=== PATIENT | female | born 1970 | race Hispanic/Latino ===

== ENCOUNTER 2018-02-03 11:45 | Emergency (ER) | payer OTHER ==
[2018-02-03] MEDS ORDERED: HYDROCODONE/APAP 10/325 TAB ONE (14:07)
--- NOTE | 2018-02-03 14:09 | ER ---
Nurse's Notes [facility] Name: Doreen Allison Age: 47 yrs Sex: Female : 1970 Arrival Date: 02/03/2018 Time: 11:48 Bed 26 Private MD: El Keller Diagnosis: Pain in right foot Presentation: 02/03 11:55 Presenting complaint: Patient states: Redness and swelling to pin site on right foot aj that started today. Patient also reports headache and rapid heart rate. Transition of care: patient was not received from another setting of care. Onset of symptoms was February 03, 2018. Care prior to arrival: None. 11:55 Method Of Arrival: Wheelchair aj 11:55 Acuity: LARRY 3 aj 14:42 Initial Sepsis Screen: Does the patient meet any 2 criteria? No. Patient's initial kr2 sepsis screen is negative. Does the patient have a suspected source of infection? No. Patient's initial sepsis screen is negative. Triage Assessment: 11:56 General: Appears in no apparent distress. comfortable, Behavior is calm, cooperative, aj appropriate for age. Pain: Complains of pain in right foot Pain currently is 10 out of 10 on a pain scale. Neuro: Level of Consciousness is awake, alert, obeys commands, Oriented to person, place, time, situation, Appropriate for age. Cardiovascular: Capillary refill Patient's skin is warm and dry. Respiratory: Airway is patent Respiratory effort is even, unlabored, Respiratory pattern is regular, symmetrical. Derm: Skin is intact, is healthy with good turgor, Skin is pink, warm \T\ dry. normal. Derm: Reports increased pain. 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 - Social history:: Smoking status: Patient/guardian denies using tobacco. Screenin:15 Abuse screen: Denies threats or abuse. Denies injuries from another. Nutritional kr2 screening: No deficits noted. Tuberculosis screening: No symptoms or risk factors identified. Fall Risk Gait- Impaired (20 pts.). Assessment: 13:15 General: Appears in no apparent distress. comfortable, well groomed, well developed, kr2 well nourished, Behavior is calm, cooperative. Pain: Complains of pain in right foot Pain currently is 7 out of 10 on a pain scale. Quality of pain is described as aching, Pain began last night Is continuous, Alleviated by nothing. Neuro: Level of Consciousness is awake, alert, obeys commands, Oriented to person, place, time, situation, Appropriate for age Intact. Cardiovascular: Heart tones S1 S2 Capillary refill < 3 seconds in bilateral fingers Patient's skin is warm and dry. Respiratory: Airway is patent Respiratory effort is even, unlabored, Respiratory pattern is regular, symmetrical. GI: Abdomen is flat, non-distended. : No signs and/or symptoms were reported regarding the genitourinary system. EENT: Oral mucosa is moist. Derm: Skin is healthy with good turgor, Skin is pink, warm \T\ dry. Musculoskeletal: Circulation, motion, and sensation intact. Patient has an external fixation device to right lower leg in place since August. She keeps it covered with an kaim wrap. Toes pink, palpable pedal pulses. Vital Signs: 11:56 BP 126 / 98; Pulse 108; Resp 20; Temp 99.6; Pulse Ox 97% on R/A; Weight 74.84 kg; aj Height 5 ft. 1 in. (154.94 cm); Pain 10/10; 14:43 BP 124 / 96; Pulse 100; Resp 15; Pulse Ox 99% on R/A; kr2 11:56 Body Mass Index 31.18 (74.84 kg, 154.94 cm) aj ED Course: 11:48 Patient arrived in ED. mr 11:48 El Keller DO is Private Physician. mr 11:56 Triage completed. aj 11:56 Arm band placed on left wrist. Patient placed in waiting room. aj 13:11 Minnie Gomez, BARBI is Primary Nurse. kr2 13:14 Precious Aguirre FNP-C is PHCP. kb 13:14 Nilesh Hdez MD is Attending Physician. kb 13:15 Patient has correct armband on for positive identification. Call light in reach. kr2 patient requested to stay in wheelchair. Pulse ox on. NIBP on. Door closed. Warm blanket given. 14:43 No provider procedures requiring assistance completed. Patient did not have IV access kr2 during this emergency room visit. Administered Medications: 14:10 Drug: [place] 10 mg-325 mg 1 tabs Route: PO; kr2 14:40 Follow up: Response: No adverse reaction kr2 Outcome: 14:09 Discharge ordered by MD. mckenna 14:43 Discharged to home via wheelchair, with family. kr2 14:43 Condition: good 14:43 Discharge instructions given to patient, Instructed on discharge instructions, follow up and referral plans. Demonstrated understanding of instructions, follow-up care. 14:43 Patient left the ED. kr2 Signatures: Precious Aguirre, BRIM BLOCKER-C BRIM BLOCKER-Pao Cueva RN RN aj Rivera, Maria mr Reaves, Karey, RN RN kr2
--- NOTE | 2018-02-03 14:09 | EDPHYS ---
Physician Documentation [facility] Name: Doreen Allison Age: 47 yrs Sex: Female : 1970 Arrival Date: 02/03/2018 Time: 11:48 Bed 26 Private MD: El Keller ED Physician Nilesh Hdez HPI: 02/03 13:46 This 47 yrs old Female presents to ER via Wheelchair with complaints of Foot kb Pain. 14:01 The patient presents with pain, that is acute, swelling. The complaints affect the kb right rose, anterior aspect of right ankle and dorsum of right foot. Context: The problem was sustained at home, resulted from a chronic condition, the patient is not able to bear weight, uses crutches, Problem is a result from a previous injury: pt has external fixation device in place from surgery done on 09/05/17. Onset: The symptoms/episode began/occurred today. Modifying factors: The symptoms are alleviated by hydrocodone, the symptoms are aggravated by nothing. Associated signs and symptoms: Pertinent positives: swelling, Pertinent negatives calf tenderness, fever, nausea, numbness, rash, tingling, vomiting, weakness. Treatment prior to arrival includes: prescription medications, hydrocodone. Severity of symptoms: At their worst the symptoms were moderate, in the emergency department the symptoms have improved. The patient has not experienced similar symptoms in the past. The patient has not recently seen a physician. Pt states she woke up with pain to RLE at 0130. States she only has a few hydrocodone left from her surgery so she wanted to come in to get some more. States her follow up visit with ortho keeps getting changed due to scheduling conflicts between her , surgeon and herself. States she thought one of the pin sites looked red and swollen this morning as well. Has home health that comes once a week, otherwise she cleans the surgical sites daily. Denies fever. States when she had the pain this morning she felt hot and like her heart was racing, but did not have a fever. States those symptoms went away. Called her ortho's office in [place] today and is awaiting a call back. 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 - Social history:: Smoking status: Patient/guardian denies using tobacco. ROS: 13:38 Constitutional: Negative for fever, chills, and weight loss, ENT: Negative for injury, kb pain, and discharge, Neck: Negative for injury, pain, and swelling, Respiratory: Negative for shortness of breath, cough, wheezing, and pleuritic chest pain, Abdomen/GI: Negative for abdominal pain, nausea, vomiting, diarrhea, and constipation, Back: Negative for injury and pain, : Negative for injury, bleeding, discharge, and swelling, MS/Extremity: Negative for injury and deformity, Neuro: Negative for headache, weakness, numbness, tingling, and seizure. 13:38 Skin: Positive for erythema, swelling, of the right foot. 13:43 MS/extremity: Positive for pain, of the right foot. kb Exam: 13:38 Constitutional: This is a well developed, well nourished patient who is awake, alert, kb and in no acute distress. Head/Face: Normocephalic, atraumatic. Chest/axilla: Normal chest wall appearance and motion. Nontender with no deformity. No lesions are appreciated. Cardiovascular: Regular rate and rhythm with a normal S1 and S2. No gallops, murmurs, or rubs. Normal PMI, no JVD. No pulse deficits. Respiratory: Lungs have equal breath sounds bilaterally, clear to auscultation and percussion. No rales, rhonchi or wheezes noted. No increased work of breathing, no retractions or nasal flaring. Abdomen/GI: Soft, non-tender, with normal bowel sounds. No distension or tympany. No guarding or rebound. No evidence of tenderness throughout. Neuro: Awake and alert, GCS 15, oriented to person, place, time, and situation. Cranial nerves II-XII grossly intact. Motor strength 5/5 in all extremities. Sensory grossly intact. Cerebellar exam normal. Normal gait. 13:38 Musculoskeletal/extremity: external fixation device to right lower extremity. No redness or swelling to pin sites. . Vital Signs: 11:56 BP 126 / 98; Pulse 108; Resp 20; Temp 99.6; Pulse Ox 97% on R/A; Weight 74.84 kg; aj Height 5 ft. 1 in. (154.94 cm); Pain 10/10; 14:43 BP 124 / 96; Pulse 100; Resp 15; Pulse Ox 99% on R/A; kr2 11:56 Body Mass Index 31.18 (74.84 kg, 154.94 cm) aj MDM: 13:14 Patient medically screened. kb 13:44 Data reviewed: vital signs, nurses notes. Data interpreted: Pulse oximetry: on room air kb is 97 %. Interpretation: normal. Counseling: I had a detailed discussion with the patient and/or guardian regarding: the historical points, exam findings, and any diagnostic results supporting the discharge/admit diagnosis, the need for outpatient follow up, a orthopedic surgeon, to return to the emergency department if symptoms worsen or persist or if there are any questions or concerns that arise at home. ED course: After evaluation, pt states the skin that she thought was swollen and red this morning looks normal now. States she hadn't looked at it since this morning. Educated to keep cleaning sites as she has been and get in touch with her orthopedic surgeon for follow up.. 14:08 ED course: Pt refused EKG. States she has a history of anxiety and knows that was what kb caused the symptoms this morning. "I got worked up.". Administered Medications: 14:10 Drug: [place] 10 mg-325 mg 1 tabs Route: PO; kr2 14:40 Follow up: Response: No adverse reaction kr2 Disposition: 02/03/18 14:09 Discharged to Home. Impression: Pain in right foot. - Condition is Stable. - Discharge Instructions: Musculoskeletal Pain. - Medication Reconciliation Form, Thank You Letter, Antibiotic Education, Prescription Opioid Use form. - Follow up: Emergency Department; When: As needed; Reason: Worsening of condition. Follow up: Private Physician; When: 2 - 3 days; Reason: Recheck today's complaints, Continuance of care, Re-evaluation by your physician. Addendum: 02/06/2018 08:47 Co-signature as Attending Physician, Nilesh Hdez MD I agree with the assessment and c hill plan of care. Signatures: Precious Aguirre, RIVAS-C RIVAS-Ckb Ingram, Pao, RN RN aj Lemuel, Nilesh, MD MD herman Patricia, Minnie, RN RN kr2 Corrections: (The following items were deleted from the chart) 02/03 13:44 13:38 Skin: Positive for erythema, swelling, of the right foot, kb kb 14:09 14:08 ED course: Pt refused EKG. . kb kb 14:24 13:34 EKG - Nurse/Tech ordered. kb kr2 14:43 14:09 02/03/2018 14:09 Discharged to Home. Impression: Pain in right foot. Condition is kr2 Stable. Forms are Medication Reconciliation Form, Thank You Letter, Antibiotic Education, Prescription Opioid Use. Follow up: Emergency Department; When: As needed; Reason: Worsening of condition. Follow up: Private Physician; When: 2 - 3 days; Reason: Recheck today's complaints, Continuance of care, Re-evaluation by your physician. kb
== END 2018-02-03 14:43 | disposition home or self-care (01) ==
LOC: ER 11:45
DX: M79.671 Pain in right foot (principal); F43.10 Post-traumatic stress disorder, unspecified; Z90.12 Acquired absence of left breast and nipple
CPT/HCPCS: 99283

== ENCOUNTER 2018-02-16 11:01 | Emergency (ER) | payer OTHER ==
--- OUTSIDE RECORDS SUMMARY | 2018-02-16 11:03 | XMS REPORT ---
:1970 Author Organization e[employer] Care Team Providers Name Role Phone El Keller Provider Role Unavailable Allergies No Known Allergies Problems Problem Type Condition Code Onset Dates Condition Status Problem Benign essential HTN I10 Active Problem Abnormal liver function test R94.5 Active Problem Asthma without status asthmaticus J45.909 Active or acute exacerbation Problem Anemia D64.9 Active Problem Thrombocytopenia D69.6 Active Problem Vitamin D deficiency E55.9 Active Problem Major depressive disorder, single F32.2 Active episode, severe without psychotic features Problem Alcoholic fatty liver K70.0 Active Problem Depression with anxiety F41.8 Active Problem Alcohol use, unspecified with F10.988 Active other alcohol-induced disorder Assessment Thrombocytopenia D69.6 Active Assessment Vitamin D deficiency E55.9 Active Assessment Anemia D64.9 Active Assessment Depression with anxiety F41.8 Active Assessment Closed fracture of right lower S82.91XS Active extremity, sequela Assessment Benign essential HTN I10 Active Assessment Alcoholic fatty liver K70.0 Active Assessment Major depressive disorder, single F32.2 Active episode, severe without psychotic features Medications Medication Code Code Instructions Start End Status Dosage System Date Date Trazodone HCl [facility] 13462350070 50 MG Orally Inactive 1 tablet Once a day at bedtime as needed Ferrous Sulfate [facility] 58101903130 325 (65 Fe) MG Active 1 tablet Orally Once a day Flonase ND 45690353131 50 MCG/ACT Active 1 spray in Nasally Once a each day nostril Vitamin B1 [facility] 04727775437 100 MG Orally March Active 1 tablet Once a day 2017 Protonix [facility] 30019904793 40 Orally Once Active TAKE ONE a day TABLET BY MOUTH DAILY Lisinopril ND 54097017859 10 MG Orally Active 1 tablet Once a day Diltiazem HCl [facility] 75044454626 60 MG Orally Active 1 tablet Two times a day before meals and at bedtime Topiramate ND 33971820843 50 MG Orally Active 1 tablet Twice a day ProAir HFA [facility] 77592176454 108 (90 Base) Active 2 puffs as MCG/ACT needed Inhalation every 6 hrs Advair Diskus [facility] 89625341402 100-50 MCG/DOSE Active 1 puff Inhalation Twice a day Folic Acid [facility] 71662244241 1 MG Orally March Active 1 tablet Once a day 2017 Wellbutrin XL [facility] 03723595803 300 MG Orally Active 1 tablet Once a day in the morning Mirtazapine [facility] 22986966543 15 MG Orally Active 1 tablet Once a day at bedtime Results No Known Results Summary Purpose eClinicalWorks Submission
[2018-02-16] MEDS ORDERED: HYDROCODONE/APAP 7.5/325 MG TAB ONE (11:14)
--- NOTE | 2018-02-16 13:00 | RAD REPORT ---
EXAM DESCRIPTION: RAD - Pelvis - 02/16/2018 12:12 pm CLINICAL HISTORY: Fall, pelvic and hip pain COMPARISON: None. TECHNIQUE: AP imaging of the pelvis was obtained. FINDINGS: No fracture of the bony pelvis identified. SI joint degenerative changes are present, rela tively mild. No fracture or dislocation of either proximal femur. No AVN or focal femoral head abnorm ality. No hip joint effusion or periarticular abnormality. IMPRESSION: No pelvis or proximal femur fracture.
--- NOTE | 2018-02-16 13:02 | RAD REPORT ---
EXAM DESCRIPTION: RAD - Femur Right - 02/16/2018 12:11 pm CLINICAL HISTORY: Fall, leg pain multiple AP and cross-table lateral views of the femur were obtaine d. COMPARISON: None. FINDINGS: No fracture, dislocation or periosteal reaction noted. No AVN or focal femoral head abnorm ality. No joint effusion is identifiable. No acute bone findings seen. No air or foreign body in the soft tissues. Degenerative changes at the hip in the OR minimal. Partially imaged external fixator at the proximal tibia. IMPRESSION: No fracture or acute femur finding.
--- NOTE | 2018-02-16 13:13 | RAD REPORT ---
EXAM DESCRIPTION: RAD - Tib Fib Right - 02/16/2018 12:11 pm CLINICAL HISTORY: Fall, leg pain, prior fracture repair with external fixator COMPARISON: August 2017 FINDINGS: External fixator is in place along the medial aspect of the right tibia. Surgical hardware is in place from prior distal tibia and fibula fracture repair. There is still a lucent fracture fay e obliquely through the distal tibia. A new or acute fracture is not identified. There is no dislocat ion or periosteal reaction noted. IMPRESSION: No new fracture or acute bone finding identifiable. Internal fixation hardware and external fixator are in place with no suspicious finding.
[2018-02-16] MEDS ORDERED: IBUPROFEN 400 MG TAB ONE (13:27)
--- NOTE | 2018-02-16 13:30 | ER ---
Nurse's Notes [facility] Name: Doreen Allison Age: 47 yrs Sex: Female : 1970 Arrival Date: 02/16/2018 Time: 11:03 Bed 20 Private MD: Diagnosis: Pain in right knee Presentation: 02/16 11:05 Presenting complaint: states: RIGHT knee pain that radiates to groin after hb twisting leg while walking with walker. Pt had right ankle sx Aug 2017, external fixation device in place. Transition of care: patient was not received from another setting of care. Onset of symptoms was February 16, 2018. Risk Assessment: Do you want to hurt yourself or someone else? Patient reports no desire to harm self or others. Initial Sepsis Screen: Does the patient meet any 2 criteria? No. Patient's initial sepsis screen is negative. Does the patient have a suspected source of infection? No. Patient's initial sepsis screen is negative. Care prior to arrival: None. 11:05 Method Of Arrival: EMS: [facility] hb 11:05 Acuity: LARRY 3 hb Historical: - Allergies: 11:09 No Known Allergies; hb - Home Meds: 11:09 Remeron 15 mg Oral tab once daily [Active]; Lisinopril Oral [Active]; aspirin 81 mg hb oral TbEC [Active]; - PMHx: 11:09 PTSD; Hypertension; Anxiety; Depression; Anemia; hb - PSHx: 11:09 Ankle - RIGHT; hb - Immunization history:: Adult Immunizations up to date. - Social history:: Smoking status: Patient/guardian denies using tobacco. - Ebola Screening: : No symptoms or risks identified at this time. Screenin:10 Abuse screen: Denies threats or abuse. Denies injuries from another. Nutritional hb screening: No deficits noted. Tuberculosis screening: No symptoms or risk factors identified. Fall Risk Total Garcia Fall Scale indicates Low Risk Score (25-44 pts). Fall prevention measures have been instituted. Side Rails Up X 2 Frequent Obs/Assesments occuring As available Patient and Family Educated on Fall Prevention Program and strategies. Assessment: 11:10 General: Appears in no apparent distress. Behavior is calm, cooperative. Pain: Pain hb currently is 10 out of 10 on a pain scale. Neuro: Level of Consciousness is awake, alert, obeys commands, Oriented to person, place, time, situation. Cardiovascular: Capillary refill < 3 seconds Patient's skin is warm and dry. Respiratory: Airway is patent Trachea midline Respiratory effort is even, unlabored, Respiratory pattern is regular, symmetrical. GI: No signs and/or symptoms were reported involving the gastrointestinal system. : No signs and/or symptoms were reported regarding the genitourinary system. EENT: No signs and/or symptoms were reported regarding the EENT system. Derm: Skin is intact, is healthy with good turgor, Skin is pink, warm \T\ dry. Musculoskeletal: Reports pain in right knee. 12:00 Reassessment: Patient appears in no apparent distress at this time. Patient and/or hb family updated on plan of care and expected duration. Pain level reassessed. Patient is alert, oriented x 3, equal unlabored respirations, skin warm/dry/pink. 13:00 Reassessment: Patient appears in no apparent distress at this time. No changes from previously documented assessment. Patient and/or family updated on plan of care and expected duration. Pain level reassessed. Patient is alert, oriented x 3, equal unlabored respirations, skin warm/dry/pink. 13:58 Reassessment: Patient appears in no apparent distress at this time. Patient and/or hb family updated on plan of care and expected duration. Pain level reassessed. Patient is alert, oriented x 3, equal unlabored respirations, skin warm/dry/pink. Patient states symptoms have improved. 14:00 Reassessment: Discharge ordered, awaiting transportation at this time. hb Vital Signs: 11:04 BP 114 / 54; Pulse 88; Resp 16; Temp 98.5(O); Pulse Ox 99% on R/A; Pain 10/10; hb 12:30 BP 112 / 60; Pulse 68; Resp 15; Pulse Ox 100% ; Pain 8/10; hb 13:00 BP 108 / 68; Pulse 75; Resp 15; Pulse Ox 100% ; Pain 6/10; hb 13:59 BP 110 / 72; Pulse 66; Resp 15; Pulse Ox 100% on R/A; Pain 5/10; hb ED Course: 11:03 Patient arrived in ED. hb 11:03 Nilesh Espana PA is PHCP. cp 11:03 Nehemias Javed MD is Attending Physician. cp 11:08 Triage completed. hb 11:10 Arm band placed on right wrist. hb 11:10 Patient has correct armband on for positive identification. Bed in low position. Call hb light in reach. Side rails up X2. 11:11 Erika Morales, RN is Primary Nurse. hb 12:04 XRAY Pelvis In Process Unspecified. EDMS 12:04 XRAY Femur RIGHT In Process Unspecified. EDMS 12:04 XRAY Tib Fib RIGHT In Process Unspecified. EDMS 12:09 X-ray completed. Portable x-ray completed in exam room. Patient tolerated procedure kp1 well. 13:26 XRAY Knee RIGHT 3 view In Process Unspecified. EDMS 14:11 No provider procedures requiring assistance completed. Patient did not have IV access hb during this emergency room visit. Administered Medications: 11:15 Drug: Hydrocodone-Acetaminophen (7.5 mg-325 mg) 1 tabs Route: PO; hb 12:00 Follow up: Response: No adverse reaction hb 13:20 Drug: Ibuprofen 800 mg Route: PO; hb 14:30 Follow up: Response: No adverse reaction; Pain is decreased hb Outcome: 13:29 Discharge ordered by . cp 14:11 Discharged to home via wheelchair. hb 14:11 Condition: stable 14:11 Discharge instructions given to patient, Instructed on discharge instructions, follow up and referral plans. medication usage, Demonstrated understanding of instructions, follow-up care, medications, Prescriptions given X 1. 14:51 Patient left the ED. hb Signatures: Dispatcher [employer] Nilesh Espana PA PA cp Erika Morales, BARBI RN Elba Brambila kp1 Corrections: (The following items were deleted from the chart) 12:01 11:04 BP 114 / 54; Pulse 88bpm; Resp 16bpm; Pulse Ox 99% RA; Temp 97.8F Oral; Pain hb 10/10; hb
--- NOTE | 2018-02-16 13:30 | EDPHYS ---
Physician Documentation [facility] Name: Doreen Allison Age: 47 yrs Sex: Female : 1970 Arrival Date: 02/16/2018 Time: 11:03 Bed 20 Private MD: ED Physician Nehemias Javed HPI: 02/16 11:10 This 47 yrs old Female presents to ER via EMS with complaints of Knee Pain. cp 11:10 The patient presents with an injury, pain, that is acute. cp 11:10 The complaints affect the right knee. cp 11:10 Context: resulted from twisting of the extremity, the patient can partially bear cp weight, the patient is able to ambulate, with moderate difficulty, must have assistance, Problem is a result from a previous injury: Yes. fracture to lower leg requiring surgery. 11:10 Onset: The symptoms/episode began/occurred this morning. cp Historical: - Allergies: 11:09 No Known Allergies; hb - Home Meds: 11:09 Remeron 15 mg Oral tab once daily [Active]; Lisinopril Oral [Active]; aspirin 81 mg hb oral TbEC [Active]; - PMHx: 11:09 PTSD; Hypertension; Anxiety; Depression; Anemia; hb - PSHx: 11:09 Ankle - RIGHT; hb - Immunization history:: Adult Immunizations up to date. - Social history:: Smoking status: Patient/guardian denies using tobacco. - Ebola Screening: : No symptoms or risks identified at this time. ROS: 11:15 Constitutional: Negative for body aches, chills, fever, poor PO intake. cp 11:15 Eyes: Negative for injury, pain, redness, and discharge. cp 11:15 ENT: Negative for drainage from ear(s), ear pain, sore throat, difficulty swallowing, difficulty handling secretions. 11:15 Cardiovascular: Negative for chest pain, edema, palpitations. 11:15 Respiratory: Negative for cough, shortness of breath, wheezing. 11:15 Abdomen/GI: Negative for abdominal pain, nausea, vomiting, and diarrhea, black/tarry stool, rectal bleeding. 11:15 Back: Negative for pain at rest, pain with movement, radiated pain. 11:15 MS/extremity: Positive for decreased range of motion, deformity, pain, tenderness, of the right leg. 11:15 Skin: Negative for cellulitis, rash. 11:15 All other systems are negative. Exam: 11:22 Constitutional: The patient appears in no acute distress, alert, awake, non-toxic, well cp developed, well nourished, uncomfortable. 11:22 Head/Face: Normocephalic, atraumatic. cp 11:22 Eyes: Periorbital structures: appear normal, Conjunctiva: normal, no exudate, no injection, Lids and lashes: appear normal, bilaterally. 11:22 ENT: External ear(s): are unremarkable, Nose: is normal, Mouth: is normal, Posterior pharynx: is normal, airway is patent. 11:22 Neck: ROM/movement: is normal, is supple, without pain, no range of motions limitations, no nuchal rigidity. 11:22 Chest/axilla: Inspection: normal, Palpation: is normal, no crepitus, no tenderness. 11:22 Cardiovascular: Rate: normal, Rhythm: regular, Edema: is not appreciated. 11:22 Respiratory: the patient does not display signs of respiratory distress, Respirations: normal, no use of accessory muscles, no retractions, no splinting, no tachypnea, labored breathing, is not present, Breath sounds: are clear throughout, no decreased breath sounds, no stridor, no wheezing. 11:22 Abdomen/GI: Inspection: abdomen appears normal, Palpation: abdomen is soft and non-tender, in all quadrants. 11:22 Back: pain, is absent, ROM is painless. Vital Signs: 11:04 BP 114 / 54; Pulse 88; Resp 16; Temp 98.5(O); Pulse Ox 99% on R/A; Pain 10/10; hb 12:30 BP 112 / 60; Pulse 68; Resp 15; Pulse Ox 100% ; Pain 8/10; hb 13:00 BP 108 / 68; Pulse 75; Resp 15; Pulse Ox 100% ; Pain 6/10; hb 13:59 BP 110 / 72; Pulse 66; Resp 15; Pulse Ox 100% on R/A; Pain 5/10; hb MDM: 11:04 Patient medically screened. cp 13:28 Data reviewed: vital signs, nurses notes, radiologic studies, plain films. cp 13:28 Test interpretation: by ED physician or midlevel provider: plain radiologic studies. cp 02/16 11:05 Order name: XRAY Pelvis cp 02/16 11:05 Order name: XRAY Femur RIGHT cp 02/16 11:05 Order name: XRAY Tib Fib RIGHT cp 02/16 12:32 Order name: XRAY Knee RIGHT 3 view cp Administered Medications: 11:15 Drug: Hydrocodone-Acetaminophen (7.5 mg-325 mg) 1 tabs Route: PO; hb 12:00 Follow up: Response: No adverse reaction hb 13:20 Drug: Ibuprofen 800 mg Route: PO; hb 14:30 Follow up: Response: No adverse reaction; Pain is decreased hb Disposition: 19:15 Co-signature as Attending Physician, Nehemias Javed MD I agree with the assessment and kdr plan of care. Disposition: 02/16/18 13:29 Discharged to Home. Impression: Pain in right knee. - Condition is Stable. - Prescriptions for Tylenol- Codeine #3 300-30 mg Oral Tablet - take 2 tablets by ORAL route every 6 hours As needed; 15 tablet. - Medication Reconciliation Form, Thank You Letter, Antibiotic Education, Prescription Opioid Use form. - Follow up: Private Physician; When: 2 - 3 days; Reason: Recheck today's complaints, primary orthopedist. - Problem is new. - Symptoms have improved. Signatures: Dispatcher [employer] EDMS Nehemias Javed MD MD [facility] Nilesh Espana PA PA cp Erika Morales RN RN Corrections: (The following items were deleted from the chart) 14:51 13:29 02/16/2018 13:29 Discharged to Home. Impression: Pain in right knee. Condition is hb Stable. Forms are Medication Reconciliation Form, Thank You Letter, Antibiotic Education, Prescription Opioid Use. Follow up: Private Physician; When: 2 - 3 days; Reason: Recheck today's complaints, primary orthopedist. Problem is new. Symptoms have improved. cp
--- NOTE | 2018-02-16 14:16 | RAD REPORT ---
EXAM DESCRIPTION: RAD - Knee Right 3 View - 02/16/2018 1:26 pm CLINICAL HISTORY: Fall, knee pain, recent fracture repair COMPARISON: None. FINDINGS: No fracture, dislocation or periosteal reaction.No joint effusion seen. No joint space mirna rowing. Slight cortical irregularity is present along the lateral and postero lateral margin of the d istal femur that is believed be part of degenerative change and not fracture. IMPRESSION: No acute fracture is confirmed on this study and no joint effusion is seen. If the patient has continued pain symptoms or exam findings at upper portion to the imaging findings, thin section CT imaging could be performed to evaluate for fracture.
== END 2018-02-16 14:51 | disposition home or self-care (01) ==
LOC: ER 11:01
DX: M25.561 Pain in right knee (principal); I10 Essential (primary) hypertension; F41.8 Other specified anxiety disorders
CPT/HCPCS: 72170; 99284

== ENCOUNTER 2018-06-08 17:08 | Emergency (ER) | payer OTHER ==
--- OUTSIDE RECORDS SUMMARY | 2018-06-08 17:10 | XMS REPORT ---
[...] Status Dosage System Date Date Trazodone HCl [facility] 19835195688 50 MG Orally Inactive 1 tablet Once a day at bedtime as needed Ferrous Sulfate [facility] 69992834732 325 (65 Fe) MG Active 1 tablet Orally Once a day Flonase ND 05895029721 50 MCG/ACT Active 1 spray in Nasally Once a each day nostril Vitamin B1 [facility] 70678839785 100 MG Orally March Active 1 tablet Once a day 2017 Protonix [facility] 50015381525 40 Orally Once Active TAKE ONE a day TABLET BY MOUTH DAILY Lisinopril ND 06145171139 10 MG Orally Active 1 tablet Once a day Diltiazem HCl [facility] 39967726826 60 MG Orally Active 1 tablet Two times a day before meals and at bedtime Topiramate ND 95585586930 50 MG Orally Active 1 tablet Twice a day ProAir HFA [facility] 04041966234 108 (90 Base) Active 2 puffs as MCG/ACT needed Inhalation every 6 hrs Advair Diskus [facility] 68126928417 100-50 MCG/DOSE Active 1 puff Inhalation Twice a day Folic Acid [facility] 39581039808 1 MG Orally March Active 1 tablet Once a day 2017 Wellbutrin XL [facility] 70659311050 300 MG Orally Active 1 tablet Once a day in the morning Mirtazapine [facility] 92267686588 15 MG Orally Active 1 tablet Once a day at bedtime Results No Known Results Summary Purpose eClinicalWorks Submission
--- OUTSIDE RECORDS SUMMARY | 2018-06-08 17:10 | XMS REPORT ---
:1970 Author Organization eClinicalWorks Care Team Providers Name Role Phone [facility] Provider Role Unavailable Allergies No Known Allergies [...] F41.8 Active Problem Alcohol use, unspecified with other F10.988 Active alcohol-induced disorder Medications No Known Medications Results No Known Results Summary Purpose eClinicalWorks Submission
--- NOTE | 2018-06-08 17:47 | RAD REPORT ---
EXAM DESCRIPTION: CT - Head Brain Wo Cont - 06/08/2018 5:38 pm CLINICAL HISTORY: MENTAL STATUS CHANGE Drowsiness COMPARISON: No comparisons TECHNIQUE: All CT scans are performed using dose optimization technique as appropriate and may inclu de automated exposure control or mA/KV adjustment according to patient size. FINDINGS: No intracranial hemorrhage, hydrocephalus or extra-axial fluid collection.No areas of brai n edema or evidence of midline shift. The paranasal sinuses and mastoids are clear. The calvarium is intact. IMPRESSION: No acute intracranial abnormality.
[2018-06-08 18:07] LABS: Absolute Monocytes 0.4 K/uL (0.1-1.3); Basophils % 0.2 % (0-1.3); Eosinophils % 1.6 % (0-4.4); Hematocrit 35.8 % (36.0-45.0); Lymphocytes % 26.8 % (15.3-44.8); MCH 32.9 pg (27.0-35.0); MCV 92.3 fL (80-100); MPV 7.4 fL (7.6-11.3); Monocytes % 4.7 % (3.3-12.3); RBC Red Blood Cell Count 3.88 M/uL (3.86-4.86)
[2018-06-08 18:11] LABS: Protime INR 1.18
[2018-06-08 18:27] LABS: ALT/SGPT 21 U/L (12-78); AST/SGOT 16 U/L (15-37); Albumin 4.6 g/dL (3.4-5.0); Alkaline Phosphatase 126 U/L (45-117); BUN Blood Urea Nitrogen 6 mg/dL (7-18); Bicarbonate 21 mmol/L (21-32); Bilirubin Direct 0.3 mg/dL (0-0.2); Glucose Level 91 mg/dL (74-106); Protein, Total 8.7 g/dL (6.4-8.2); Sodium Level 140 mmol/L (136-145)
[2018-06-08] MEDS ORDERED: POTASSIUM CL SA 10 MEQ TAB PO ONE (19:14)
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
--- NOTE | 2018-06-10 12:16 | EKG ---
Test Date: 2018-06-08 Test Time: 17:14:22 Automotive Glass Specialist: KODY MEASUREMENT RESULTS: Intervals: Rate: 90 OR: 120 QRSD: 100 QT: 392 QTc: 479 [place]: P: -2 OR: 120 QRS: -3 T: 14 INTERPRETIVE STATEMENTS: Normal sinus rhythm Voltage criteria for left ventricular hypertrophy Abnormal ECG Compared to ECG 09/05/2017 16:27:07 Sinus tachycardia no longer present Electronically Signed On 06-10-18 12:08:35 CDT by Abhinav Burris
== END 2018-06-08 20:15 | disposition home or self-care (01) ==
LOC: ER 17:08
DX: F10.129 Alcohol abuse with intoxication, unspecified (principal); I10 Essential (primary) hypertension; F43.10 Post-traumatic stress disorder, unspecified; F32.9 Major depressive disorder, single episode, unspecified; F41.9 Anxiety disorder, unspecified; Z79.82 Long term (current) use of aspirin; Z90.12 Acquired absence of left breast and nipple
CPT/HCPCS: 36415; 70450; 80048; 80076; 80320; 80329; 85025; 85610; 85730; 93005; 99285

== ENCOUNTER 2018-11-06 16:24 | Emergency (ER) | payer OTHER ==
--- OUTSIDE RECORDS SUMMARY | 2018-11-06 16:26 | XMS REPORT ---
:1970 Author Organization [employer] Care Team Providers Name Role Phone [facility] Provider Role Unavailable Allergies No Known Allergies [...]
--- OUTSIDE RECORDS SUMMARY | 2018-11-06 16:26 | XMS REPORT ---
[...] Status Dosage System Date Date Trazodone HCl [facility] 83809573649 50 MG Orally Inactive 1 tablet Once a day at bedtime as needed Ferrous Sulfate [facility] 64376778458 325 (65 Fe) MG Active 1 tablet Orally Once a day Flonase ND 35926972576 50 MCG/ACT Active 1 spray in Nasally Once a each day nostril Vitamin B1 [facility] 29109409666 100 MG Orally March Active 1 tablet Once a day 2017 Protonix [facility] 29851944161 40 Orally Once Active TAKE ONE a day TABLET BY MOUTH DAILY Lisinopril ND 61834312028 10 MG Orally Active 1 tablet Once a day Diltiazem HCl [facility] 18071890498 60 MG Orally Active 1 tablet Two times a day before meals and at bedtime Topiramate ND 18933476515 50 MG Orally Active 1 tablet Twice a day ProAir HFA [facility] 63024805152 108 (90 Base) Active 2 puffs as MCG/ACT needed Inhalation every 6 hrs Advair Diskus [facility] 83396822363 100-50 MCG/DOSE Active 1 puff Inhalation Twice a day Folic Acid [facility] 69488690298 1 MG Orally March Active 1 tablet Once a day 2017 Wellbutrin XL [facility] 25406774915 300 MG Orally Active 1 tablet Once a day in the morning Mirtazapine [facility] 16054489326 15 MG Orally Active 1 tablet Once a day at bedtime Results No Known Results Summary Purpose eClinical[employer] Submission
[2018-11-06 16:58] LABS: Absolute Lymphocytes (CBC) 1.6 K/uL (0.7-4.9); Absolute Monocytes 0.3 K/uL (0.1-1.3); Absolute Neutrophil 2.6 K/uL (1.8-8.0); Basophils % 0.6 % (0-1.3); Hematocrit 37.4 % (36.0-45.0); Lymphocytes % 34.9 % (15.3-44.8); MPV 7.5 fL (7.6-11.3); Monocytes % 6.8 % (3.3-12.3); RBC Red Blood Cell Count 4.02 M/uL (3.86-4.86)
[2018-11-06 17:02] LABS: Protime INR 1.09
--- NOTE | 2018-11-06 17:23 | EKG ---
Test Date: 2018-11-06 Test Time: 16:49:25 School Services Officer: KODY MEASUREMENT RESULTS: Intervals: Rate: 79 TN: 130 QRSD: 104 QT: 406 QTc: 465 [place]: P: 42 TN: 130 QRS: 5 T: 18 INTERPRETIVE STATEMENTS: Normal sinus rhythm Voltage criteria for left ventricular hypertrophy Nonspecific T wave abnormality Prolonged QT Abnormal ECG Compared to ECG 06/08/2018 17:14:22 T-wave abnormality now present Prolonged QT interval now present Electronically Signed On 11-06-18 17:23:24 AUTOMATIC HEMMER by Evan Valdez
[2018-11-06 17:26] LABS: ALT/SGPT 74 U/L (12-78); AST/SGOT 54 U/L (15-37); Albumin 3.7 g/dL (3.4-5.0); Alkaline Phosphatase 133 U/L (45-117); BUN Blood Urea Nitrogen 8 mg/dL (7-18); Bicarbonate 24 mmol/L (21-32); Bilirubin Direct 0.3 mg/dL (0-0.2); Bilirubin Total 0.7 mg/dL (0.2-1.0); Glucose Level 96 mg/dL (74-106); Potassium 3.3 mmol/L (3.5-5.1); Protein, Total 7.4 g/dL (6.4-8.2); Sodium Level 147 mmol/L (136-145)
[2018-11-06] MEDS ORDERED: NA CHLORIDE 0.9% 1,000 ML ONE (18:01)
[2018-11-06 18:13] LABS: Blood Morphology Comment NOT SEEN (NOT SEEN); Platelet Estimate DECR; Urine White Blood Cell Casts OK
[2018-11-06 18:30] LABS: Barbiturates NEGATIVE (NEGATIVE); Benzodiazepines NEGATIVE (NEGATIVE); Cocaine NEGATIVE (NEGATIVE); METHAMPHETAM NEGATIVE (NEGATIVE); Methadone NEGATIVE (NEGATIVE); Opiates NEGATIVE (NEGATIVE); Phencyclidine NEGATIVE (NEGATIVE); THC Cannibis NEGATIVE (NEGATIVE)
--- NOTE | 2018-11-06 18:43 | ER ---
Nurse's Notes [facility] Name: Doreen Allison Age: 48 yrs Sex: Female : 1970 Arrival Date: 11/06/2018 Time: 16:24 Bed 5 Private MD: Diagnosis: Alcohol abuse;Depression Presentation: 11/06 16:25 Presenting complaint: EMS states: called out because pt took a "handful" of topamax iw because "she didn't want to feel anymore" approximately 20 minutes [employer] [employer]. Police stated that the patient had knives to her wrists when they arrived but she was disarmed. Transition of care: patient was not received from another setting of care. Onset of symptoms was November 06, 2018. Risk Assessment: Do you want to hurt yourself or someone else? Patient reports desire/thoughts of hurting themselves or someone else. Provider notified. 16:25 Method Of Arrival: EMS: [facility] iw 16:25 Acuity: LARRY 2 iw 16:30 Initial Sepsis Screen: Does the patient meet any 2 criteria? No. Patient's initial jl7 sepsis screen is negative. Does the patient have a suspected source of infection? No. Patient's initial sepsis screen is negative. Care prior to arrival: None. Triage Assessment: 16:30 General: Appears in no apparent distress. uncomfortable, Behavior is cooperative, jl7 drowsy. Pain: Denies pain. 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 N/A - Pre-menarche jl7 Historical: - Allergies: 16:28 No Known Allergies; iw - Home Meds: 18:59 aspirin 81 mg Oral TbEC [Active]; bupropion HCl 300 mg Oral Tb24 1 tab once daily jl7 [Active]; diltiazem HCl 60 mg Oral tab 1 tab daily [Active]; duloxetine 20 mg Oral cpDR 1 cap daily [Active]; ferrous sulfate 325 mg (65 mg iron) Oral TbEC [Active]; folic acid 1 mg Oral tab 1 tab once daily [Active]; lisinopril 10 mg Oral tab 1 tab once daily [Active]; pantoprazole 40 mg Oral TbEC 1 tab once daily [Active]; Potassium Chloride Oral [Active]; thiamine HCl (vitamin B1) 100 mg Oral tab daily [Active]; topiramate 50 mg Oral tab 1 tab daily [Active]; trazodone 50 mg Oral tab 1 tab daily [Active]; Vitamin D3 Oral [Active]; - PMHx: 16:28 Anemia; Anxiety; Depression; Hypertension; PTSD; iw - Immunization history:: Adult Immunizations unknown. - Ebola Screening: : No symptoms or risks identified at this time. - Social history:: Smoking status: Patient/guardian denies using tobacco, Patient/guardian denies using alcohol, street drugs. Screenin:38 Abuse screen: Denies threats or abuse. Denies injuries from another. Nutritional iw screening: No deficits noted. Tuberculosis screening: No symptoms or risk factors identified. 18:59 Fall Risk IV access (20 points). Total Garcia Fall Scale indicates No Risk (0-24 pts). jl7 Assessment: 16:30 General: Appears in no apparent distress. uncomfortable, Behavior is cooperative, jl7 drowsy. Pain: Denies pain. Neuro: Level of Consciousness is obeys commands, Drowsy. Oriented to person, place, time, situation, Speech is slurred. Cardiovascular: Patient's skin is warm and dry. Respiratory: Airway is patent Respiratory effort is even, unlabored, Respiratory pattern is regular, symmetrical. GI: No signs and/or symptoms were reported involving the gastrointestinal system. : No signs and/or symptoms were reported regarding the genitourinary system. EENT: No signs and/or symptoms were reported regarding the EENT system. Derm: Skin is pink, warm \\T\\ dry. Musculoskeletal: No signs and/or symptoms reported regarding the musculoskeletal system. 16:33 Reassessment: spoke with Leia from poison control [place], recommends tox workup, ASA iw and Tylenol level 4 hour post ingestion, EKG, fluids, recommends 8 hour observation, if symptomatic admit to hospital, if asymptomatic consult psych, monitor for tremors, seizures, hypotension, confusion, give symptomatic and supportive care, pt is candidate for activated charcoal 1gm/kg, 50 gm max. 17:30 Reassessment: Patient appears in no apparent distress at this time. No changes from jl7 previously documented assessment. Patient and/or family updated on plan of care and expected duration. Pain level reassessed. Patient is alert, oriented x 3, equal unlabored respirations, skin warm/dry/pink. 18:30 Reassessment: Patient appears in no apparent distress at this time. Patient and/or jl7 family updated on plan of care and expected duration. Pain level reassessed. Patient is alert, oriented x 3, equal unlabored respirations, skin warm/dry/pink. Pt laying in bed watching TV, denies discomfort at this time. Sitter remains at bedside. 19:53 General: Appears in no apparent distress. Behavior is calm, cooperative, appropriate ea for age. Pain: Denies pain. Neuro: Level of Consciousness is awake, alert, obeys commands, Oriented to person, place, time, situation. Cardiovascular: Patient's skin is warm and dry. Respiratory: Airway is patent Respiratory effort is even, unlabored, Respiratory pattern is regular, symmetrical. GI: No signs and/or symptoms were reported involving the gastrointestinal system. : No signs and/or symptoms were reported regarding the genitourinary system. Derm: Skin is pink, warm \\T\\ dry. Musculoskeletal: Circulation, motion, and sensation intact. 22:00 Reassessment: Patient appears in no apparent distress at this time. No changes from ao previously documented assessment. Patient and/or family updated on plan of care and expected duration. Pain level reassessed. Patient sleeping with no SS of distress. Waiting on transfer. Sitter at bedside. 11/07 00:00 Reassessment: Patient appears in no apparent distress at this time. Patient and/or ao family updated on plan of care and expected duration. Pain level reassessed. Sitter at bedside. 02:19 Reassessment: Patient and/or family updated on plan of care and expected duration. Pain ea level reassessed. Pt complaining of feeling anxious, denies chest pain states, "I just feel very anxious" Patient denies pain at this time. 03:20 Reassessment: Pt has been reassessed by Malorie CABA and after discussion with pt he will be fc discharging her. Dr Baca notified of discharge from ER pending. 03:41 Reassessment: Attempted to call Pt . Edmund [phone]. ea 03:50 Reassessment: called back,reports he will be unable to pick her up until he ea gets off at 5 AM. 04:15 Reassessment: Patient and/or family updated on plan of care and expected duration. Pain ea level reassessed. Patient is alert, oriented x 3, equal unlabored respirations, skin warm/dry/pink. 05:21 Reassessment: Patient and/or family updated on plan of care and expected duration. Pain ea level reassessed. Patient is alert, oriented x 3, equal unlabored respirations, skin warm/dry/pink. Discharge instructions given to patient, verbalized the understanding of instruction Patient denies pain at this time. Patient states symptoms have improved. 05:35 Reassessment: Patient and/or family updated on plan of care and expected duration. Pain ea level reassessed. Personal belongings obtained from security, medications given to pt's . Pt left ambulatory accompanied by , tolerating well. Psych: 11/06 16:30 Subjective: Patient's mood is sad, Delusions are denied, Hallucinations are denied jl7 Having thoughts of suicide. Plan for suicide is Pt took handful of Topamax, states "I wanted to just not feel anymore but I don't want to hurt myself anymore.". Objective: Patient is cooperative, Speech is normal, Affect is appropriate. Interventions: Removed personal items and placed in bag. Patient placed in hospital gown. Searched person for dangerous items. Urine collected and sent for urine drug test. Belonging list filled out. Suicide Risk Assessment: Sad Person Scale: Sex of patient: Female: Score 0 points. Age of patient: Score 0 point if patient falls outside of specified age parameters. Depression: Score 1 point if signs of depression are present. Previous Attempt: Score 0 point if patient has not previously attempted suicide. Substance Abuse: Score 0 point if patient does not abuse alcohol or drugs. Rational Thinking: Score 0 point if patient has rational thinking. Social Support: Score 0 if social support is present/available. Organized Plan: Score 1 point if patient had a plan in place. Relationship: Score 0 point if patient has a spouse or domestic partner. Chronic Sickness: Score 0 point if patient does not have a chronic illness, debilitating, or severe disorder. TOTAL POINTS: If total points are 0-2, proposed clinical action is to send home with follow-up. Safety Checks: Personal items have been removed. Door is open. No visitors are present at this time. Pt denies substance abuse. Vital Signs: 16:29 BP 121 / 74; Pulse 91; Resp 29; Pulse Ox 96% on R/A; Pain 0/10; iw 16:54 BP 113 / 69; Pulse 86; Resp 26; Pulse Ox 96% on R/A; jb1 17:31 BP 113 / 64; Pulse 95; Resp 33; Pulse Ox 96% on R/A; mh5 18:18 BP 115 / 70; Pulse 91; Resp 22; Pulse Ox 97% on R/A; jb1 20:09 BP 124 / 72; Pulse 83; Resp 16; Pulse Ox 98% ; Pain 0/10; ao 22:00 BP 123 / 77; Pulse 92; Resp 16; Pulse Ox 100% ; ao 0212 00:00 BP 136 / 86; Pulse 84; Resp 16; Pulse Ox 98% on R/A; ao 03:28 BP 141 / 82; Pulse 104; Resp 18; Pulse Ox 100% on R/A; ao 04:18 BP 132 / 78; Pulse 93; Resp 16; Temp 97.6(O); Pulse Ox 98% on R/A; ao 05:15 BP 138 / 67; Pulse 90; Resp 18; Pulse Ox 98% on R/A; ea ED Course: 11/06 16:24 Patient arrived in ED. iw 16:25 Nilesh Espana PA is PHCP. cp 16:25 Juan Carlos Davis MD is Attending Physician. cp 16:27 Triage completed. iw 16:28 Arm band placed on right wrist. Patient placed in an exam room, on a stretcher. iw 16:30 Patient has correct armband on for positive identification. Placed in gown. Bed in low jl7 position. Call light in reach. Side rails up X2. Sitter at bedside. 16:30 treatment supervisor on. Pulse ox on. NIBP on. Warm blanket given. jl7 16:39 Rommel Palmer RN is Primary Nurse. jl7 16:48 Initial lab(s) drawn, by ct, sent to lab. Inserted saline lock: 22 gauge in right jb1 antecubital area, using aseptic technique. Blood collected. 16:49 EKG done, by hvac controls technician. jb1 16:50 Safety checks: Items removed: yes. Door open/sign placed on door: yes. Family/friend jb1 present: no. Sitter present: Yes. 17:02 Safety checks: Items removed: yes. Door open/sign placed on door: yes. Family/friend jb1 present: no. Sitter present: Yes. 17:15 Safety checks: Items removed: yes. Door open/sign placed on door: yes. Family/friend jb1 present: no. Sitter present: Yes. 17:30 Safety checks: Items removed: yes. Door open/sign placed on door: yes. Family/friend mh5 present: no. Sitter present: Yes. 17:45 Safety checks: Items removed: yes. Door open/sign placed on door: yes. Family/friend jb1 present: no. Sitter present: Yes. Safety checks: Items removed:. 18:00 Safety checks: Items removed: yes. Door open/sign placed on door: yes. Family/friend jb1 present: no. Sitter present: Yes. 18:34 Safety checks: Items removed: yes. Door open/sign placed on door: yes. Family/friend jb1 present: no. Sitter present: Yes. 18:37 Safety checks: Items removed: yes. Door open/sign placed on door: yes. Family/friend jb1 present: no. Sitter present: Yes. 18:41 Claudia Patino MD is Hospitalizing Provider. 19:00 Safety checks: Items removed: yes. Door open/sign placed on door: yes. Family/friend aa8 present: no. Sitter present: Yes. 19:15 Safety checks: Items removed: yes. Door open/sign placed on door: yes. Family/friend aa8 present: no. Sitter present: Yes. 19:30 Safety checks: Items removed: yes. Door open/sign placed on door: yes. Family/friend aa8 present: no. Sitter present: Yes. 19:45 Safety checks: Items removed: yes. Door open/sign placed on door: yes. Family/friend aa8 present: no. Sitter present: Yes. 20:00 Safety checks: Items removed: yes. Door open/sign placed on door: yes. Family/friend aa8 present: no. Sitter present: Yes. 20:15 Safety checks: Items removed: yes. Door open/sign placed on door: yes. Family/friend ar5 present: no. Sitter present: Yes. 20:30 Safety checks: Items removed: yes. Door open/sign placed on door: yes. Family/friend ar5 present: no. Sitter present: Yes. 20:45 Safety checks: Items removed: yes. Door open/sign placed on door: yes. Family/friend ar5 present: no. Sitter present: Yes. 21:00 Safety checks: Items removed: yes. Door open/sign placed on door: yes. Family/friend ar5 present: no. Sitter present: Yes. 21:15 Safety checks: Items removed: yes. Door open/sign placed on door: yes. Family/friend ar5 present: no. Sitter present: Yes. 21:30 Safety checks: Items removed: yes. Door open/sign placed on door: yes. Family/friend ar5 present: no. Sitter present: Yes. 21:45 Safety checks: Items removed: yes. Door open/sign placed on door: yes. Family/friend ar5 present: no. Sitter present: Yes. 22:00 Safety checks: Items removed: yes. Door open/sign placed on door: yes. Family/friend ar5 present: no. Sitter present: Yes. 22:15 Safety checks: Items removed: yes. Door open/sign placed on door: yes. Family/friend ar5 present: no. Sitter present: Yes. 22:30 Safety checks: Items removed: yes. Door open/sign placed on door: yes. Family/friend ar5 present: no. Sitter present: Yes. 22:45 Safety checks: Items removed: yes. Door open/sign placed on door: yes. Family/friend ar5 present: no. Sitter present: Yes. 23:00 Safety checks: Items removed: yes. Door open/sign placed on door: yes. Family/friend ar5 present: no. Sitter present: Yes. 23:15 Safety checks: Items removed: yes. Door open/sign placed on door: yes. Family/friend ar5 present: no. Sitter present: Yes. 23:30 Safety checks: Items removed: yes. Door open/sign placed on door: yes. Family/friend ar5 present: no. Sitter present: Yes. 23:45 Safety Checks: Personal items have been removed. The door is open or patient has been ea placed in a hallway bed/chair. A family member and/or friend is present and encouraged to stay. Sitter present at this time. 11/07 00:00 Safety Checks: Personal items have been removed. The door is open or patient has been ea placed in a hallway bed/chair. A family member and/or friend is present and encouraged to stay. Sitter present at this time. 00:15 Safety Checks: Personal items have been removed. The door is open or patient has been ea placed in a hallway bed/chair. A family member and/or friend is present and encouraged to stay. Sitter present at this time. 00:30 Safety Checks: Personal items have been removed. The door is open or patient has been ea placed in a hallway bed/chair. A family member and/or friend is present and encouraged to stay. Sitter present at this time. 00:45 Safety Checks: Personal items have been removed. The door is open or patient has been ea placed in a hallway bed/chair. A family member and/or friend is present and encouraged to stay. Sitter present at this time. 01:00 Safety Checks: Personal items have been removed. The door is open or patient has been ea placed in a hallway bed/chair. A family member and/or friend is present and encouraged to stay. Sitter present at this time. 01:15 Safety Checks: Personal items have been removed. The door is open or patient has been ea placed in a hallway bed/chair. A family member and/or friend is present and encouraged to stay. Sitter present at this time. 01:30 Safety Checks: Personal items have been removed. The door is open or patient has been ea placed in a hallway bed/chair. A family member and/or friend is present and encouraged to stay. Sitter present at this time. 01:45 Safety Checks: Personal items have been removed. The door is open or patient has been ea placed in a hallway bed/chair. A family member and/or friend is present and encouraged to stay. Sitter present at this time. 02:00 Safety Checks: Personal items have been removed. The door is open or patient has been ea placed in a hallway bed/chair. A family member and/or friend is present and encouraged to stay. Sitter present at this time. 02:15 Safety Checks: Personal items have been removed. The door is open or patient has been ea placed in a hallway bed/chair. A family member and/or friend is present and encouraged to stay. Sitter present at this time. 02:30 Safety Checks: Personal items have been removed. The door is open or patient has been ea placed in a hallway bed/chair. A family member and/or friend is present and encouraged to stay. Sitter present at this time. 02:45 Safety Checks: Personal items have been removed. The door is open or patient has been ea placed in a hallway bed/chair. A family member and/or friend is present and encouraged to stay. Sitter present at this time. 03:00 Safety Checks: Personal items have been removed. The door is open or patient has been ea placed in a hallway bed/chair. A family member and/or friend is present and encouraged to stay. Sitter present at this time. 03:15 Safety Checks: Personal items have been removed. The door is open or patient has been ea placed in a hallway bed/chair. A family member and/or friend is present and encouraged to stay. Sitter present at this time. 03:30 Safety Checks: Personal items have been removed. The door is open or patient has been ea placed in a hallway bed/chair. A family member and/or friend is present and encouraged to stay. Sitter present at this time. 03:45 Safety Checks: Personal items have been removed. The door is open or patient has been ea placed in a hallway bed/chair. A family member and/or friend is present and encouraged to stay. Sitter present at this time. 04:00 Safety Checks: Personal items have been removed. The door is open or patient has been ea placed in a hallway bed/chair. A family member and/or friend is present and encouraged to stay. Sitter present at this time. 04:15 Safety Checks: Personal items have been removed. The door is open or patient has been ea placed in a hallway bed/chair. A family member and/or friend is present and encouraged to stay. Sitter present at this time. 04:30 Safety Checks: Personal items have been removed. The door is open or patient has been ea placed in a hallway bed/chair. A family member and/or friend is present and encouraged to stay. Sitter present at this time. 04:45 Safety Checks: Personal items have been removed. The door is open or patient has been ea placed in a hallway bed/chair. A family member and/or friend is present and encouraged to stay. Sitter present at this time. 05:00 Safety Checks: Personal items have been removed. The door is open or patient has been ao placed in a hallway bed/chair. A family member and/or friend is present and encouraged to stay. Sitter present at this time. 05:15 Safety Checks: Personal items have been removed. The door is open or patient has been ao placed in a hallway bed/chair. A family member and/or friend is present and encouraged to stay. Sitter present at this time. 05:22 No provider procedures requiring assistance completed. IV discontinued, intact, ea bleeding controlled, No redness/swelling at site. Pressure dressing applied. 05:30 Safety Checks: Personal items have been removed. The door is open or patient has been ao placed in a hallway bed/chair. A family member and/or friend is present and encouraged to stay. Sitter present at this time. Administered Medications: 11/06 17:45 Drug: NS 0.9% 1000 ml Route: IV; Rate: 1 bolus; Site: right antecubital; jl7 18:50 Follow up: IV Status: Completed infusion jl7 18:44 Drug: Banana Bag - (NS 0.9% 1000 ml, foLIC Acid 1 mg, Thiamine 100 mg, Multivitamin 1 jl7 amp) Route: IV; Rate: 200 ml/hr; Site: right antecubital; 11/07 01:50 Follow up: Response: No adverse reaction; IV Status: Completed infusion; IV Intake: ea 1000ml 01:49 Drug: Zofran 4 mg Route: IVP; Site: right antecubital; ea 02:00 Follow up: Response: No adverse reaction; Pain is decreased ea 02:15 Drug: Ativan 0.5 mg Route: IVP; Site: right antecubital; ea 02:30 Follow up: Response: No adverse reaction; Anxiety decreased ea 03:02 Drug: Potassium Effervescent Tablet 50 mEq Route: PO; ea 03:30 Follow up: Response: No adverse reaction ea Intake: 01:50 IV: 1000ml; Total: 1000ml. ea Outcome: 11/06 18:42 Decision to Hospitalize by Provider. cp 11/07 03:07 Discharge ordered by . cp 05:23 Condition: improved ea 05:23 Discharge instructions given to patient, family, Instructed on discharge instructions, follow up and referral plans. Demonstrated understanding of instructions, follow-up care. 05:30 Discharged to home ambulatory, with significant other. ea 05:36 Patient left the ED. ea Signatures: Kian Romero jb1 Ana Laura Pham, RN Candi Webb RN Nilesh Orosco PA PA cp Ortiz, Alex, RN RN Shy Champagne [facility] Rommel Palmer RN RN jl7 Danielle Santos aa8 Maria R Heart RN RN ea Robles, Autumn ne5 Corrections: (The following items were deleted from the chart) 11/06 18:27 18:19 Safety checks: jb1 jb1 11/07 06:56 05:45 Safety Checks: Personal items have been removed. The door is open or patient has ao been placed in a hallway bed/chair. A family member and/or friend is present and encouraged to stay. Sitter present at this time. ao 06:56 06:00 Safety Checks: Personal items have been removed. The door is open or patient has ao been placed in a hallway bed/chair. A family member and/or friend is present and encouraged to stay. Sitter present at this time. ao 06:56 06:45 Safety Checks: Personal items have been removed. The door is open or patient has ao been placed in a hallway bed/chair. A family member and/or friend is present and encouraged to stay. Sitter present at this time. ao :56 06:15 Safety Checks: Personal items have been removed. The door is open or patient has ao been placed in a hallway bed/chair. A family member and/or friend is present and encouraged to stay. Sitter present at this time. ao :56 06:30 Safety Checks: Personal items have been removed. The door is open or patient has ao been placed in a hallway bed/chair. A family member and/or friend is present and encouraged to stay. Sitter present at this time. ao
--- NOTE | 2018-11-06 18:44 | EDPHYS ---
Physician Documentation [facility] Name: Doreen Allison Age: 48 yrs Sex: Female : 1970 Arrival Date: 11/06/2018 Time: 16:24 Bed 5 Private MD: ED Physician Juan Carlos Davis HPI: 11/06 16:40 This 48 yrs old Female presents to ER via EMS with complaints of Suicidal cp Ideation. 16:40 The patient presents to the emergency department with a history of a suicide gesture, cp where the patient took pills/medications, unknown quantity of Topamax medication. Onset: The symptoms/episode began/occurred 40 minute(s) ago. 16:40 Past psychiatric history: Prior diagnosis: depression. cp 16:40 Associated signs and symptoms: Pertinent positives; substance abuse, Pertinent cp negatives: abdominal pain, chest pain, hallucinations, headache, homicidal ideation. RN X RAY: 18:51 LMP N/A - Pre-menarche jl7 Historical: - Allergies: 16:28 No Known Allergies; iw - Home Meds: 18:59 aspirin 81 mg Oral TbEC [Active]; bupropion HCl 300 mg Oral Tb24 1 tab once daily jl7 [Active]; diltiazem HCl 60 mg Oral tab 1 tab daily [Active]; duloxetine 20 mg Oral cpDR 1 cap daily [Active]; ferrous sulfate 325 mg (65 mg iron) Oral TbEC [Active]; folic acid 1 mg Oral tab 1 tab once daily [Active]; lisinopril 10 mg Oral tab 1 tab once daily [Active]; pantoprazole 40 mg Oral TbEC 1 tab once daily [Active]; Potassium Chloride Oral [Active]; thiamine HCl (vitamin B1) 100 mg Oral tab daily [Active]; topiramate 50 mg Oral tab 1 tab daily [Active]; trazodone 50 mg Oral tab 1 tab daily [Active]; Vitamin D3 Oral [Active]; - PMHx: 16:28 Anemia; Anxiety; Depression; Hypertension; PTSD; iw - Immunization history:: Adult Immunizations unknown. - Ebola Screening: : No symptoms or risks identified at this time. - Social history:: Smoking status: Patient/guardian denies using tobacco, Patient/guardian denies using alcohol, street drugs. ROS: 16:45 Constitutional: Negative for body aches, chills, fever, poor PO intake. cp 16:45 Eyes: Negative for injury, pain, redness, and discharge. cp 16:45 Neck: Negative for pain with movement, pain at rest, stiffness. 16:45 Cardiovascular: Negative for chest pain. 16:45 Respiratory: Negative for cough, shortness of breath, wheezing. 16:45 Abdomen/GI: Negative for abdominal pain, vomiting, diarrhea, constipation, black/tarry stool, rectal bleeding. 16:45 Neuro: Negative for altered mental status, headache. 16:45 Psych: Positive for depression, suicide gesture. 16:45 All other systems are negative. Exam: 16:50 Constitutional: The patient appears in no acute distress, alert, awake, cp non-diaphoretic, non-toxic, well developed, well nourished. 16:50 Head/Face: Normocephalic, atraumatic. cp 16:50 Eyes: Periorbital structures: appear normal, Pupils: equal, round, and reactive to light and accomodation, Conjunctiva: normal, no exudate, no injection, Sclera: no appreciated abnormality, Lids and lashes: appear normal, bilaterally. 16:50 ENT: External ear(s): are unremarkable, Ear canal(s): are normal, clear, TM's: bulging, is not appreciated, bilaterally, dullness, bilaterally, erythema, is not appreciated, bilaterally, Nose: is normal, Mouth: Lips: moist, Oral mucosa: moist, Posterior pharynx: is normal, airway is patent, no erythema, no exudate. 16:50 Neck: ROM/movement: is normal, is supple, without pain, no range of motions limitations, no nuchal rigidity. 16:50 Chest/axilla: Inspection: normal, Palpation: is normal, no crepitus, no tenderness. 16:50 Cardiovascular: Rate: normal, Rhythm: regular, Edema: is not appreciated, JVD: is not appreciated. 16:50 Respiratory: the patient does not display signs of respiratory distress, Respirations: normal, no use of accessory muscles, no retractions, no splinting, no tachypnea, labored breathing, is not present, Breath sounds: are clear throughout, no decreased breath sounds, no stridor, no wheezing. 16:50 Abdomen/GI: Inspection: abdomen appears normal, Bowel sounds: active, all quadrants, Palpation: abdomen is soft and non-tender, in all quadrants, rebound tenderness, is not appreciated, voluntary guarding, is not appreciated, involuntary guarding, is not appreciated. 16:50 Skin: cellulitis, is not appreciated, no rash present. 16:50 Neuro: Orientation: to person, place \T\ time. Mentation: able to follow commands, slow to respond, sleepy, Motor: moves all fours, strength is normal, Sensation: no obvious gross deficits. 17:24 ECG was reviewed by the Attending Physician. cp Vital Signs: 16:29 BP 121 / 74; Pulse 91; Resp 29; Pulse Ox 96% on R/A; Pain 0/10; iw 16:54 BP 113 / 69; Pulse 86; Resp 26; Pulse Ox 96% on R/A; jb1 17:31 BP 113 / 64; Pulse 95; Resp 33; Pulse Ox 96% on R/A; mh5 18:18 BP 115 / 70; Pulse 91; Resp 22; Pulse Ox 97% on R/A; jb1 20:09 BP 124 / 72; Pulse 83; Resp 16; Pulse Ox 98% ; Pain 0/10; ao 22:00 BP 123 / 77; Pulse 92; Resp 16; Pulse Ox 100% ; ao 0212 00:00 BP 136 / 86; Pulse 84; Resp 16; Pulse Ox 98% on R/A; ao 03:28 BP 141 / 82; Pulse 104; Resp 18; Pulse Ox 100% on R/A; ao 04:18 BP 132 / 78; Pulse 93; Resp 16; Temp 97.6(O); Pulse Ox 98% on R/A; ao 05:15 BP 138 / 67; Pulse 90; Resp 18; Pulse Ox 98% on R/A; ea MDM: 11/06 16:25 Patient medically screened. cp 17:00 Differential diagnosis: drug withdrawal. acute psychotic break, depression, psychosis cp secondary to non-compliance, attempted suicide, alcohol intoxication. 11/07 03:05 Data reviewed: vital signs, nurses notes, lab test result(s), EKG. cp 03:05 ED course: VSS. Patient denies any current suicidal ideations and reports she has been cp drinking over the weekend and not taking her medications for depression. Will discharge to home for continued monitoring. 11/06 16:38 Order name: Acetaminophen; Complete Time: 17:51 cp 11/06 16:38 Order name: Basic Metabolic Panel; Complete Time: 17:51 11/06 18:37 Interpretation: Normal except: NA 147; K 3.3; CL 114; CRE 0.50; CA 8.2. cp 11/06 16:38 Order name: CBC with Diff; Complete Time: 18:36 11/06 18:36 Interpretation: Normal except: PLT 91; MPV 7.5. 11/06 16:38 Order name: ETOH Level; Complete Time: 17:51 11/06 17:51 Interpretation: Abnormal: ETOH 261. cp 11/06 16:38 Order name: Hepatic Function; Complete Time: 17:51 11/06 17:51 Interpretation: Normal except: AST 54; ALK 133; BILID 0.3; GLOB 3.7; A/G 1.0. 11/06 16:38 Order name: PT-INR; Complete Time: 17:51 11/06 16:38 Order name: Ptt, Activated; Complete Time: 17:51 11/06 16:38 Order name: Salicylate; Complete Time: 17:51 11/06 16:38 Order name: Urine Drug Screen; Complete Time: 18:36 11/06 17:11 Order name: CBC Smear Scan; Complete Time: 18:36 [facility] 11/06 18:10 Order name: Urine Dipstick--Ancillary (enter results); Complete Time: 01:26 11/06 18:10 Order name: Urine --Ancillary (enter results); Complete Time: 01:26 11/06 19:33 Order name: ASA: redraw level at 1999; Complete Time: 01:26 11/06 19:33 Order name: Tylenol Level: redraw level at 1999; Complete Time: 01:26 11/06 16:38 Order name: EKG; Complete Time: 16:41 11/06 19:49 Order name: CONS Pharmacy Consult [facility] 11/06 19:49 Order name: CBC with Automated Diff [facility] 11/06 19:49 Order name: Comprehensive Metabolic Panel [facility] 11/07 01:26 Order name: BMP 11/07 01:26 Order name: ETOH Level 11/07 02:50 Order name: Basic Metabolic Panel; Complete Time: 02:55 EDMS 11/07 02:55 Interpretation: Normal except: K 3.2; CL 114; CRE 0.42. 11/07 03:01 Order name: Alcohol Serum/Plasma; Complete Time: 03:03 EDMS 11/07 03:03 Interpretation: ETOH 30; Reviewed. 11/06 16:38 Order name: EKG - Nurse/Tech; Complete Time: 16:49 cp 11/06 16:38 Order name: IV Saline Lock; Complete Time: 16:49 cp 11/06 16:38 Order name: Labs collected and sent; Complete Time: 16:49 11/06 16:38 Order name: Urine Dipstick-Ancillary (obtain specimen); Complete Time: 18:44 cp EC/11 17:24 Rate is 79 beats/min. Rhythm is regular. LA interval is normal. QRS interval is cp prolonged at 104 msec. QT interval is normal. T waves are Inverted in lead III. Interpreted by me. Reviewed by me. Administered Medications: 17:45 Drug: NS 0.9% 1000 ml Route: IV; Rate: 1 bolus; Site: right antecubital; jl7 18:50 Follow up: IV Status: Completed infusion jl7 18:44 Drug: Banana Bag - (NS 0.9% 1000 ml, foLIC Acid 1 mg, Thiamine 100 mg, Multivitamin 1 jl7 amp) Route: IV; Rate: 200 ml/hr; Site: right antecubital; 11/07 01:50 Follow up: Response: No adverse reaction; IV Status: Completed infusion; IV Intake: ea 1000ml 01:49 Drug: Zofran 4 mg Route: IVP; Site: right antecubital; ea 02:00 Follow up: Response: No adverse reaction; Pain is decreased ea 02:15 Drug: Ativan 0.5 mg Route: IVP; Site: right antecubital; ea 02:30 Follow up: Response: No adverse reaction; Anxiety decreased ea 03:02 Drug: Potassium Effervescent Tablet 50 mEq Route: PO; ea 03:30 Follow up: Response: No adverse reaction ea Disposition: 11/07/18 03:07 Discharged to Home. Impression: Alcohol abuse, Depression. - Condition is Stable. - Medication Reconciliation Form, Thank You Letter, Antibiotic Education, Prescription Opioid Use form. - Follow up: Private Physician; When: 1 - 2 days; Reason: Recheck today's complaints. - Problem is new. - Symptoms have improved. Signatures: Dispatcher [employer] [facility] Linda Phipps RN BARBI kl Candi Paul RN Nilesh Orosco PA PA cp Rommel Palmer RN RN jl7 Maria R Heart RN RN ea Corrections: (The following items were deleted from the chart) 11/06 18:37 17:51 Normal except: NA 147; K 3.3; CL 114; CRE 0.50. cp cp 19:47 18:42 Hospitalization Ordered by Claudia Ptaino MD for Observation. Preliminary diagnosis kl is Alcohol abuse with intoxication; Suicide attempt - overdose with Topamax. Bed requested for Telemetry/MedSurg (observation). Status is Observation. Condition is Stable. Problem is new. Symptoms are unchanged. UTI on Admission? No. cp 11/07 03:05 11/06 19:47 11/06/2018 18:42 Hospitalization Ordered by Claudia Patino MD for cp Observation. Preliminary diagnosis is Alcohol abuse with intoxication; Suicide attempt - overdose with Topamax. Bed requested for [facility] ER HOLD. Status is Observation. Condition is Stable. Problem is new. Symptoms are unchanged. UTI on Admission? No. kl 11/07 05:17 11/06 19:49 CBC with Automated Diff ordered. [facility] 11/07 05:17 11/06 19:49 Comprehensive Metabolic Panel ordered. [facility] 11/07 05:36 03:07 11/07/2018 03:07 Discharged to Home. Impression: Alcohol abuse; Depression. ea Condition is Stable. Forms are Medication Reconciliation Form, Thank You Letter, Antibiotic Education, Prescription Opioid Use. Follow up: Private Physician; When: 1 - 2 days; Reason: Recheck today's complaints. Problem is new. Symptoms have improved. cp
[2018-11-06] MEDS ORDERED: FOLIC ACID 1 MG, MULTIVITAMINS INJ 10 ML, THIAMINE HCL 100 MG in NA CHLORIDE 0.9% 1,000 ML IV ONE (19:00)
[2018-11-06 19:22] LABS: Urine Blood 1+ (NEG); Urine Glucose NEGATIVE (NEG); Urine Protein 2+ (NEG); Urine Specific Gravity 1.015 (1.005-1.030); Urine pH 6.5 (5.0-7.0)
[2018-11-06] MEDS ORDERED: ACETAMINOPHEN 500 MG TAB PO PRN (19:45)
[2018-11-06] MEDS ORDERED: MORPHINE 2 MG/ML SYR IV PRN (19:45)
[2018-11-06] MEDS ORDERED: D5W 1,000 ML IV SCH (20:00)
[2018-11-06] MEDS ORDERED: NA CHLORIDE 0.9% 1,000 ML IV SCH (20:00)
[2018-11-07] MEDS ORDERED: ONDANSETRON 4 MG/2 ML VIAL ONE (01:39)
[2018-11-07] MEDS ORDERED: LORazepam 2 MG/ML VIAL ONE (02:23)
[2018-11-07 02:50] LABS: BUN Blood Urea Nitrogen 7 mg/dL (7-18); Bicarbonate 23 mmol/L (21-32); Glucose Level 99 mg/dL (74-106); Potassium 3.2 mmol/L (3.5-5.1); Sodium Level 145 mmol/L (136-145)
[2018-11-07] MEDS ORDERED: POTASSIUM 25 MEQ EFFERV TAB ONE (03:09)
== END 2018-11-07 05:36 | disposition home or self-care (01) ==
LOC: ER 16:24 → ERHOLD 19:58 → UNDOADMIN 19:58 → ER 11-07 05:36
DX: F32.9 Major depressive disorder, single episode, unspecified (principal); F10.10 Alcohol abuse, uncomplicated; I10 Essential (primary) hypertension; F43.10 Post-traumatic stress disorder, unspecified; Z79.82 Long term (current) use of aspirin
CPT/HCPCS: 36415; 80048; 80076; 80307; 80320; 80329; 81003; 81025; 85025; 85610; 85730; 93005; 96361; 96365; 96366; 96375; 99285; J2405; J3411; J7030

== ENCOUNTER 2019-01-07 00:09 | Emergency (ER) | payer OTHER ==
--- OUTSIDE RECORDS SUMMARY | 2019-01-07 00:11 | XMS REPORT ---
[...] Status Dosage System Date Date Trazodone HCl [facility]NOTE 2] 23727841603 50 MG Orally Inactive 1 tablet Once a day at bedtime as needed Ferrous Sulfate [facility] [place]NOTE 2] 98426769979 325 (65 Fe) MG Active 1 tablet Orally Once a day Flonase ND 52988358372 50 MCG/ACT Active 1 spray in Nasally Once a each day nostril Vitamin B1 [facility] [place]NOTE 2] 57016965641 100 MG Orally March Active 1 tablet Once a day 2017 Protonix [facility] [place]NOTE 2] 09977579248 40 Orally Once Active TAKE ONE a day TABLET BY MOUTH DAILY Lisinopril ND 72490416099 10 MG Orally Active 1 tablet Once a day Diltiazem HCl [facility] [place]NOTE 2] 67740102354 60 MG Orally Active 1 tablet Two times a day before meals and at bedtime Topiramate ND 60091235013 50 MG Orally Active 1 tablet Twice a day ProAir HFA [facility] [place]NOTE 2] 36379864919 108 (90 Base) Active 2 puffs as MCG/ACT needed Inhalation every 6 hrs Advair Diskus [facility] [place]NOTE 2] 99192591137 100-50 MCG/DOSE Active 1 puff Inhalation Twice a day Folic Acid [facility] [place]NOTE 2] 84810681850 1 MG Orally March Active 1 tablet Once a day 2017 Wellbutrin XL [facility] [place]NOTE 2] 18017271680 300 MG Orally Active 1 tablet Once a day in the morning Mirtazapine [facility] [place]NOTE 2] 19860583398 15 MG Orally Active 1 tablet Once a day at bedtime Results No Known Results Summary Purpose eClinicalWorks Submission
--- OUTSIDE RECORDS SUMMARY | 2019-01-07 00:11 | XMS REPORT ---
:1970 Author Organization eClinicalWorks Care Team Providers Name Role Phone Krishna El Provider Role Unavailable Allergies No Known Allergies Problems Problem Type Condition Code Onset Dates Condition Status Problem Benign essential HTN I10 Active Problem Abnormal liver function test R94.5 Active Problem Asthma without status asthmaticus J45.909 Active or acute exacerbation Assessment Benign essential HTN I10 Active Problem Anemia D64.9 Active Problem Thrombocytopenia D69.6 Active Problem Vitamin D deficiency E55.9 Active Problem Major depressive disorder, single F32.2 Active episode, severe without psychotic features Problem Alcoholic fatty liver K70.0 Active Problem Depression with anxiety F41.8 Active Problem Alcohol use, unspecified with other F10.988 Active alcohol-induced disorder Medications Medication Code Code Instructions Start End Status Dosage System Date Date Diltiazem HCl [facility] 73628339951 60 MG Orally Two Active 1 tablet times a day before meals and at bedtime Results No Known Results Summary Purpose eClinicalWorks Submission
--- OUTSIDE RECORDS SUMMARY | 2019-01-07 00:11 | XMS REPORT ---
:1970 Author Organization eClinicalWorks Care Team Providers Name Role Phone Keller [facility] Provider Role Unavailable Allergies No Known [...]
--- OUTSIDE RECORDS SUMMARY | 2019-01-07 00:11 | XMS REPORT ---
:1970 Author Organization eClinicalWorks Care Team Providers Name Role Phone Carrie Kellerh Provider Role Unavailable Allergies, Adverse Reactions, Alerts Substance Reaction Event Type N.K.D.A. Info Not Available Non Drug Allergy Problems Problem Type Condition Code Onset Dates [...] unspecified with other F10.988 Active alcohol-induced disorder Assessment Vitamin D deficiency E55.9 Active Assessment Depression with anxiety F41.8 Active Assessment Thrombocytopenia D69.6 Active Assessment Benign essential HTN I10 Active Assessment Major depressive disorder, single F32.2 Active episode, severe without psychotic features Assessment Alcoholic fatty liver K70.0 Active Assessment Influenza-like symptoms R68.89 Active Assessment Anemia D64.9 Active Medications Medication Code Code Instructions Start End Status Dosage System Date Date Lisinopril [facility] 97274724029 10 MG Orally Active 1 tablet Once a day Flonase [facility] 62469703886 50 MCG/ACT Active 1 spray in Nasally Once a each day nostril Advair Diskus [facility] 85104791543 100-50 MCG/DOSE Active 1 puff Inhalation Twice a day Duloxetine HCl ND 94540384992 30 MG Orally Active 1 capsule Once a day Protonix ND 84842574943 40 Orally Once a Active TAKE ONE day TABLET BY MOUTH DAILY Ferrous ND 29146624826 325 (65 Fe) MG Active 1 tablet Sulfate Orally Once a day ProAir HFA [facility] 50458606605 108 (90 Base) Active 2 puffs as MCG/ACT needed Inhalation every 6 hrs Topiramate [facility] 48476590011 50 MG Orally Active 1 tablet Twice a day Wellbutrin XL NDC 01978450675 300 MG Orally Active 1 tablet Once a day in the morning Tamiflu [facility] 64730263401 75 MG Orally December 20, Active 1 capsule Twice a day 2018 Diltiazem HCl [facility] 87293856999 60 MG Orally Two Active 1 tablet times a day before meals and at bedtime Results Name Result Date Reference Range Unit Abnormality Flag FLU TEST ----A Neg [id number] ----B Neg [id number] Summary Purpose eClinicalWorks Submission
--- OUTSIDE RECORDS SUMMARY | 2019-01-07 00:11 | XMS REPORT ---
:1970 Author Organization eClinicalWorks Care Team Providers Name Role Phone Keller [facility] Provider Role Unavailable Allergies No Known Allergies [...]
--- OUTSIDE RECORDS SUMMARY | 2019-01-07 00:12 | XMS REPORT ---
:1970 Author Organization eClinicalWorks Care Team Providers Name Role Phone Krishna El Provider Role Unavailable Allergies, Adverse Reactions, Alerts Substance Reaction Event Type N.K.D.A. Info Not Available Non Drug Allergy Problems Problem Type Condition Code Onset Dates Condition Status Problem Benign essential HTN I10 Active Problem Abnormal liver function test R94.5 Active Problem Asthma without status asthmaticus J45.909 Active or acute exacerbation Assessment Acute bronchitis, unspecified J20.9 Active organism Problem Anemia D64.9 Active Problem Thrombocytopenia D69.6 Active Problem Vitamin D deficiency E55.9 Active Problem Major depressive disorder, single F32.2 Active episode, severe without psychotic features Problem Alcoholic fatty liver K70.0 Active Problem Depression with anxiety F41.8 Active Problem Alcohol use, unspecified with other F10.988 Active alcohol-induced disorder Medications Medication Code Code Instructions Start End Date Status Dosage System Date Topiramate ND 56608916453 50 MG Orally Active 1 tablet Twice a day Tamiflu ND 23891386514 75 MG Orally November Active 1 capsule Twice a day 2018 ProAir HFA [facility] 41445826966 108 (90 Base) Active 2 puffs as MCG/ACT needed Inhalation every 6 hrs Advair Diskus ND 90309636102 100-50 MCG/DOSE Active 1 puff Inhalation Twice a day Benzonatate ND 05640292792 200 MG Orally December Active 1 capsule Three times a 2018 day Lisinopril ND 64232307889 10 MG Orally Active 1 tablet Once a day Diltiazem HCl ND 13702479467 60 MG Orally Active 1 tablet Two times a day before meals and at bedtime Flonase ND 47347844159 50 MCG/ACT Active 1 spray in Nasally Once a each day nostril Protonix ND 60805670016 40 Orally Once Active TAKE ONE a day TABLET BY MOUTH DAILY Duloxetine HCl ND 36329563917 30 MG Orally Active 1 capsule Once a day Azithromycin ND 02514454240 250 MG Orally December Active 2 tablets Once a day 2018 on the first day, then 1 tablet daily for 4 days Wellbutrin XL [facility] 87779732449 300 MG Orally Active 1 tablet Once a day in the morning Ferrous Sulfate [facility] 85421891676 325 (65 Fe) MG Active 1 tablet Orally Once a day Results No Known Results Summary Purpose eClinicalWorks Submission
--- NOTE | 2019-01-07 01:12 | ER ---
Nurse's Notes [facility] Name: Doreen Allison Age: 48 yrs Sex: Female : 1970 Arrival Date: 01/07/2019 Time: 00:11 Bed 20 Private MD: El Keller Diagnosis: Chest Wall Pain Presentation: 01/07 00:18 Presenting complaint: Patient states: Under my right breast has been hurting since ed1 . And since I am here I have also had vaginal bleeding since . My doctor told me I am pre-menopausal so I don't know why I would be bleeding. Transition of care: patient was not received from another setting of care. Onset of symptoms was January 04, 2019. Risk Assessment: Do you want to hurt yourself or someone else? Patient reports no desire to harm self or others. Initial Sepsis Screen: Does the patient meet any 2 criteria? No. Patient's initial sepsis screen is negative. Does the patient have a suspected source of infection? No. Patient's initial sepsis screen is negative. Care prior to arrival: None. 00:18 Method Of Arrival: Ambulatory ed1 00:18 Acuity: LARRY 3 ed1 Triage Assessment: 00:28 General: Appears in no apparent distress. Behavior is calm, cooperative. Pain: ed1 Complains of pain in under right breast Pain does not radiate. Pain currently is 6 out of 10 on a pain scale. Quality of pain is described as sharp, Pain began gradually, 2-3 days ago. EENT: No signs and/or symptoms were reported regarding the EENT system. Neuro: Level of Consciousness is awake, alert, obeys commands, Oriented to person, place, time, situation. Cardiovascular: Denies chest pain, diaphoresis, fatigue, lightheadedness, nausea, palpitations, shortness of breath, syncope, vomiting, Heart tones S1 S2 present. Respiratory: Reports cough that is a few weeks ago Airway is patent Respiratory effort is even, unlabored, Respiratory pattern is regular, symmetrical, Breath sounds are clear bilaterally. Denies shortness of breath. GI: Abdomen is non-distended, Bowel sounds present X 4 quads. Abd is soft and non tender X 4 quads. Patient currently denies diarrhea, nausea, vomiting. : Reports vaginal bleeding that is bright red, light flow. Derm: Skin is intact, is healthy with good turgor, Skin is dry, Skin is normal, Skin temperature is warm. Musculoskeletal: Circulation, motion, and sensation intact. Range of motion: intact in all extremities. INBOUND CALL CENTER REPRESENTATIVE: 00:28 LMP 01/04/2019 ed1 Historical: - Allergies: 00:28 No Known Allergies; ed1 - Home Meds: 00:28 bupropion HCl 300 mg Oral Tb24 1 tab once daily [Active]; lisinopril 10 mg Oral tab 1 ed1 tab once daily [Active]; diltiazem HCl 60 mg Oral tab 1 tab twice a day [Active]; duloxetine 30 mg oral cpDR 1 cap nightly [Active]; topiramate 50 mg Oral tab 1 tab nightly [Active]; aspirin 81 mg Oral TbEC 1 tab nightly [Active]; fluticasone 50 mcg/actuation nasal spsn 1 spray once daily [Active]; Advair Diskus 100-50 mcg/dose Inhl dsdv 1 puff 2 times per day [Active]; ProAir HFA 90 mcg/actuation inhalation HFAA 1 puff every 4-6 hours [Active]; ferrous sulfate 325 mg (65 mg iron) Oral TbEC daily [Active]; folic acid 1 mg Oral tab 1 tab once daily [Active]; Vitamin D3 5,000 unit oral tab daily [Active]; thiamine HCl (vitamin B1) 250 mg oral tab daily [Active]; Potassium Chloride Oral daily [Active]; meloxicam 7.5 mg oral tab 1 tab once daily [Active]; diclofenac sodium 1 % topical gel 4 times per day [Active]; - PMHx: 00:28 Anemia; Anxiety; Depression; Hypertension; PTSD; Breast Cancer; ed1 - PSHx: 00:28 Mastectomy, Left; ed1 - Immunization history:: Adult Immunizations unknown. - Social history:: Smoking status: unknown. - Ebola Screening: : Patient negative for fever greater than or equal to 101.5 degrees Fahrenheit, and additional compatible Ebola Virus Disease symptoms Patient denies exposure to infectious person Patient denies travel to an Ebola-affected area in the 21 days before illness onset No symptoms or risks identified at this time. Screenin:32 Abuse screen: Denies threats or abuse. Denies injuries from another. Nutritional ed1 screening: No deficits noted. Tuberculosis screening: No symptoms or risk factors identified. Fall Risk None identified. Assessment: 00:32 General: See triage assessment. ed1 01:23 Reassessment: Patient appears in no apparent distress at this time. No changes from ed1 previously documented assessment. Patient and/or family updated on plan of care and expected duration. Pain level reassessed. Patient is alert, oriented x 3, equal unlabored respirations, skin warm/dry/pink. Patient states symptoms have not improved. Vital Signs: 00:28 BP 137 / 69; Pulse 78; Resp 18; Temp 98.5(O); Pulse Ox 98% on R/A; Pain 6/10; ed1 01:23 BP 105 / 91; Pulse 69; Resp 19; Pulse Ox 100% on R/A; Pain 6/10; ed1 ED Course: 00:11 Patient arrived in ED. do 00:11 El Keller DO is Private Physician. do 00:18 Jinny Velez RN is Primary Nurse. ed1 00:20 Triage completed. ed1 00:24 Mello White PA is PHCP. jr8 00:25 Jordi Ferraro MD is Attending Physician. jr8 00:28 Arm band placed on. ed1 00:32 Patient has correct armband on for positive identification. Placed in gown. Bed in low ed1 position. Call light in reach. Pulse ox on. NIBP on. Warm blanket given. Pillow given. 01:08 XRAY Chest Pa And Lat (2 Views) In Process Unspecified. EDMS 01:11 El Keller DO is Referral Physician. jr8 01:23 No provider procedures requiring assistance completed. Patient did not have IV access ed1 during this emergency room visit. Administered Medications: No medications were administered Outcome: 01:11 Discharge ordered by . jr8 01:23 Discharged to home ambulatory. ed1 01:23 Condition: good 01:23 Discharge instructions given to patient, Instructed on discharge instructions, follow up and referral plans. Demonstrated understanding of instructions, follow-up care. 01:24 Patient left the ED. ed1 Signatures: Dispatcher [employer] EDMS Jinny Velez RN RN ed1 Mello White PA PA jr8 Ursula Medina do
--- NOTE | 2019-01-07 01:13 | EDPHYS ---
Physician Documentation [facility] Name: Doreen Allison Age: 48 yrs Sex: Female : 1970 Arrival Date: 01/07/2019 Time: 00:11 Bed 20 Private MD: El Keller ED Physician Jordi Ferraro HPI: 01/07 00:46 This 48 yrs old Female presents to ER via Ambulatory with complaints of jr8 Abdominal Pain. 00:46 The patient presents with abdominal pain "right rib pain". Onset: The symptoms/episode jr8 began/occurred gradually, 3 day(s) ago. The symptoms radiate to right back. Associated signs and symptoms: Pertinent negatives: nausea, vomiting, and diarrhea, anorexia, blood in stools, constipation, fever, hematuria, palpitations, shortness of breath. The symptoms are described as sharp, steady. Modifying factors: the symptoms are aggravated by movement, pressure. Severity of pain: At its worst the pain was a 6 / 10 in the emergency department the pain is a 2 / 10. The patient has experienced a previous episode, years ago patient had similar pain and told it was from her rib. The patient has not recently seen a physician. Patient reports right rib pain, inferior to right breast, with onset . States the pain is becoming more severe. Radiates to upper back. Denies nausea, vomiting, abdominal pain, diarrhea, constipation, anorexia, or fever. . 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 ed1 Historical: - Allergies: 00:28 No Known Allergies; ed1 - Home Meds: 00:28 bupropion HCl 300 mg Oral Tb24 1 tab once daily [Active]; lisinopril 10 mg Oral tab 1 ed1 tab once daily [Active]; diltiazem HCl 60 mg Oral tab 1 tab twice a day [Active]; duloxetine 30 mg oral cpDR 1 cap nightly [Active]; topiramate 50 mg Oral tab 1 tab nightly [Active]; aspirin 81 mg Oral TbEC 1 tab nightly [Active]; fluticasone 50 mcg/actuation nasal spsn 1 spray once daily [Active]; Advair Diskus 100-50 mcg/dose Inhl dsdv 1 puff 2 times per day [Active]; ProAir HFA 90 mcg/actuation inhalation HFAA 1 puff every 4-6 hours [Active]; ferrous sulfate 325 mg (65 mg iron) Oral TbEC daily [Active]; folic acid 1 mg Oral tab 1 tab once daily [Active]; Vitamin D3 5,000 unit oral tab daily [Active]; thiamine HCl (vitamin B1) 250 mg oral tab daily [Active]; Potassium Chloride Oral daily [Active]; meloxicam 7.5 mg oral tab 1 tab once daily [Active]; diclofenac sodium 1 % topical gel 4 times per day [Active]; - PMHx: 00:28 Anemia; Anxiety; Depression; Hypertension; PTSD; Breast Cancer; ed1 - PSHx: 00:28 Mastectomy, Left; ed1 - Immunization history:: Adult Immunizations unknown. - Social history:: Smoking status: unknown. - Ebola Screening: : Patient negative for fever greater than or equal to 101.5 degrees Fahrenheit, and additional compatible Ebola Virus Disease symptoms Patient denies exposure to infectious person Patient denies travel to an Ebola-affected area in the 21 days before illness onset No symptoms or risks identified at this time. ROS: 00:50 Constitutional: Negative for fever, chills, and weight loss, ENT: Negative for injury, jr8 pain, and discharge, Neck: Negative for injury, pain, and swelling, Cardiovascular: Negative for chest pain, palpitations, and edema, Respiratory: Negative for shortness of breath, wheezing, and pleuritic chest pain. Reports dry cough for one month Abdomen/GI: Negative for nausea, vomiting, diarrhea, and constipation. Reports RUQ/rib pain Back: Negative for injury and pain, MS/Extremity: Negative for injury and deformity, Skin: Negative for injury, rash, and discoloration. Exam: 00:52 Constitutional: This is a well developed, well nourished patient who is awake, alert, jr8 and in no acute distress. ENT: Nares patent. No nasal discharge, no septal abnormalities noted. Tympanic membranes are normal and external auditory canals are clear. Oropharynx with no redness, swelling, or masses, exudates, or evidence of obstruction, uvula midline. Mucous membranes moist. Neck: Trachea midline, no thyromegaly or masses palpated, and no cervical lymphadenopathy. Supple, full range of motion without nuchal rigidity, or vertebral point tenderness. No Meningismus. Chest/axilla: Normal chest wall appearance and motion. No lesions are appreciated. 00:52 Cardiovascular: Regular rate and rhythm with a normal S1 and S2. No gallops, murmurs, or rubs. Normal PMI, no JVD. No pulse deficits. Respiratory: Lungs have equal breath sounds bilaterally, clear to auscultation and percussion. No rales, rhonchi or wheezes noted. No increased work of breathing, no retractions or nasal flaring. Abdomen/GI: Soft, non-tender, with normal bowel sounds. No distension or tympany. No guarding or rebound. No evidence of tenderness throughout. Back: No spinal tenderness. No costovertebral tenderness. Full range of motion. Skin: Warm, dry with normal turgor. Normal color with no rashes, no lesions, and no evidence of cellulitis. Neuro: Awake and alert, GCS 15, oriented to person, place, time, and situation. Cranial nerves II-XII grossly intact. Motor strength 5/5 in all extremities. Sensory grossly intact. Cerebellar exam normal. Normal gait. 00:52 Chest/axilla: Palpation: tenderness, that is mild, of the right lateral anterior chest and right breast, that partially reproduces the patient's complaints. Vital Signs: 00:28 BP 137 / 69; Pulse 78; Resp 18; Temp 98.5(O); Pulse Ox 98% on R/A; Pain 6/10; ed1 01:23 BP 105 / 91; Pulse 69; Resp 19; Pulse Ox 100% on R/A; Pain 6/10; ed1 MDM: 00:25 Patient medically screened. jr8 01:10 Data reviewed: vital signs, nurses notes, radiologic studies, plain films. Data jr8 interpreted: Pulse oximetry: on room air is 98 %. Interpretation: normal. Test interpretation: by ED physician or midlevel provider: plain radiologic studies, No acute osseous, cardiac, or pulmonary findings on CXR . Counseling: I had a detailed discussion with the patient and/or guardian regarding: the historical points, exam findings, and any diagnostic results supporting the discharge/admit diagnosis, radiology results, the need for outpatient follow up, a family practitioner, to return to the emergency department if symptoms worsen or persist or if there are any questions or concerns that arise at home. 01/07 00:37 Order name: XRAY Chest Pa And Lat (2 Views) jr8 Administered Medications: No medications were administered Disposition: 01:41 Co-signature as Attending Physician, Jordi Ferraro MD. rn Disposition: 01/07/19 01:11 Discharged to Home. Impression: Chest Wall Pain . - Condition is Stable. - Discharge Instructions: Rib Contusion, Chest Wall Pain. - Work release form, Medication Reconciliation Form, Thank You Letter, Antibiotic Education, Prescription Opioid Use form. - Follow up: El Keller DO; When: 5 - 6 days; Reason: Recheck today's complaints, Continuance of care, Re-evaluation by your physician. - Problem is new. - Symptoms have improved. Signatures: Dispatcher [employer] EDMS Jordi Ferraro MD MD rn Riggs, Erika, RN RN ed1 Mello White PA PA jr8 Corrections: (The following items were deleted from the chart) 01:24 01:11 01/07/2019 01:11 Discharged to Home. Impression: Chest Wall Pain . Condition is ed1 Stable. Forms are Medication Reconciliation Form, Thank You Letter, Antibiotic Education, Prescription Opioid Use. Follow up: El Keller; When: 5 - 6 days; Reason: Recheck today's complaints, Continuance of care, Re-evaluation by your physician. Problem is new. Symptoms have improved. jr8
--- NOTE | 2019-01-07 08:47 | RAD REPORT ---
EXAM DESCRIPTION: RAD - Chest Pa And Lat (2 Views) - 01/07/2019 1:08 am CLINICAL HISTORY: Right-sided chest and breast pain COMPARISON: May 2017 TECHNIQUE: PA and lateral views of the chest were obtained. FINDINGS: The lungs are clear. Interstitial markings are similar to comparison. Heart size is alma l and central vasculature is within normal limits. No pleural effusion or pneumothorax seen. No acu te bony finding noted. No aortic abnormality. IMPRESSION: No acute cardiopulmonary process. No significant change from comparison.
== END 2019-01-07 01:24 | disposition home or self-care (01) ==
LOC: ER 00:09
DX: R07.89 Other chest pain (principal); I10 Essential (primary) hypertension; F43.10 Post-traumatic stress disorder, unspecified; F32.9 Major depressive disorder, single episode, unspecified; F41.9 Anxiety disorder, unspecified; Z79.82 Long term (current) use of aspirin; Z85.3 Personal history of malignant neoplasm of breast; Z90.12 Acquired absence of left breast and nipple
CPT/HCPCS: 71046; 99283

== ENCOUNTER 2020-02-13 21:06 | Emergency (ER) | payer OTHER ==
--- OUTSIDE RECORDS SUMMARY | 2020-02-13 21:08 | XMS REPORT ---
:1970 Author Organization [facility] t Address [address] [place] [address] [address] [place] [address] Care Team Providers Name Role Phone Unavailable Unavailable Unavailable Problems Condition Condition Condition Status Onset Resolution Last Treating Co mments Source Name Details Category Date Date Treatment Clinician Date Benign Benign Problem Active [facility] essential essential Luke s - HTN HTN Memoria l [facility] Abnormal Abnormal Problem Active [facility] liver liver [facility] - function function [facility]ori a test test l [facility] Asthma Asthma Problem Active [facility] without without [facility] - status status Memoria asthmaticu asthmaticu l s or acute s or acute Ou tpati exacerbati exacerbati en t on on Clinics Anemia Anemia Problem Active [facility] Thrombocyt Thrombocyt Problem Active [facility] openia openia [facility] - [facility] l [facility] Vitamin D Vitamin D Problem Active [facility] deficiency deficiency Meeta kes - Memoria l [facility] Major Major Problem Active [facility] depressive depressive Meeta kes - disorder, disorder, Jorge danyel single single l episode, episode, Outpat i severe severe ent without without Clinics psychotic psychotic features features Alcoholic Alcoholic Problem Active [facility] fatty fatty [facility] - liver liver Memoria l [facility] Depression Depression Problem Active [facility] with with [facility] - anxiety anxiety Memoria l [facility] Alcohol Alcohol Problem Active [facility] use, use, [facility]ukes - unspecifie unspecifie Me moria d with d with l other other [facility] alcohol-in alcohol-in en t duced duced Clinics disorder disorder Adult BMI Adult BMI Problem Active [facility] 33.0-33.9 33.0-33.9 Luke s - kg/sq m kg/sq m Memoria l [facility] Alcohol Alcohol Problem Active [facility] abuse abuse [facility] - [facility] Allergies, Adverse Reactions, Alerts This patient has no known allergies or adverse reactions. Medications Ordered Filled Start Stop Current Ordering Indication Dosage Frequency Signature Comments Components Source Medication Medication Date Date Medication? Clinician (SIG) Name Name Diltiazem Diltiazem Yes El [address] [facility] HCl HCl Keller before [facility] - meals and Memoria at bedtime l [facility] ent Clinics Lisinopril Lisinopril Yes El [address] [facility] Keller [facility] - Memoria l [facility] Flonase Flonase Yes El [address] spray [address] [facility] Keller each [facility] - nostril Memoria l [facility]ics Advair Advair Yes El [address] [facility] Diskus Diskus Keller [facility] - Memoria l [facility]ics Duloxetine Duloxetine Yes El [address] HCl HCl Keller [facility] - Memoria l [facility] Protonix Protonix Yes El TAKE ONE C [facility] Keller TABLET BY [facility]ukes - MOUTH Memoria DAILY l [facility] Clinics Ferrous Ferrous Yes El [address] [facility] Sulfate Sulfate [facility] ProAir HFA ProAir HFA Yes El [address] [facility] Keller needed [facility] - Memoria l [facility] Topiramate Topiramate Yes El [address] [facility] Keller [facility] - Memoria l [facility]ics Wellbutrin Wellbutrin Yes El [address] [facility] XL XL Keller in the [facility] - morning [facility]oria l [facility] Procedures This patient has no known procedures. Encounters Start End Encounter Admission Attending Care Care Encounter Source Date/Time Date/Time Type Type Clinicians Facility Department ID 2019-06-19 2019-06-19 Outpatient Naya Hoover [id number] [facility] 10:50:00 10:50:00 [employer] [facility] Medicine Medicine Outpati ent Clinics 2019-04-27 2019-04-27 Outpatient Naya Hoover [id number] [facility] 08:15:00 08:15:00 [employer] [facility] Medicine [facility] 2018-12-27 2018-12-27 Outpatient Naya Hoover [id number] [facility] 14:15:00 14:15:00 [employer] [facility] 2018-12-27 2018-12-27 [facility] [id number] 10:32:00 10:32:00 t [employer] [facility] Medicine Outpati ent Clinics 2018-12-20 2018-12-20 [facility] [id number] 11:15:00 11:15:00 t [employer] [facility] Medicine Outpati ent Clinics 2018-11-09 2018-11-09 [facility] [id number] 11:26:00 11:26:00 t [employer] [facility] Medicine Outpati ent Clinics 2018-05-12 2018-05-12 [facility] [id number] [facility] 09:09:00 09:09:00 t [employer] [facility] Medicine Outpati ent Clinics 2018-02-07 2018-02-07 [facility] [id number] [facility] 09:00:00 09:00:00 t [employer] [facility] Medicine Outpati ent Clinics Results This patient has no known results.
--- OUTSIDE RECORDS SUMMARY | 2020-02-13 21:08 | XMS REPORT ---
:1970 Author Organization [employer] Care Team Providers Name Role Phone Keller El Provider Role Unavailable Allergies No Known Allergies Problems Problem Type Condition Code Onset Dates Condition Statu s Problem Alcoholic fatty liver K70.0 Active Problem Alcohol use, unspecified with other F10.988 Active alcohol-induced disorder Problem Major depressive disorder, single F32.2 Active episode, severe without psychotic features Problem Asthma without status asthmaticus J45.909 Active or acute exacerbation Problem Abnormal liver function test R94.5 Active Problem Adult BMI 33.0-33.9 kg/sq m Z68.33 Active Problem Vitamin D deficiency E55.9 Active Problem Alcohol abuse F10.10 Active Problem Thrombocytopenia D69.6 Active Problem Depression with anxiety F41.8 Acti ve Problem Anemia D64.9 Active Problem Benign essential HTN I10 Active Medications No Known Medications Results No Known Results Summary Purpose [employer] Submission
[2020-02-13 21:33] LABS: Basophils % 0.6 % (0-1.3); Hematocrit 38.4 % (36.0-45.0); Lymphocytes % 38.6 % (15.3-44.8); MPV 7.5 fL (7.6-11.3)
[2020-02-13 21:41] LABS: Protime INR 1.21
[2020-02-13 21:55] LABS: ALT/SGPT 93 U/L (12-78); AST/SGOT 93 U/L (15-37); Albumin 3.7 g/dL (3.4-5.0); Alkaline Phosphatase 155 U/L (45-117); BUN Blood Urea Nitrogen 5 mg/dL (7-18); Bicarbonate 24 mmol/L (21-32); Bilirubin Direct 0.8 mg/dL (0-0.2); Bilirubin Total 1.6 mg/dL (0.2-1.0); Glucose Level 114 mg/dL (74-106); Magnesium 2.2 mg/dL (1.8-2.4); NT PRO-BNP 121 pg/mL (<125); Potassium 3.3 mmol/L (3.5-5.1); Protein, Total 8.4 g/dL (6.4-8.2); Sodium Level 146 mmol/L (136-145); Troponin (Emerg Dept Use Only) < 0.02 ng/mL (0.0-0.045)
[2020-02-13 21:59] LABS: Blood Morphology Comment NOT SEEN (NOT SEEN); Platelet Estimate DECR; Urine White Blood Cell Casts OK
[2020-02-13] MEDS ORDERED: NA CHLORIDE 0.9% 500 ML ONE (22:11)
[2020-02-13] MEDS ORDERED: POTASSIUM CL SA 10 MEQ TAB PO ONE (22:11)
--- NOTE | 2020-02-13 22:29 | RAD REPORT ---
EXAM DESCRIPTION: Jazmyn Single View02/13/2020 10:03 pm CLINICAL HISTORY: Chest pain COMPARISON: 2018 FINDINGS: The lungs appear clear of acute infiltrate. The heart is normal size IMPRESSION: No acute abnormalities displayed
--- NOTE | 2020-02-13 22:39 | EDPHYS ---
Physician Documentation [facility] Name: Doreen Allison Age: 49 yrs Sex: Female : 1970 Arrival Date: 02/13/2020 Time: 21:07 Bed 17 Private MD: ED Physician Luis Fernando Farooq HPI: 02/12 21:50 This 49 yrs old Female presents to ER via Ambulatory with complaints of Chest jr8 Pain, Arm Pain. 21:50 The patient or guardian reports chest pain that is located primarily in the anterior jr8 chest wall, left. Onset: gradually, 2 week(s) ago, and became worse today. The pain radiates to the left arm, left jaw. Associated signs and symptoms: The patient has no apparent associated signs or symptoms. The chest pain is described as dull. Duration: The patient or guardian reports a single episode, that is now resolved. Modifying factors: The symptoms are alleviated by rest, the symptoms are aggravated by emotionally stressful situations. Severity of pain: At its worst the pain was moderate in the emergency department the pain has resolved. It is unknown whether or not the patient has had similar symptoms in the past. The patient has not recently seen a physician. Stated that she has been under a lot of stress lately. Was making her chest pain worse. Feels more relaxed now which has resolved the pain . 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 Flu vaccine status is unknown. - Social history:: Smoking status: unknown Smoking status: unknown. ROS: 21:50 Eyes: Negative for injury, pain, redness, and discharge, ENT: Negative for injury, jr8 pain, and discharge, Neck: Negative for injury, pain, and swelling, Respiratory: Negative for shortness of breath, cough, wheezing, and pleuritic chest pain, Abdomen/GI: Negative for abdominal pain, nausea, vomiting, diarrhea, and constipation, Back: Negative for injury and pain, MS/Extremity: Negative for injury and deformity, Skin: Negative for injury, rash, and discoloration, Neuro: Negative for headache, weakness, numbness, tingling, and seizure. 21:50 Cardiovascular: Positive for chest pain, Negative for edema, orthopnea, palpitations, paroxysmal nocturnal dyspnea. Exam: 21:50 Eyes: Pupils equal round and reactive to light, extra-ocular motions intact. Lids and jr8 lashes normal. Conjunctiva and sclera are non-icteric and not injected. Cornea within normal limits. Periorbital areas with no swelling, redness, or edema. ENT: Nares patent. No nasal discharge, no septal abnormalities noted. Tympanic membranes are normal and external auditory canals are clear. Oropharynx with no redness, swelling, or masses, exudates, or evidence of obstruction, uvula midline. Mucous membranes moist. Neck: Trachea midline, no thyromegaly or masses palpated, and no cervical lymphadenopathy. Supple, full range of motion without nuchal rigidity, or vertebral point tenderness. No Meningismus. Cardiovascular: Regular rate and rhythm with a normal S1 and S2. No gallops, murmurs, or rubs. Normal PMI, no JVD. No pulse deficits. Respiratory: Lungs have equal breath sounds bilaterally, clear to auscultation and percussion. No rales, rhonchi or wheezes noted. No increased work of breathing, no retractions or nasal flaring. Abdomen/GI: Soft, non-tender, with normal bowel sounds. No distension or tympany. No guarding or rebound. No evidence of tenderness throughout. Back: No spinal tenderness. No costovertebral tenderness. Full range of motion. Skin: Warm, dry with normal turgor. Normal color with no rashes, no lesions, and no evidence of cellulitis. MS/ Extremity: Pulses equal, no cyanosis. Neurovascular intact. Full, normal range of motion. Neuro: Awake and alert, GCS 15, oriented to person, place, time, and situation. Cranial nerves II-XII grossly intact. Motor strength 5/5 in all extremities. Sensory grossly intact. Cerebellar exam normal. Normal gait. 21:50 ECG was reviewed by the Attending Physician. Vital Signs: 21:20 BP 156 / 88; Pulse 89; Resp 18; Temp 98.5(TE); Pulse Ox 96% ; mg2 23:49 BP 145 / 78; Pulse 80; Resp 18; Temp 98; Pulse Ox 100% on R/A; mg2 MDM: 21:23 Patient medically screened. jr8 22:37 Data reviewed: vital signs, nurses notes, lab test result(s), EKG, radiologic studies, jr8 plain films. Data interpreted: Pulse oximetry: on room air is 96 %. Interpretation: normal. 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 02/12 21:18 Order name: Basic Metabolic Panel; Complete Time: 22:02 mg2 02/12 21:18 Order name: CBC with Diff mg2 02/12 21:18 Order name: LFT's; Complete Time: 22:02 mg2 02/12 21:18 Order name: Magnesium; Complete Time: 22:02 mg2 02/12 21:18 Order name: NT PRO-BNP; Complete Time: 22:02 mg2 02/12 21:18 Order name: PT-INR; Complete Time: 21:50 mg2 02/12 21:18 Order name: Troponin (emerg Dept Use Only); Complete Time: 22:02 mg2 02/12 21:18 Order name: XRAY Chest (1 view); Complete Time: 22:37 mg2 02/12 21:18 Order name: EKG; Complete Time: 21:19 mg2 02/12 21:21 Order name: Strep; Complete Time: 21:56 mg2 02/12 21:51 Order name: Throat Culture EDNH 02/12 21:59 Order name: CBC Smear Scan; Complete Time: 22:02 EDMS 02/12 21:18 Order name: Cardiac monitoring; Complete Time: 21:33 mg2 02/12 21:18 Order name: EKG - Nurse/Tech; Complete Time: 21:33 mg2 02/12 21:18 Order name: IV Saline Lock; Complete Time: 21:33 mg2 02/12 21:18 Order name: Labs collected and sent; Complete Time: 21:34 mg2 02/12 21:18 Order name: O2 Per Protocol; Complete Time: 21:34 mg2 02/12 21:18 Order name: O2 Sat Monitoring; Complete Time: 21:34 mg2 EC:50 Rate is 105 beats/min. Rhythm is regular, Sinus tachycardia. QRS [place] is Normal. [place] jr8 interval is normal at 118 msec. QRS interval is normal at 96 msec. QT interval is normal. No Q waves. T waves are Inverted in lead V1. No ST changes noted. Clinical impression: NSR w/ Non-specific ST/T Changes and No evidence of ischemia. Interpreted by me. Reviewed by me. Administered Medications: 22:10 Drug: Potassium Chloride 20 mEq Route: PO; mg2 22:10 Drug: NS 0.9% 500 ml Route: IV; Rate: bolus; Site: right antecubital; mg2 Disposition: 02/13 00:03 Co-signature as Attending Physician, Luis Fernando Farooq MD I agree with the assessment and tw4 plan of care. Disposition: 02/13/20 22:38 Discharged to Home. Impression: Chest pain, unspecified. - Condition is Stable. - Discharge Instructions: Nonspecific Chest Pain. - Medication Reconciliation Form, Thank You Letter, Antibiotic Education, Prescription Opioid Use form. - Work release form (02/13/20 23:52). mg2 - Follow up: Abhinav Burris MD; When: 2 - 3 days; Reason: Recheck today's complaints, Continuance of care, Re-evaluation by your physician. - Problem is new. - Symptoms have improved. Signatures: Dispatcher [employer] EDNH Mello White PA PA jr8 Luis Fernando Farooq MD MD tw4 Raffy Perez RN RN mg2 Corrections: (The following items were deleted from the chart) 02/12 23:51 22:38 02/13/2020 22:38 Discharged to Home. Impression: Chest pain, unspecified. mg2 Condition is Stable. Forms are Medication Reconciliation Form, Thank You Letter, Antibiotic Education, Prescription Opioid Use. Follow up: Abhinav Burris; When: 2 - 3 days; Reason: Recheck today's complaints, Continuance of care, Re-evaluation by your physician. Problem is new. Symptoms have improved. jr8
--- NOTE | 2020-02-13 22:39 | ER ---
Nurse's Notes [facility] Name: Doreen Allison Age: 49 yrs Sex: Female : 1970 Arrival Date: 02/13/2020 Time: 21:07 Bed 17 Private MD: Diagnosis: Chest pain, unspecified Presentation: 02/12 21:20 Chief complaint: Patient states: chest pain and left arm pain for a week now but worse mg2 today. im not sure if its anxiety or my mastectomy causing it. Ebola Screen: No symptoms or risks identified at this time. Initial Sepsis Screen: Does the patient meet any 2 criteria? No. Patient's initial sepsis screen is negative. Does the patient have a suspected source of infection? No. Patient's initial sepsis screen is negative. Risk Assessment: Do you want to hurt yourself or someone else? Patient reports no desire to harm self or others. 21:20 Method Of Arrival: Ambulatory mg2 21:20 Acuity: LARRY 3 mg2 21:20 Coronavirus screen: Proceed with normal triage. Patient denies a cough. Patient denies mg2 shortness of breath or difficulty breathing. Patient denies measured and/or subjective temperature greater than 100.4F prior to today's visit. Patient denies travel on a cruise ship or to a country the [facility] currently lists as an affected area. Patient denies contact with known and/or suspected case of COVID-19. Onset of symptoms was January 2020. 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 Flu vaccine status is unknown. - Social history:: Smoking status: unknown Smoking status: unknown. Screenin:59 Abuse screen: Denies threats or abuse. Denies injuries from another. Nutritional mg2 screening: No deficits noted. Tuberculosis screening: No symptoms or risk factors identified. Fall Risk IV access (20 points). Assessment: 21:45 General: Appears in no apparent distress. comfortable, Behavior is calm, cooperative. mg2 Pain: Complains of pain in chest Pain radiates to left arm. 21:45 Pain: Pain began gradually. Neuro: Level of Consciousness is awake, alert, obeys mg2 commands, Oriented to person, place, time, situation. Cardiovascular: Reports chest pain, Capillary refill < 3 seconds Patient's skin is warm and dry. Respiratory: Airway is patent Respiratory effort is even, unlabored, Respiratory pattern is regular, symmetrical. GI: No signs and/or symptoms were reported involving the gastrointestinal system. : No signs and/or symptoms were reported regarding the genitourinary system. EENT: Reports pain in throat. Derm: Skin is intact, is healthy with good turgor, Skin is pink, warm \T\ dry. normal. Musculoskeletal: Circulation, motion, and sensation intact. Capillary refill < 3 seconds. 22:01 Reassessment: critical lab result - platelet of 71 relayed to the provider. mg2 23:49 Reassessment: Patient appears in no apparent distress at this time. Patient states mg2 feeling better. Vital Signs: 21:20 BP 156 / 88; Pulse 89; Resp 18; Temp 98.5(TE); Pulse Ox 96% ; mg2 23:49 BP 145 / 78; Pulse 80; Resp 18; Temp 98; Pulse Ox 100% on R/A; mg2 ED Course: 21:07 Patient arrived in ED. ds1 21:22 Mello White PA is PHCP. jr8 21:22 Luis Fernando Farooq MD is Attending Physician. jr8 21:25 Triage completed. mg2 21:28 Arm band placed on. mg2 21:28 Inserted saline lock: 20 gauge in right antecubital area, using aseptic technique. dh4 21:33 Lilly Phan, BARBI is Primary Nurse. ls4 21:34 XRAY Chest (1 view) Sent. ls4 22:01 Patient has correct armband on for positive identification. Placed in gown. Bed in low mg2 position. Call light in reach. Side rails up X2. court recording monitor on. Pulse ox on. NIBP on. Door closed. Warm blanket given. 22:03 XRAY Chest (1 view) In Process Unspecified. EDMS 22:38 Abhinav Burris MD is Referral Physician. jr8 23:50 No provider procedures requiring assistance completed. IV discontinued, intact, mg2 bleeding controlled, No redness/swelling at site. Pressure dressing applied. Patient maintains SpO2 saturation greater than 95% on room air. Administered Medications: 22:10 Drug: Potassium Chloride 20 mEq Route: PO; mg2 22:10 Drug: NS 0.9% 500 ml Route: IV; Rate: bolus; Site: right antecubital; mg2 Outcome: 22:38 Discharge ordered by MD. abbott 23:50 Discharged to home ambulatory. mg2 23:50 Condition: stable 23:50 Discharge instructions given to patient, Instructed on discharge instructions, follow up and referral plans. Demonstrated understanding of instructions, follow-up care. 23:51 Patient left the ED. mg2 Signatures: Dispatcher [employer] EDPA Renea Tellez ds1 Mello White PA PA jr8 Raffy Perez, RN RN mg2 Lilly Phan RN RN 4 Anup Mcclure 4 Corrections: (The following items were deleted from the chart) 21:28 21:20 Pulse 89bpm; Resp 18bpm; Pulse Ox 96%; Temp 98.5F Temporal; mg2 mg2
[2020-02-14 00:22] VITALS: BP 145/78; TEMP 98; O2SAT 100
--- NOTE | 2020-02-14 06:30 | EKG ---
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
== END 2020-02-13 23:51 | disposition home or self-care (01) ==
LOC: ER 21:06
DX: R07.9 Chest pain, unspecified (principal); I10 Essential (primary) hypertension; Z85.3 Personal history of malignant neoplasm of breast; Z90.12 Acquired absence of left breast and nipple
CPT/HCPCS: 93005; 87070; 85025; 80048; 36415; 83735; 85610; 80076; 87081; 84484; 83880; 71045; 99285; J7040

== ENCOUNTER 2020-10-20 05:14 | Emergency (ER) | payer OTHER ==
--- OUTSIDE RECORDS SUMMARY | 2020-10-20 05:16 | XMS REPORT | Continuity of Care Document ---
:1970 Author Organization [facility] t Address [address] [place] [address] Care Team Providers Name Role Phone Unavailable Unavailable Unavailable Problems This patient has no known problems. Allergies, Adverse Reactions, Alerts This patient has no known allergies or adverse reactions. Medications Ordered Filled Start Stop Current Ordering Indication Dosage Frequency Signature Comments Components Source Medication Medication Date Date Medication? Clinician (SIG) Name Name Disulfiram Disulfiram 2020-0 2020- No El [address] [facility] 9-15 10-15 [facility] Diltiazem Diltiazem Yes El [address] [facility] HCl HCl [facility] before [facility] and [facility] at bed[facility] Lisinopril Lisinopril Yes El [address] [facility] Flonase Flonase Yes El [address] spray [address] [facility] nostril [facility] Advair Advair Yes El [address] [facility] Diskus Diskus [facility] Duloxetine Duloxetine Yes El [address] [facility] HCl HCl [facility] Protonix Protonix Yes El TAKE ONE C [facility] TABLET BY [facility] - MOUTH [facility] DAILY l [facility] Ferrous Ferrous Yes El [address] [facility] Sulfate Sulfate [facility] ProAir HFA ProAir HFA Yes El [address] [facility] Topiramate Topiramate Yes El [address] [facility] Wellbutrin Wellbutrin Yes El [address] [facility] XL XL [facility] in the [facility] Out[facility] Clinics Procedures This patient has no known procedures. Encounters Start End Encounter Admission Attending Care Care Encounter Source Date/Time Date/Time Type Type Clinicians Facility Department ID 2020-08-19 2020-08-19 [id number] 2020-07-29 2020-07-29 [facility] [id number] 2020-06-30 2020-06-30 [facility] [id number] [facility] Clin[facility] 2020-06-17 2020-06-17 [facility] [id number] ent Clin[facility] 2020-06-11 2020-06-11 [facility] [id number] [facility] 09:59:00 09:59:00 t [employer] Medicine Outpati ent Clinics 2020-06-10 2020-06-10 [facility] [id number] [facility] 14:10:00 14:10:00 t [employer] [facility] Medicine Medicine Outpati ent Clinics 2020-05-12 2020-05-12 [facility] [id number] [facility] 13:00:00 13:00:00 t [employer] [facility] Medicine Medicine Outpati ent Clinics 2019-06-19 2019-06-19 [facility] [id number] [facility] 10:50:00 10:50:00 [facility] Medicine Medicine Outpati ent Clinics 2019-04-27 2019-04-27 [facility] [id number] [address] 08:15:00 08:15:[address] [facility] Medicine Outpati ent Clinics 2018-12-27 2018-12-27 [facility] [id number] 14:15:00 14:15:00 [place] [employer] [facility] Medicine Outpati ent Clinics 2018-12-27 2018-12-27 [facility] [id number] [address] 10:32:00 10:32:00 [place] [employer] [facility] Medicine Outpati ent Clinics 2018-12-20 2018-12-20 [facility] [id number] 11:15:00 11:15:00 t [place] [employer] [facility] Medicine Outpati ent Clinics 2018-11-09 2018-11-09 [facility] [id number] 11:26:00 11:26:00 t [employer] [facility] Medicine Outpati ent Clinics 2018-05-12 2018-05-12 [facility] [id number] [address] 09:09:00 09:09:00 t [place] [employer] [facility] Medicine Outpati ent Clinics 2018-02-07 2018-02-07 [facility] [id number] 09:00:00 09:00:00 t [employer] [facility] Medicine Outpati ent Clinics Results This patient has no known results.
[2020-10-20] MEDS ORDERED: IBUPROFEN 200 MG TAB PO ONE (06:12)
[2020-10-20] MEDS ORDERED: IBUPROFEN 400 MG TAB ONE (06:12)
--- NOTE | 2020-10-20 06:34 | EDPHYS ---
Physician Documentation [facility] Name: Doreen Allison Age: 50 yrs Sex: Female : 1970 Arrival Date: 10/20/2020 Time: 05:16 Bed 16 Private MD: Carrie Kellerh ED Physician Jese Zimmerman HPI: 10/20 06:03 This 50 yrs old Female presents to ER via Ambulatory with complaints of Arm mh7 Pain. 06:03 The patient or guardian complains of pain, that is chronic. The complaints affect the mh7 right bicep. Context: The problem was sustained at work, resulted from lifting or pulling, a heavy object. Onset: The symptoms/episode began/occurred 1 month(s) ago. Treatment prior to arrival includes: no previous treatment. Modifying factors: The symptoms are alleviated by heat, remaining still, the symptoms are aggravated by movement, lifting weight. Associated signs and symptoms: Pertinent negatives: decreased range of motion, deformity, erythema, fever, nausea, numbness, swelling, tingling, vomiting, warmth, weakness. Severity of symptoms: At their worst the symptoms were moderate, 7 day(s) ago, in the emergency department the symptoms are unchanged. Patient states that she has taken Ibuprofen 200 mg only a couple times, last time was about 1 week ago. She has not tried taking any other medication.. Historical: - Allergies: 05:46 No Known Allergies; lp1 - Home Meds: 05:46 diltiazem HCl 60 mg Oral tab 1 tab twice a day [Active]; lisinopril 10 mg Oral tab 1 lp1 tab once daily [Active]; - PMHx: 05:46 Anemia; lp1 - PSHx: 05:46 L mastectomy; R leg surgery; lp1 - Immunization history:: Adult Immunizations up to date. - Social history:: Smoking status: Patient denies any tobacco usage or history of. ROS: 06:03 Constitutional: Negative for fever, chills, and weight loss, Eyes: Negative for injury, mh7 pain, redness, and discharge, ENT: Negative for injury, pain, and discharge, Neck: Negative for injury, pain, and swelling, Cardiovascular: Negative for chest pain, palpitations, and edema, Respiratory: Negative for shortness of breath, cough, wheezing, and pleuritic chest pain, Abdomen/GI: Negative for abdominal pain, nausea, vomiting, diarrhea, and constipation, Back: Negative for injury and pain, : Negative for injury, bleeding, discharge, and swelling, Skin: Negative for injury, rash, and discoloration, Neuro: Negative for headache, weakness, numbness, tingling, and seizure, Psych: Negative for depression, anxiety, suicide ideation, homicidal ideation, and hallucinations, Allergy/Immunology: Negative for hives, rash, and allergies, Endocrine: Negative for neck swelling, polydipsia, polyuria, polyphagia, and marked weight changes, Hematologic/Lymphatic: Negative for swollen nodes, abnormal bleeding, and unusual bruising. Exam: 06:03 Constitutional: This is a well developed, well nourished patient who is awake, alert, mh7 and in no acute distress. Head/Face: Normocephalic, atraumatic. Eyes: Pupils equal round and reactive to light, extra-ocular motions intact. Lids and lashes normal. Conjunctiva and sclera are non-icteric and not injected. Cornea within normal limits. Periorbital areas with no swelling, redness, or edema. Neck: Trachea midline, no thyromegaly or masses palpated, and no cervical lymphadenopathy. Supple, full range of motion without nuchal rigidity, or vertebral point tenderness. No Meningismus. Chest/axilla: Normal chest wall appearance and motion. Nontender with no deformity. No lesions are appreciated. Cardiovascular: Regular rate and rhythm with a normal S1 and S2. No gallops, murmurs, or rubs. Normal PMI, no JVD. No pulse deficits. Respiratory: Lungs have equal breath sounds bilaterally, clear to auscultation and percussion. No rales, rhonchi or wheezes noted. No increased work of breathing, no retractions or nasal flaring. Abdomen/GI: Soft, non-tender, with normal bowel sounds. No distension or tympany. No guarding or rebound. No evidence of tenderness throughout. Back: No spinal tenderness. No costovertebral tenderness. Full range of motion. Skin: Warm, dry with normal turgor. Normal color with no rashes, no lesions, and no evidence of cellulitis. 06:03 Neuro: Awake and alert, GCS 15, oriented to person, place, time, and situation. Cranial nerves II-XII grossly intact. Motor strength 5/5 in all extremities. Sensory grossly intact. Cerebellar exam normal. Normal gait. Psych: Awake, alert, with orientation to person, place and time. Behavior, mood, and affect are within normal limits. 06:03 Musculoskeletal/extremity: Extremities: noted in the right bicep: tenderness, ROM: intact in all extremities, Circulation is intact in all extremities. Pulses: are normal with no appreciated deficits, Perfusion: the patient is normally perfused throughout, Perfusion: the extremity is normally perfused throughout, Calf tenderness, is absent, Edema, is not appreciated, Sensation intact. Compartment Syndrome exam of affected extremity: is normal. no numbness, no tingling, no sensation deficit, no palor, no weak pulses, Joints: All joints appear normal with full range of motion. Weight bearing: able to fully bear weight, without difficulty, Tendon exam: specific tendon testing normal through active and passive range of motion Vital Signs: 05:42 BP 142 / 87; Pulse 90; Resp 18; Temp 98.3(O); Pulse Ox 100% on R/A; Weight 81.65 kg lp1 (R); Height 5 ft. 1 in. (154.94 cm); Pain 7/10; 06:02 BP 142 / 70; Pulse 86; Resp 18; Pulse Ox 99% on R/A; Pain 6/10; fu 06:30 BP 144 / 80; Pulse 90; Resp 18; Pulse Ox 100% on R/A; Pain 3/10; fu 05:42 Body Mass Index 34.01 (81.65 kg, 154.94 cm) lp1 MDM: 06:03 Differential diagnosis: tendonitis, Strain, Musculoskeletal pain. Data reviewed: [facility] signs, nurses notes. Data interpreted: Pulse oximetry: on room air is 99 %. Interpretation: normal. Counseling: I had a detailed discussion with the patient and/or guardian regarding: the historical points, exam findings, and any diagnostic results supporting the discharge/admit diagnosis, the presence of at least one elevated blood pressure reading (>120/80) during this emergency department visit, the need for outpatient follow up, to return to the emergency department if symptoms worsen or persist or if there are any questions or concerns that arise at home. 06:32 Response to treatment: the patient's symptoms have markedly improved after treatment. [facility] 06:33 Patient medically screened. [facility] Administered Medications: 06:01 Drug: Ibuprofen 600 mg Route: PO; fu 06:36 Follow up: Response: Pain is decreased fu Disposition: 10/20/20 06:33 Discharged to Home. Impression: Right Arm Pain. - Condition is Stable. - Discharge Instructions: Musculoskeletal Pain. - Prescriptions for Ibuprofen 800 mg Oral Tablet - take 1 tablet by ORAL route every 8 hours As needed take with food; 15 tablet. Robaxin 500 mg Oral Tablet - take 1 tablet by ORAL route every 6 hours As needed; 20 tablet. - Work release form, Medication Reconciliation Form, Thank You Letter, Antibiotic Education, Prescription Opioid Use form. - Follow up: Private Physician; When: 1 - 2 days; Reason: Worsening of condition, Recheck today's complaints, Continuance of care, Re-evaluation by your physician. - Problem is an ongoing problem. - Symptoms have improved. Signatures: Savi Fragoso RN RN lp1 Maria R Heart RN RN ea Umadhay, Felix, RN RN fu Holmes, Maurice, MD MD mh7 Corrections: (The following items were deleted from the chart) 06:44 06:33 10/20/2020 06:33 Discharged to Home. Impression: Right Arm Pain. Condition is ea Stable. Forms are Medication Reconciliation Form, Thank You Letter, Antibiotic Education, Prescription Opioid Use. Follow up: Private Physician; When: 1 - 2 days; Reason: Worsening of condition, Recheck today's complaints, Continuance of care, Re-evaluation by your physician. Problem is an ongoing problem. Symptoms have improved. [facility]
--- NOTE | 2020-10-20 06:34 | ER ---
Nurse's Notes [facility] Name: Doreen Allison Age: 50 yrs Sex: Female : 1970 Arrival Date: 10/20/2020 Time: 05:16 Bed 16 Private MD: El Keller Diagnosis: Right Arm Pain Presentation: 10/20 05:42 Chief complaint: Patient states: Right upper arm pain for the last month, reports lp1 worsening pain for the past week; No relief with compression or Ibuprofen OTC; Denies any high impact injury. Coronavirus screen: Client denies travel out of the [place] in the last 14 days. At this time, the client does not indicate any symptoms associated with coronavirus-19. Ebola Screen: No symptoms or risks identified at this time. Initial Sepsis Screen: Does the patient meet any 2 criteria? No. Patient's initial sepsis screen is negative. Does the patient have a suspected source of infection? No. Patient's initial sepsis screen is negative. Risk Assessment: Do you want to hurt yourself or someone else? Patient reports no desire to harm self or others. Onset of symptoms. 05:42 Method Of Arrival: Ambulatory lp1 05:42 Acuity: LARRY 5 lp1 Historical: - Allergies: 05:46 No Known Allergies; lp1 - Home Meds: 05:46 diltiazem HCl 60 mg Oral tab 1 tab twice a day [Active]; lisinopril 10 mg Oral tab 1 lp1 tab once daily [Active]; - PMHx: 05:46 Anemia; lp1 - PSHx: 05:46 L mastectomy; R leg surgery; lp1 - Immunization history:: Adult Immunizations up to date. - Social history:: Smoking status: Patient denies any tobacco usage or history of. Screenin:49 Abuse screen: Denies threats or abuse. Denies injuries from another. Nutritional lp1 screening: No deficits noted. Tuberculosis screening: No symptoms or risk factors identified. Fall Risk None identified. Assessment: 05:56 General: Appears in no apparent distress. Behavior is calm, cooperative, appropriate ea for age. Pain: Complains of pain in right arm. Neuro: Level of Consciousness is awake, alert, obeys commands, Oriented to person, place, time. Cardiovascular: Patient's skin is warm and dry. Respiratory: Airway is patent Respiratory effort is even, unlabored, Respiratory pattern is regular, symmetrical. Derm: Skin is pink, warm \T\ dry. 06:42 Reassessment: Patient and/or family updated on plan of care and expected duration. Pain ea level reassessed. Patient is alert, oriented x 3, equal unlabored respirations, skin warm/dry/pink. Discharge instruction given to patient verbalized the understanding of instruction. Pt left ED ambulatory tolerating well. Vital Signs: 05:42 BP 142 / 87; Pulse 90; Resp 18; Temp 98.3(O); Pulse Ox 100% on R/A; Weight 81.65 kg lp1 (R); Height 5 ft. 1 in. (154.94 cm); Pain 7/10; 06:02 BP 142 / 70; Pulse 86; Resp 18; Pulse Ox 99% on R/A; Pain 6/10; fu 06:30 BP 144 / 80; Pulse 90; Resp 18; Pulse Ox 100% on R/A; Pain 3/10; fu 05:42 Body Mass Index 34.01 (81.65 kg, 154.94 cm) lp1 ED Course: 05:16 Patient arrived in ED. am2 05:16 El Keller DO is Private Physician. am2 05:37 Jese Zimmerman MD is Attending Physician. [facility] 05:44 Triage completed. lp1 05:44 Arm band placed on. lp1 05:49 Patient has correct armband on for positive identification. lp1 05:54 Pulse ox on. NIBP on. fu 05:55 Maria R Heart RN is Primary Nurse. ea 05:56 No provider procedures requiring assistance completed. Patient did not have IV access ea during this emergency room visit. Administered Medications: 06:01 Drug: Ibuprofen 600 mg Route: PO; fu 06:36 Follow up: Response: Pain is decreased fu Outcome: 06:33 Discharge ordered by . [facility] 06:42 Discharged to home ambulatory. ea 06:42 Condition: stable 06:42 Discharge instructions given to patient, Instructed on discharge instructions, follow up and referral plans. medication usage, Demonstrated understanding of instructions, follow-up care, medications, Prescriptions given X 2. 06:44 Patient left the ED. ea Signatures: Savi Fragoso RN RN 1 Pao Huber am2 Maria R Heart RN RN Sebastian Banda RN RN Jese Art MD MD mh7
[2020-10-20 06:49] VITALS: TEMP 98.3
[2020-10-20 06:51] VITALS: BP 144/80; O2SAT 100
== END 2020-10-20 06:44 | disposition home or self-care (01) ==
LOC: ER 05:14
DX: M79.621 Pain in right upper arm (principal); G89.29 Other chronic pain
CPT/HCPCS: 99283

== ENCOUNTER 2021-03-23 19:23 | Emergency (ER) | payer OTHER ==
--- OUTSIDE RECORDS SUMMARY | 2021-03-23 19:27 | XMS REPORT | Continuity of Care Document ---
:1970 Author Organization [facility] t Address [address] [place] [address] Care Team Providers Name Role Phone Unavailable [...] - 00:00: 00:00 [facility] 00 :00 [facility] Diltiazem Diltiazem Yes El [address] [facility] HCl HCl [facility] before [facility] at bedtime [facility] Lisinopril Lisinopril Yes El [address] [facility] Flonase Flonase Yes El [address] [facility] each [facility] Advair Advair Yes El [address] [facility] Diskus Diskus [facility] Duloxetine Duloxetine Yes El [address] [facility] HCl HCl [facility] Protonix Protonix Yes El TAKE ONE C [facility] TABLET BY [facility] DAILY [facility] Ferrous Ferrous Yes El [address] [facility] Sulfate Sulfate [facility] ProAir HFA ProAir HFA Yes El [address] [facility] Topiramate Topiramate Yes El [address] [facility] Wellbutrin Wellbutrin Yes El [address] [facility] XL XL [facility] in the [facility] Procedures This patient has no known procedures. Encounters Start End Encounter Admission Attending Care Care Encounter Source Date/Time Date/Time Type Type Clinicians Facility Department ID 2021-02-05 2021-02-05 [facility] [id number] [facility] 2021-02-03 2021-02-03 [facility] [id number] [facility] 2021-02-02 2021-02-02 [facility] [id number] [facility] 2021-02-02 2021-02-02 [facility] [id number] [facility] 2021-02-02 2021-02-02 [facility] [id number] [facility] 2020-12-11 2020-12-11 [facility] [id number] [facility] 2020-08-19 2020-08-19 [facility] [id number] [facility] 2020-07-29 2020-07-29 [facility] [id number] [facility] 2020-06-30 2020-06-30 [facility] [id number] [facility] 2020-06-17 2020-06-17 [facility] [id number] [facility]00 [facility] 2020-06-11 2020-06-11 [facility] [id number] [facility] 09:59:00 09:59:00 [place] [employer] [address] [address] [facility] Out[facility] ent Clinics 2020-06-10 2020-06-10 [facility] [id number] 14:10:00 14:10:00 [place] [employer] [place] [place] [address] [facility] Clin[facility] 2020-05-12 2020-05-12 [facility] [id number] 13:00:00 13:00:00 [place] [employer] [place] [employer] [address] [facility] Clin[facility] 2019-06-19 2019-06-19 [facility] [id number] 10:50:00 10:50:00 [place] [employer] - [address] [facility] Out[facility] Clin[facility] 2019-04-27 2019-04-27 [facility] [id number] 08:15:00 08:15:00 [place] [employer] [place] [address] [facility] Out[facility] Clinics 2018-12-27 2018-12-27 [facility] [id number] 14:15:00 14:15:00 [place] [employer] [address] [facility] Out[facility] Clinics 2018-12-27 2018-12-27 [facility] [id number] 10:32:00 10:32:00 [place] [employer] [address] [facility] Out[facility] Clinics 2018-12-20 2018-12-20 [facility] [id number] 11:15:00 11:15:00 [place] [employer] - [address] [facility] Clin[facility] 2018-11-09 2018-11-09 [facility] [id number] 11:26:00 11:26:00 [place] [employer] - [address] [facility] Out[facility] Clinics 2018-05-12 2018-05-12 [facility] [id number] 09:09:00 09:09:00 [facility] 2018-02-07 2018-02-07 Outpatient Naya Persont [id number] [facility] [address] 09:00:00 09:00:00 [employer] [facility] ent Clinics Results This patient has no known results.
--- NOTE | 2021-03-23 20:55 | EDPHYS ---
Physician Documentation [facility] Name: Doreen Allison Age: 50 yrs Sex: Female : 1970 Arrival Date: 03/23/2021 Time: 19:26 Bed 23 Private MD: [facility] ED Physician [place] HPI: 03/23 20:39 This 50 yrs old Female presents to ER via Ambulatory with complaints of Arm pkl Pain, Bump swelling and hurt. 20:39 The patient or guardian complains of contusion. The complaints affect the right arm. pkl Context: resulted from a fall. Onset: The symptoms/episode began/occurred just prior to arrival, 2 hour(s) ago. Historical: - Allergies: 19:59 No Known Allergies; em - PMHx: 19:59 Anemia; Anxiety; breast cancer; Depression; Hypertension; PTSD; em - PSHx: 19:59 L mastectomy; R leg surgery; em - Immunization history:: Adult Immunizations up to date. - Social history:: Smoking status: Patient denies any tobacco usage or history of. ROS: 20:39 Eyes: Negative for injury, pain, redness, and discharge, ENT: Negative for injury, pkl pain, and discharge, Neck: Negative for injury, pain, and swelling, Cardiovascular: Negative for chest pain, palpitations, and edema, Respiratory: Negative for shortness of breath, cough, wheezing, and pleuritic chest pain, Abdomen/GI: Negative for abdominal pain, nausea, vomiting, diarrhea, and constipation, Back: Negative for injury and pain, : Negative for injury, bleeding, discharge, and swelling. 20:39 MS/extremity: Positive for contusion, pain, swelling, of the right arm. 20:39 Skin: Positive for ecchymosis, of the right arm. 20:39 Neuro: Negative for altered mental status, loss of consciousness. Exam: 20:39 Head/Face: Normocephalic, atraumatic. Eyes: Pupils equal round and reactive to light, pkl extra-ocular motions intact. Lids and lashes normal. Conjunctiva and sclera are non-icteric and not injected. Cornea within normal limits. Periorbital areas with no swelling, redness, or edema. ENT: Nares patent. No nasal discharge, no septal abnormalities noted. Tympanic membranes are normal and external auditory canals are clear. Oropharynx with no redness, swelling, or masses, exudates, or evidence of obstruction, uvula midline. Mucous membranes moist. Neck: Trachea midline, no thyromegaly or masses palpated, and no cervical lymphadenopathy. Supple, full range of motion without nuchal rigidity, or vertebral point tenderness. No Meningismus. Chest/axilla: Normal chest wall appearance and motion. Nontender with no deformity. No lesions are appreciated. Cardiovascular: Regular rate and rhythm with a normal S1 and S2. No gallops, murmurs, or rubs. Normal PMI, no JVD. No pulse deficits. Respiratory: Lungs have equal breath sounds bilaterally, clear to auscultation and percussion. No rales, rhonchi or wheezes noted. No increased work of breathing, no retractions or nasal flaring. Abdomen/GI: Soft, non-tender, with normal bowel sounds. No distension or tympany. No guarding or rebound. No evidence of tenderness throughout. Back: No spinal tenderness. No costovertebral tenderness. Full range of motion. Neuro: Awake and alert, GCS 15, oriented to person, place, time, and situation. Cranial nerves II-XII grossly intact. Motor strength 5/5 in all extremities. Sensory grossly intact. Cerebellar exam normal. Normal gait. 20:39 Musculoskeletal/extremity: Extremities: grossly normal except: noted in the right arm: contusion, ecchymosis, pain, swelling. Vital Signs: 19:57 BP 166 / 88; Pulse 81; Resp 18; Temp 98.1; Pulse Ox 99% on R/A; Weight 90.72 kg; Height em 5 ft. 2 in. (157.48 cm); 20:53 BP 173 / 88; Pulse 98; Resp 18; Pulse Ox 100% on R/A; vg1 19:57 Body Mass Index 36.58 (90.72 kg, 157.48 cm) em MDM: 20:31 Patient medically screened. pkl 20:54 Data reviewed: vital signs, nurses notes, radiologic studies, plain films. pkl 03/23 20:02 Order name: Humerus Right XRAY em 03/23 20:53 Order name: Sling; Complete Time: 21:10 pkl Administered Medications: 21:03 Drug: [place] (HYDROcodone-acetaminophen) (7.5 mg-325 mg) 1 tabs Route: PO; 1 21:10 Follow up: Response: Medication administered at discharge. vg1 Disposition: 03/23/21 20:55 Discharged to Home. Impression: Contusion and hematoma right arm. - Condition is Stable. - Prescriptions for Diclofenac Sodium 75 mg Oral Tablet, Delayed Release (E.C.) - take 1 tablet by ORAL route 2 times per day; 20 tablet. - Medication Reconciliation Form, Thank You Letter, Antibiotic Education, Prescription Opioid Use form. - Follow up: Jd Mckoy MD; When: 2 - 3 days; Reason: Re-evaluation by your physician. - Problem is new. - Symptoms are unchanged. Signatures: Dispatcher [employer] [facility] [place] MD MD pkOral Velasquez, RN RN Argelia Chaudhry RN RN 1 Corrections: (The following items were deleted from the chart) 20:50 20:02 Shoulder Right 2 View+RAD.RAD.[email or web address] ordered. [facility] 21:11 20:55 03/23/2021 20:55 Discharged to Home. Impression: Contusion and hematoma right vg1 arm. Condition is Stable. Forms are Medication Reconciliation Form, Thank You Letter, Antibiotic Education, Prescription Opioid Use. Follow up: Jd Mckoy; When: 2 - 3 days; Reason: Re-evaluation by your physician. Problem is new. Symptoms are unchanged. pkl
--- NOTE | 2021-03-23 20:55 | ER ---
Nurse's Notes [facility] Name: Doreen Allison Age: 50 yrs Sex: Female : 1970 Arrival Date: 03/23/2021 Time: 19:26 Bed 23 Private MD: El Keller Diagnosis: Contusion and hematoma right arm Presentation: 03/23 19:57 Chief complaint: Patient states: fell and hit RIGHT upper arm, reports bump started em getting bigger on right upper arm about 1 hour ago. Coronavirus screen: Client denies travel out of the [place] in the last 14 days. Ebola Screen: Patient negative for fever greater than or equal to 101.5 degrees Fahrenheit, and additional compatible Ebola Virus Disease symptoms Patient denies exposure to infectious person. Patient denies travel to an Ebola-affected area in the 21 days before illness onset. No symptoms or risks identified at this time. Initial Sepsis Screen: Does the patient meet any 2 criteria? No. Patient's initial sepsis screen is negative. Does the patient have a suspected source of infection? No. Patient's initial sepsis screen is negative. Risk Assessment: Do you want to hurt yourself or someone else? Patient reports no desire to harm self or others. Onset of symptoms was March 23, 2021. 19:57 Method Of Arrival: Ambulatory em 19:57 Acuity: LARRY 4 em Historical: - Allergies: 19:59 No Known Allergies; em - PMHx: 19:59 Anemia; Anxiety; breast cancer; Depression; Hypertension; PTSD; em - PSHx: 19:59 L mastectomy; R leg surgery; em - Immunization history:: Adult Immunizations up to date. - Social history:: Smoking status: Patient denies any tobacco usage or history of. Screenin:54 Abuse screen: Denies threats or abuse. Nutritional screening: No deficits noted. vg1 Tuberculosis screening: No symptoms or risk factors identified. Fall Risk Fall in past 12 months (25 points). No secondary diagnosis (0 pts). No IV (0 pts). Ambulatory Aid- None/Bed Rest/Nurse Assist (0 pts). Gait- Normal/Bed Rest/Wheelchair (0 pts) Mental Status- Oriented to own ability (0 pts). Total Garcia Fall Scale indicates No Risk (0-24 pts). Assessment: 20:51 General: Appears in no apparent distress. comfortable, Behavior is calm, cooperative. vg1 Pain: Complains of pain in right bicep Pain currently is 10 out of 10 on a pain scale. Pain began 1 hour ago. Neuro: Level of Consciousness is awake, alert, obeys commands, Oriented to person, place, time, situation. Cardiovascular: Patient's skin is warm and dry. Respiratory: Airway is patent Respiratory effort is even, unlabored. GI: No signs and/or symptoms were reported involving the gastrointestinal system. : No signs and/or symptoms were reported regarding the genitourinary system. EENT: No signs and/or symptoms were reported regarding the EENT system. Derm: Bruising that is dark purple, on right bicep. Musculoskeletal: Circulation, motion, and sensation intact. Swelling present in right bicep. 20:53 Reassessment: Received VO from Dr River to administer [place] 7.5 mg/325 mg PO x1. vg1 Vital Signs: 19:57 BP 166 / 88; Pulse 81; Resp 18; Temp 98.1; Pulse Ox 99% on R/A; Weight 90.72 kg; Height em 5 ft. 2 in. (157.48 cm); 20:53 BP 173 / 88; Pulse 98; Resp 18; Pulse Ox 100% on R/A; vg1 19:57 Body Mass Index 36.58 (90.72 kg, 157.48 cm) em ED Course: 19:26 Patient arrived in ED. es 19:26 El Keller DO is Private Physician. es 19:58 Triage completed. em 19:59 Arm band placed on. em 20:31 Brain River MD is Attending Physician. pkl 20:38 Argelia Benitez, RN is Primary Nurse. vg1 20:50 Humerus Right XRAY In Process Unspecified. EDMS 20:54 Jd Mckoy MD is Referral Physician. pkl 20:54 Patient has correct armband on for positive identification. Bed in low position. Call vg1 light in reach. Side rails up X 1. 21:10 No provider procedures requiring assistance completed. Patient did not have IV access vg1 during this emergency room visit. Administered Medications: 21:03 Drug: [place] (HYDROcodone-acetaminophen) (7.5 mg-325 mg) 1 tabs Route: PO; vg1 21:10 Follow up: Response: Medication administered at discharge. vg1 Outcome: 20:55 Discharge ordered by . sanjana 21:10 Discharged to home ambulatory. vg1 21:10 Condition: stable 21:10 Discharge instructions given to patient, Instructed on discharge instructions, follow up and referral plans. medication usage, Demonstrated understanding of instructions, follow-up care, medications, Prescriptions given X 1. 21:11 Patient left the ED. vg1 Signatures: Dispatcher [employer] Brain Cruz MD MD pkl Salyer, Edna es Munoz, Edgar, RN RN Argelia Chaudhry RN RN vg1
--- NOTE | 2021-03-23 21:18 | RAD REPORT ---
EXAM DESCRIPTION: RAD - Humerus Right - 03/23/2021 8:50 pm CLINICAL HISTORY: PAIN COMPARISON: No comparisons FINDINGS: No fracture is identified. There is no dislocation or periosteal reaction noted. No air or foreign body in the soft tissues. IMPRESSION: Negative right humerus examination.
[2021-03-23] MEDS ORDERED: HYDROCODONE/APAP 7.5/325 MG TAB ONE (21:22)
[2021-03-23 21:55] VITALS: TEMP 98.1
[2021-03-23 21:56] VITALS: BP 173/88; O2SAT 100
== END 2021-03-23 21:11 | disposition home or self-care (01) ==
LOC: ER 19:23
DX: S40.021A Contusion of right upper arm, initial encounter (principal); W19.XXXA Unspecified fall, initial encounter; I10 Essential (primary) hypertension
CPT/HCPCS: 99283

== ENCOUNTER 2021-07-06 00:03 | Emergency (ER) | payer OTHER ==
--- NOTE | 2021-07-06 01:04 | ER ---
Nurse's Notes [facility] Name: Doreen Allison Age: 51 yrs Sex: Female : 1970 Arrival Date: 07/06/2021 Time: 00:05 Bed 28 Private MD: Diagnosis: Adjustment disorder with depressed mood;Adjustment disorder with mixed anxiety and depressed mood;Suicidal ideations-resolved Presentation: 07/06 00:25 Chief complaint: Patient states: was brought up here for SI by Anam GHOSH, reports em feeling sad and lonely but then started laughing and watching TV then started feeling better, denies having SI/HI auditory of visual hallucinations. Coronavirus screen: Vaccine status: Patient reports receiving the 2nd dose of the covid vaccine. Ebola Screen: Patient negative for fever greater than or equal to 101.5 degrees Fahrenheit, and additional compatible Ebola Virus Disease symptoms Patient denies exposure to infectious person. Patient denies travel to an Ebola-affected area in the 21 days before illness onset. No symptoms or risks identified at this time. Initial Sepsis Screen: Does the patient meet any 2 criteria? No. Patient's initial sepsis screen is negative. Does the patient have a suspected source of infection? No. Patient's initial sepsis screen is negative. Risk Assessment: Do you want to hurt yourself or someone else? Patient reports no desire to harm self or others. Onset of symptoms was July 06, 2021. 00:25 Method Of Arrival: Ambulatory em 00:25 Acuity: LARRY 2 em 01:45 Note Per MD Hdez pt ok to be discharged. pt given discharge papers. educated on kc4 coping mechanisms when dealing with hard times. given resources of crisis outreaches. pt denies any SI/HI and has called to come get her. pt ambulatory and is waiting for husbands arrival in waiting room. 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 - Social history:: Smoking status: Patient denies any tobacco usage or history of. Screenin:31 Abuse screen: Denies threats or abuse. Nutritional screening: No deficits noted. On no kc4 prescribed diet Difficulty chewing/swallowing? No. Tuberculosis screening: No symptoms or risk factors identified. Never had TB. Possible symptoms: None Risk factors: None. Fall Risk None identified. No fall in past 12 months (0 pts). No secondary diagnosis (0 pts). No IV (0 pts). Ambulatory Aid- None/Bed Rest/Nurse Assist (0 pts). Gait- Normal/Bed Rest/Wheelchair (0 pts) Mental Status- Oriented to own ability (0 pts). Total Garcia Fall Scale indicates No Risk (0-24 pts). Assessment: 01:29 General: Appears in no apparent distress. comfortable, Behavior is calm, cooperative, kc4 appropriate for age, Denies fever, feeling ill, fatigue, chills. Pain: Denies pain. Neuro: No deficits noted. Cardiovascular: No deficits noted. Respiratory: No deficits noted. GI: No deficits noted. : No deficits noted. EENT: No deficits noted. Derm: No deficits noted. Musculoskeletal: No deficits noted. Psych: 01:42 [place] Suicide Severity Screening: In the past month, have you wished you were kc4 or wished you could go to sleep and not wake up? Patient responds "No." "In the past month, have you actually had any thoughts of killing yourself?" Patient responds "no." "In your lifetime, have you ever done anything, started to do anything, or prepared to do anything to end your life?" Patient responds "no." pt states " I had a moment of weakness, have a lot going on with me being sick and my . was scared. called crisis. no I do not want to hurt my self. I had a moment of weakness and didn't know what to do.". Subjective: Patient's mood is sad, Delusions are denied, Hallucinations are denied Having thoughts of. Objective: Patient is cooperative, Speech is normal, Affect is appropriate. Interventions: pt being discharged, per MD Hdez. Safety Checks: Personal items have not been removed. Door is open. Pt denies substance abuse. Commitment: Patient will be a voluntary commitment. Vital Signs: 00:25 BP 156 / 93; Pulse 108; Resp 18; Temp 98.0; Pulse Ox 100% on R/A; Weight 81.65 kg; em Height 5 ft. 1 in. (154.94 cm); Pain 0/10; 01:31 BP 148 / 82; Pulse 90; Resp 18; Temp 98.8(O); Pulse Ox 100% on R/A; Pain 0/10; kc4 00:25 Body Mass Index 34.01 (81.65 kg, 154.94 cm) em [place] Coma Score: 01:31 Eye Response: spontaneous(4). Verbal Response: oriented(5). Motor Response: obeys kc4 commands(6). Total: 15. ED Course: 00:05 Patient arrived in ED. 00:29 Triage completed. em 00:29 Arm band placed on. em 00:43 Nilesh Hdez MD is Attending Physician. [facility] 01:02 Antoine Lopez MD is Referral Physician. [facility] 01:29 Bambi Ernst is Primary Nurse. kc4 01:31 Safety Checks: The door is open or patient has been placed in a hallway bed/chair. kc4 Items have not been removed from patient due to or because: at , assessed pt and will be discharging pt. 01:31 Patient has correct armband on for positive identification. Placed in gown. Bed in low kc4 position. Call light in reach. Side rails up X 1. 01:31 No provider procedures requiring assistance completed. Patient did not have IV access kc4 during this emergency room visit. Administered Medications: No medications were administered Outcome: 01:03 Discharge ordered by MD. [facility] 01:31 Discharged to home ambulatory. kc4 01:31 Condition: stable 01:31 Discharge instructions given to patient, Instructed on discharge instructions, follow up and referral plans. Demonstrated understanding of instructions, follow-up care. 01:48 Patient left the ED. kc4 Signatures: Nilesh Hdez MD MD cha Munoz, Edgar, RN RN Radha Vee Bambi Ernst kc4 Corrections: (The following items were deleted from the chart) 00:31 00:29 PSHx: radical mastectomy; em em
--- NOTE | 2021-07-06 01:04 | EDPHYS ---
Physician Documentation [facility] Name: Doreen Allison Age: 51 yrs Sex: Female : 1970 Arrival Date: 07/06/2021 Time: 00:05 Bed 28 Private MD: ED Physician Nilesh Hdez HPI: 07/06 00:56 This 51 yrs old Female presents to ER via Ambulatory with complaints of Psych herman Problem. 00:56 The patient presents to the emergency department with anxiety. Onset: The herman symptoms/episode began/occurred 2 day(s) ago. Past psychiatric history: Prior diagnosis: depression. Associated signs and symptoms: The patient has no apparent associated signs or symptoms. Severity of symptoms: At their worst the symptoms were mild in the emergency department the symptoms have resolved and did so just prior to arrival, have improved. The patient has experienced similar episodes in the past, several times. 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 - Social history:: Smoking status: Patient denies any tobacco usage or history of. ROS: 00:57 Constitutional: Negative for fever, chills, and weight loss, Eyes: Negative for injury, herman pain, redness, and discharge, ENT: Negative for injury, pain, and discharge, Neck: Negative for injury, pain, and swelling, Cardiovascular: Negative for chest pain, palpitations, and edema, Respiratory: Negative for shortness of breath, cough, wheezing, and pleuritic chest pain, Abdomen/GI: Negative for abdominal pain, nausea, vomiting, diarrhea, and constipation, Back: Negative for injury and pain, : Negative for injury, bleeding, discharge, and swelling, MS/Extremity: Negative for injury and deformity, Skin: Negative for injury, rash, and discoloration, Neuro: Negative for headache, weakness, numbness, tingling, and seizure, Allergy/Immunology: Negative for hives, rash, and allergies, Endocrine: Negative for neck swelling, polydipsia, polyuria, polyphagia, and marked weight changes, Hematologic/Lymphatic: Negative for swollen nodes, abnormal bleeding, and unusual bruising. 00:57 Psych: Positive for depression. Exam: 00:57 Constitutional: This is a well developed, well nourished patient who is awake, alert, herman and in no acute distress. Head/Face: Normocephalic, atraumatic. Eyes: Pupils equal round and reactive to light, extra-ocular motions intact. Lids and lashes normal. Conjunctiva and sclera are non-icteric and not injected. Cornea within normal limits. Periorbital areas with no swelling, redness, or edema. ENT: Nares patent. No nasal discharge, no septal abnormalities noted. Tympanic membranes are normal and external auditory canals are clear. Oropharynx with no redness, swelling, or masses, exudates, or evidence of obstruction, uvula midline. Mucous membranes moist. Neck: Trachea midline, no thyromegaly or masses palpated, and no cervical lymphadenopathy. Supple, full range of motion without nuchal rigidity, or vertebral point tenderness. No Meningismus. Chest/axilla: Normal chest wall appearance and motion. Nontender with no deformity. No lesions are appreciated. Cardiovascular: Regular rate and rhythm with a normal S1 and S2. No gallops, murmurs, or rubs. Normal PMI, no JVD. No pulse deficits. Respiratory: Lungs have equal breath sounds bilaterally, clear to auscultation and percussion. No rales, rhonchi or wheezes noted. No increased work of breathing, no retractions or nasal flaring. Abdomen/GI: Soft, non-tender, with normal bowel sounds. No distension or tympany. No guarding or rebound. No evidence of tenderness throughout. Back: No spinal tenderness. No costovertebral tenderness. Full range of motion. Skin: Warm, dry with normal turgor. Normal color with no rashes, no lesions, and no evidence of cellulitis. MS/ Extremity: Pulses equal, no cyanosis. Neurovascular intact. Full, normal range of motion. Neuro: Awake and alert, GCS 15, oriented to person, place, time, and situation. Cranial nerves II-XII grossly intact. Motor strength 5/5 in all extremities. Sensory grossly intact. Cerebellar exam normal. Normal gait. Psych: Awake, alert, with orientation to person, place and time. Behavior, mood, and affect are within normal limits. Vital Signs: 00:25 BP 156 / 93; Pulse 108; Resp 18; Temp 98.0; Pulse Ox 100% on R/A; Weight 81.65 kg; em Height 5 ft. 1 in. (154.94 cm); Pain 0/10; 01:31 BP 148 / 82; Pulse 90; Resp 18; Temp 98.8(O); Pulse Ox 100% on R/A; Pain 0/10; kc4 00:25 Body Mass Index 34.01 (81.65 kg, 154.94 cm) em [place] Coma Score: 01:31 Eye Response: spontaneous(4). Verbal Response: oriented(5). Motor Response: obeys kc4 commands(6). Total: 15. MDM: 00:43 Patient medically screened. herman 01:01 Differential diagnosis: acute psychotic break, depression, psychosis secondary to herman non-compliance. Data reviewed: vital signs, nurses notes. Data interpreted: methods examiner: not applicable for this patient encounter. rate is 108 beats/min, rhythm is regular, Pulse oximetry: on room air is 100 %. Counseling: I had a detailed discussion with the patient and/or guardian regarding: the historical points, exam findings, and any diagnostic results supporting the discharge/admit diagnosis, the need for outpatient follow up, for definitive care, a family practitioner, a psychiatrist. Administered Medications: No medications were administered Disposition Summary: 07/06/21 01:03 Discharge Ordered Location: Home herman Problem: new herman Symptoms: have improved herman Condition: Stable herman Diagnosis - Adjustment disorder with depressed mood herman - Adjustment disorder with mixed anxiety and depressed mood herman - Suicidal ideations - resolved herman Followup: herman - With: Private Physician - When: 2 - 3 days - Reason: Recheck today's complaints, Continuance of care, Re-evaluation by your physician Followup: herman - With: Antoine Lopez MD - When: 2 - 3 days - Reason: Recheck today's complaints, Re-evaluation by your physician Discharge Instructions: - Discharge Summary Sheet herman - Adjustment Disorder, Adult herman - Suicidal Feelings: How to Help Yourself herman - Helping Someone Who is Suicidal herman Forms: - Medication Reconciliation Form herman - Thank You Letter herman - Antibiotic Education herman - Prescription Opioid Use herman Signatures: Nilesh Hdez MD MD cha Munoz, Edgar RN RN em Corrections: (The following items were deleted from the chart) 00:31 00:29 PSHx: radical mastectomy; em em
[2021-07-06 02:03] VITALS: BP 156/93; TEMP 98; O2SAT 100
== END 2021-07-06 01:48 | disposition home or self-care (01) ==
LOC: ER 00:03
DX: F43.23 Adjustment disorder with mixed anxiety and depressed mood (principal); I10 Essential (primary) hypertension; Z90.12 Acquired absence of left breast and nipple
CPT/HCPCS: 99284

== ENCOUNTER 2022-01-16 13:29 | Emergency (ER) | payer OTHER ==
--- OUTSIDE RECORDS SUMMARY | 2022-01-16 13:31 | XMS REPORT | Continuity of Care Document ---
:1970 Author Organization [facility] t Address [address] [place] [address] Care Team Providers Name Role Phone Cheryle Keller Attending Clinician Unavailable Problems This patient has no known [...] - 00:00: 00:00 [facility] 00 [facility] Diltiazem Diltiazem Yes El [address] [facility] HCl HCl [facility] before [facility] Lisinopril Lisinopril Yes El [address] [facility] Flonase Flonase Yes El [address] spray [address] [facility] each [facility] Advair Advair Yes El [address] [facility] Diskus Diskus [facility] Duloxetine Duloxetine Yes El [address] [facility] HCl HCl [facility] Protonix Protonix Yes El TAKE ONE C [facility] TABLET BY [facility] DA[facility] Ferrous Ferrous Yes El [address] [facility] Sulfate Sulfate [facility] ProAir HFA ProAir HFA Yes El [address] [facility] Topiramate Topiramate Yes El [address] [facility] Wellbutrin Wellbutrin Yes El [address] [facility] XL XL [facility] in the [facility] Procedures This patient has no known procedures. Encounters Start End Encounter Admission Attending Care Care Encounter Source Date/Time Date/Time Type Type Clinicians Facility Department ID 2022-01-15 [facility] [place] [address] [facility] 2021-10-21 [facility] 12[facility] [place] [address] [facility] 2021-10-21 [facility] 12[facility] [place] [address] [facility] 2021-10-21 [facility] 12[facility]:23 [place] [address] [facility] 2021-10-21 [facility] 11[facility]:58 El [address] [facility] 2021-10-21 [facility] 11[facility]:50 [place] [address] [facility] 2021-10-12 2021-10-[address] [facility] [id number] 2021-07-20 2021-07-[address] [facility] [id number] [facility] 2021-07-14 2021-07-14 Outpatient [facility] [id number] [facility] 2021-07-10 2021-07-[address] [facility] [id number] 2021-07-02 2021-07-02 Outpatient [facility] [id number] [facility] 2021-07-01 2021-07-01 Outpatient [facility] [id number] [facility] 2021-05-12 2021-05-12 Outpatient [facility] [id number] [facility] 2021-05-08 2021-05-08 Outpatient [facility] [id number] [facility] 2021-05-07 2021-05-07 Outpatient [facility] [id number] [facility] 2021-05-06 2021-05-06 Outpatient [facility] [id number] [facility] 2021-05-06 2021-05-06 Outpatient [facility] [id number] [facility] 2021-05-05 2021-05-05 Outpatient [facility] [id number] [facility] 2021-05-04 2021-05-04 Outpatient [facility] [id number] [facility] 2021-02-05 2021-02-05 Outpatient [facility] [id number] [facility] 2021-02-03 2021-02-03 Outpatient [facility] [id number] [facility] 2021-02-02 2021-02-02 Outpatient [facility] [id number] [facility] 2021-02-02 2021-02-02 Outpatient [facility] [id number] [facility] 2021-02-02 2021-02-02 Outpatient [facility] [id number] [facility] 2020-12-11 2020-12-11 Outpatient [facility] [id number] [facility] 2020-08-19 2020-08-19 Outpatient [facility] [id number] [facility] 2020-07-29 2020-07-29 Outpatient [facility] [id number] [facility] 2020-06-30 2020-06-30 Outpatient [facility] [id number] [facility] 2020-06-17 2020-06-17 Outpatient [facility] [id number] [facility] 2020-06-11 2020-06-11 [facility] [id number] [facility] 09:59:00 09:59:00 t zhouwu s - Drive [facility] Out[facility] ent Clinics 2020-06-10 2020-06-10 [facility] [id number] [facility] 14:10:00 14:10:00 t zhouwu s - Drive [facility] Out[facility] Clinics 2020-05-12 2020-05-12 [facility] [id number] [facility] 13:00:00 13:00:00 t Foley [employer] s - [facility] 2019-06-19 2019-06-19 [facility] [id number] [address] 10:50:00 10:50:00 t Foley [employer]oley [employer] s - Drive [facility] l Medicine Outpati [facility] Clinics 2019-04-27 2019-04-27 [facility] [id number] [address] 08:15:00 08:15:00 t Foley Foley [employer] s - Drive [facility] Medicine Outpati ent Clinics 2018-12-27 2018-12-27 [facility] [id number] [facility] 14:15:00 14:15:00 t Foley [employer] s - Drive [facility] Medicine Outpati ent Clinics 2018-12-27 2018-12-27 [facility] [id number] 10:32:00 10:32:00 t Foley [employer] s - Drive [facility] Medicine Outpati ent Clinics 2018-12-20 2018-12-20 [facility] [id number] [facility] 11:15:00 11:15:00 t Foley [employer] s - Drive [facility] Medicine Outpati ent Clinics 2018-11-09 2018-11-09 [facility] [id number] [address] 11:26:00 11:26:00 t Foley [employer] s - Drive [facility] Medicine Outpati ent Clinics 2018-05-12 2018-05-12 [facility] [id number] [address] 09:09:00 09:09:00 t Foley [employer] s - Drive [facility] Medicine Outpati ent Clinics 2018-02-07 2018-02-07 [facility] [id number] 09:00:00 09:00:00 t Foley [employer] s - Drive [facility] Medicine Outpati ent Clinics Results This patient has no known results.
--- NOTE | 2022-01-16 15:02 | RAD REPORT ---
EXAM DESCRIPTION: RAD - Foot Right 3 View - 01/16/2022 2:48 pm CLINICAL HISTORY: PAIN COMPARISON: No comparisons FINDINGS: Significant soft tissue swelling is seen with hardware in place about the right ankle. Lar ge plantar calcaneal spur. No acute fracture evident.
--- NOTE | 2022-01-16 15:29 | ER ---
Nurse's Notes [facility] Name: Doreen Allison Age: 51 yrs Sex: Female : 1970 Arrival Date: 01/16/2022 Time: 13:30 Bed DIS1 Private MD: Diagnosis: Foot Contusion Presentation: 01/16 14:00 Chief complaint: Patient states: Hit Right foot getting into vehicle yesterday and hit vg1 Right foot again on a step; states Right foot pain that is throbbing. Has a hx of surgery to right foot x 3. Coronavirus screen: Vaccine status: Patient reports receiving the 2nd dose of the covid vaccine. Client denies travel out of the [place] in the last 14 days. Ebola Screen: Patient denies exposure to infectious person. Patient denies travel to an Ebola-affected area in the 21 days before illness onset. 14:00 Method Of Arrival: Ambulatory vg1 14:00 Initial Sepsis Screen: Does the patient meet any 2 criteria? No. Patient's initial vg1 sepsis screen is negative. Does the patient have a suspected source of infection? No. Patient's initial sepsis screen is negative. Risk Assessment: Do you want to hurt yourself or someone else? Patient reports no desire to harm self or others. Onset of symptoms was January 15, 2022. 14:00 Acuity: LARRY 4 vg1 Triage Assessment: 14:03 General: Appears uncomfortable, Behavior is cooperative. Pain: Complains of pain in vg1 right foot. Historical: - Allergies: 14:03 No Known Allergies; vg1 - Home Meds: 14:03 diltiazem HCl 60 mg Oral tab 1 tab twice a day [Active]; vg1 14:03 Aspirin Oral [Active]; vg1 - PMHx: 14:03 Anemia; Anxiety; breast cancer; Depression; Hypertension; PTSD; vg1 - Immunization history:: Client reports receiving the 2nd dose of the Covid vaccine. - Social history:: Smoking status: Patient denies any tobacco usage or history of. Screenin:47 Abuse screen: Denies threats or abuse. Denies injuries from another. Nutritional ss screening: No deficits noted. Tuberculosis screening: Never had TB. Fall Risk None identified. Assessment: 15:35 Reassessment: PT ambulated well with cane. General: Appears in no apparent distress. ss comfortable. Pain: Complains of pain in right foot Pain currently is 5 out of 10 on a pain scale. Neuro: Level of Consciousness is awake, alert, obeys commands. Cardiovascular: Capillary refill < 3 seconds is brisk in bilateral fingers. Respiratory: Airway is patent Respiratory effort is even, unlabored, Respiratory pattern is regular, symmetrical. GI: No signs and/or symptoms were reported involving the gastrointestinal system. EENT: Nares are clear. Derm: Skin is intact, Skin is pink, warm \T\ dry. normal. Musculoskeletal: Swelling present in right foot. Vital Signs: 14:00 BP 137 / 69; Pulse 102; Resp 16; Temp 97.9; Pulse Ox 100% ; Weight 81.65 kg; Height 5 vg1 ft. 1 in. (154.94 cm); Pain 5/10; 14:00 Body Mass Index 34.01 (81.65 kg, 154.94 cm) vg1 ED Course: 13:30 Patient arrived in ED. rg4 14:03 Triage completed. vg1 14:03 Arm band placed on. vg1 14:08 Anuj lFores PA is PHCP. [facility] 14:08 Juan Carlos Davis MD is Attending Physician. [facility] 14:50 Foot Right 3 View XRAY In Process Unspecified. EDMS 15:46 Crystal Cleveland, BARBI is Primary Nurse. ss 15:46 No provider procedures requiring assistance completed. Patient did not have IV access ss during this emergency room visit. Ortho shoe applied to right foot. 15:47 Patient has correct armband on for positive identification. ss Administered Medications: No medications were administered Outcome: 15:28 Discharge ordered by . [facility] 15:46 Discharged to home ambulatory. ss 15:46 Condition: good 15:46 Discharge instructions given to patient, family, Instructed on discharge instructions, follow up and referral plans. Demonstrated understanding of instructions, follow-up care. 15:50 Patient left the ED. ss Signatures: Dispatcher [employer] EDMS Anuj Flores PA PA jmm Smirch, Shelby, RN RN ss Alejandra Benitez rg4 Argelia Benitez RN RN vg1 Corrections: (The following items were deleted from the chart) 14:03 14:00 Chief complaint: Patient states: Hit Right foot getting into vehicle yesterday vg1 and hit Right foot again on a step; states Right foot pain that is throbbing. Has a hx of surgery to right foot 2017 vg1
--- NOTE | 2022-01-16 15:29 | EDPHYS ---
Physician Documentation [facility] Name: Doreen Allison Age: 51 yrs Sex: Female : 1970 Arrival Date: 01/16/2022 Time: 13:30 Bed DIS1 Private MD: ED Physician Juan Carlos Davis HPI: 01/16 14:06 This 51 yrs old Female presents to ER via Ambulatory with complaints of Foot jmm Pain. 14:06 The patient presents with an injury, pain. Onset: The symptoms/episode began/occurred jmm acutely, 1 day(s) ago. Modifying factors: The symptoms are alleviated by nothing. the symptoms are aggravated by nothing. Associated signs and symptoms: Pertinent positives: swelling. This is a 51 year old female with a history of anemia, depression, htn, previous left ankle surgery that presents to the ED with complaints of right foot pain, bruising after a fall which occurred yesterday. . Historical: - Allergies: 14:03 No Known Allergies; vg1 - Home Meds: 14:03 diltiazem HCl 60 mg Oral tab 1 tab twice a day [Active]; vg1 14:03 Aspirin Oral [Active]; vg1 - PMHx: 14:03 Anemia; Anxiety; breast cancer; Depression; Hypertension; PTSD; vg1 - Immunization history:: Client reports receiving the 2nd dose of the Covid vaccine. - Social history:: Smoking status: Patient denies any tobacco usage or history of. ROS: 14:06 Constitutional: Negative for fever, chills, and weight loss, Cardiovascular: Negative jmm for chest pain, palpitations, and edema, Respiratory: Negative for shortness of breath, cough, wheezing, and pleuritic chest pain. 14:06 MS/extremity: Positive for injury or acute deformity, pain. 14:06 All other systems are negative. Exam: 14:06 Constitutional: This is a well developed, well nourished patient who is awake, alert, jmm and in no acute distress. Head/Face: atraumatic. Eyes: EOMI, no conjunctival erythema appreciated ENT: Moist Mucus Membranes Neck: Trachea midline, Supple Chest/axilla: Normal chest wall appearance and motion. Cardiovascular: Regular rate and rhythm. No edema appreciated Respiratory: Normal respirations, no respiratory distress appreciated Abdomen/GI: Non distended, soft Back: Normal ROM 14:06 Musculoskeletal/extremity: 14:06 Skin: ecchymosis noted to the left great toe. Vital Signs: 14:00 BP 137 / 69; Pulse 102; Resp 16; Temp 97.9; Pulse Ox 100% ; Weight 81.65 kg; Height 5 vg1 ft. 1 in. (154.94 cm); Pain 5/10; 14:00 Body Mass Index 34.01 (81.65 kg, 154.94 cm) vg1 MDM: 14:06 Data reviewed: vital signs, nurses notes. [facility] 15:27 Patient medically screened. [facility] 15:27 Counseling: I had a detailed discussion with the patient and/or guardian regarding: the [facility] historical points, exam findings, and any diagnostic results supporting the discharge/admit diagnosis, radiology results, the need for outpatient follow up, to return to the emergency department if symptoms worsen or persist or if there are any questions or concerns that arise at home. ED course: Xray negative. Foot is NVI. Compartments are soft. Will follow up with ortho and otherwise given strict return precautions. Patient understood and agrees with the plan of care. . 01/16 14:05 Order name: Foot Right 3 View XRAY; Complete Time: 15:25 vg1 01/16 15:25 Order name: Ortho shoe; Complete Time: 15:46 [facility] Administered Medications: No medications were administered Disposition Summary: 01/16/22 15:28 Discharge Ordered Location: Home [facility] Condition: Stable [facility] Diagnosis - Foot Contusion [facility] Followup: [facility] - With: Private Physician - When: 2 - 3 days - Reason: Recheck today's complaints, Continuance of care, Re-evaluation by your physician Discharge Instructions: - Discharge Summary Sheet [facility] - Foot Contusion [facility] Forms: - Medication Reconciliation Form [facility] - Thank You Letter [facility] - Antibiotic Education [facility] - Prescription Opioid Use [facility] - Work release form eb Signatures: Dispatcher [employer] EDAnuj Mujica PA PA jmm Garcia, Victoria, RN RN vg1 Corrections: (The following items were deleted from the chart) 14:39 14:06 This is a 51 year old female with a history of anemia, depression, htn, previous [facility] left ankle surgery that presents to the ED with complaints of left foot pain, bruising after a fall which occurred yesterday. . jmm
[2022-01-16 16:02] VITALS: BP 137/69; TEMP 97.9; O2SAT 100
== END 2022-01-16 15:50 | disposition home or self-care (01) ==
LOC: ER 13:29
DX: S90.31XA Contusion of right foot, initial encounter (principal); W19.XXXA Unspecified fall, initial encounter; I10 Essential (primary) hypertension; F32.A Depression, unspecified; Z85.3 Personal history of malignant neoplasm of breast; Z79.82 Long term (current) use of aspirin
CPT/HCPCS: 99283

== ENCOUNTER 2022-06-16 06:25 | Day surgery (SDC) | payer OTHER ==
[2022-06-16] MEDS ORDERED: Ringers Lactate 1,000 ML IV ONE (06:53)
[2022-06-16] MEDS ORDERED: propofoL 200 MG/20 ML VIAL IV ONE ×2 (08:04→08:17)
[2022-06-16] MEDS ORDERED: LIDOCAINE 1% MPF 5 ML VIAL ONE (08:04)
[2022-06-16] MEDS ORDERED: MIDAZOLAM HCL 2 MG/2 ML INJ ONE (08:17)
--- NOTE | 2022-06-16 08:37 | ENDO RPT ---
[address], [address] EGD PROCEDURE REPORT EXAM DATE: 06/16/2022 PATIENT NAME: Doreen Allison MR#: [id number] BIRTHDATE: 1970 ATTENDING: Trevor Iglesias Dr STATUS: outpatient WICK TENDER: Shantelle Morales RN and Sherri Lennon INDICATIONS: The patient is a 52 yr old Female here for an EGD due to heartburn, dysphagia, and screening for esophageal varices in cirrhosis patient PROCEDURE PERFORMED: EGD with biopsy MEDICATIONS: Per Anesthesia. TOPICAL ANESTHETIC: none CONSENT: The patient understands the risks and benefits of the procedure and understands that these risks include, but are not limited to: sedation, allergic reaction, infection, perforation and/or bleeding. Alternative means of evaluation and treatment include, among others: physical exam, x-rays, and/or surgical intervention. The patient elects to proceed with this endoscopic procedure. DESCRIPTION OF PROCEDURE: During intra-op preparation period all mechanical medical equipment was checked for proper function. Hand hygiene and appropriate measures for infection prevention was taken. Procedure, possible complications, and alternatives including but not limited to the possibility of bleeding, perforation, tear, infection, sepsis, need for surgery, need for blood transfusion, and anesthesia related complications were explained to the patient. After the risks, benefits and alternatives of the procedure were thoroughly explained, Informed consent was verified, confirmed and timeout was successfully executed by the treatment team. The patient was placed in the left lateral position. The patient was anesthetized with topical anesthesia. Through the anesthetized oropharyngeal area, the scope was passed without any difficulty. The EG-[id number] ([id number]) endoscope was introduced through the mouth and advanced to the third portion of the duodenum. Retroflexion was not performed. The gastroscope was then slowly withdrawn and removed. 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 Gastropathy was found in the body of the stomach. Mild Atrophic gastritis was found in the antrum. With jumbo forceps, a biopsy was obtained and sent to pathology. Bright red blood in the oropharynx - unable to identify source but likely from mouth. ADVERSE EVENTS: There were no complications. IMPRESSIONS: 1. 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 Gastropathy in the body of the stomach 3. Mild atrophic gastritis in the antrum 4. Bright red blood in the oropharynx - unable to identify source but likely from mouth; therefore no esophageal dilatation attempted RECOMMENDATIONS: 1. await biopsy results 2. acid suppression therapy 3. Coreg start (to replace Diltiazem) 4. ENT consult to identify source of oropharyneal bleeding REPEAT EXAM: Return in 1 month(s) for EGD. Trevor Iglesias Dr eSigned: Trevor Iglesias Dr 06/16/2022 8:36 AM cc: El [facility] CPT CODES: ICD9 CODES: PATIENT NAME: Doreen Allison MR#: [id number]
[2022-06-16 08:58] VITALS: BP 137/67; TEMP 98; O2SAT 99
[2022-06-16 09:07] LABS: Absolute Lymphocytes (CBC) 0.2 K/uL (0.7-4.9); Hematocrit 23.1 % (36.0-45.0); Lymphocytes % 19.8 % (15.3-44.8); MCV 93.8 fL (80-100); MPV 7.1 fL (7.6-11.3); RBC Red Blood Cell Count 2.46 M/uL (3.86-4.86)
[2022-06-16 09:26] LABS: Protime INR 1.74
[2022-06-16 09:39] LABS: Potassium 3.1 mmol/L (3.5-5.1)
[2022-06-16 12:32] LABS: Anisocytosis 1+; Blood Morphology Comment NOTED (NOT SEEN); Platelet Estimate DECR; Rouleau SLIGHT; White Blood Cell Scan OK (OK)
== END 2022-06-16 09:39 | disposition home or self-care (01) ==
LOC: OR 06:25
PROVIDERS: ATTEND Internal Medicine Gastroenterology
PROC: 0DB68ZX Excision of Stomach, Via Natural or Artificial Opening Endoscopic, Diagnostic (ICD-10-PCS; principal; 2022-06-16 07:30)
DX: K29.50 Unspecified chronic gastritis without bleeding (principal); I85.00 Esophageal varices without bleeding; R12 Heartburn; F41.9 Anxiety disorder, unspecified; J45.909 Unspecified asthma, uncomplicated; I10 Essential (primary) hypertension; F32.A Depression, unspecified; K31.9 Disease of stomach and duodenum, unspecified
CPT/HCPCS: 36415; 80048; 85025; 85610; 85730; 88305; 88312; J2001; J2250; J2704; J7120

== ENCOUNTER 2022-08-30 21:00 | Emergency (ER) | payer OTHER ==
--- OUTSIDE RECORDS SUMMARY | 2022-08-30 21:05 | XMS REPORT | Continuity of Care Document ---
:1970 Author Organization [facility] t Address [address] [place] [address] Care Team Providers Name Role Phone El Keller Attending Clinician Unavailable Payers Payer Name Policy Type Policy Number Effective Date Expiration Date S ource FOR C1 [id number] [facility] FOR C1 [id number] [facility] FOR C1 [id number] [facility] FOR [id number] [facility] FOR C1 [id number] [facility] Problems Condition Condition Condition Status Onset Resolution Last Treating Co mments Source Name Details Category Date Date Treatment Clinician Date Abnormal Abnormal Problem Commo n liver liver Spirit function function - [facility] Disorders Elevated Problem Comm on of bilirubin Spirit bilirubin - [facility] excretion [facility] Pancytopen Other Problem Commo n ia pancytopen Spirit ia - [facility] 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 loss Medical (chronic) Center Malignant Malignant Problem Com mon neoplasm neoplasm Spirit of of - [facility] lower-oute lower-oute St r quadrant r quadrant Meeta kes of female of left Medica l breast female Center breast [id number] Asthma Problem Common without Spirit status - CHI asthmaticu [facility] acute [facility] on Center Liver Abnormal Problem Common function liver Spirit tests function - [facility] abnormal test [facility] Essential Benign Problem Common hypertensi essential Spi rit on HTN - [facility] Alcohol Alcohol Problem Common use, use, Spirit unspecifie unspecifie - [facility]I d with d with [facility] other [facility] alcohol-in 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 Mixed Depression Problem Commo n anxiety with Spirit and anxiety - [facility]I depressive [facility] Thrombocyt Thrombocyt Problem C ommon openia openia [facility] [id number] Leukopenia Problem Com mon , Spirit unspecifie - [facility] d type [facility] Severe Major Problem Common major depressive Spirit depression disorder, - C [place] , single single St episode, episode, kes without severe Medical psychotic without Center features psychotic features [id number] History of Problem Co mmon left Spirit mastectomy [facility] Alcoholic Alcoholic Problem Com mon fatty fatty Spirit liver liver [facility] Anemia Anemia Problem Common [facility] [id number] Vitamin D Problem Comm on deficiency [facility] [id number] Alcohol Problem Common abuse [facility] [id number] Adult BMI Problem Com mon 33.0-33.9 Spirit kg/sq m [facility] Allergies, Adverse Reactions, Alerts This patient has no known allergies or adverse reactions. Social History Social Habit Start Date Stop Date Quantity Comments Source History of Tobacco Use Co mmon [facility] Sex Assigned At Com mon [facility] Smoking Status Start Date Stop Date Source Never Smoker [facility] Medications Ordered Filled Start Stop Current Ordering Indication Dosage Frequency Signature Comments Components Source Medication Medication Date Date Medication? Clinician (SIG) Name Name Lexapro 10 Lexapro 10 2021-09 No 1{table QD Lexapro 10 MG MG 0-12 t} MG 00:00: 00 Lexapro 10 Lexapro 10 2021-09 No 1{table QD Lexapro 10 MG MG 0-12 t} MG 00:00: 00 Vitamin D3 Vitamin D3 2021- No 1{capsu Vitamin D3 15591 UNIT [id number] UNIT 6-15 09-13 le} [id number] UNIT 00:00: 00:00 00 :00 Vitamin D3 Vitamin D3 2021- No 1{capsu Vitamin D3 17130 UNIT 37384 UNIT 03-10 le} [id number] UNIT 00:00: 00:00 00 :00 Vitamin D3 Vitamin D3 2021-0 2022- No 1{capsu Vitamin D3 48392 UNIT 12799 UNIT 03-10 le} [id number] UNIT 00:00: 00:00 00 :00 Vitamin D3 Vitamin D3 2021-0 2022- No 1{capsu Vitamin D3 40897 UNIT 09577 UNIT 03-10 le} [id number] UNIT 00:00: 00:00 00 :00 Vitamin D3 Vitamin D3 2021-0 2022- No 1{capsu Vitamin D3 16844 UNIT 06379 UNIT 03-10 le} [id number] UNIT 00:00: 00:00 00 :00 Vitamin D3 Vitamin D3 2021-0 2022- No 1{capsu Vitamin D3 27262 UNIT 25901 UNIT 03-10 le} 25194 UNIT 00:00: 00:00 00 :00 ProAir HFA ProAir HFA No 2{puffs ProAir HFA 108 (90 108 (90 8-10 _as_nee 108 (90 Base) Base) 00:00: ded} Base) MCG/ACT MCG/ACT 00 MCG/ACT ProAir HFA ProAir HFA No 2{puffs ProAir HFA 108 (90 108 (90 8-10 _as_nee 108 (90 Base) Base) 00:00: ded} Base) MCG/ACT MCG/ACT 00 MCG/ACT ProAir HFA ProAir HFA No 2{puffs ProAir HFA 108 (90 108 (90 8-10 _as_nee 108 (90 Base) Base) 00:00: ded} Base) MCG/ACT MCG/ACT 00 MCG/ACT ProAir HFA ProAir HFA No 2{puffs ProAir HFA 108 (90 108 (90 8-10 _as_nee 108 (90 Base) Base) 00:00: ded} Base) MCG/ACT MCG/ACT 00 MCG/ACT ProAir HFA ProAir HFA No 2{puffs ProAir HFA 108 (90 108 (90 8-10 _as_nee 108 (90 Base) Base) 00:00: ded} Base) MCG/ACT MCG/ACT 00 MCG/ACT ProAir HFA ProAir HFA No 2{puffs ProAir HFA 108 (90 108 (90 8-10 _as_nee 108 (90 Base) Base) 00:00: ded} Base) MCG/ACT MCG/ACT 00 MCG/ACT ProAir HFA ProAir HFA No 2{puffs ProAir HFA 108 (90 108 (90 8-10 _as_nee 108 (90 Base) Base) 00:00: ded} Base) MCG/ACT MCG/ACT 00 MCG/ACT ProAir HFA ProAir HFA No 2{puffs ProAir HFA 108 (90 108 (90 8-10 _as_nee 108 (90 Base) Base) 00:00: ded} Base) MCG/ACT MCG/ACT 00 MCG/ACT ProAir HFA ProAir HFA No 2{puffs ProAir HFA 108 (90 108 (90 8-10 _as_nee 108 (90 Base) Base) 00:00: ded} Base) MCG/ACT MCG/ACT 00 MCG/ACT ProAir HFA ProAir HFA No 2{puffs ProAir HFA 108 (90 108 (90 8-10 _as_nee 108 (90 Base) Base) 00:00: ded} Base) MCG/ACT MCG/ACT 00 MCG/ACT ProAir HFA ProAir HFA No 2{puffs ProAir HFA 108 (90 108 (90 8-10 _as_nee 108 (90 Base) Base) 00:00: ded} Base) MCG/ACT MCG/ACT 00 MCG/ACT ProAir HFA ProAir HFA No 2{puffs ProAir HFA 108 (90 108 (90 8-10 _as_nee 108 (90 Base) Base) 00:00: ded} Base) MCG/ACT MCG/ACT 00 MCG/ACT ProAir HFA ProAir HFA No 2{puffs ProAir HFA 108 (90 108 (90 8-10 _as_nee 108 (90 Base) Base) 00:00: ded} Base) MCG/ACT MCG/ACT 00 MCG/ACT ProAir HFA ProAir HFA No 2{puffs ProAir HFA 108 (90 108 (90 8-10 _as_nee 108 (90 Base) Base) 00:00: ded} Base) MCG/ACT MCG/ACT 00 MCG/ACT ProAir HFA ProAir HFA No 2{puffs ProAir HFA 108 (90 108 (90 8-10 _as_nee 108 (90 Base) Base) 00:00: ded} Base) MCG/ACT MCG/ACT 00 MCG/ACT ProAir HFA ProAir HFA No 2{puffs ProAir HFA 108 (90 108 (90 8-10 _as_nee 108 (90 Base) Base) 00:00: ded} Base) MCG/ACT MCG/ACT 00 MCG/ACT ProAir HFA ProAir HFA No 2{puffs ProAir HFA 108 (90 108 (90 8-10 _as_nee 108 (90 Base) Base) 00:00: ded} Base) MCG/ACT MCG/ACT 00 MCG/ACT ProAir HFA ProAir HFA No 2{puffs ProAir HFA 108 (90 108 (90 8-10 _as_nee 108 (90 Base) Base) 00:00: ded} Base) MCG/ACT MCG/ACT 00 MCG/ACT ProAir HFA ProAir HFA No 2{puffs ProAir HFA 108 (90 108 (90 8-10 _as_nee 108 (90 Base) Base) 00:00: ded} Base) MCG/ACT MCG/ACT 00 MCG/ACT Disulfiram Disulfiram 0 2020- No El 1 tablet Common 9-15 10-15 [facility] Spirit 00:00: 00:00 - [facility] 00 :00 [facility] No Chainsalog Kenalog 2018-0 No 40mg Common (Triamcinol (Triamcinol 4-03 S pirit one) one) 00:00: - CHI 00 [facility] Kenalog Kenalog 2018-0 No 40mg Common (Triamcinol (Triamcinol 4-03 S pirit one) one) 00:00: - CHI 00 [facility] Kenalog Kenalog 0 No 40mg Common (Triamcinol (Triamcinol 4-03 S pirit one) one) 00:00: - CHI 00 [facility] Kenalog Kenalog 2019-0 No 40mg Common (Triamcinol (Triamcinol 4-03 S pirit one) one) 00:00: - CHI 00 [facility] Kenalog Kenalog 2019-0 No 40mg Common (Triamcinol (Triamcinol 4-03 S pirit one) one) 00:00: - CHI 00 [facility] Kenalog Kenalog 2019-0 No 40mg Common (Triamcinol (Triamcinol 4-03 S pirit one) one) 00:00: - CHI 00 [facility] Kenalog Kenalog 2019-0 No 40mg Common (Triamcinol (Triamcinol 4-03 S pirit one) one) 00:00: - CHI 00 [facility] Kenalog Kenalog 2019-0 No 40mg Common (Triamcinol (Triamcinol 4-03 S pirit one) one) 00:00: - CHI 00 [facility] Kenalog Kenalog 2019-0 No 40mg Common (Triamcinol (Triamcinol 4-03 S pirit one) one) 00:00: - CHI 00 [facility] Kenalog Kenalog 2019-0 No 40mg Common (Triamcinol (Triamcinol 4-03 S pirit one) one) 00:00: - CHI 00 [facility] Kenalog Kenalog 2019-0 No 40mg Common (Triamcinol (Triamcinol 4-03 S pirit one) one) 00:00: - CHI 00 [facility] Kenalog Kenalog 2019-0 No 40mg Common (Triamcinol (Triamcinol 4-03 S pirit one) one) 00:00: - CHI 00 [facility] Kenalog Kenalog 2019-0 No 40mg Common (Triamcinol (Triamcinol 4-03 S pirit one) one) 00:00: - CHI 00 [facility] Kenalog Kenalog 2019-0 No 40mg Common (Triamcinol (Triamcinol 4-03 S pirit one) one) 00:00: - CHI 00 [facility] Kenalog Kenalog 2019-0 No 40mg Common (Triamcinol (Triamcinol 4-03 S pirit one) one) 00:00: - CHI 00 [facility] Kenalog Kenalog No 40mg Common (Triamcinol (Triamcinol 4-03 S pirit one) one) 00:00: - CHI 00 [facility] Diltiazem Diltiazem Yes El 1 tablet Common HCl HCl Keller before Spirit meals and - CHI at bedtime [facility] Lisinopril Lisinopril Yes El 1 tablet Common Keller [facility] Flonase Flonase Yes El 1 spray in C ommon Keller each [facility] nostril [facility] Advair Advair Yes El 1 puff Common Diskus Diskus Keller [facility] Duloxetine Duloxetine Yes El 1 capsule Common HCl HCl Keller [facility] Protonix Protonix Yes El TAKE ONE C ommon Keller TABLET BY [facility] MOUTH - [facility] DAILY [facility] Ferrous Ferrous Yes El 1 tablet Com mon Sulfate Sulfate Keller [facility] ProAir HFA ProAir HFA Yes El 2 puffs as Common Keller needed [facility] Topiramate Topiramate Yes El 1 tablet Common Keller [facility] Wellbutrin Wellbutrin Yes El 1 tablet Common XL XL Keller in the [facility] morning [facility] DULoxetine DULoxetine No 1{capsu QD DULoxetine HCl 30 MG HCl 30 MG le} HCl 30 MG Ferrous Ferrous No 1{table QD Ferrous Sulfate 325 Sulfate 325 t} Sulfate (65 Fe) MG (65 Fe) MG 325 (65 Fe) MG ProAir HFA ProAir HFA No 2{puffs QID ProAir HFA 108 (90 108 (90 _as_nee 108 (90 Base) Base) ded} Base) MCG/ACT MCG/ACT MCG/ACT Lisinopril Lisinopril No 1{table QD Lisinopril 10 MG 10 MG t} 10 MG dilTIAZem dilTIAZem No 1{table BID dilTIAZem HCl 60 MG HCl 60 MG t_befor HCl 60 MG e_meals _and_at _bedtim e} Protonix 40 Protonix 40 No QD Protonix 40 Flonase 50 Flonase 50 No 1{spray QD Flonase 50 MCG/ACT MCG/ACT _in_eac MCG/ACT h_nostr il} Wellbutrin Wellbutrin No 1{table QD Wellbutrin XL 300 MG XL 300 MG t_in_th XL 300 MG e_morni ng} Topiramate Topiramate No 1{table BID Topiramate 50 MG 50 MG t} 50 MG Advair Advair No 1{puff} BID Advair Diskus Diskus Diskus 100-50 100-50 100-50 MCG/DOSE MCG/DOSE MCG/DOSE DULoxetine DULoxetine No 1{capsu QD DULoxetine HCl 30 MG HCl 30 MG le} HCl 30 MG Ferrous Ferrous No 1{table QD Ferrous Sulfate 325 Sulfate 325 t} Sulfate (65 Fe) MG (65 Fe) MG 325 (65 Fe) MG ProAir HFA ProAir HFA No 2{puffs QID ProAir HFA 108 (90 108 (90 _as_nee 108 (90 Base) Base) ded} Base) MCG/ACT MCG/ACT MCG/ACT Lisinopril Lisinopril No 1{table QD Lisinopril 10 MG 10 MG t} 10 MG dilTIAZem dilTIAZem No 1{table BID dilTIAZem HCl 60 MG HCl 60 MG t_befor HCl 60 MG e_meals _and_at _bedtim e} Protonix 40 Protonix 40 No QD Protonix 40 Flonase 50 Flonase 50 No 1{spray QD Flonase 50 MCG/ACT MCG/ACT _in_eac MCG/ACT h_nostr il} Wellbutrin Wellbutrin No 1{table QD Wellbutrin XL 300 MG XL 300 MG t_in_th XL 300 MG e_morni ng} Topiramate Topiramate No 1{table BID Topiramate 50 MG 50 MG t} 50 MG Advair Advair No 1{puff} BID Advair Diskus Diskus Diskus 100-50 100-50 100-50 MCG/DOSE MCG/DOSE MCG/DOSE DULoxetine DULoxetine No 1{capsu QD DULoxetine HCl 30 MG HCl 30 MG le} HCl 30 MG Ferrous Ferrous No 1{table QD Ferrous Sulfate 325 Sulfate 325 t} Sulfate (65 Fe) MG (65 Fe) MG 325 (65 Fe) MG ProAir HFA ProAir HFA No 2{puffs QID ProAir HFA 108 (90 108 (90 _as_nee 108 (90 Base) Base) ded} Base) MCG/ACT MCG/ACT MCG/ACT Lisinopril Lisinopril No 1{table QD Lisinopril 10 MG 10 MG t} 10 MG dilTIAZem dilTIAZem No 1{table BID dilTIAZem HCl 60 MG HCl 60 MG t_befor HCl 60 MG e_meals _and_at _bedtim e} Protonix 40 Protonix 40 No QD Protonix 40 Flonase 50 Flonase 50 No 1{spray QD Flonase 50 MCG/ACT MCG/ACT _in_eac MCG/ACT h_nostr il} Wellbutrin Wellbutrin No 1{table QD Wellbutrin XL 300 MG XL 300 MG t_in_th XL 300 MG e_morni ng} Topiramate Topiramate No 1{table BID Topiramate 50 MG 50 MG t} 50 MG Advair Advair No 1{puff} BID Advair Diskus Diskus Diskus 100-50 100-50 100-50 MCG/DOSE MCG/DOSE MCG/DOSE DULoxetine DULoxetine No 1{capsu QD DULoxetine HCl 30 MG HCl 30 MG le} HCl 30 MG Ferrous Ferrous No 1{table QD Ferrous Sulfate 325 Sulfate 325 t} Sulfate (65 Fe) MG (65 Fe) MG 325 (65 Fe) MG ProAir HFA ProAir HFA No 2{puffs QID ProAir HFA 108 (90 108 (90 _as_nee 108 (90 Base) Base) ded} Base) MCG/ACT MCG/ACT MCG/ACT Lisinopril Lisinopril No 1{table QD Lisinopril 10 MG 10 MG t} 10 MG dilTIAZem dilTIAZem No 1{table BID dilTIAZem HCl 60 MG HCl 60 MG t_befor HCl 60 MG e_meals _and_at _bedtim e} Protonix 40 Protonix 40 No QD Protonix 40 Flonase 50 Flonase 50 No 1{spray QD Flonase 50 MCG/ACT MCG/ACT _in_eac MCG/ACT h_nostr il} Wellbutrin Wellbutrin No 1{table QD Wellbutrin XL 300 MG XL 300 MG t_in_th XL 300 MG e_morni ng} Topiramate Topiramate No 1{table BID Topiramate 50 MG 50 MG t} 50 MG Advair Advair No 1{puff} BID Advair Diskus Diskus Diskus 100-50 100-50 100-50 MCG/DOSE MCG/DOSE MCG/DOSE DULoxetine DULoxetine No 1{capsu QD DULoxetine HCl 30 MG HCl 30 MG le} HCl 30 MG Ferrous Ferrous No 1{table QD Ferrous Sulfate 325 Sulfate 325 t} Sulfate (65 Fe) MG (65 Fe) MG 325 (65 Fe) MG ProAir HFA ProAir HFA No 2{puffs QID ProAir HFA 108 (90 108 (90 _as_nee 108 (90 Base) Base) ded} Base) MCG/ACT MCG/ACT MCG/ACT Lisinopril Lisinopril No 1{table QD Lisinopril 10 MG 10 MG t} 10 MG dilTIAZem dilTIAZem No 1{table BID dilTIAZem HCl 60 MG HCl 60 MG t_befor HCl 60 MG e_meals _and_at _bedtim e} Protonix 40 Protonix 40 No QD Protonix 40 Flonase 50 Flonase 50 No 1{spray QD Flonase 50 MCG/ACT MCG/ACT _in_eac MCG/ACT h_nostr il} Wellbutrin Wellbutrin No 1{table QD Wellbutrin XL 300 MG XL 300 MG t_in_th XL 300 MG e_morni ng} Topiramate Topiramate No 1{table BID Topiramate 50 MG 50 MG t} 50 MG Advair Advair No 1{puff} BID Advair Diskus Diskus Diskus 100-50 100-50 100-50 MCG/DOSE MCG/DOSE MCG/DOSE Topiramate Topiramate No 1{table BID Topiramate 50 MG 50 MG t} 50 MG Lisinopril Lisinopril No 1{table QD Lisinopril 10 MG 10 MG t} 10 MG Ferrous Ferrous No 1{table QD Ferrous Sulfate 325 Sulfate 325 t} Sulfate (65 Fe) MG (65 Fe) MG 325 (65 Fe) MG Protonix 40 Protonix 40 No QD Protonix 40 DULoxetine DULoxetine No 1{capsu QD DULoxetine HCl 30 MG HCl 30 MG le} HCl 30 MG ProAir HFA ProAir HFA No 2{puffs QID ProAir HFA 108 (90 108 (90 _as_nee 108 (90 Base) Base) ded} Base) MCG/ACT MCG/ACT MCG/ACT dilTIAZem dilTIAZem No 1{table BID dilTIAZem HCl 60 MG HCl 60 MG t_befor HCl 60 MG e_meals _and_at _bedtim e} Wellbutrin Wellbutrin No 1{table QD Wellbutrin XL 300 MG XL 300 MG t_in_th XL 300 MG e_morni ng} Advair Advair No 1{puff} BID Advair Diskus Diskus Diskus 100-50 100-50 100-50 MCG/DOSE MCG/DOSE MCG/DOSE Flonase 50 Flonase 50 No 1{spray QD Flonase 50 MCG/ACT MCG/ACT _in_eac MCG/ACT h_nostr il} Lisinopril Lisinopril No 1{table QD Lisinopril 10 MG 10 MG t} 10 MG Topiramate Topiramate No 1{table BID Topiramate 50 MG 50 MG t} 50 MG Advair Advair No 1{puff} BID Advair Diskus Diskus Diskus 100-50 100-50 100-50 MCG/DOSE MCG/DOSE MCG/DOSE Protonix 40 Protonix 40 No QD Protonix 40 ProAir HFA ProAir HFA No 2{puffs QID ProAir HFA 108 (90 108 (90 _as_nee 108 (90 Base) Base) ded} Base) MCG/ACT MCG/ACT MCG/ACT DULoxetine DULoxetine No 1{capsu QD DULoxetine HCl 30 MG HCl 30 MG le} HCl 30 MG Wellbutrin Wellbutrin No 1{table QD Wellbutrin XL 300 MG XL 300 MG t_in_th XL 300 MG e_morni ng} dilTIAZem dilTIAZem No 1{table BID dilTIAZem HCl 60 MG HCl 60 MG t_befor HCl 60 MG e_meals _and_at _bedtim e} Ferrous Ferrous No 1{table QD Ferrous Sulfate 325 Sulfate 325 t} Sulfate (65 Fe) MG (65 Fe) MG 325 (65 Fe) MG Flonase 50 Flonase 50 No 1{spray QD Flonase 50 MCG/ACT MCG/ACT _in_eac MCG/ACT h_nostr il} Lisinopril Lisinopril No 1{table QD Lisinopril 10 MG 10 MG t} 10 MG Topiramate Topiramate No 1{table BID Topiramate 50 MG 50 MG t} 50 MG Advair Advair No 1{puff} BID Advair Diskus Diskus Diskus 100-50 100-50 100-50 MCG/DOSE MCG/DOSE MCG/DOSE Protonix 40 Protonix 40 No QD Protonix 40 ProAir HFA ProAir HFA No 2{puffs QID ProAir HFA 108 (90 108 (90 _as_nee 108 (90 Base) Base) ded} Base) MCG/ACT MCG/ACT MCG/ACT DULoxetine DULoxetine No 1{capsu QD DULoxetine HCl 30 MG HCl 30 MG le} HCl 30 MG Wellbutrin Wellbutrin No 1{table QD Wellbutrin XL 300 MG XL 300 MG t_in_th XL 300 MG e_morni ng} dilTIAZem dilTIAZem No 1{table BID dilTIAZem HCl 60 MG HCl 60 MG t_befor HCl 60 MG e_meals _and_at _bedtim e} Ferrous Ferrous No 1{table QD Ferrous Sulfate 325 Sulfate 325 t} Sulfate (65 Fe) MG (65 Fe) MG 325 (65 Fe) MG Flonase 50 Flonase 50 No 1{spray QD Flonase 50 MCG/ACT MCG/ACT _in_eac MCG/ACT h_nostr il} Flonase 50 Flonase 50 No 1{spray QD Flonase 50 MCG/ACT MCG/ACT _in_eac MCG/ACT h_nostr il} Lisinopril Lisinopril No 1{table QD Lisinopril 10 MG 10 MG t} 10 MG dilTIAZem dilTIAZem No 1{table BID dilTIAZem HCl 60 MG HCl 60 MG t_befor HCl 60 MG e_meals _and_at _bedtim e} Wellbutrin Wellbutrin No 1{table QD Wellbutrin XL 300 MG XL 300 MG t_in_th XL 300 MG e_morni ng} Topiramate Topiramate No 1{table BID Topiramate 50 MG 50 MG t} 50 MG Protonix 40 Protonix 40 No QD Protonix 40 ProAir HFA ProAir HFA No 2{puffs QID ProAir HFA 108 (90 108 (90 _as_nee 108 (90 Base) Base) ded} Base) MCG/ACT MCG/ACT MCG/ACT DULoxetine DULoxetine No 1{capsu QD DULoxetine HCl 30 MG HCl 30 MG le} HCl 30 MG Ferrous Ferrous No 1{table QD Ferrous Sulfate 325 Sulfate 325 t} Sulfate (65 Fe) MG (65 Fe) MG 325 (65 Fe) MG Advair Advair No 1{puff} BID Advair Diskus Diskus Diskus 100-50 100-50 100-50 MCG/DOSE MCG/DOSE MCG/DOSE Flonase 50 Flonase 50 No 1{spray QD Flonase 50 MCG/ACT MCG/ACT _in_eac MCG/ACT h_nostr il} Lisinopril Lisinopril No 1{table QD Lisinopril 10 MG 10 MG t} 10 MG dilTIAZem dilTIAZem No 1{table BID dilTIAZem HCl 60 MG HCl 60 MG t_befor HCl 60 MG e_meals _and_at _bedtim e} Wellbutrin Wellbutrin No 1{table QD Wellbutrin XL 300 MG XL 300 MG t_in_th XL 300 MG e_morni ng} Topiramate Topiramate No 1{table BID Topiramate 50 MG 50 MG t} 50 MG Protonix 40 Protonix 40 No QD Protonix 40 ProAir HFA ProAir HFA No 2{puffs QID ProAir HFA 108 (90 108 (90 _as_nee 108 (90 Base) Base) ded} Base) MCG/ACT MCG/ACT MCG/ACT DULoxetine DULoxetine No 1{capsu QD DULoxetine HCl 30 MG HCl 30 MG le} HCl 30 MG Ferrous Ferrous No 1{table QD Ferrous Sulfate 325 Sulfate 325 t} Sulfate (65 Fe) MG (65 Fe) MG 325 (65 Fe) MG Advair Advair No 1{puff} BID Advair Diskus Diskus Diskus 100-50 100-50 100-50 MCG/DOSE MCG/DOSE MCG/DOSE Flonase 50 Flonase 50 No 1{spray QD Flonase 50 MCG/ACT MCG/ACT _in_eac MCG/ACT h_nostr il} Lisinopril Lisinopril No 1{table QD Lisinopril 10 MG 10 MG t} 10 MG dilTIAZem dilTIAZem No 1{table BID dilTIAZem HCl 60 MG HCl 60 MG t_befor HCl 60 MG e_meals _and_at _bedtim e} Wellbutrin Wellbutrin No 1{table QD Wellbutrin XL 300 MG XL 300 MG t_in_th XL 300 MG e_morni ng} Topiramate Topiramate No 1{table BID Topiramate 50 MG 50 MG t} 50 MG Protonix 40 Protonix 40 No QD Protonix 40 ProAir HFA ProAir HFA No 2{puffs QID ProAir HFA 108 (90 108 (90 _as_nee 108 (90 Base) Base) ded} Base) MCG/ACT MCG/ACT MCG/ACT DULoxetine DULoxetine No 1{capsu QD DULoxetine HCl 30 MG HCl 30 MG le} HCl 30 MG Ferrous Ferrous No 1{table QD Ferrous Sulfate 325 Sulfate 325 t} Sulfate (65 Fe) MG (65 Fe) MG 325 (65 Fe) MG Advair Advair No 1{puff} BID Advair Diskus Diskus Diskus 100-50 100-50 100-50 MCG/DOSE MCG/DOSE MCG/DOSE Flonase 50 Flonase 50 No 1{spray QD Flonase 50 MCG/ACT MCG/ACT _in_eac MCG/ACT h_nostr il} Lisinopril Lisinopril No 1{table QD Lisinopril 10 MG 10 MG t} 10 MG dilTIAZem dilTIAZem No 1{table BID dilTIAZem HCl 60 MG HCl 60 MG t_befor HCl 60 MG e_meals _and_at _bedtim e} Wellbutrin Wellbutrin No 1{table QD Wellbutrin XL 300 MG XL 300 MG t_in_th XL 300 MG e_morni ng} Topiramate Topiramate No 1{table BID Topiramate 50 MG 50 MG t} 50 MG Protonix 40 Protonix 40 No QD Protonix 40 ProAir HFA ProAir HFA No 2{puffs QID ProAir HFA 108 (90 108 (90 _as_nee 108 (90 Base) Base) ded} Base) MCG/ACT MCG/ACT MCG/ACT DULoxetine DULoxetine No 1{capsu QD DULoxetine HCl 30 MG HCl 30 MG le} HCl 30 MG Ferrous Ferrous No 1{table QD Ferrous Sulfate 325 Sulfate 325 t} Sulfate (65 Fe) MG (65 Fe) MG 325 (65 Fe) MG Advair Advair No 1{puff} BID Advair Diskus Diskus Diskus 100-50 100-50 100-50 MCG/DOSE MCG/DOSE MCG/DOSE Flonase 50 Flonase 50 No 1{spray QD Flonase 50 MCG/ACT MCG/ACT _in_eac MCG/ACT h_nostr il} Lisinopril Lisinopril No 1{table QD Lisinopril 10 MG 10 MG t} 10 MG dilTIAZem dilTIAZem No 1{table BID dilTIAZem HCl 60 MG HCl 60 MG t_befor HCl 60 MG e_meals _and_at _bedtim e} Wellbutrin Wellbutrin No 1{table QD Wellbutrin XL 300 MG XL 300 MG t_in_th XL 300 MG e_morni ng} Topiramate Topiramate No 1{table BID Topiramate 50 MG 50 MG t} 50 MG Protonix 40 Protonix 40 No QD Protonix 40 ProAir HFA ProAir HFA No 2{puffs QID ProAir HFA 108 (90 108 (90 _as_nee 108 (90 Base) Base) ded} Base) MCG/ACT MCG/ACT MCG/ACT DULoxetine DULoxetine No 1{capsu QD DULoxetine HCl 30 MG HCl 30 MG le} HCl 30 MG Ferrous Ferrous No 1{table QD Ferrous Sulfate 325 Sulfate 325 t} Sulfate (65 Fe) MG (65 Fe) MG 325 (65 Fe) MG Advair Advair No 1{puff} BID Advair Diskus Diskus Diskus 100-50 100-50 100-50 MCG/DOSE MCG/DOSE MCG/DOSE Flonase 50 Flonase 50 No 1{spray QD Flonase 50 MCG/ACT MCG/ACT _in_eac MCG/ACT h_nostr il} Lisinopril Lisinopril No 1{table QD Lisinopril 10 MG 10 MG t} 10 MG dilTIAZem dilTIAZem No 1{table BID dilTIAZem HCl 60 MG HCl 60 MG t_befor HCl 60 MG e_meals _and_at _bedtim e} Wellbutrin Wellbutrin No 1{table QD Wellbutrin XL 300 MG XL 300 MG t_in_th XL 300 MG e_morni ng} Topiramate Topiramate No 1{table BID Topiramate 50 MG 50 MG t} 50 MG Protonix 40 Protonix 40 No QD Protonix 40 ProAir HFA ProAir HFA No 2{puffs QID ProAir HFA 108 (90 108 (90 _as_nee 108 (90 Base) Base) ded} Base) MCG/ACT MCG/ACT MCG/ACT DULoxetine DULoxetine No 1{capsu QD DULoxetine HCl 30 MG HCl 30 MG le} HCl 30 MG Ferrous Ferrous No 1{table QD Ferrous Sulfate 325 Sulfate 325 t} Sulfate (65 Fe) MG (65 Fe) MG 325 (65 Fe) MG Advair Advair No 1{puff} BID Advair Diskus Diskus Diskus 100-50 100-50 100-50 MCG/DOSE MCG/DOSE MCG/DOSE Protonix 40 Protonix 40 No QD Protonix 40 ProAir HFA ProAir HFA No 2{puffs QID ProAir HFA 108 (90 108 (90 _as_nee 108 (90 Base) Base) ded} Base) MCG/ACT MCG/ACT MCG/ACT DULoxetine DULoxetine No 1{capsu QD DULoxetine HCl 30 MG HCl 30 MG le} HCl 30 MG Lisinopril Lisinopril No 1{table QD Lisinopril 10 MG 10 MG t} 10 MG Topiramate Topiramate No 1{table BID Topiramate 50 MG 50 MG t} 50 MG Ferrous Ferrous No 1{table QD Ferrous Sulfate 325 Sulfate 325 t} Sulfate (65 Fe) MG (65 Fe) MG 325 (65 Fe) MG dilTIAZem dilTIAZem No 1{table BID dilTIAZem HCl 60 MG HCl 60 MG t_befor HCl 60 MG e_meals _and_at _bedtim e} Flonase 50 Flonase 50 No 1{spray QD Flonase 50 MCG/ACT MCG/ACT _in_eac MCG/ACT h_nostr il} Advair Advair No 1{puff} BID Advair Diskus Diskus Diskus 100-50 100-50 100-50 MCG/DOSE MCG/DOSE MCG/DOSE Vitamin D3 Vitamin D3 No 1{capsu Vitamin D3 22907 UNIT [id number] UNIT le} 10869 UNIT Wellbutrin Wellbutrin No 1{table QD Wellbutrin XL 300 MG XL 300 MG t_in_th XL 300 MG e_morni ng} Protonix 40 Protonix 40 No QD Protonix 40 ProAir HFA ProAir HFA No 2{puffs QID ProAir HFA 108 (90 108 (90 _as_nee 108 (90 Base) Base) ded} Base) MCG/ACT MCG/ACT MCG/ACT DULoxetine DULoxetine No 1{capsu QD DULoxetine HCl 30 MG HCl 30 MG le} HCl 30 MG Lisinopril Lisinopril No 1{table QD Lisinopril 10 MG 10 MG t} 10 MG Topiramate Topiramate No 1{table BID Topiramate 50 MG 50 MG t} 50 MG Ferrous Ferrous No 1{table QD Ferrous Sulfate 325 Sulfate 325 t} Sulfate (65 Fe) MG (65 Fe) MG 325 (65 Fe) MG dilTIAZem dilTIAZem No 1{table BID dilTIAZem HCl 60 MG HCl 60 MG t_befor HCl 60 MG e_meals _and_at _bedtim e} Flonase 50 Flonase 50 No 1{spray QD Flonase 50 MCG/ACT MCG/ACT _in_eac MCG/ACT h_nostr il} Advair Advair No 1{puff} BID Advair Diskus Diskus Diskus 100-50 100-50 100-50 MCG/DOSE MCG/DOSE MCG/DOSE Vitamin D3 Vitamin D3 No 1{capsu Vitamin D3 94747 UNIT 85530 UNIT le} 63751 UNIT Wellbutrin Wellbutrin No 1{table QD Wellbutrin XL 300 MG XL 300 MG t_in_th XL 300 MG e_morni ng} Protonix 40 Protonix 40 No QD Protonix 40 ProAir HFA ProAir HFA No 2{puffs QID ProAir HFA 108 (90 108 (90 _as_nee 108 (90 Base) Base) ded} Base) MCG/ACT MCG/ACT MCG/ACT DULoxetine DULoxetine No 1{capsu QD DULoxetine HCl 30 MG HCl 30 MG le} HCl 30 MG Lisinopril Lisinopril No 1{table QD Lisinopril 10 MG 10 MG t} 10 MG Topiramate Topiramate No 1{table BID Topiramate 50 MG 50 MG t} 50 MG Ferrous Ferrous No 1{table QD Ferrous Sulfate 325 Sulfate 325 t} Sulfate (65 Fe) MG (65 Fe) MG 325 (65 Fe) MG dilTIAZem dilTIAZem No 1{table BID dilTIAZem HCl 60 MG HCl 60 MG t_befor HCl 60 MG e_meals _and_at _bedtim e} Flonase 50 Flonase 50 No 1{spray QD Flonase 50 MCG/ACT MCG/ACT _in_eac MCG/ACT h_nostr il} Advair Advair No 1{puff} BID Advair Diskus Diskus Diskus 100-50 100-50 100-50 MCG/DOSE MCG/DOSE MCG/DOSE Vitamin D3 Vitamin D3 No 1{capsu Vitamin D3 21858 UNIT 15172 UNIT le} 90712 UNIT Wellbutrin Wellbutrin No 1{table QD Wellbutrin XL 300 MG XL 300 MG t_in_th XL 300 MG e_morni ng} Protonix 40 Protonix 40 No QD Protonix 40 ProAir HFA ProAir HFA No 2{puffs QID ProAir HFA 108 (90 108 (90 _as_nee 108 (90 Base) Base) ded} Base) MCG/ACT MCG/ACT MCG/ACT DULoxetine DULoxetine No 1{capsu QD DULoxetine HCl 30 MG HCl 30 MG le} HCl 30 MG Lisinopril Lisinopril No 1{table QD Lisinopril 10 MG 10 MG t} 10 MG Topiramate Topiramate No 1{table BID Topiramate 50 MG 50 MG t} 50 MG Ferrous Ferrous No 1{table QD Ferrous Sulfate 325 Sulfate 325 t} Sulfate (65 Fe) MG (65 Fe) MG 325 (65 Fe) MG dilTIAZem dilTIAZem No 1{table BID dilTIAZem HCl 60 MG HCl 60 MG t_befor HCl 60 MG e_meals _and_at _bedtim e} Flonase 50 Flonase 50 No 1{spray QD Flonase 50 MCG/ACT MCG/ACT _in_eac MCG/ACT h_nostr il} Advair Advair No 1{puff} BID Advair Diskus Diskus Diskus 100-50 100-50 100-50 MCG/DOSE MCG/DOSE MCG/DOSE Vitamin D3 Vitamin D3 No 1{capsu Vitamin D3 21525 UNIT 76863 UNIT le} 33341 UNIT Wellbutrin Wellbutrin No 1{table QD Wellbutrin XL 300 MG XL 300 MG t_in_th XL 300 MG e_morni ng} Protonix 40 Protonix 40 No QD Protonix 40 ProAir HFA ProAir HFA No 2{puffs QID ProAir HFA 108 (90 108 (90 _as_nee 108 (90 Base) Base) ded} Base) MCG/ACT MCG/ACT MCG/ACT DULoxetine DULoxetine No 1{capsu QD DULoxetine HCl 30 MG HCl 30 MG le} HCl 30 MG Lisinopril Lisinopril No 1{table QD Lisinopril 10 MG 10 MG t} 10 MG Topiramate Topiramate No 1{table BID Topiramate 50 MG 50 MG t} 50 MG Ferrous Ferrous No 1{table QD Ferrous Sulfate 325 Sulfate 325 t} Sulfate (65 Fe) MG (65 Fe) MG 325 (65 Fe) MG dilTIAZem dilTIAZem No 1{table BID dilTIAZem HCl 60 MG HCl 60 MG t_befor HCl 60 MG e_meals _and_at _bedtim e} Flonase 50 Flonase 50 No 1{spray QD Flonase 50 MCG/ACT MCG/ACT _in_eac MCG/ACT h_nostr il} Advair Advair No 1{puff} BID Advair Diskus Diskus Diskus 100-50 100-50 100-50 MCG/DOSE MCG/DOSE MCG/DOSE Vitamin D3 Vitamin D3 No 1{capsu Vitamin D3 73282 UNIT 75673 UNIT le} 43118 UNIT Wellbutrin Wellbutrin No 1{table QD Wellbutrin XL 300 MG XL 300 MG t_in_th XL 300 MG e_morni ng} dilTIAZem dilTIAZem No 1{table BID dilTIAZem HCl 60 MG HCl 60 MG t_befor HCl 60 MG e_meals _and_at _bedtim e} Lisinopril Lisinopril No 1{table QD Lisinopril 10 MG 10 MG t} 10 MG ProAir HFA ProAir HFA No 2{puffs QID ProAir HFA 108 (90 108 (90 _as_nee 108 (90 Base) Base) ded} Base) MCG/ACT MCG/ACT MCG/ACT Flonase 50 Flonase 50 No 1{spray QD Flonase 50 MCG/ACT MCG/ACT _in_eac MCG/ACT h_nostr il} Vitamin D3 Vitamin D3 No 1{capsu Vitamin D3 41597 UNIT 65634 UNIT le} 45198 UNIT dilTIAZem dilTIAZem No 1{table BID dilTIAZem HCl 60 MG HCl 60 MG t_befor HCl 60 MG e_meals _and_at _bedtim e} Lisinopril Lisinopril No 1{table QD Lisinopril 10 MG 10 MG t} 10 MG ProAir HFA ProAir HFA No 2{puffs QID ProAir HFA 108 (90 108 (90 _as_nee 108 (90 Base) Base) ded} Base) MCG/ACT MCG/ACT MCG/ACT Flonase 50 Flonase 50 No 1{spray QD Flonase 50 MCG/ACT MCG/ACT _in_eac MCG/ACT h_nostr il} Vitamin D3 Vitamin D3 No 1{capsu Vitamin D3 65595 UNIT 11858 UNIT le} 13456 UNIT Escitalopra Escitalopra No Escitalopr m Oxalate m Oxalate am Oxalate 10 MG 10 MG 10 MG Lisinopril Lisinopril No Lisinopril 10 MG 10 MG 10 MG Vitamin D3 Vitamin D3 No 1{capsu Vitamin D3 68477 UNIT 04429 UNIT le} 54492 UNIT dilTIAZem dilTIAZem No 1{table BID dilTIAZem HCl 60 MG HCl 60 MG t_befor HCl 60 MG e_meals _and_at _bedtim e} Flonase 50 Flonase 50 No 1{spray QD Flonase 50 MCG/ACT MCG/ACT _in_eac MCG/ACT h_nostr il} ProAir HFA ProAir HFA No 2{puffs QID ProAir HFA 108 (90 108 (90 _as_nee 108 (90 Base) Base) ded} Base) MCG/ACT MCG/ACT MCG/ACT Immunizations Ordered Immunization Filled Immunization Date Status Commen ts Source Name Name Roque Nevarez 2018-12-27 Completed [facility]one[facility] 14:23:00 - [facility] Roque Nevarez 2018-12-27 Completed [facility] (Triamcinolone) (Triamcinolone) 14:23:00 - [facility] Roque Nevarez 2018-12-27 Completed [facility] (Triamcinolone) (Triamcinolone) 14:23:00 - [facility] 2018-12-27 Com[facility] (Triam[facility]one[facility] (Triamcinolone) 14:23:00 [facility] 2018-12-27 Com[facility] (Triamcinolone) (Triamcinolone) 14:23:00 [facility] Vital Signs Vital Name Observation Time Observation Value Comments Source height 2022-07-07 14:40:00 61.5 [in_i[facility]-07 14:40:00 175.2 [lb_av] [facility] temperature 2022-07-07 14:40:00 97.8 [degF] [facility] bmi 2022-07-07 14:40:00 32.56 kg/m2 [facility] oximetry 2022-07-07 14:40:00 99 % [facility] respiratory rate 2022-07-07 14:40:00 18 /min [facility] blood pressure 2022-07-07 14:40:00 142 mm[Hg] [facility] - systolic [facility] blood pressure 2022-07-07 14:40:00 74 mm[Hg] [facility] - diastolic [facility] height 2022-05-25 11:00:00 61.5 [in_i] [facility] weight 2022-05-25 11:00:00 167 [facility] 2022-05-25 11:00:00 97.9 [degF] [facility] bmi 2022-05-25 11:00:00 31.04 kg/m2 [facility] height 2022-03-10 08:00:00 61.5 [in_i] [facility] weight 2022-03-10 08:00:00 180 [lb_av] [facility] temperature 2022-03-10 08:00:00 97.9 [degF[facility] 2022-03-10 08:00:00 33.46 kg/m2 [facility] blood pressure 2022-03-10 08:00:00 130 mm[Hg] [facility] - systolic [facility] blood pressure 2022-03-10 08:00:00 73 mm[Hg] [facility] - diastolic [facility] height 2021-07-01 08:00:00 61.5 [in_i] Common [facility] weight 2021-07-01 08:00:00 169 [lb_av] Common [facility] temperature 2021-07-01 08:00:00 97.5 [degF] [facility] bmi 2021-07-01 08:00:00 31.41 kg/m2 Common [facility] blood pressure 2021-07-01 08:00:00 121 mm[Hg] [facility] - systolic [facility] blood pressure 2021-07-01 08:00:00 70 mm[Hg] [facility] - diastolic [facility] Procedures This patient has no known procedures. Encounters Start End Encounter Admission Attending Care Care Encounter Source Date/Time Date/Time Type Type Clinicians Facility Department ID 2022-08-30 Outpatient [facility], STLMLC STLC [id number] Common 08:48:00 [facility] 2022-08-17 Outpatient [facility], STLMLC STLMLC [id number] Common 16:40:00 [facility] 2022-07-13 Outpatient [facility], STLMLC STLMLC [id number] Common 16:32:00 [facility] 2022-06-08 Outpatient [facility], STLMLC STLMLC [id number] Common 08:22:00 [facility] 2022-04-14 Outpatient [facility], STLMLC STLMLC [id number] Common 15:40:00 [facility] 2022-01-15 Outpatient [facility], STLMLC STLMLC [id number] Common 11:23:01 [facility] 2021-10-21 Outpatient Keller, STLMLC STLMLC [id number] Common 12:41:49 El [address] [facility] 2021-10-21 Outpatient Keller, STLMLC STLMLC [id number] Common 12:41:24 [place] [address] [facility] 2021-10-21 Outpatient [facility], STLMLC STLMLC [id number] Common 12:02:23 El [address] [facility] 2021-10-21 Outpatient [facility], STLMLC STLMLC [id number] Common 11:45:58 [place] [address] [facility] 2021-10-21 Outpatient [facility], STLMLC STLMLC [id number] Common 11:37:50 [place] [address] [facility] 2022-08-26 2022-08-26 (TEL) STLMLC STLMLC [id number] Co mmon 00:00:00 00:00:00 [facility] 2022-07-09 2022-07-09 (TEL) STLMLC STLMLC [id number] Co mmon 00:00:00 00:00:00 [facility] 2022-07-07 2022-07-07 (WELLNESS) STLMLC STLMLC [id number] Common 00:00:00 00:00:00 [facility] 2022-07-05 2022-07-05 (TEL) STLMLC STLMLC [id number] Co mmon 00:00:00 00:00:00 [facility] 2022-06-08 2022-06-08 (TEL) STLMLC STLMLC [id number] Co mmon 00:00:00 00:00:00 [facility] 2022-06-07 2022-06-07 (TEL) STLMLC STLMLC [id number] Co mmon 00:00:00 00:00:00 [facility] 2022-05-25 2022-05-25 OFFICE STLMLC STLMLC [id number] Co mmon 00:00:00 00:00:00 VISIT EST Spir it PT LEVEL 3 - [facility] 2022-05-24 2022-05-24 (TEL) STLMLC STLMLC [id number] Co mmon 00:00:00 00:00:00 [facility] 2022-04-28 2022-04-28 (TEL) STLMLC STLMLC [id number] Co mmon 00:00:00 00:00:00 [facility] 2022-04-28 2022-04-28 (TEL) STLMLC STLMLC [id number] Co mmon 00:00:00 00:00:00 [facility] 2022-04-14 2022-04-14 (TEL) STLMLC STLMLC [id number] Co mmon 00:00:00 00:00:00 [facility] 2022-04-08 2022-04-08 (TEL) STLMLC STLMLC [id number] Co mmon 00:00:00 00:00:00 [facility] 2022-04-05 2022-04-05 (TEL) STLMLC STLMLC [id number] Co mmon 00:00:00 00:00:00 [facility] 2022-03-10 2022-03-10 OFFICE STLMLC STLMLC [id number] Co mmon 00:00:00 00:00:00 [facility]IT [facility] ESTAB PT - [facility] LEVEL 4 [facility] 2022-02-26 2022-02-26 (TEL) STLMLC STLMLC [id number] Co mmon 00:00:00 00:00:00 [facility] 2022-02-16 2022-02-16 (TEL) STLMLC STLMLC [id number] Co mmon 00:00:00 00:00:00 [facility] 2021-10-12 2021-10-12 (TEL) STLMLC STLMLC [id number] Co mmon 00:00:00 00:00:00 [facility] 2021-07-20 2021-07-20 (TEL) STLMLC STLMLC [id number] Co mmon 00:00:00 00:00:00 [facility] 2021-07-14 2021-07-14 (TEL) STLMLC STLMLC [id number] Co mmon 00:00:00 00:00:00 [facility] 2021-07-10 2021-07-10 (TEL) STLMLC STLMLC [id number] Co mmon 00:00:00 00:00:00 [facility] 2021-07-02 2021-07-02 (TEL) STLMLC STLMLC [id number] Co mmon 00:00:00 00:00:00 [facility] 2021-07-01 2021-07-01 OFFICE STLMLC STLMLC [id number] Co mmon 00:00:00 00:00:00 VISIT [facility] 4 [facility] 2021-05-12 2021-05-12 Outpatient STLMLC STLMLC [id number] Common 00:00:00 00:00:00 [facility] 2021-05-08 2021-05-08 Outpatient STLMLC STLMLC [id number] Common 00:00:00 00:00:00 [facility] 2021-05-07 2021-05-07 Outpatient STLMLC STLMLC [id number] Common 00:00:00 00:00:00 [facility] 2021-05-06 2021-05-06 Outpatient STLMLC STLMLC [id number] Common 00:00:00 00:00:00 [facility] 2021-05-06 2021-05-06 Outpatient STLMLC STLMLC [id number] Common 00:00:00 00:00:00 [facility] 2021-05-05 2021-05-05 Outpatient STLMLC STLMLC [id number] Common 00:00:00 00:00:00 [facility] 2021-05-04 2021-05-04 Outpatient STLMLC STLMLC [id number] Common 00:00:00 00:00:00 [facility] 2021-02-05 2021-02-05 Outpatient STLMLC STLMLC [id number] Common 00:00:00 00:00:00 [facility] 2021-02-03 2021-02-03 Outpatient STLMLC STLMLC [id number] Common 00:00:00 00:00:00 [facility] 2021-02-02 2021-02-02 Outpatient STLMLC STLMLC [id number] Common 00:00:00 00:00:00 [facility] 2021-02-02 2021-02-02 Outpatient STLMLC STLMLC [id number] Common 00:00:00 00:00:00 [facility] 2021-02-02 2021-02-02 Outpatient STLMLC STLMLC [id number] Common 00:00:00 00:00:00 [facility] 2020-12-11 2020-12-11 Outpatient STLMLC STLMLC [id number] Common 00:00:00 00:00:00 [facility] 2020-08-19 2020-08-19 Outpatient STLMLC STLMLC [id number] Common 00:00:00 00:00:00 [facility] 2020-07-29 2020-07-29 Outpatient STLMLC STLMLC [id number] Common 00:00:00 00:00:00 [facility] 2020-06-30 2020-06-30 Outpatient STLMLC STLMLC [id number] Common 00:00:00 00:00:00 [facility] 2020-06-17 2020-06-17 Outpatient STLMLC STLMLC [id number] Common 00:00:00 00:00:00 [facility] 2020-06-11 2020-06-11 [id number] Common 09:59:00 09:59:00 t [facility] 2020-06-10 2020-06-10 [facility] [id number] Common 14:10:00 14:10:[place] [address] [facility] 2020-05-12 2020-05-12 [facility] [id number] Common 13:00:00 13:00:00 [place] [address] [facility] 2019-06-19 2019-06-19 [facility] [id number] Common 10:50:00 10:50:00 [place] [address] [facility] 2019-04-27 2019-04-27 [facility] [id number] Common 08:15:00 08:15:00 [place] [address] [facility] 2018-12-27 2018-12-27 [facility] [id number] Common 14:15:00 14:15:[place] [address] [facility] 2018-12-27 2018-12-27 [facility] [id number] Common 10:32:00 10:32:[place] [address] [facility] 2018-12-20 2018-12-20 [facility] [id number] Common 11:15:00 11:15:00 [place] [address] [facility] 2018-11-09 2018-11-09 [facility] [id number] Common 11:26:00 11:26:[place] [address] [facility] 2018-05-12 2018-05-12 [facility] [id number] Common 09:09:00 09:09:00 [place] [address] [facility] 2018-02-07 2018-02-07 [facility] [id number] Common 09:00:00 09:00:00 [place] [address] [facility] Results Test Description Test Time Test Comments Results Result Comments Source STREP A RAPID 2022-05-25 00:00:00 Test Item Value Reference Range Interpretation Comme nts Result (test code = 60991-2) NEGATIVE POC, COVID 19 Antigen + Flu by [email or web address], COVID 19 Antigen + Flu by Snehal
[2022-08-31 00:07] LABS: Hematocrit 27.9 % (36.0-45.0); MCV 107.2 fL (80-100)
[2022-08-31 00:08] LABS: Absolute Lymphocytes (CBC) 0.8 K/uL (0.7-4.9); Lymphocytes % 30.3 % (15.3-44.8); MPV 6.3 fL (7.6-11.3); Protime INR 1.61
[2022-08-31 00:34] LABS: Albumin 3.3 g/dL (3.4-5.0); Bilirubin Direct 2.4 mg/dL (0-0.2); Magnesium 1.8 mg/dL (1.8-2.4); Potassium 3.3 mmol/L (3.5-5.1); Protein, Total 7.6 g/dL (6.4-8.2); Troponin High Sensitivity 15.9 pg/mL (<58.9)
[2022-08-31 01:04] LABS: Blood Morphology Comment NOTED (NOT SEEN); Macrocytosis SLIGHT
[2022-08-31 01:05] LABS: Platelet Estimate DECR
[2022-08-31 01:21] LABS: Urine Blood 1+ (Negative); Urine Glucose Negative (Negative); Urine Protein Negative (Negative); Urine Specific Gravity 1.025 (1.005-1.030); Urine pH 5.5 (5.0-7.0)
[2022-08-31 01:30] LABS: Urine Specific Gravity/Preg 1.025 (1.005-1.030)
[2022-08-31 01:33] LABS: Urine Granular Casts 0-5 /LPF (None Seen); Urine Mucus Slight /HPF (None Seen); Urine RBC <5 /HPF (None Seen)
[2022-08-31 01:39] LABS: Barbiturates NEGATIVE (NEGATIVE); Benzodiazepines NEGATIVE (NEGATIVE); Cocaine NEGATIVE (NEGATIVE); METHAMPHETAM NEGATIVE (NEGATIVE); Methadone NEGATIVE (NEGATIVE); Opiates NEGATIVE (NEGATIVE); Phencyclidine NEGATIVE (NEGATIVE); THC Cannibis NEGATIVE (NEGATIVE)
[2022-08-31] MEDS ORDERED: NA CHLORIDE 0.9% 50 ML IV ONE (02:32)
[2022-08-31] MEDS ORDERED: CEFTRIAXONE 1000 MG/VIAL ONE (02:32)
[2022-08-31] MEDS ORDERED: POTASSIUM 25 MEQ EFFERV TAB ONE (03:14)
--- NOTE | 2022-08-31 03:53 | EDPHYS ---
Physician Documentation [facility] Name: Doreen Allison Age: 52 yrs Sex: Female : 1970 Arrival Date: 08/30/2022 Time: 21:05 Bed 6 Private MD: ED Physician Fidel Ziegler HPI: 08/30 22:20 This 52 yrs old Female presents to ER via EMS with complaints of Altered cp Mental Status, C/O HEARING VOICES, Anxiety, Depression. 22:20 The patient presents with hearing voices. cp 22:20 Onset: The symptoms/episode began/occurred today. Possible causes: unknown. Associated cp signs and symptoms: Pertinent negatives: abdominal pain, chest pain, combativeness, headache, weakness. Current symptoms: In the emergency department the patient's symptoms are unchanged from the initial presentation, despite EMS interventions. 22:20 Patient's baseline: Neuro: alert and fully oriented, Motor: no deficits, Ambulation: cp walks without assistance, Speech: normal. Historical: - PMHx: 21:50 Anemia; breast cancer; Depression; Hypertension; Anxiety; PTSD; kd3 - PSHx: 21:50 radical mastectomy, Left; right foot; kd3 - Immunization history:: Adult Immunizations up to date. - Social history:: Smoking status: Patient denies any tobacco usage or history of. ROS: 22:25 Constitutional: Negative for body aches, chills, fever, poor PO intake. cp 22:25 Eyes: Negative for injury, pain, redness, and discharge. cp 22:25 ENT: Negative for drainage from ear(s), ear pain, sore throat, difficulty swallowing, difficulty handling secretions. 22:25 Cardiovascular: Negative for chest pain, edema, palpitations. 22:25 Respiratory: Negative for cough, shortness of breath, wheezing. 22:25 Abdomen/GI: Negative for abdominal pain, nausea, vomiting, and diarrhea. 22:25 Neuro: Negative for altered mental status, dizziness, headache, weakness. 22:25 All other systems are negative. Exam: 22:30 Constitutional: The patient appears in no acute distress, alert, awake, cp non-diaphoretic, non-toxic, well developed, well nourished. 22:30 Head/Face: Normocephalic, atraumatic. cp 22:30 Eyes: Periorbital structures: appear normal, Pupils: equal, round, and reactive to light and accomodation, Extraocular movements: intact throughout, Conjunctiva: normal, no exudate, no injection, Sclera: no appreciated abnormality, Lids and lashes: appear normal, bilaterally. 22:30 ENT: External ear(s): are unremarkable, Ear canal(s): are normal, clear, TM's: dullness, bilaterally, Nose: is normal, Mouth: Lips: moist, Oral mucosa: pink and intact, moist, Posterior pharynx: Airway: no evidence of obstruction, patent. 22:30 Chest/axilla: Inspection: normal. 22:30 Cardiovascular: Rate: normal, Rhythm: regular, Edema: is not appreciated, JVD: is not appreciated. 22:30 Respiratory: the patient does not display signs of respiratory distress, Respirations: normal, no use of accessory muscles, no retractions, labored breathing, is not present, Breath sounds: are clear throughout, no decreased breath sounds, no stridor, no wheezing. 22:30 Abdomen/GI: Inspection: distension, that is mild, Bowel sounds: active, all quadrants, Palpation: abdomen is soft and non-tender, in all quadrants. 22:30 Back: pain, is absent, ROM is normal. 22:30 Neuro: Orientation: to person, place \T\ time. Mentation: able to follow commands, Cerebellar function: Romberg testing is negative, Motor: moves all fours, strength is normal, Gait: is steady. 23:59 ECG was reviewed by the Attending Physician. cp Vital Signs: 21:49 BP 147 / 72; Pulse 97; Resp 19; Temp 97.6(O); Pulse Ox 98% on R/A; Weight 81.65 kg; kd3 12/06 00:02 BP 118 / 67; Pulse 89; Resp 22 S; Pulse Ox 95% on R/A; as6 01:28 BP 115 / 68; Pulse 87; Resp 17 S; Pulse Ox 97% on R/A; as6 02:41 BP 100 / 50; Pulse 89; Resp 19 S; Pulse Ox 96% on R/A; as6 MDM: 12 21:53 Patient medically screened. cp 23:00 Differential Diagnosis: electrolyte abnormality, alcohol intoxication, intracranial cp bleed, overdose, seizure, sepsis, volume depletion, hepatic encephalopathy, acute liver failure. 08/31 03:52 Data reviewed: vital signs, nurses notes, lab test result(s), EKG, radiologic studies, cp CT scan, plain films. 03:52 Test interpretation: by ED physician or midlevel provider: ECG, plain radiologic cp studies. Counseling: I had a detailed discussion with the patient and/or guardian regarding: the historical points, exam findings, and any diagnostic results supporting the discharge/admit diagnosis, lab results, radiology results, to return to the emergency department if symptoms worsen or persist or if there are any questions or concerns that arise at home. Response to treatment: the patient's symptoms have mildly improved after treatment, and as a result, I will discharge patient. 08/30 22:19 Order name: Basic Metabolic Panel; Complete Time: 00:46 cp 08/31 00:46 Interpretation: Normal except: K 3.3; CL 110; GLUC 120; BUN 4; CRE 0.44; CA 7.9. cp 08/30 22:19 Order name: CBC with Diff; Complete Time: 01:21 cp 08/31 00:48 Interpretation: Normal except: WBC 2.50; RBC 2.60; HGB 10.3; HCT 27.9; MCV 107.2; MCH cp 39.7; MCHC 37.1; PLT 33; RDW 19.8; MPV 6.3; NEUT A 1.5. 08/30 22:19 Order name: LFT's; Complete Time: 00:46 cp 08/31 00:47 Interpretation: Normal except: AST 40; ALK 130; BILIT 5.0; BILID 2.4; ALB 3.3; GLOB cp 4.3; A/G 0.8. 08/30 22:19 Order name: Magnesium; Complete Time: 00:46 cp 08/30 22:19 Order name: NT PRO-BNP; Complete Time: 00:46 cp 08/30 22:19 Order name: PT-INR; Complete Time: 00:46 cp 08/30 22:19 Order name: Troponin HS; Complete Time: 00:46 cp 08/30 22:19 Order name: ETOH Level; Complete Time: 01:21 cp 08/31 01:21 Interpretation: Abnormal: ETOH 346. cp 08/30 22:19 Order name: UDS; Complete Time: 01:41 cp 08/30 22:19 Order name: AMMONIA; Complete Time: 00:46 cp / 00:47 Interpretation: Abnormal: OKSANA 66. cp 08/30 22:19 Order name: Lactate w/ 2H reflex if indic.; Complete Time: 00:46 cp / 22:19 Order name: Urine Microscopic Only; Complete Time: 01:41 cp 12/ 01:41 Interpretation: Normal except: HYAL 5-10. cp 08/31 01:05 Order name: Manual Differential; Complete Time: 01:21 EDMS 12 01:21 Interpretation: Normal except: BANDS [F] 2. cp 08/30 22:19 Order name: XRAY Chest (1 view) cp 08/30 22:19 Order name: EKG; Complete Time: 22:19 cp 08/30 22:19 Order name: Cardiac monitoring; Complete Time: 00:03 cp 08/30 22:19 Order name: EKG - Nurse/Tech; Complete Time: 00:03 cp 08/30 22:19 Order name: IV Saline Lock; Complete Time: 23:50 cp 08/30 22:19 Order name: Labs collected and sent; Complete Time: 23:50 cp 08/30 22:19 Order name: O2 Per Protocol; Complete Time: 00:03 cp 08/31 01:21 Order name: Urine Dipstick-Ancillary; Complete Time: 01:22 EDMS 08/31 01:22 Interpretation: Normal except: UKET Trace; UBLD 1+; UNIT Positive. cp / 01:21 Order name: Urine --Ancillary (enter results); Complete Time: 01:41 mw2 08/31 01:42 Order name: Procalcitonin; Complete Time: 03:08 cp / 01:45 Order name: CT Head Brain wo Cont cp 08/30 22:19 Order name: O2 Sat Monitoring; Complete Time: 00:03 cp 08/30 22:19 Order name: Urine Dipstick-Ancillary (obtain specimen); Complete Time: 01:21 cp 08/30 22:19 Order name: Urine Test (obtain specimen); Complete Time: 01:21 cp EC/05 23:59 Rate is 88 beats/min. Rhythm is regular. AR interval is normal. QRS interval is normal. cp QT interval is prolonged at 410 msec. T waves are Inverted in leads aVR, V2. Interpreted by me. Reviewed by me. Administered Medications: 08/31 02:37 Drug: Rocephin (cefTRIAXone) 1 grams Route: IV; Rate: calculated rate; Site: right as6 forearm; 04:26 Follow up: Response: No adverse reaction; IV Status: Completed infusion; IV Intake: [id number] 03:15 Drug: Potassium Effervescent Tablet 25 mEq Route: PO; as6 04:26 Follow up: Response: No adverse reaction as6 Disposition: 07:02 Co-signature as Attending Physician, Fidel Ziegler MD I agree with the assessment and rt plan of care. Disposition Summary: 08/31/22 03:53 Discharge Ordered Location: Home cp Problem: new cp Symptoms: have improved cp Condition: Stable cp Diagnosis - Alcohol abuse with intoxication cp Followup: cp - With: Trevor Iglesias MD - When: 1 - 2 days - Reason: Recheck today's complaints Discharge Instructions: - Discharge Summary Sheet cp - Alcohol Intoxication cp - Alcohol Abuse and Nutrition cp - Alcohol Abuse and Dependence Information, Adult cp Forms: - Medication Reconciliation Form cp - Thank You Letter cp - Antibiotic Education cp - Prescription Opioid Use cp Signatures: Dispatcher [employer] EDMS Nilesh Espana PA PA cp Joaquim Topete RN RN as6 Faiza Lee RN RN kd3 Fidel Ziegler MD MD rt Corrections: (The following items were deleted from the chart) 01:06 00:15 CBC Smear Scan ordered. EDMS EDMS 02:21 01:45 Chest Abdomen Pelvis W Con+CT.RAD.BRZ ordered. EDMS EDMS 02:21 02:11 Head Brain Wo Cont+CT.RAD.BRZ ordered. EDMS EDMS
--- NOTE | 2022-08-31 03:53 | ER ---
Nurse's Notes [facility] Name: Doreen Allison Age: 52 yrs Sex: Female : 1970 Arrival Date: 08/30/2022 Time: 21:05 Bed 6 Private MD: Diagnosis: Alcohol abuse with intoxication Presentation: 08/30 21:49 Chief complaint: EMS states: Pt complains of depression. she has a history of kd3 depression and anxiety and ETOH abuse. Coronavirus screen: Vaccine status: Patient reports receiving the 2nd dose of the covid vaccine. Ebola Screen: No symptoms or risks identified at this time. Initial Sepsis Screen: Does the patient meet any 2 criteria? No. Patient's initial sepsis screen is negative. Does the patient have a suspected source of infection? No. Patient's initial sepsis screen is negative. Risk Assessment: Do you want to hurt yourself or someone else? Patient reports no desire to harm self or others. Onset of symptoms was August 30, 2022. 21:49 Method Of Arrival: EMS: [facility] kd3 21:49 Acuity: LARRY 4 kd3 21:52 Chief complaint: Chief complaint: Patient states: "If you don't give me a bed to sleep kd3 in right now then just call me an UBER and get me home." when asked why she called the ambulance pt stated " I don't know. just let me go home if you aren't giving me a room.". This RN explained to the patient that she was being triaged and that there were no available rooms in the back. Triage Assessment: 21:50 General: Appears in no apparent distress. Behavior is uncooperative. Pain: Denies pain. kd3 Neuro: Level of Consciousness is awake, alert, obeys commands, Oriented to person, place, time, situation. Cardiovascular: Patient's skin is warm and dry. Respiratory: Airway is patent Trachea midline Respiratory effort is even, unlabored, Respiratory pattern is regular, symmetrical. Historical: - PMHx: 21:50 Anemia; breast cancer; Depression; Hypertension; Anxiety; PTSD; kd3 - PSHx: 21:50 radical mastectomy, Left; right foot; kd3 - Immunization history:: Adult Immunizations up to date. - Social history:: Smoking status: Patient denies any tobacco usage or history of. Screenin:52 Abuse screen: Denies threats or abuse. Denies injuries from another. Nutritional kd3 screening: No deficits noted. Tuberculosis screening: No symptoms or risk factors identified. Fall Risk None identified. Assessment: 08/31 00:01 General: Appears in no apparent distress. unkempt, Behavior is cooperative, drowsy. as6 Pain: Denies pain. Neuro: Level of Consciousness is awake, alert, obeys commands, Oriented to person, place, time, situation. Cardiovascular: Capillary refill < 3 seconds Patient's skin is warm and dry. Respiratory: Respiratory effort is even, unlabored. 02:41 Reassessment: Patient appears in no apparent distress at this time. as6 Vital Signs: 08/30 21:49 BP 147 / 72; Pulse 97; Resp 19; Temp 97.6(O); Pulse Ox 98% on R/A; Weight 81.65 kg; kd3 08/31 00:02 BP 118 / 67; Pulse 89; Resp 22 S; Pulse Ox 95% on R/A; as6 01:28 BP 115 / 68; Pulse 87; Resp 17 S; Pulse Ox 97% on R/A; as6 02:41 BP 100 / 50; Pulse 89; Resp 19 S; Pulse Ox 96% on R/A; as6 ED Course: 12 21:05 Patient arrived in ED. jj6 21:50 Triage completed. kd3 21:50 Arm band placed on right wrist. kd3 21:53 Nilesh Espana PA is PHCP. cp 21:53 Fidel Ziegler MD is Attending Physician. cp 23:14 Joaquim Topete, BARBI is Primary Nurse. as6 23:31 XRAY Chest (1 view) In Process Unspecified. EDMS 23:43 Inserted saline lock: 20 gauge in right forearm, using aseptic technique. Blood as6 collected. 23:50 Lactate w/ 2H reflex if indic. Sent. as6 23:50 AMMONIA Sent. as6 23:50 ETOH Level Sent. as6 23:51 Basic Metabolic Panel Sent. as6 23:51 CBC with Diff Sent. as6 23:51 LFT's Sent. as6 23:51 Magnesium Sent. as6 23:51 NT PRO-BNP Sent. as6 23:51 PT-INR Sent. as6 23:51 Troponin HS Sent. as6 08/31 00:02 Placed in gown. Bed in low position. Call light in reach. Side rails up X2. as6 02:21 CT Head Brain wo Cont In Process Unspecified. EDMS 03:50 Trevor Iglesias MD is Referral Physician. cp 04:26 No provider procedures requiring assistance completed. IV discontinued, intact, as6 bleeding controlled, No redness/swelling at site. Pressure dressing applied. Administered Medications: 02:37 Drug: Rocephin (cefTRIAXone) 1 grams Route: IV; Rate: calculated rate; Site: right as6 forearm; 04:26 Follow up: Response: No adverse reaction; IV Status: Completed infusion; IV Intake: 13zwld2 03:15 Drug: Potassium Effervescent Tablet 25 mEq Route: PO; as6 04:26 Follow up: Response: No adverse reaction as6 Medication: 04:26 VIS not applicable for this client. as6 Intake: 04:26 IV: 50ml; Total: 50ml. as6 Outcome: 03:53 Discharge ordered by MD. cp 04:26 Discharged to home with family. as6 04:26 Condition: stable 04:26 Discharge instructions given to patient, Instructed on discharge instructions, follow up and referral plans. Demonstrated understanding of instructions, follow-up care. 04:27 Patient left the ED. as6 Signatures: Dispatcher [employer] EDIL Nilesh Espana PA PA cp Jeffries, Jennifer jj6 Joaquim Topete RN RN as6 Faiza Lee RN RN kd3 Corrections: (The following items were deleted from the chart) 08/30 21:53 21:52 General: kd3 kd3 21:56 21:52 Chief complaint: kd3 kd3
[2022-08-31 07:36] VITALS: TEMP 97.6
[2022-08-31 07:53] VITALS: BP 100/50; O2SAT 96
--- NOTE | 2022-08-31 08:35 | EKG ---
Test Date: 2022-08-30 Test Time: 23:54:30 Manager Finance: MEASUREMENT RESULTS: Intervals: Rate: 86 GA: 144 QRSD: 108 QT: 420 QTc: 502 [place]: P: 11 GA: 144 QRS: 56 T: 58 INTERPRETIVE STATEMENTS: Normal sinus rhythm Voltage criteria for left ventricular hypertrophy Prolonged QT Abnormal ECG Compared to ECG 02/13/2020 21:16:03 Prolonged QT interval now present Sinus tachycardia no longer present Electronically Signed On 08-31-22 08:34:26 GRAPE CUTTER by Abhinav Burris
--- NOTE | 2022-08-31 16:49 | RAD REPORT ---
EXAM DESCRIPTION: Head Brain Wo Cont 08/31/2022 3:16 AM ART SUPERVISOR CLINICAL HISTORY: 52 years, Female, altered mental status COMPARISON: 06/08/2018. FINDINGS: Multiple transaxial tomograms of the brain were obtained from the base of the skull to the vertex without contrast. 2-D multiplanar reformats and the coronal and sagittal plane were performed and reviewed. This exam was performed according to our departmental dose-optimization protocol, which includes auto mated exposure control, adjustment of the mA and/or kV according to patient size and/or use of iterat geri reconstruction technique. Brain parenchyma as well as the baker and white matter differentiation demonstrate to be unremarkable. There is no midline shift and/or mass effect. There is no evidence for acute hemorrhage. No focal ar eas of hypodensities. Lateral ventricles and cisterns displace normal appearance. No intra or ext ra axial fluid collections were seen. The calvarium is intact with no evidence for fracture. The visu alized portions of the paranasal sinuses and orbits demonstrate to be clear. IMPRESSION: No acute intracranial hemorrhage identified. Unremarkable CT scan of the head without contrast. Electronically signed by: Kian Mckay MD 08/31/2022 3:17 AM ART SUPERVISOR Due to temporary technical issues with the PACS/Fluency reporting system, reports are being signed by the in house radiologists without review as a courtesy to insure prompt reporting. The interpreting radiologist is fully responsible for the content of the report.
--- NOTE | 2022-08-31 16:51 | RAD REPORT ---
EXAM DESCRIPTION: Chest Single View CLINICAL HISTORY: 52 years Female AMS TECHNIQUE: One view of the chest. COMPARISON: No prior exams provided for comparison. FINDINGS: The lungs are clear without focal consolidation, effusion, or pneumothorax. Mildly enlarge d cardiac mediastinal silhouette without congestive failure. Surgical clips in the left axilla. No ac jesus manuel osseous abnormalities. IMPRESSION: No acute cardiopulmonary abnormalities. Mild enlargement of the cardiomediastinal silhou ette. Electronically signed by: Opal Hobbs MD 08/31/2022 12:07 AM CLEAT FEEDER Due to temporary technical issues with the PACS/Fluency reporting system, reports are being signed by the in house radiologists without review as a courtesy to insure prompt reporting. The interpreting radiologist is fully responsible for the content of the report.
== END 2022-08-31 04:27 | disposition home or self-care (01) ==
LOC: ER 21:00
DX: F10.129 Alcohol abuse with intoxication, unspecified (principal); I10 Essential (primary) hypertension
CPT/HCPCS: 93005; 85025; 80048; 36415 ×2; 80320; 82140; 83735; 81025; 85610; 80076; 83605; 84484; 84145; 83880; 80307; 70450; 71045; Q9967; 81003; 81015; 96365; 96366; 99284

== ENCOUNTER 2023-07-17 08:47 | Emergency (ER) | payer OTHER ==
--- OUTSIDE RECORDS SUMMARY | 2023-07-17 08:52 | XMS REPORT | Continuity of Care Document ---
:1970 Author Organization [facility] t Address [address] [facility] [address] [place] [address] Care Team Providers Name Role Phone El Keller Attending Clinician Unavailable Payers Payer Name Policy Type Policy Number Effective Date Expiration Date S ource FOR C1 [id number] [facility] FOR C1 [id number] [facility] FOR C1 [id number] [facility] FOR C1 [id number] [facility] FOR C1 [id number] [facility] Problems Condition Condition Condition Status Onset Resolution Last Treating Co mments Source Name Details Category Date Date Treatment Clinician Date Abnormal Abnormal Problem Commo n liver liver Spirit function function - [facility] Disorders Elevated Problem Comm on of bilirubin Spirit bilirubin - [facility]I excretion [facility] Pancytopen Pancytopen Problem C ommon ia ia Spirit - 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 Essential Benign Problem Common hypertensi essential Spi rit on HTN - [facility] Alcohol Alcohol Problem Common use, use, Spirit unspecifie unspecifie - CHI d with d with St other 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 Severe Major Problem Common major depressive Spirit depression disorder, - C [place] , single single St episode, episode, kes without severe Medical psychotic without Center features psychotic features [id number] History of Problem Co mmon left Spirit mastectomy [facility] Alcoholic Alcoholic Problem Com mon fatty fatty Spirit liver liver [facility] Anemia Anemia Problem Common [facility] [id number] Vitamin D Problem Comm on deficiency [facility] [id number] Alcohol Problem Common abuse [facility] [id number] Adult BMI Problem Com mon 33.0-33.9 Spirit kg/sq m [facility] Allergies, Adverse Reactions, Alerts This patient has no known allergies or adverse reactions. Social History Social Habit Start Date Stop Date Quantity Comments Source History of Tobacco Use Co mmon [facility] Sex Assigned At Com mon [facility] Smoking Status Start Date Stop Date Source Never Smoker [facility] Medications Ordered Filled Start Stop Current [...] Vitamin D3 2021- No 1{capsu Vitamin D3 64437 UNIT 14299 UNIT 6-15 -13 le} 85453 UNIT 00:00: 00:00 00 :00 Vitamin D3 Vitamin D3 2021- No 1{capsu Vitamin D3 24935 UNIT 55938 UNIT 03-10 le} 80808 UNIT 00:00: 00:00 00 :00 Vitamin D3 Vitamin D3 2021-0 2022- No 1{capsu Vitamin D3 25213 UNIT 15192 UNIT 03-10 le} 58591 UNIT 00:00: 00:00 00 :00 Vitamin D3 Vitamin D3 2021-0 2022- No 1{capsu Vitamin D3 22389 UNIT 22350 UNIT 03-10 le} 58947 UNIT 00:00: 00:00 00 :00 Vitamin D3 Vitamin D3 2021-0 2022- No 1{capsu Vitamin D3 27792 UNIT 55907 UNIT 03-10 le} 34203 UNIT 00:00: 00:00 00 :00 Vitamin D3 Vitamin D3 2021-0 2022- No 1{capsu Vitamin D3 48576 UNIT 01624 UNIT 03-10 le} 56090 UNIT 00:00: 00:00 00 :00 ProAir HFA [...] MCG/ACT 00 MCG/ACT ProAir HFA ProAir HFA 2021-0 No 2{puffs ProAir HFA 108 (90 108 [...] Spirit 00:00: 00:00 - CHI 00 :00 [facility] Kenalog Kenalog 2018-0 No 40mg Common (Triamcinol (Triamcinol 4-03 S pirit one) one) 00:00: - CHI 00 [facility] Kenalog Kenalog 2018-0 No 40mg Common (Triamcinol (Triamcinol 4-03 S pirit one) one) 00:00: - CHI 00 [facility] Kenalog Kenalog 0 No 40mg Common (Triamcinol (Triamcinol 4-03 S pirit one) one) 00:00: - CHI 00 [facility] Kenalog Kenalog 2019-0 No 40mg Common (Triamcinol (Triamcinol 4-03 S pirit one) one) 00:00: - CHI 00 [facility] Kenalog Kenalog 2019-0 No 40mg Common (Triamcinol (Triamcinol 4-03 S pirit one) one) 00:00: - CHI 00 [facility] Kenalog Kenalog 2019-0 No 40mg Common (Triamcinol (Triamcinol 4-03 S pirit one) one) 00:00: - CHI 00 [facility] Kenalog Kenalog 2019-0 No 40mg Common (Triamcinol (Triamcinol 4-03 S pirit one) one) 00:00: - CHI 00 [facility] Kenalog Kenalog 2019-0 No 40mg Common (Triamcinol (Triamcinol 4-03 S pirit one) one) 00:00: - CHI 00 [facility] Kenalog Kenalog 2019-0 No 40mg Common (Triamcinol (Triamcinol 4-03 S pirit one) one) 00:00: - CHI 00 [facility] Kenalog Kenalog 2019-0 No 40mg Common (Triamcinol (Triamcinol 4-03 S pirit one) one) 00:00: - CHI 00 [facility] Kenalog Kenalog 2019-0 No 40mg Common (Triamcinol (Triamcinol 4-03 S pirit one) one) 00:00: - CHI 00 [facility] Kenalog Kenalog 2019-0 No 40mg Common (Triamcinol (Triamcinol 4-03 S pirit one) one) 00:00: - CHI 00 [facility] Kenalog Kenalog 2019-0 No 40mg Common (Triamcinol (Triamcinol 4-03 S pirit one) one) 00:00: - CHI 00 [facility] Kenalog Kenalog 2019-0 No 40mg Common (Triamcinol (Triamcinol 4-03 S pirit one) one) 00:00: - CHI 00 [facility] Kenalog Kenalog 2019-0 No 40mg Common (Triamcinol (Triamcinol 4-03 S pirit one) one) 00:00: - CHI 00 [facility] Roque Kencorey 2019-0 No 40mg Common (Triamcinol (Triamcinol 4-03 S pirit one) one) 00:00: - CHI 00 [facility] Roque Kencorey 2019-0 No 40mg Common (Triamcinol (Triamcinol 4-03 S pirit one) one) 00:00: - CHI 00 [facility] Roque Kencorey 2019-0 No 40mg Common (Triamcinol (Triamcinol 4-03 S pirit one) one) 00:00: - CHI 00 [facility] Roque Kencorey 2019-0 No 40mg Common (Triamcinol (Triamcinol 4-03 S pirit one) one) 00:00: - CHI 00 [facility] Roque Kencorey 2019-0 No 40mg Common (Triamcinol (Triamcinol 4-03 S pirit one) one) 00:00: - CHI 00 [facility] Roque Kencorey 2019-0 No 40mg Common (Triamcinol (Triamcinol 4-03 S pirit one) one) 00:00: - CHI 00 [facility] Roque Kencorey 2019-0 No 40mg Common (Triamcinol (Triamcinol 4-03 S pirit one) one) 00:00: - CHI 00 [facility] Diltiazem Diltiazem Yes El 1 tablet Common HCl HCl Keller before Spirit meals and - CHI at bedtime [facility] Lisinopril Lisinopril Yes El 1 tablet Common Keller [facility] Flonase Flonase Yes El 1 spray in C ommon Keller each Spirit nostril - [facility] Advair Advair Yes El 1 puff Common Diskus Diskus Keller [facility] Duloxetine Duloxetine Yes El 1 capsule Common HCl HCl Keller [facility] Protonix Protonix Yes El TAKE ONE C ommon Keller TABLET BY Spirit MOUTH - CHI DAILY [facility] Ferrous Ferrous Yes El 1 tablet Com mon Sulfate Sulfate Keller [facility] ProAir HFA ProAir HFA Yes El 2 puffs as Common Keller needed [facility] Topiramate Topiramate Yes El 1 tablet Common Keller [facility] Wellbutrin Wellbutrin Yes El 1 tablet Common XL XL Keller in the [facility] DULoxetine DULoxetine No 1{capsu QD DULoxetine [...] D3 Vitamin D3 No 1{capsu Vitamin D3 67989 UNIT 08961 UNIT le} 46270 UNIT Wellbutrin Wellbutrin No 1{table QD Wellbutrin [...] D3 Vitamin D3 No 1{capsu Vitamin D3 92843 UNIT 72901 UNIT le} 17297 UNIT Wellbutrin Wellbutrin No 1{table QD Wellbutrin [...] D3 Vitamin D3 No 1{capsu Vitamin D3 53342 UNIT 65380 UNIT le} 87011 UNIT Wellbutrin Wellbutrin No 1{table QD Wellbutrin [...] D3 Vitamin D3 No 1{capsu Vitamin D3 86045 UNIT 98426 UNIT le} 00614 UNIT Wellbutrin Wellbutrin No 1{table QD Wellbutrin [...] D3 Vitamin D3 No 1{capsu Vitamin D3 54925 UNIT 59011 UNIT le} 45339 UNIT Wellbutrin Wellbutrin No 1{table QD Wellbutrin [...] D3 Vitamin D3 No 1{capsu Vitamin D3 85614 UNIT 25104 UNIT le} 99879 UNIT dilTIAZem dilTIAZem No 1{table BID dilTIAZem [...] D3 Vitamin D3 No 1{capsu Vitamin D3 51627 UNIT 95989 UNIT le} 26625 UNIT Escitalopra Escitalopra No Escitalopr m Oxalate m Oxalate am Oxalate 10 MG 10 MG 10 MG Lisinopril Lisinopril No Lisinopril 10 MG 10 MG 10 MG Vitamin D3 Vitamin D3 No 1{capsu Vitamin D3 13499 UNIT 79784 UNIT le} 89050 UNIT dilTIAZem dilTIAZem No 1{table BID dilTIAZem HCl 60 MG HCl 60 MG t_befor HCl 60 MG e_meals _and_at _bedtim e} Flonase 50 Flonase 50 No 1{spray QD Flonase 50 MCG/ACT MCG/ACT _in_eac MCG/ACT h_nostr il} ProAir HFA ProAir HFA No 2{puffs QID ProAir HFA 108 (90 108 (90 _as_nee 108 (90 Base) Base) ded} Base) MCG/ACT MCG/ACT MCG/ACT Carvedilol Carvedilol No 1{table BID Carvedilol 12.5 MG 12.5 MG t_with_ 12.5 MG food} Flonase 50 Flonase 50 No 1{spray QD Flonase 50 MCG/ACT MCG/ACT _in_eac MCG/ACT h_nostr il} Vitamin D3 Vitamin D3 No 1{capsu Vitamin D3 84247 UNIT 14870 UNIT le} 80120 UNIT Lexapro 10 Lexapro 10 No 1{table QD Lexapro 10 MG MG t} MG Lisinopril Lisinopril No Lisinopril 10 MG 10 MG 10 MG Lisinopril Lisinopril No 1{table QD Lisinopril 10 MG 10 MG t} 10 MG Escitalopra Escitalopra No Escitalopr m Oxalate m Oxalate am Oxalate 10 MG 10 MG 10 MG ProAir HFA ProAir HFA No 2{puffs QID ProAir HFA 108 (90 108 (90 _as_nee 108 (90 Base) Base) ded} Base) MCG/ACT MCG/ACT MCG/ACT Carvedilol Carvedilol No 1{table BID Carvedilol 12.5 MG 12.5 MG t_with_ 12.5 MG food} Flonase 50 Flonase 50 No 1{spray QD Flonase 50 MCG/ACT MCG/ACT _in_eac MCG/ACT h_nostr il} Vitamin D3 Vitamin D3 No 1{capsu Vitamin D3 57320 UNIT 08548 UNIT le} 28227 UNIT Lexapro 10 Lexapro 10 No 1{table QD Lexapro 10 MG MG t} MG Lisinopril Lisinopril No Lisinopril 10 MG 10 MG 10 MG Lisinopril Lisinopril No 1{table QD Lisinopril 10 MG 10 MG t} 10 MG Escitalopra Escitalopra No Escitalopr m Oxalate m Oxalate am Oxalate 10 MG 10 MG 10 MG ProAir HFA ProAir HFA No 2{puffs QID ProAir HFA 108 (90 108 (90 _as_nee 108 (90 Base) Base) ded} Base) MCG/ACT MCG/ACT MCG/ACT Carvedilol Carvedilol No 1{table BID Carvedilol 12.5 MG 12.5 MG t_with_ 12.5 MG food} Flonase 50 Flonase 50 No 1{spray QD Flonase 50 MCG/ACT MCG/ACT _in_eac MCG/ACT h_nostr il} Vitamin D3 Vitamin D3 No 1{capsu Vitamin D3 17508 UNIT 24830 UNIT le} 02938 UNIT Lexapro 10 Lexapro 10 No 1{table QD Lexapro 10 MG MG t} MG Lisinopril Lisinopril No Lisinopril 10 MG 10 MG 10 MG Lisinopril Lisinopril No 1{table QD Lisinopril 10 MG 10 MG t} 10 MG Escitalopra Escitalopra No Escitalopr m Oxalate m Oxalate am Oxalate 10 MG 10 MG 10 MG ProAir HFA ProAir HFA No 2{puffs QID ProAir HFA 108 (90 108 (90 _as_nee 108 (90 Base) Base) ded} Base) MCG/ACT MCG/ACT MCG/ACT Vitamin D3 Vitamin D3 No 1{capsu Vitamin D3 00179 UNIT 43122 UNIT le} 33256 UNIT Lexapro 10 Lexapro 10 No 1{table QD Lexapro 10 MG MG t} MG Carvedilol Carvedilol No 1{table BID Carvedilol 12.5 MG 12.5 MG t_with_ 12.5 MG food} Lisinopril Lisinopril No 1{table QD Lisinopril 10 MG 10 MG t} 10 MG One A Day One A Day No One A Day Women 50 Women 50 Women 50 Plus Plus Plus Potassium Potassium No 1{table QD Potassium 99 MG 99 MG t} 99 MG Vitamin D3 Vitamin D3 No 1{capsu Vitamin D3 71829 UNIT 74673 UNIT le} 54307 UNIT Lexapro 10 Lexapro 10 No 1{table QD Lexapro 10 MG MG t} MG Carvedilol Carvedilol No 1{table BID Carvedilol 12.5 MG 12.5 MG t_with_ 12.5 MG food} Lisinopril Lisinopril No 1{table QD Lisinopril 10 MG 10 MG t} 10 MG One A Day One A Day No One A Day Women 50 Women 50 Women 50 Plus Plus Plus Potassium Potassium No 1{table QD Potassium 99 MG 99 MG t} 99 MG Vitamin D3 Vitamin D3 No 1{capsu Vitamin D3 27627 UNIT 15093 UNIT le} 12172 UNIT Lexapro 10 Lexapro 10 No 1{table QD Lexapro 10 MG MG t} MG Carvedilol Carvedilol No 1{table BID Carvedilol 12.5 MG 12.5 MG t_with_ 12.5 MG food} Lisinopril Lisinopril No 1{table QD Lisinopril 10 MG 10 MG t} 10 MG One A Day One A Day No One A Day Women 50 Women 50 Women 50 Plus Plus Plus Potassium Potassium No 1{table QD Potassium 99 MG 99 MG t} 99 MG Vital Signs Vital Name Observation Time Observation Value Comments Source height 2022-11-10 15:20:00 61.5 [in_i] [facility] weight 2022-11-10 15:20:00 170 [lb_av] [facility] bmi 2022-11-10 15:20:00 31.6 kg/m2 [facility] height 2022-09-01 13:50:00 61.5 [in_i] [facility] S pirit [facility] weight 2022-09-01 13:50:00 170.1 [lb_av] [facility] temperature 2022-09-01 13:50:00 97.4 [degF] [facility] bmi 2022-09-01 13:50:00 31.62 kg/m2 [facility] oximetry 2022-09-01 13:50:00 97 % Common S pirit - [facility] respiratory rate 2022-09-01 13:50:00 17 /min Comm on [facility] blood pressure 2022-09-01 13:50:00 137 mm[Hg] Common [facility] - systolic [facility] blood pressure 2022-09-01 13:50:00 71 mm[Hg] Common Spirit - diastolic [facility] height 2022-07-07 14:40:00 61.5 [in_i] Common S pirit [facility] weight 2022-07-07 14:40:00 175.2 [lb_av] Common [facility] temperature 2022-07-07 14:40:00 97.8 [degF] Common [facility] bmi 2022-07-07 14:40:00 32.56 kg/m2 [facility] oximetry 2022-07-07 14:40:00 99 % [facility] respiratory rate 2022-07-07 14:40:00 18 /min Comm on [facility] blood pressure 2022-07-07 14:40:00 142 mm[Hg] Common [facility] - systolic [facility] blood pressure 2022-07-07 14:40:00 74 mm[Hg] Common [facility] - diastolic [facility] height 2022-05-25 11:00:00 61.5 [in_i] Common S [facility] weight 2022-05-25 11:00:00 167 [lb_av] Common S pirit [facility] temperature 2022-05-25 11:00:00 97.9 [degF] [facility] bmi 2022-05-25 11:00:00 31.04 kg/m2 [facility] height 2022-03-10 08:00:00 61.5 [in_i] Common [facility] weight 2022-03-10 08:00:00 180 [lb_av] Common S pirit [facility] temperature 2022-03-10 08:00:00 97.9 [degF] Common S pirit - [facility] bmi 2022-03-10 08:00:00 33.46 kg/m2 Common S pirit - [facility] blood pressure 2022-03-10 08:00:00 130 mm[Hg] Common Spirit - systolic [facility] blood pressure 2022-03-10 08:00:00 73 mm[Hg] Common Spirit - diastolic [facility] height 2021-07-01 08:00:00 61.5 [in_i] Common [facility] weight 2021-07-01 08:00:00 169 [lb_av] Common S [facility] temperature 2021-07-01 08:00:00 97.5 [degF] [facility] bmi 2021-07-01 08:00:00 31.41 kg/m2 Common S pirit - [facility] blood pressure 2021-07-01 08:00:00 121 mm[Hg] Common Spirit - systolic [facility] blood pressure 2021-07-01 08:00:00 70 mm[Hg] Common [facility] - diastolic [facility] Procedures This patient has no known procedures. Encounters Start End Encounter Admission Attending Care Care Encounter Source Date/Time Date/Time Type Type Clinicians Facility Department ID 2023-06-14 [facility] [id number] [place] 10:04:[place] [address] [facility] 2023-05-31 Outpatient Keller, STLMLC STLC [id number] Common 09:43:00 El [address] [facility] 2022-10-04 Outpatient Keller, STLMLC STLMLC [id number] Common 09:53:00 El [address] [facility] 2022-08-30 Outpatient Keller, STLMLC STLC [id number] Common 08:48:00 El [address] [facility] 2022-08-17 Outpatient Keller, STLMLC STLC [id number] Common 16:40:00 El [address] [facility] 2022-07-13 Outpatient Keller, STLMLC STLMLC [id number] Common 16:32:00 El [facility] 2022-06-08 Outpatient Keller, STLMLC STLMLC [id number] Common 08:22:00 El [facility] 2022-04-14 Outpatient Keller, STLMLC STLMLC [id number] Common 15:40:00 El [facility] 2022-01-15 Outpatient Keller, STLMLC STLMLC [id number] Common 11:23:01 El [facility] 2021-10-21 Outpatient Keller, STLMLC STLMLC [id number] Common 12:41:49 El [facility] 2021-10-21 Outpatient Keller, STLMLC STLMLC [id number] Common 12:41:24 El [address] [facility] 2021-10-21 Outpatient Keller, STLMLC STLMLC [id number] Common 12:02:23 El [address] [facility] 2021-10-21 Outpatient Keller, STLMLC STLMLC [id number] Common 11:45:58 El [address] [facility] 2021-10-21 Outpatient Keller, STLMLC STLMLC [id number] Common 11:37:50 El [address] [facility] 2022-11-10 2022-11-10 OFFICE STLMLC STLMLC [id number] Co mmon 00:00:00 00:00:[address] [facility] LEVEL 3 [facility] 2022-11-09 2022-11-09 (TEL) STLMLC STLMLC [id number] Co mmon 00:00:00 00:00:00 [facility] 2022-11-05 2022-11-05 (TEL) STLMLC STLMLC [id number] Co mmon 00:00:00 00:00:00 [facility] 2022-10-20 2022-10-20 (TEL) STLMLC STLMLC [id number] Co mmon 00:00:00 00:00:00 [facility] 2022-09-29 2022-09-29 (TEL) STLMLC STLMLC [id number] Co mmon 00:00:00 00:00:00 [facility] 2022-09-01 2022-09-01 OFFICE STLMLC STLMLC [id number] Co mmon 00:00:00 00:00:00 VISIT Spirit ESTAB PT - [facility] LEVEL 4 [facility] 2022-08-26 2022-08-26 (TEL) STLMLC STLMLC [id number] Co mmon 00:00:00 00:00:00 [facility] 2022-07-09 2022-07-09 (TEL) STLMLC STLMLC [id number] Co mmon 00:00:00 00:00:00 [facility] 2022-07-07 2022-07-07 (WELLNESS) STLMLC STLMLC [id number] Common 00:00:00 00:00:00 Wellness Spiri t Visit [facility] 2022-07-05 2022-07-05 (TEL) STLMLC STLMLC [id number] Co mmon 00:00:00 00:00:00 [facility] 2022-06-08 2022-06-08 (TEL) STLMLC STLMLC [id number] Co mmon 00:00:00 00:00:00 [facility] 2022-06-07 2022-06-07 (TEL) STLMLC STLMLC [id number] Co mmon 00:00:00 00:00:00 [facility] 2022-05-25 2022-05-25 OFFICE STLMLC STLMLC [id number] Co mmon 00:00:00 00:00:00 VISIT EST Spir it PT LEVEL 3 [facility] 2022-05-24 2022-05-24 (TEL) STLMLC STLMLC [id number] Co mmon 00:00:00 00:00:00 [facility] 2022-04-28 2022-04-28 (TEL) STLMLC STLMLC [id number] Co mmon 00:00:00 00:00:00 [facility] 2022-04-28 2022-04-28 (TEL) STLMLC STLMLC [id number] Co mmon 00:00:00 00:00:00 [facility] 2022-04-14 2022-04-14 (TEL) STLMLC STLMLC [id number] Co mmon 00:00:00 00:00:00 [facility] 2022-04-08 2022-04-08 (TEL) STLMLC STLMLC [id number] Co mmon 00:00:00 00:00:00 [facility] 2022-04-05 2022-04-05 (TEL) STLMLC STLMLC [id number] Co mmon 00:00:00 00:00:00 [facility] 2022-03-10 2022-03-10 OFFICE STLMLC STLMLC [id number] Co mmon 00:00:00 00:00:00 VISIT [facility] 4 [facility] 2022-02-26 2022-02-26 (TEL) STLMLC STLMLC [id number] Co mmon 00:00:00 00:00:00 [facility] 2022-02-16 2022-02-16 (TEL) STLMLC STLMLC [id number] Co mmon 00:00:00 00:00:00 [facility] 2021-10-12 2021-10-12 (TEL) STLMLC STLMLC [id number] Co mmon 00:00:00 00:00:00 [facility] 2021-07-20 2021-07-20 (TEL) STLMLC STLMLC [id number] Co mmon 00:00:00 00:00:00 [facility] 2021-07-14 2021-07-14 (TEL) STLMLC STLMLC [id number] Co mmon 00:00:00 00:00:00 [facility] 2021-07-10 2021-07-10 (TEL) STLMLC STLMLC [id number] Co mmon 00:00:00 00:00:00 [facility] 2021-07-02 2021-07-02 (TEL) STLMLC STLMLC [id number] Co mmon 00:00:00 00:00:00 [facility] 2021-07-01 2021-07-01 OFFICE STLMLC STLMLC [id number] Co mmon 00:00:00 00:00:00 VISIT [facility] 4 [facility] 2021-05-12 2021-05-12 Outpatient STLMLC STLMLC [id number] Common 00:00:00 00:00:00 [facility] 2021-05-08 2021-05-08 Outpatient STLMLC STLMLC [id number] Common 00:00:00 00:00:00 [facility] 2021-05-07 2021-05-07 Outpatient STLMLC STLMLC [id number] Common 00:00:00 00:00:00 [facility] 2021-05-06 2021-05-06 Outpatient STLMLC STLMLC [id number] Common 00:00:00 00:00:00 [facility] 2021-05-06 2021-05-06 Outpatient STLMLC STLMLC [id number] Common 00:00:00 00:00:00 [facility] 2021-05-05 2021-05-05 Outpatient STLMLC STLMLC [id number] Common 00:00:00 00:00:00 [facility] 2021-05-04 2021-05-04 Outpatient STLMLC STLMLC [id number] Common 00:00:00 00:00:00 [facility] 2021-02-05 2021-02-05 Outpatient STLMLC STLMLC [id number] Common 00:00:00 00:00:00 [facility] 2021-02-03 2021-02-03 Outpatient STLMLC STLMLC [id number] Common 00:00:00 00:00:00 [facility] 2021-02-02 2021-02-02 Outpatient STLMLC STLMLC [id number] Common 00:00:00 00:00:00 [facility] 2021-02-02 2021-02-02 Outpatient STLMLC STLMLC [id number] Common 00:00:00 00:00:00 [facility] 2021-02-02 2021-02-02 Outpatient STLMLC STLMLC [id number] Common 00:00:00 00:00:00 [facility] 2020-12-11 2020-12-11 Outpatient STLMLC STLMLC [id number] Common 00:00:00 00:00:00 [facility] 2020-08-19 2020-08-19 Outpatient STLMLC STLMLC [id number] Common 00:00:00 00:00:00 [facility] 2020-07-29 2020-07-29 Outpatient STLMLC STLMLC [id number] Common 00:00:00 00:00:00 [facility] 2020-06-30 2020-06-30 Outpatient STLMLC STLMLC [id number] Common 00:00:00 00:00:00 [facility] 2020-06-17 2020-06-17 Outpatient STLMLC STLMLC [id number] Common 00:00:00 00:00:00 [facility] 2020-06-11 2020-06-11 [id number] Common 09:59:00 09:59:[address] [facility] 2020-06-10 2020-06-10 [facility] [id number] Common 14:10:00 14:10:[address] Spir it [address] [facility] 2020-05-12 2020-05-12 [facility] [id number] Common 13:00:00 13:00:[address] Spir it [address] [facility] 2019-06-19 2019-06-19 [facility] [id number] Common 10:50:00 10:50:[address] Spir [address] [facility] 2019-04-27 2019-04-27 [facility] [id number] Common 08:15:00 08:15:[address] Spir it [address] [facility] 2018-12-27 2018-12-27 [facility] [id number] Common 14:15:00 14:15:[address] Spir [address] [facility] 2018-12-27 2018-12-27 [facility] [id number] Common 10:32:00 10:32:[address] Spir [address] [facility] 2018-12-20 2018-12-20 [facility] [id number] Common 11:15:00 11:15:[address] Spir it [address] [facility] 2018-11-09 2018-11-09 [facility] [id number] Common 11:26:00 11:26:[address] Spir it Drive [facility] 2018-05-12 2018-05-12 [id number] Common 09:09:00 09:09:[address] [facility] 2018-02-07 2018-02-07 [id number] Common 09:00:00 09:00:[address] [facility] Results Test Description Test Time Test Comments Results Result Comments Source STREP A RAPID 2022-05-25 00:00:00 Test Item Value Reference Range Interpretation Comme nts Result (test code = 02782-8) NEGATIVE POC, COVID 19 Antigen + Flu by SofiaPOC, COVID 19 Antigen + Flu by Snehal
[2023-07-17 09:22] LABS: Absolute Lymphocytes (CBC) 0.8 K/uL (0.7-4.9); Hematocrit 32.3 % (36.0-45.0); Lymphocytes % 31.8 % (15.3-44.8); MCV 100.4 fL (80-100); MPV 6.6 fL (7.6-11.3); Platelets 31 thou/uL (152-406); RBC Red Blood Cell Count 3.22 M/uL (3.86-4.86)
[2023-07-17] MEDS ORDERED: MORPHINE 2 MG/ML SYR ONE (09:37)
[2023-07-17 10:03] LABS: Albumin 3.2 g/dL (3.4-5.0); Bilirubin Total 3.8 mg/dL (0.2-1.0); Ferritin 44.6 ng/mL (8-388); Potassium 3.5 mEq/L (3.5-5.1); Protein, Total 7.5 g/dL (6.4-8.2)
[2023-07-17 10:05] LABS: Blood Morphology Comment NOT SEEN (NOT SEEN); Platelet Estimate DECR; White Blood Cell Scan OK (OK)
--- NOTE | 2023-07-17 10:42 | RAD REPORT ---
EXAM DESCRIPTION: CT - Head Brain Wo Cont - 07/17/2023 10:35 am CLINICAL HISTORY: Headache;Dizziness COMPARISON: Head angio dated 07/17/2023; Head Brain Wo Cont dated 08/31/2022 TECHNIQUE: All CT scans are performed using dose optimization technique as appropriate and may inclu de automated exposure control or mA/KV adjustment according to patient size. FINDINGS: No intracranial hemorrhage, hydrocephalus or extra-axial fluid collection.No areas of brai n edema or evidence of midline shift. The paranasal sinuses and mastoids are clear. The calvarium is intact. IMPRESSION: No acute intracranial abnormality.
--- NOTE | 2023-07-17 10:52 | RAD REPORT ---
EXAM DESCRIPTION: CT - Neck Angio - 07/17/2023 10:41 am CLINICAL HISTORY: neck pain, dizziness COMPARISON: No comparisons TECHNIQUE: CT angiography of the neck vessels was performed with maximum intensity reformatted image s. CAROTID STENOSIS REFERENCE USING NASCET CRITERIA: Mild - <50% stenosis. Moderate - 50-69% stenosis. Severe - 70-94% stenosis. Near occlusion - 95-99% stenosis. Occluded - 100% stenosis. All CT scans are performed using dose optimization technique as appropriate and may include automated exposure control or mA/KV adjustment according to patient size. FINDINGS: A left aortic arch is identified with normal three vessel configuration of the great vesse ls. The left proximal common carotid artery is not well assessed. Though there appears to be a severe marissa nosis, this could be artifactual. No significant stenosis is identified involving the cervical segments of both internal carotid arteri es. Mixed plaque present at both bifurcations. Normal flow is seen within both vertebral arteries. Heterogeneous thyroid. No discrete mass. IMPRESSION: 1. Artifact obscures the proximal left common carotid artery at its origin. A clinically significant stenosis cannot be excluded on the basis of this exam. MRA with contrast may be able to better evaluate. 2. No hemodynamically significant stenosis otherwise identified. Mixed plaque at the carotid bulbs.
--- NOTE | 2023-07-17 10:55 | RAD REPORT ---
EXAM DESCRIPTION: CT - Head angio - 07/17/2023 10:41 am CLINICAL HISTORY: QUINTANILLA, dizzy COMPARISON: Head Brain Wo Cont dated 08/31/2022; Head Brain Wo Cont dated 06/08/2018 TECHNIQUE: CT angiography of the head was performed with maximum intensity reformatted images. 3D maximum intensity pixel (MIP) reconstructions were created All CT scans are performed using dose optimization technique as appropriate and may include automated exposure control or mA/KV adjustment according to patient size. FINDINGS: Anterior circulation: No aneurysm or large vessel occlusion. No hemodynamically significant stenosis. No arteriovenous malf ormation identified. Cavernous carotid plaque. Posterior circulation: No aneurysm or large vessel occlusion. No hemodynamically significant stenosis. No arteriovenous malf ormation identified. 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 IMPRESSION: No significant flow abnormality is detected.
--- NOTE | 2023-07-17 12:10 | RAD REPORT ---
EXAM DESCRIPTION: US - CP - 07/17/2023 11:48 am CLINICAL HISTORY: dizzy COMPARISON: Neck Angio dated 07/17/2023; Head Brain Wo Cont dated 07/17/2023 TECHNIQUE: Real-time sonographic evaluation of both carotid systems was performed. Doppler interroga tion was performed with waveform tracing bilaterally. FINDINGS: Normal high resistance waveforms are noted in both external carotid arteries. Tardus parvu s waveform in the left proximal ICA. There is some slightly diminished peak systolic velocities ruba red with the right as well. Bilateral mixed hard and soft plaque at the carotid bifurcations. Peak systolic and end diastolic davina ocity values and the ICA/CCA ratios are in the non-hemodynamically significant range. Antegrade flow seen in both vertebral arteries. IMPRESSION: Tardus parvus waveform in the left proximal common carotid artery concerning for a high- grade stenosis at the origin of the left common carotid artery. Could consider MRA with contrast to c onfirm. The right carotid system is widely patent. Both vertebral arteries are widely patent.
--- NOTE | 2023-07-17 12:31 | EDPHYS ---
Physician Documentation [facility] Name: Doreen Allison Age: 53 yrs Sex: Female : 1970 Arrival Date: 07/17/2023 Time: 08:47 Bed 7 Private MD: ED Physician Jordi Ferraro HPI: 07/17 09:10 This 53 yrs old Female presents to ER via EMS with complaints of Dizziness, rn Headache. 09:11 The patient complains of pain to the top of head and forehead. The patient describes rn the headache as aching. Onset: The symptoms/episode began/occurred 2 week(s) ago. Severity of symptoms: At its worst the pain was moderate, "similar to past headaches", in the emergency department the pain is unchanged. The symptoms are alleviated by nothing. the symptoms are aggravated by nothing. The patient has experienced similar episodes in the past. The patient has been recently seen by a physician:. Patient reports has been having headaches almost daily for at least 2 weeks or more. Has been seeing Dr. Keller. 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 Reports headache with intermittent dizziness for at least 2 weeks. No head injury. No focal neurological complaint otherwise. No chest pain or shortness of breath. 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 - Family history:: not pertinent. - Hospitalizations: : No recent hospitalization is reported. ROS: 09:11 Constitutional: Negative for fever, chills, and weight loss, Eyes: Negative for injury, rn pain, redness, and discharge, Neck: Negative for injury, pain, and swelling, Cardiovascular: Negative for chest pain, palpitations, and edema, Respiratory: Negative for shortness of breath, cough, wheezing, and pleuritic chest pain, Abdomen/GI: Negative for abdominal pain, nausea, vomiting, diarrhea, and constipation, MS/Extremity: Negative for injury and deformity, Skin: Negative for injury, rash, and discoloration, Neuro: Positive for headache Exam: 09:11 Constitutional: This is a well developed, well nourished patient who is awake, alert, rn and in no acute distress. Head/Face: Normocephalic, atraumatic. Neck: Trachea midline, no masses palpated, and no cervical lymphadenopathy. Supple, full range of motion without nuchal rigidity, or vertebral point tenderness. No Meningismus. Cardiovascular: Regular rate and rhythm. No pulse deficits. Respiratory: No increased work of breathing, no retractions or nasal flaring. Abdomen/GI: Soft, non-tender MS/ Extremity: Pulses equal, no cyanosis. Neurovascular intact. Full, normal range of motion. Equal circumference. Neuro: Awake and alert, GCS 15, oriented to person, place, time, and situation. Cranial nerves II-XII grossly intact. Motor strength 5/5 in all extremities. Sensory grossly intact. Cerebellar exam normal. Vital Signs: 08:56 BP 137 / 96; Pulse 89; Resp 16; Temp 97.9; Pulse Ox 98% on R/A; Weight 74.84 kg; Height iw 5 ft. 1 in. ; Pain 8/10; 10:11 BP 126 / 68; Pulse 77; Resp 18; Pulse Ox 92% on R/A; ld1 10:14 BP 126 / 68; Pulse 82; Resp 16; Pulse Ox 95% on R/A; iw 10:49 Pulse 83; Resp 16; Pulse Ox 97% on R/A; ld1 12:09 BP 122 / 66; Pulse 72; Resp 18; Pulse Ox 94% on R/A; iw 08:56 Body Mass Index 31.18 (74.84 kg, 154.94 cm) iw 08:56 Pain Scale: Adult iw [place] Coma Score: 12:28 Eye Response: spontaneous(4). Motor Response: obeys commands(6). Verbal Response: rn oriented(5). Total: 15. MDM: 08:48 Patient medically screened. rn 12:28 Differential diagnosis: hypertensive headache, intracerebral hemorrhage, migraine, rn neoplasm, subarachnoid bleed, tension headache, vasomotor headache. Data reviewed: vital signs, nurses notes, lab test result(s), EKG, radiologic studies, CT scan, ultrasound, and as a result, I will admit patient. Consideration of Admission/Observation Patient was admitted/placed on observation. Escalation of care including admission/observation considered. Discussion of test interpretation with radiology: I had a discussion with radiology regarding a test interpretation. Discussed CT and ultrasound findings with Dr. Leslie, radiology, shows probable high-grade stenosis left common carotid.. Care significantly affected by the following chronic conditions: Hypertension, Liver Disease. Counseling: I had a detailed discussion with the patient and/or guardian regarding the historical points, exam findings, and any diagnostic results supporting the discharge/admit diagnosis, lab results, radiology results, the need to transfer to another facility, for higher level of care, [facility] does not immediately have the required specialist. Response to treatment: the patient's symptoms have mildly improved after treatment, and as a result, I will admit patient. ED course: Patient with high-grade stenosis left common carotid artery, with 2 weeks of dizzy spells. Will attempt transfer to [facility] for vascular consultation and further evaluation.. 07/17 08:50 Order name: CBC with Diff; Complete Time: 10:10 07/17 08:50 Order name: CMP; Complete Time: 10:10 07/17 08:50 Order name: ETOH Level; Complete Time: 10:10 rn 07/17 08:50 Order name: B12; Complete Time: 10:10 rn 07/17 08:50 Order name: Ferritin; Complete Time: 10:10 rn 07/17 08:50 Order name: TRANSFERRIN SAT/IRON BINDING; Complete Time: 10:10 rn 07/17 10:05 Order name: CBC Smear Scan; Complete Time: 10:10 EDMS 07/17 08:50 Order name: CT Head Brain wo Cont; Complete Time: 10:58 rn 07/17 08:50 Order name: Neck Angio CT; Complete Time: 10:58 rn 07/17 08:50 Order name: Head Angio CT; Complete Time: 10:58 rn 07/17 10:59 Order name: Carotid Artery Bilateral US; Complete Time: 12:21 rn 07/17 08:50 Order name: IV Start; Complete Time: 09:15 rn Administered Medications: 09:28 Drug: morphine IVP or IV 2 mg IVP once over 4 mins Route: IVP; Infused Over: 4 mins; iw Site: right antecubital; 14:49 Follow up: Response: No adverse reaction; Pain is decreased iw 14:04 Drug: Aspirin PO 325 mg PO once Route: PO; iw 14:49 Follow up: Response: No adverse reaction iw Disposition Summary: 07/17/23 12:30 Transfer Ordered Notes: Transfer Location: [facility] rn Reason: Higher level of care rn Condition: Stable rn Problem: new rn Symptoms: have improved rn Accepting Physician: Dr. Daly(07/17/23 14:49) iw Diagnosis - Left common carotid stenosis rn - Dizziness and giddiness rn Forms: - Medication Reconciliation Form rn - SBAR form rn Signatures: Dispatcher [employer] Candi Guerrero RN RN iw Jordi Ferraro MD MD furniture salesperson: (The following items were deleted from the chart) 13:08 12:30 Dr. marrero rn 14:49 13:08 Dr. Daly rn iw
--- NOTE | 2023-07-17 12:31 | ER ---
Nurse's Notes [facility] Name: Doreen Allison Age: 53 yrs Sex: Female : 1970 Arrival Date: 07/17/2023 Time: 08:47 Bed 7 Private MD: Diagnosis: Left common carotid stenosis;Dizziness and giddiness Presentation: 07/17 08:54 Chief complaint: EMS states: headache, dizziness X 2 weeks, feels like her levels are iw off, getting worked up for cirrhosis by her PCP, former alcoholic, hx of breast cancer 2005. Coronavirus screen: At this time, the client does not indicate any symptoms associated with coronavirus-19. Ebola Screen: Patient negative for fever greater than or equal to 101.5 degrees Fahrenheit, and additional compatible Ebola Virus Disease symptoms Patient denies exposure to infectious person. Patient denies travel to an Ebola-affected area in the 21 days before illness onset. No symptoms or risks identified at this time. Initial Sepsis Screen: Does the patient meet any 2 criteria? No. Patient's initial sepsis screen is negative. Does the patient have a suspected source of infection? No. Patient's initial sepsis screen is negative. Risk Assessment: Do you want to hurt yourself or someone else? Patient reports no desire to harm self or others. Onset of symptoms was July 03, 2023. 08:54 Method Of Arrival: EMS: [facility] iw 08:54 Acuity: LARRY 3 iw Triage Assessment: 11:00 Headache History: The patient has had previous headaches. General: Appears in no iw apparent distress. Behavior is calm, cooperative. Pain: Complains of pain in forehead and top of head Pain currently is 8 out of 10 on a pain scale. Pain began 2 weeks Is Also complains of. 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 - Family history:: not pertinent. - Hospitalizations: : No recent hospitalization is reported. Screenin:19 [facility] ED Fall Risk Assessment (Adult) Score/Fall Risk Level 0 - 2 = Low Risk. Abuse iw screen: Denies threats or abuse. Denies injuries from another. Nutritional screening: No deficits noted. Tuberculosis screening: No symptoms or risk factors identified. Assessment: 10:13 Reassessment: Patient appears in no apparent distress at this time. iw 11:10 Reassessment: Patient appears in no apparent distress at this time. Patient and/or iw family updated on plan of care and expected duration. Pain level reassessed. Patient is alert, oriented x 3, equal unlabored respirations, skin warm/dry/pink. pt ambulated to bathroom with steady gait. 12:09 Reassessment: pt sleeping , awakens easily to verbal stimuli. iw 12:53 Reassessment: Patient appears in no apparent distress at this time. Patient and/or iw family updated on plan of care and expected duration. Pain level reassessed. Patient is alert, oriented x 3, equal unlabored respirations, skin warm/dry/pink. Pain: Complains of pain in forehead and top of head. Neuro: Level of Consciousness is awake, alert, obeys commands, Oriented to person, place, time, situation. Vital Signs: 08:56 BP 137 / 96; Pulse 89; Resp 16; Temp 97.9; Pulse Ox 98% on R/A; Weight 74.84 kg; Height iw 5 ft. 1 in. ; Pain 8/10; 10:11 BP 126 / 68; Pulse 77; Resp 18; Pulse Ox 92% on R/A; ld1 10:14 BP 126 / 68; Pulse 82; Resp 16; Pulse Ox 95% on R/A; iw 10:49 Pulse 83; Resp 16; Pulse Ox 97% on R/A; ld1 12:09 BP 122 / 66; Pulse 72; Resp 18; Pulse Ox 94% on R/A; iw 08:56 Body Mass Index 31.18 (74.84 kg, 154.94 cm) iw 08:56 Pain Scale: Adult iw [place] Coma Score: 12:28 Eye Response: spontaneous(4). Motor Response: obeys commands(6). Verbal Response: rn oriented(5). Total: 15. ED Course: 08:48 Patient arrived in ED. rn 08:48 Jordi Ferraro MD is Attending Physician. rn 08:56 Triage completed. iw 08:56 Candi Paul RN is Primary Nurse. iw 09:14 Inserted saline lock: 22 gauge in right antecubital area, using aseptic technique. sm8 Blood collected. 09:14 No BP/IV in L arm. sleeve placed c name and arm identifier. sm8 10:37 CT Head Brain wo Cont In Process Unspecified. EDMS 10:[address] In Process Unspecified. EDMS 10:[address] In Process Unspecified. EDMS 11:00 Arm band placed on. iw 11:27 Provided Education on: . iw 11:49 Carotid Artery Bilateral US In Process Unspecified. EDMS 14:47 No provider procedures requiring assistance completed. Patient transferred, IV remains iw in place. Administered Medications: 09:28 Drug: morphine IVP or IV 2 mg IVP once over 4 mins Route: IVP; Infused Over: 4 mins; iw Site: right antecubital; 14:49 Follow up: Response: No adverse reaction; Pain is decreased iw 14:04 Drug: Aspirin PO 325 mg PO once Route: PO; iw 14:49 Follow up: Response: No adverse reaction iw Medication: 09:19 VIS not applicable for this client. iw Outcome: 12:30 ER care complete, transfer ordered by . rn 14:47 Transferred by ground [facility]. Transfer form completed. X-rays sent w/ patient. iw 14:47 Condition: good 14:47 Discharge instructions given to patient, family, 14:49 Patient left the ED. iw Signatures: Dispatcher [employer] EDMS Candi Paul, BARBI RN iw Jordi Ferraro MD MD rn Sims, Lauren, RN RN [email or web address] Courtney Ramsay [id number]
[2023-07-17] MEDS ORDERED: ASPIRIN EC 325 MG TABLET PO ONE (14:16)
== END 2023-07-17 14:49 | disposition short-term general hospital (02) ==
LOC: ER 08:47
DX: I65.22 Occlusion and stenosis of left carotid artery (principal); R42 Dizziness and giddiness; I10 Essential (primary) hypertension; Z90.12 Acquired absence of left breast and nipple; Z85.3 Personal history of malignant neoplasm of breast
CPT/HCPCS: 85025; 36415; 82728; 82607; 83540; 80053; 84466; 70450; 70496; 70498; 93880; 96374; 99285; 82077; Q9967; J2270

== ENCOUNTER 2023-08-01 09:10 | Emergency (ER) | payer OTHER ==
--- OUTSIDE RECORDS SUMMARY | 2023-08-01 09:17 | XMS REPORT | Continuity of Care Document ---
:1970 Author Organization [facility] t Address [address] [place] [address] [place] [id number] Care Team Providers Name Role Phone El Keller Primary Care Physician El Keller Attending Clinician Unavailable SERGIO DELCID Attending Clinician Unavailable Javier Daly MD Attending Clinician [phone] Irwin Lipscomb MD Attending Clinician [phone] Sergio Delcid MD Attending Clinician ISAMAR CARRILLO Attending Clinician Unavailable JAVIER DALY Attending Clinician Unavailable IRWIN LIPSCOMB Admitting Clinician Unavailable Payers Payer Name Policy Type Policy Number Effective Date Expiration Date S kiki [id number] 2022 00:00:00 FOR C1 [id number] [facility] FOR C1 [id number] [facility] FOR C1 [id number] [facility] FOR C1 [id number] [facility] FOR C1 [id number] [facility] Problems Condition Condition Condition Status Onset Resolution Last Treating Co mments Source Name Details Category Date Date Treatment Clinician Date Carotid Carotid Disease Active 2022-[address] stenosis stenosis [facility]23 [facility] 00 [place] Dizziness Dizziness Disease Active 2022-[address] 0-22 [facility] 00 Center Abnormal Abnormal Problem Commo n liver liver Spirit function function - [facility] Disorders Elevated Problem Comm on of bilirubin Spirit bilirubin - [facility] excretion [facility] Pancytopen Pancytopen Problem C ommon ia ia Spirit [facility] 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 Sp sharath blood loss anemia - [facility] secondary St to blood [facility] loss Medical (chronic) Center Malignant Malignant Problem Com mon neoplasm neoplasm Spirit of of - [facility] lower-oute lower-oute St r quadrant r quadrant Meeta kes of female of left Medica l breast female Center breast [id number] Asthma Problem Common without Spirit status - [facility] asthmaticu St s or acute [facility] exacerbati Medica l on Center Liver Abnormal Problem Common function liver Spirit tests function - [facility] abnormal test [facility] Essential Benign Problem Common hypertensi essential Spi rit on HTN - [facility] Alcohol Alcohol Problem Common use, use, Spirit unspecifie unspecifie - CHI d with d with [facility] alcohol-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 Thrombocyt Thrombocyt Problem C pastora openia openia [facility] [id number] Leukopenia Problem Com mon , Spirit unspecifie - CHI d type [facility] Severe Major Problem Common major depressive [facility] depression disorder, - C [place] , single single St episode, episode, [facility] without severe Medical psychotic without Center features psychotic features [id number] History of Problem Co mmon left Spirit mastectomy [facility] Alcoholic Alcoholic Problem Com mon fatty fatty Spirit liver liver - [facility] Anemia Anemia Problem Common Spirit [facility] [id number] Vitamin D Problem Comm on deficiency [facility] [id number] Alcohol Problem Common abuse [facility] [id number] Adult BMI Problem Com mon 33.0-33.9 Spirit kg/sq m [facility] Allergies, Adverse Reactions, Alerts Allergy Allergy Status Severity Reaction(s) Onset Inactive Treating Comm ents Source Name Type Date Date Clinician NO KNOWN Allergy Active [facility] Family History Family Member Diagnosis Comments Start Date Stop Date Source Natural mother Hypertension [facility] Natural mother Glaucoma [facility] Social History Social Habit Start Date Stop Date Quantity Comments Source History of [facility] - Tobacco Use [facility] Exposure to 2023-07-07 2023-07-17 Not sure [facility] SARS-CoV-2 00:00:00 16:07:00 Medical Center (event) Alcohol intake 2023-07-17 2023-07-17 Current drinker [facility] t [facility] 00:00:00 00:00:00 of alcohol [facility] Center (finding) Sex Ass[birth year] At [birth year] [facility] 00:00:00 00:00:00 Medical Center Smoking Status Start Date Stop Date Source Never Smoker [facility] Medications Ordered Filled Start Stop Current Ordering Indication Dosage Frequency Signature Comments Components Source Medication Medication Date Date Medication? Clinician (SIG) Name Name cyanocobala 2022-09 Yes 500ug QD Take [address] min, 0-24 tablet [facility] vitamin 10:10: (500 mcg Medica l B-12, 500 51 total) by Cente r MCG tablet mouth daily. cholecalcif 2022-09 Yes [id number] Q7D Take [address] dimas, 0-24 tablet [facility] vitamin D3, 10:10: (50,000 Med ical 1,250 mcg 51 Units Center (50,000 total) by unit) Tab mouth once a week. carvediloL 2022-09 Yes 12.5mg Take [address] (COREG) 0-24 tablet [facility] 12.5 MG 10:10: (12.5 mg Medica l tablet 51 total) by Center mouth 2 (two) times daily with breakfast and dinner. escitalopra 2022-09 Yes 10mg QD Take [address] m oxalate 0-24 tablet (10 Luke s (LEXAPRO) 10:10: mg total) Med ical 10 MG 51 by mouth Center tablet daily. lisinopriL 2022-09 Yes 10mg QD Take 1 CHI S t (PRINIVIL,Z 0-24 tablet (10 Meeta kes ESTRIL) 10 10:10: mg total) Me dical MG tablet 51 by mouth Center daily. meclizine 2022-09 No 12.5mg Take [address] (ANTIVERT) 0-24 10-29 tablet [facility] 12.5 mg 00:00: 23:59 (12.5 mg Medic al tablet 00 :00 total) by Center mouth 3 (three) times daily as needed for Dizziness for up to 5 days. Lexapro 10 Lexapro 10 2021-09 No 1{table QD Lexapro 10 MG MG 0-12 t} MG 00:00: 00 Lexapro 10 Lexapro 10 2021-09 No 1{table QD Lexapro 10 MG MG 0-12 t} MG 00:00: 00 Vitamin D3 Vitamin D3 2021-0 202- No 1{capsu Vitamin D3 56522 UNIT 24424 UNIT 03-10 le} 59267 UNIT 00:00: 00:00 00 :00 Vitamin D3 Vitamin D3 2021-0 202- No 1{capsu Vitamin D3 15652 UNIT 45121 UNIT 03-10 le} 17801 UNIT 00:00: 00:00 00 :00 Vitamin D3 Vitamin D3 2021-0 2022- No 1{capsu Vitamin D3 05502 UNIT 07802 UNIT 03-10 le} 31514 UNIT 00:00: 00:00 00 :00 Vitamin D3 Vitamin D3 2021-0 2022- No 1{capsu Vitamin D3 28621 UNIT 43714 UNIT 03-10 le} 58905 UNIT 00:00: 00:00 00 :00 Vitamin D3 Vitamin D3 2021-0 2022- No 1{capsu Vitamin D3 65801 UNIT 77704 UNIT 03-10 le} 47949 UNIT 00:00: 00:00 00 :00 Vitamin D3 Vitamin D3 2021-0 2022- No 1{capsu Vitamin D3 84979 UNIT 14038 UNIT 03-10 le} 92428 UNIT 00:00: 00:00 00 :00 ProAir HFA [...] 0 2020- No El 1 tablet Common -15 10-15 [facility] 00:00: 00:00 - [facility] 00 :00 [facility] 2018-0 No 40mg Common (Triamcinol (Triamcinol 4-03 S pirit one) one) 00:00: - [facility] 00 [facility] 2018-0 No 40mg Common (Triamcinol (Triamcinol 4-03 S pirit one) one) 00:00: - [facility] 00 [facility] 2018-0 No 40mg Common (Triamcinol (Triamcinol 4-03 S pirit one) one) 00:00: - [facility]I 00 [facility] 2019-0 No 40mg Common (Triamcinol (Triamcinol 4-03 S pirit one) one) 00:00: - [facility]I 00 [facility] 2019-0 No 40mg Common (Triamcinol (Triamcinol 4-03 S pirit one) one) 00:00: - [facility]I 00 [facility] 2019-0 No 40mg Common (Triamcinol (Triamcinol 4-03 S pirit one) one) 00:00: - CHI 00 [facility] Kenalog 2019-0 No 40mg Common (Triamcinol (Triamcinol 4-03 S pirit one) one) 00:00: - CHI 00 [facility] Kenalog 2019-0 No 40mg Common (Triamcinol (Triamcinol 4-03 S pirit one) one) 00:00: - CHI 00 [facility] Kenalog 2019-0 No 40mg Common (Triamcinol (Triamcinol 4-03 S pirit one) one) 00:00: - CHI 00 [facility] Kenalog 2019-0 No 40mg Common (Triamcinol (Triamcinol 4-03 S pirit one) one) 00:00: - CHI 00 [facility] Kenalog Kenalog 2019-0 No 40mg Common (Triamcinol (Triamcinol 4-03 S pirit one) one) 00:00: - CHI 00 [facility] Kenalog Kenalog 2019-0 No 40mg Common (Triamcinol (Triamcinol 4-03 S pirit one) one) 00:00: - CHI 00 [facility] Kenalog Kenalog 2019-0 No 40mg Common (Triamcinol (Triamcinol 4-03 S pirit one) one) 00:00: - CHI 00 [facility] Kenalog Kenalog 2019-0 No 40mg Common (Triamcinol (Triamcinol 4-03 S pirit one) one) 00:00: - CHI 00 [facility] Kenalog Kenalog 2019-0 No 40mg Common (Triamcinol (Triamcinol 4-03 S pirit one) one) 00:00: - CHI 00 [facility] Kenalog Kenalog 2019-0 No 40mg Common (Triamcinol (Triamcinol 4-03 S pirit one) one) 00:00: - CHI 00 [facility] Kenalog Kenalog 2019-0 No 40mg Common (Triamcinol (Triamcinol 4-03 S pirit one) one) 00:00: - CHI 00 [facility] Kenalog Kenalog 2019-0 No 40mg Common (Triamcinol (Triamcinol 4-03 S pirit one) one) 00:00: - CHI 00 [facility] Kenalog Kenalog 2019-0 No 40mg Common (Triamcinol (Triamcinol 4-03 S pirit one) one) 00:00: - CHI 00 [facility] Kenalog Kenalog 2019-0 No 40mg Common (Triamcinol (Triamcinol 4-03 S pirit one) one) 00:00: - CHI 00 [facility] Kenalog Kenalog 2019-0 No 40mg Common (Triamcinol (Triamcinol 4-03 S pirit one) one) 00:00: - CHI 00 [facility] Kenalog Kenalog 2019-0 No 40mg Common (Triamcinol (Triamcinol 4-03 S pirit one) one) 00:00: - CHI 00 [facility] Roque Nevarez No 40mg Common (Triamcinol (Triamcinol 4-03 S pirit one) one) 00:00: - [facility] Roque Nevarez No 40mg Common (Triamcinol (Triamcinol 4-03 S pirit one) one) 00:00: - CHI 00 [facility] Roque Nevarez No 40mg Common (Triamcinol (Triamcinol 4-03 S pirit one) one) 00:00: - [facility] Roque Nevarez No 40mg Common (Triamcinol (Triamcinol 4-03 S pirit one) one) 00:00: - CHI 00 [facility] Diltiazem Diltiazem Yes El 1 tablet Common HCl HCl Keller before Spirit meals and - CHI at bedtime [facility] Lisinopril Lisinopril Yes El 1 tablet Common Keller [facility] Flonase Flonase Yes El 1 spray in C ommon Keller each [facility] nostril [facility] Advair Advair Yes El 1 puff Common Diskus Diskus Keller [facility] Duloxetine Duloxetine Yes El 1 capsule Common HCl HCl Keller [facility] Protonix Protonix Yes El TAKE ONE C ommon Keller TABLET BY [facility] MOUTH - [facility] DAILY [facility] Ferrous Ferrous Yes El 1 tablet Com mon Sulfate Sulfate Keller [facility] ProAir HFA ProAir HFA Yes El 2 puffs as Common Keller needed [facility] Topiramate Topiramate Yes El 1 tablet Common Keller [facility] Wellbutrin Wellbutrin Yes El 1 tablet Common XL XL Keller in the [facility] morning [facility] DULoxetine DULoxetine No 1{capsu QD DULoxetine [...] D3 Vitamin D3 No 1{capsu Vitamin D3 42653 UNIT 32981 UNIT le} 12779 UNIT Wellbutrin Wellbutrin No 1{table QD Wellbutrin [...] D3 Vitamin D3 No 1{capsu Vitamin D3 18488 UNIT 75926 UNIT le} 42443 UNIT Wellbutrin Wellbutrin No 1{table QD Wellbutrin [...] D3 Vitamin D3 No 1{capsu Vitamin D3 47206 UNIT 58949 UNIT le} 56174 UNIT Wellbutrin Wellbutrin No 1{table QD Wellbutrin [...] D3 Vitamin D3 No 1{capsu Vitamin D3 28558 UNIT 87707 UNIT le} 19488 UNIT Wellbutrin Wellbutrin No 1{table QD Wellbutrin [...] D3 Vitamin D3 No 1{capsu Vitamin D3 80149 UNIT 70264 UNIT le} 24626 UNIT Wellbutrin Wellbutrin No 1{table QD Wellbutrin [...] D3 Vitamin D3 No 1{capsu Vitamin D3 23838 UNIT 15896 UNIT le} 09050 UNIT dilTIAZem dilTIAZem No 1{table BID dilTIAZem [...] D3 Vitamin D3 No 1{capsu Vitamin D3 60617 UNIT 00476 UNIT le} 70592 UNIT Escitalopra Escitalopra No Escitalopr m Oxalate m Oxalate am Oxalate 10 MG 10 MG 10 MG Lisinopril Lisinopril No Lisinopril 10 MG 10 MG 10 MG Vitamin D3 Vitamin D3 No 1{capsu Vitamin D3 90130 UNIT 42195 UNIT le} 11916 UNIT dilTIAZem dilTIAZem No 1{table BID dilTIAZem [...] D3 Vitamin D3 No 1{capsu Vitamin D3 54495 UNIT 68362 UNIT le} 13374 UNIT Lexapro 10 Lexapro 10 No 1{table [...] D3 Vitamin D3 No 1{capsu Vitamin D3 10931 UNIT 14035 UNIT le} 03531 UNIT Lexapro 10 Lexapro 10 No 1{table [...] D3 Vitamin D3 No 1{capsu Vitamin D3 26270 UNIT 24821 UNIT le} 37249 UNIT Lexapro 10 Lexapro 10 No 1{table [...] D3 Vitamin D3 No 1{capsu Vitamin D3 33258 UNIT 74438 UNIT le} 22661 UNIT Lexapro 10 Lexapro 10 No 1{table [...] D3 Vitamin D3 No 1{capsu Vitamin D3 54038 UNIT 12519 UNIT le} 65812 UNIT Lexapro 10 Lexapro 10 No 1{table [...] D3 Vitamin D3 No 1{capsu Vitamin D3 96316 UNIT 19425 UNIT le} 83973 UNIT Lexapro 10 Lexapro 10 No 1{table [...] D3 Vitamin D3 No 1{capsu Vitamin D3 55918 UNIT 76597 UNIT le} 66813 UNIT Lexapro 10 Lexapro 10 No 1{table [...] D3 Vitamin D3 No 1{capsu Vitamin D3 72326 UNIT 73971 UNIT le} 38345 UNIT Lexapro 10 Lexapro 10 No 1{table [...] D3 Vitamin D3 No 1{capsu Vitamin D3 30603 UNIT 36999 UNIT le} 32129 UNIT Lexapro 10 Lexapro 10 No 1{table [...] D3 Vitamin D3 No 1{capsu Vitamin D3 95257 UNIT 65074 UNIT le} 52425 UNIT Lexapro 10 Lexapro 10 No 1{table [...] Observation Time Observation Value Comments Source height 2022-11-30 14:40:00 61.5 [in_i] [facility] weight 2022-11-30 14:40:00 171.1 [lb_av] [facility] temperature 2022-11-30 14:40:00 96.9 [degF] [facility] bmi 2022-11-30 14:40:00 31.8 kg/m2 [facility] oximetry 2022-11-30 14:40:00 98 % [facility] respiratory rate 2022-11-30 14:40:00 18 /min Comm on [facility] blood pressure 2022-11-30 14:40:00 129 mm[Hg] Common [facility] - systolic [facility] blood pressure 2022-11-30 14:40:00 62 mm[Hg] [facility] [place] [place] - diastolic [facility] height 2022-11-10 15:20:00 61.5 [in_i] [facility] weight 2022-11-10 15:20:00 170 [lb_av] [facility] bmi 2022-11-10 15:20:00 31.6 kg/m2 Common S pirit [facility] height 2022-09-01 13:50:00 61.5 [in_i] Common S pirit [facility] weight 2022-09-01 13:50:00 170.1 [lb_av] Common [facility] temperature 2022-09-01 13:50:00 97.4 [degF] Common S pirit [facility] bmi 2022-09-01 13:50:00 31.62 kg/m2 Common S [facility] oximetry 2022-09-01 13:50:00 97 % Common S [facility] respiratory rate 2022-09-01 13:50:00 17 /min Comm on [facility] blood pressure 2022-09-01 13:50:00 137 mm[Hg] [facility] - systolic [facility] blood pressure 2022-09-01 13:50:00 71 mm[Hg] [facility] - diastolic [facility] height 2022-09-01 13:50:00 61.5 [in_i] Common S [facility] weight 2022-09-01 13:50:00 170.1 [lb_av] Common [facility] temperature 2022-09-01 13:50:00 97.4 [degF] Common S pirit [facility] bmi 2022-09-01 13:50:00 31.62 kg/m2 Common S pirit [facility] oximetry 2022-09-01 13:50:00 97 % Common S [facility] respiratory rate 2022-09-01 13:50:00 17 /min Comm on [facility] blood pressure 2022-09-01 13:50:00 137 mm[Hg] [facility] - systolic [facility] blood pressure 2022-09-01 13:50:00 71 mm[Hg] [facility] - diastolic [facility] height 2022-07-07 14:40:00 61.5 [in_i] [facility]-07 14:40:00 175.2 [lb_av] [facility] temperature 2022-07-07 14:40:00 97.8 [degF] Common [facility] bmi 2022-07-07 14:40:00 32.56 kg/m2 [facility] oximetry 2022-07-07 14:40:00 99 % [facility] respiratory rate 2022-07-07 14:40:00 18 /min Comm on [facility] blood pressure 2022-07-07 14:40:00 142 mm[Hg] Common [facility] - systolic [facility] blood pressure 2022-07-07 14:40:00 74 mm[Hg] Common [facility] - diastolic [facility] height 2022-05-25 11:00:00 61.5 [in_i] Common [facility] weight 2022-05-25 11:00:00 167 [lb_av] [facility] temperature 2022-05-25 11:00:00 97.9 [degF] [facility] bmi 2022-05-25 11:00:00 31.04 kg/m2 [facility] height 2022-03-10 08:00:00 61.5 [in_i] Common [facility] weight 2022-03-10 08:00:00 180 [lb_av] Common [facility] temperature 2022-03-10 08:00:00 97.9 [degF] [facility] bmi 2022-03-10 08:00:00 33.46 kg/m2 [facility] blood pressure 2022-03-10 08:00:00 130 mm[Hg] [facility] - systolic [facility] blood pressure 2022-03-10 08:00:00 73 mm[Hg] [facility] - diastolic [facility] height 2021-07-01 08:00:00 61.5 [in_i] [facility] weight 2021-07-01 08:00:00 169 [lb_av] [facility] temperature 2021-07-01 08:00:00 97.5 [degF] [facility] bmi 2021-07-01 08:00:00 31.41 kg/m2 [facility] blood pressure 2021-07-01 08:00:00 121 mm[Hg] [facility] [place] [place] - systolic [facility] blood pressure 2021-07-01 08:00:00 70 mm[Hg] [facility] [place] [place] - diastolic [facility] Systolic blood 2023-07-19 08:29:00 177 mm[Hg] [facility] Diastolic blood 2023-07-19 08:29:00 77 mm[Hg] [facility] Heart rate 2023-07-19 08:29:00 78 /min [facility] Body temperature 2023-07-19 08:29:00 36.17 Silvia [facility] Respiratory rate 2023-07-19 08:29:00 18 /min [facility] Oxygen saturation in 2023-07-19 08:29:00 98 /min [facility] Arterial blood by Medical Ce nter Pulse oximetry Body height 2023-07-17 16:26:00 154.9 cm [facility] Body weight 2023-07-17 16:26:00 75.705 kg [facility] BMI 2023-07-17 16:26:00 31.54 kg/m2 [facility] Procedures Procedure Date / Time Performed Performing Clinician Steh sawyer PROTHROMBIN TIME/INR 2023-07-19 04:30:00 Benny Irwin [facility] PHOSPHORUS 2023-07-19 04:30:[address] [facility] MAGNESIUM 2023-07-19 04:30:[address] [facility] COMPREHENSIVE METABOLIC 2023-07-19 04:30:00 [facility], [facility] W/[facility]T COUNT & AUTO 2023-07-19 04:30:00 Benny, [facility] S t [facility] DIFFERENTIAL [facility] CBC W/PLT COUNT & AUTO 2023-07-19 04:30:00 Benny, [facility] S t [facility] (CELLAVISION MANUAL DIFF) 2023-07-19 04:30:00 Benny, [facility] PROTHROMBIN TIME/INR 2023-07-18 04:28:00 Benny, [facility] PHOSPHORUS 2023-07-18 04:28:00 Benny, [facility] MAGNESIUM 2023-07-18 04:28:00 Benny, [facility] COMPREHENSIVE METABOLIC 2023-07-18 04:28:00 Benny, [facility] CBC W/PLT COUNT & AUTO 2023-07-18 04:28:00 Benny, [facility] S t [facility] CBC W/PLT COUNT & AUTO 2023-07-18 04:28:00 Benny, [facility] S [facility] (CELLAVISION MANUAL DIFF) 2023-07-18 04:28:00 [facility], [facility] CTA BRAIN 2023-07-18 01:06:08 [facility]ID 2023-07-18 01:05:27 Isamar Carrillo [facility] ECG 12-LEAD 2023-07-17 17:02:48 Benny, [facility] ECG 12-LEAD 2023-07-17 17:02:48 Unknown, Hl7 [facility] PROTHROMBIN TIME/INR 2023-07-17 16:56:00 Benny, [facility] PHOSPHORUS 2023-07-17 16:56:00 Benny, [facility] MAGNESIUM 2023-07-17 16:56:[address] [facility] COMPREHENSIVE METABOLIC 2023-07-17 16:56:[address] [facility] PANEL [facility] CBC W/PLT COUNT & AUTO 2023-07-17 16:56:00 Irwin Lipscomb [facility] DIFFERENTIAL [facility] CBC W/PLT COUNT & AUTO 2023-07-17 16:56:00 Irwin Lipscomb [facility] S t L[facility] DIFFERENTIAL [facility] (CELLAVISION MANUAL DIFF) 2023-07-17 16:56:00 Irwin Lipscomb [facility] SARS-COV2/INFLUENZA/RSV 2023-07-17 16:51:00 Benny [facility] RT-PCR [facility] Plan of Care Planned Activity Planned Date Details Comments Source Future Scheduled 2023-05-27 Influenza Vaccine (#1) [facility] 00:00:00 [code = Influenza Vaccine [facility] (#1)] Future Scheduled 2022-09-[address] [facility] Test 00:00:00 (12+) [code = DEPRESSION [facility] SCREENING (12+)] Future Scheduled 2021 SHINGLES VACCINES ([address] [facility] Test 00:00:00 2) [code = SHINGLES [facility] VACCINES (1 of 2)] Future Scheduled 2016 Lipid panel (procedure) [facility] Test 00:00:00 [code = 82897428] Medical Ce nter Future Scheduled 1992 Screening for malignant [facility] Test 00:00:00 neoplasm of cervix Medical C enter (procedure) [code = 594738095] Future Scheduled 1990 DTAP/TDAP/TD VACCINES ([address] [facility] Test 00:00:00 - Tdap) [code = Medical Cent er DTAP/TDAP/TD VACCINES (1 - Tdap)] Future Scheduled 1989 HEPATITIS C SCREENING [facility] 00:00:00 [code = HEPATITIS C Medical Center SCREENING] Future Scheduled 1986 Human immunodeficiency [facility] 00:00:00 virus screening Medical Cent er (procedure) [code = 128138098] Future Scheduled [address] [facility] Test 00:00:00 Counseling and Screening [facility] Center (12+) [code = Tobacco Cessation Counseling and Screening (12+)] Future Scheduled 1971 COVID-19 VACCINE (#1) [facility] 00:00:00 [code = COVID-19 VACCINE Med ica Center (#1)] Future Scheduled 1971 Screening for malignant [facility] Test 00:00:00 neoplasm of breast Medical C enter (procedure) [code = 154014335] Future Scheduled 1971 CT Colonography (combo) [facility] Test 00:00:00 [code = CT Colonography [facility] Center (combo)] Future Scheduled 1971 Screening for malignant [facility] Test 00:00:00 neoplasm of colon Medical Ce nter (procedure) [code = 175177424] Future Scheduled 1971 Screening for malignant [facility] Test 00:00:00 neoplasm of colon Medical Ce nter (procedure) [code = 539513089] Future Scheduled 1971 Screening for malignant [facility] Test 00:00:00 neoplasm of colon Medical Ce nter (procedure) [code = 843904604] Future Scheduled 1971 Screening for malignant [facility] Test 00:00:00 neoplasm of colon Medical Ce nter (procedure) [code = 124194096] Future Scheduled 1971 Sigmoidoscopy [code = [facility] Test 00:00:00 Sigmoidoscopy] Medical Cente r Encounters Start End Encounter Admission Attending Care Care Encounter Source Date/Time Date/Time Type Type Clinicians Facility Department ID 2023-07-28 Outpatient [facility] [id number] Common 11:17:00 El [address] [facility] 2023-06-14 Outpatient Keller, [facility] [id number] Common 10:04:00 El [address] [facility] 2023-05-31 Outpatient [facility], [facility] [id number] Common 09:43:00 El [address] [facility] 2022-10-04 Outpatient Keller, STLMLC STL[facility] [id number] Common 09:53:00 El [address] [facility] [facility] 2022-08-30 Outpatient Keller, STLMLC STLMLC [id number] Common 08:48:00 [facility] 2022-08-17 Outpatient Keller, STLMLC STLMLC [id number] Common 16:40:00 [facility] 2022-07-13 Outpatient Keller, STLMLC STLMLC [id number] Common 16:32:00 El [address] [facility] 2022-06-08 Outpatient Keller, STLMLC STLMLC [id number] Common 08:22:00 [facility] 2022-04-14 Outpatient Keller, STLMLC STLMLC [id number] Common 15:40:00 [facility] 2022-01-15 Outpatient Keller, STLMLC STLMLC [id number] Common 11:23:01 [facility] 2021-10-21 Outpatient Keller, STLMLC STLMLC [id number] Common 12:41:49 El [address] [facility] 2021-10-21 Outpatient Keller, STLMLC STLMLC [id number] Common 12:41:24 El [address] [facility] 2021-10-21 Outpatient Keller, STLMLC STLMLC [id number] Common 12:02:23 El [address] [facility] 2021-10-21 Outpatient Keller, STLMLC STLMLC [id number] Common 11:45:58 El [address] [facility] 2021-10-21 Outpatient Kelelr, STLMLC STLMLC [id number] Common 11:37:50 El [address] [facility] 2023-07-17 2023-07-19 Outpatient ER ALEX, [facility] Vascular [id number] [facility] 15:50:00 10:10:00 SERGIO Veronica 2023-07-17 2023-07-19 [facility] Javier Daly [facility] [id number] [facility] 15:50:00 10:10:00 [facility] 2023-07-17 2023-07-17 Outpatient LUMA CARRILLO, SLEH SLE [id number] [facility] 21:49:40 21:49:40 [facility] 2023-07-17 2023-07-17 Outpatient LUMA CARRILLO, SLEH SLEH [id number] [facility] 21:49:33 21:49:33 [facility] 2023-07-17 2023-07-17 Orders [facility] [id number] 00:00:00 00:00:00 [facility] 2023-07-17 2023-07-17 Travel [facility] [id number] [facility] 00:[facility] 00:00:00 [facility] 2022-12-08 2022-12-08 (TEL) STLMLC STLMLC [id number] Co mmon 00:00:00 00:00:00 [facility] 2022-11-30 2022-11-30 OFFICE STLMLC STLMLC [id number] Co mmon 00:00:00 00:00:00 VISIT Spirit ESTAB PT - [facility] LEVEL 4 [facility] 2022-11-29 2022-11-29 (TEL) STLMLC STLMLC [id number] Co mmon 00:00:00 00:00:00 [facility] 2022-11-10 2022-11-10 OFFICE STLMLC STLMLC [id number] Co mmon 00:00:00 00:00:00 VISIT Spirit ESTAB PT - [facility] LEVEL 3 [facility] 2022-11-09 2022-11-09 (TEL) STLMLC STLMLC [id number] Co mmon 00:00:00 00:00:00 [facility] 2022-11-05 2022-11-05 (TEL) STLMLC STLMLC [id number] Co mmon 00:00:00 00:00:00 [facility] 2022-10-20 2022-10-20 (TEL) STLMLC STLMLC [id number] Co mmon 00:00:00 00:00:00 [facility] 2022-09-29 2022-09-29 (TEL) STLMLC STLMLC [id number] Co mmon 00:00:00 00:00:00 [facility] 2022-09-01 2022-09-01 OFFICE STLMLC STLMLC [id number] Co mmon 00:00:00 00:00:00 VISIT Spirit ESTAB PT - [facility] LEVEL 4 [facility] 2022-08-26 2022-08-26 (TEL) STLMLC STLMLC [id number] Co mmon 00:00:00 00:00:00 [facility] 2022-07-09 2022-07-09 (TEL) STLMLC STLMLC [id number] Co mmon 00:00:00 00:00:00 [facility] 2022-07-07 2022-07-07 (WELLNESS) STLMLC STLMLC [id number] Common 00:00:00 00:00:00 Wellness Spiri t Visit [facility] 2022-07-05 2022-07-05 (TEL) STLMLC STLMLC [id number] Co mmon 00:00:00 00:00:00 [facility] 2022-06-08 2022-06-08 (TEL) STLMLC STLMLC [id number] Co mmon 00:00:00 00:00:00 [facility] 2022-06-07 2022-06-07 (TEL) STLMLC STLMLC [id number] Co mmon 00:00:00 00:00:00 [facility] 2022-05-25 2022-05-25 OFFICE STLMLC STLMLC [id number] Co mmon 00:00:00 00:00:00 VISIT EST Spir it PT LEVEL 3 [facility] 2022-05-24 2022-05-24 (TEL) STLMLC STLMLC [id number] Co mmon 00:00:00 00:00:00 [facility] 2022-04-28 2022-04-28 (TEL) STLMLC STLMLC [id number] Co mmon 00:00:00 00:00:00 [facility] 2022-04-28 2022-04-28 (TEL) STLMLC STLMLC [id number] Co mmon 00:00:00 00:00:00 [facility] 2022-04-14 2022-04-14 (TEL) STLMLC STLMLC [id number] Co mmon 00:00:00 00:00:00 [facility] 2022-04-08 2022-04-08 (TEL) STLMLC STLMLC [id number] Co mmon 00:00:00 00:00:00 [facility] 2022-04-05 2022-04-05 (TEL) STLMLC STLMLC [id number] Co mmon 00:00:00 00:00:00 [facility] 2022-03-10 2022-03-10 OFFICE STLMLC STLMLC [id number] Co mmon 00:00:00 00:00:00 VISIT [facility] 4 [facility] 2022-02-26 2022-02-26 (TEL) STLMLC STLMLC [id number] Co mmon 00:00:00 00:00:00 [facility] 2022-02-16 2022-02-16 (TEL) STLMLC STLMLC [id number] Co mmon 00:00:00 00:00:00 [facility] 2021-10-12 2021-10-12 (TEL) STLMLC STLMLC [id number] Co mmon 00:00:00 00:00:00 [facility] 2021-07-20 2021-07-20 (TEL) STLMLC STLMLC [id number] Co mmon 00:00:00 00:00:00 [facility] 2021-07-14 2021-07-14 (TEL) STLMLC STLMLC [id number] Co mmon 00:00:00 00:00:00 [facility] 2021-07-10 2021-07-10 (TEL) STLMLC STLMLC [id number] Co mmon 00:00:00 00:00:00 [facility] 2021-07-02 2021-07-02 (TEL) STLMLC STLMLC [id number] Co mmon 00:00:00 00:00:00 [facility] 2021-07-01 2021-07-01 OFFICE STLMLC STLMLC [id number] Co mmon 00:00:00 00:00:00 VISIT [facility] 4 [facility] 2021-05-12 2021-05-12 Outpatient STLMLC STLMLC [id number] Common 00:00:00 00:00:00 [facility] 2021-05-08 2021-05-08 Outpatient STLMLC STLMLC [id number] Common 00:00:00 00:00:00 [facility] 2021-05-07 2021-05-07 Outpatient STLMLC STLMLC [id number] Common 00:00:00 00:00:00 [facility] 2021-05-06 2021-05-06 Outpatient STLMLC STLMLC [id number] Common 00:00:00 00:00:00 [facility] 2021-05-06 2021-05-06 Outpatient STLMLC STLMLC [id number] Common 00:00:00 00:00:00 [facility] 2021-05-05 2021-05-05 Outpatient STLMLC STLMLC [id number] Common 00:00:00 00:00:00 [facility] 2021-05-04 2021-05-04 Outpatient STLMLC STLMLC [id number] Common 00:00:00 00:00:00 [facility] 2021-02-05 2021-02-05 Outpatient STLMLC STLMLC [id number] Common 00:00:00 00:00:00 [facility] 2021-02-03 2021-02-03 Outpatient STLMLC STLMLC [id number] Common 00:00:00 00:00:00 [facility] 2021-02-02 2021-02-02 Outpatient STLMLC STLMLC [id number] Common 00:00:00 00:00:00 [facility] 2021-02-02 2021-02-02 Outpatient STLMLC STLMLC [id number] Common 00:00:00 00:00:00 [facility] 2021-02-02 2021-02-02 Outpatient STLMLC STLMLC [id number] Common 00:00:00 00:00:00 [facility] 2020-12-11 2020-12-11 Outpatient STLMLC STLMLC [id number] Common 00:00:00 00:00:00 [facility] 2020-08-19 2020-08-19 Outpatient STLMLC STLMLC [id number] Common 00:00:00 00:00:00 [facility] 2020-07-29 2020-07-29 Outpatient STLMLC STLMLC [id number] Common 00:00:00 00:00:00 [facility] 2020-06-30 2020-06-30 Outpatient STLMLC STLMLC [id number] Common 00:00:00 00:00:00 [facility] 2020-06-17 2020-06-17 Outpatient STLMLC STLMLC [id number] Common 00:00:00 00:00:00 [facility] 2020-06-11 2020-06-11 [facility] [id number] Common 09:59:00 09:59:[address] [facility] 2020-06-10 2020-06-10 [facility] [id number] Common 14:10:00 14:10:[address] [facility] 2020-05-12 2020-05-12 [facility] [id number] Common 13:00:00 13:00:[address] [facility] 2019-06-19 2019-06-19 [facility] [id number] Common 10:50:00 10:50:[address] [facility] 2019-04-27 2019-04-27 [facility] [id number] Common 08:15:00 08:15:[address] [facility] 2018-12-27 2018-12-27 [facility] [id number] Common 14:15:00 14:15:[address] [facility] 2018-12-27 2018-12-27 [facility] [id number] Common 10:32:00 10:32:[address] [facility] 2018-12-20 2018-12-20 [facility] [id number] Common 11:15:00 11:15:[address] [facility] 2018-11-09 2018-11-09 [facility] [id number] Common 11:26:00 11:26:[address] [facility] 2018-05-12 2018-05-12 [facility] [id number] Common 09:09:00 09:09:[address] [facility] 2018-02-07 2018-02-07 [facility] [id number] Common 09:00:00 09:00:[address] [facility] Results Test Description Test Time Test Comments Results Result Comments Source COMPREHENSIVE METABOLIC PANEL 2023-07-19 06:12:55 Test Item Value Reference Range Interpretation Comme nts TOTAL PROTEIN (BEAKER) 6.1 gm/dL 6.0-8.3 (test code = 770) ALBUMIN (BEAKER) (test 2.9 g/dL 3.5-5.0 L code = 1145) ALKALINE PHOSPHATASE 83 U/L 40-150 (BEAKER) (test code = 346) BILIRUBIN TOTAL (BEAKER) 5.3 mg/dL 0.2-1.2 H (test code = 377) SODIUM (BEAKER) (test 137 meq/L 136-145 code = 381) POTASSIUM (BEAKER) (test 3.6 meq/L 3.5-5.1 code = 379) CHLORIDE (BEAKER) (test 105 meq/L 98-107 code = 382) CO2 (BEAKER) (test code 24 meq/L 22-29 = 355) BLOOD UREA NITROGEN 7 mg/dL 7-21 (BEAKER) (test code = 354) CREATININE (BEAKER) 0.54 mg/dL 0.57-1.25 L (test code = 358) GLUCOSE RANDOM (BEAKER) 92 mg/dL 70-105 (test code = 652) CALCIUM (BEAKER) (test 8.1 mg/dL 8.4-10.2 L code = 697) AST (SGOT) (BEAKER) 31 U/L 5-34 (test code = 353) ALT (SGPT) (BEAKER) 16 U/L 6-55 (test code = 347) EGFR (BEAKER) (test code 111 mL/min/1.73 Interpretation of eGFR values = 1092) sq m Stage Descripti on Result G1 Normal or high >=90 G2 Mildly decreased 60-89 G3a Mildly to moderately 45-5 9 G3b Moderately to severely 30- 44 G4 Severly decreased 15-29 G5 Kidney failure <15Repo rted eGFR is based on the CK D-EPI 2020 equation that d oes not use a race coefficien tEstimated GFR is not as accurate as Creatinine Clearance in pr edicting glomerular filt ration rate. Estimated GFR i s not applicable for dialysis cynthia biggs Store Sales Consultant ID - emOperator ID - emSpecimen moderately icteric(CELLAVISION MANUAL DIFF)2023-07-19 05:56:15 Test Item Value Reference Range Interpretation Comments NEUTROPHILS - REL 78 % (CELLAVISION)(BEAKER) (test code = 2816) LYMPHOCYTES - REL 8 % (CELLAVISION)(BEAKER) (test code = 2817) MONOCYTES - REL 6 % (CELLAVISION)(BEAKER) (test code = 2818) EOSINOPHILS - REL 2 % (CELLAVISION)(BEAKER) (test code = 2819) BASOPHILS - REL 1 % (CELLAVISION)(BEAKER) (test code = 2820) MYELOCYTES - REL 1 % 0-0 H (CELLAVISION)(BEAKER) (test code = 2822) BANDS - REL (CELLAVISION)(BEAKER) 4 % 0-10 (test code = 2826) NEUTROPHILS - ABS 0.86 K/ul 1.56-6.13 L (CELLAVISION)(BEAKER) (test code = 2830) LYMPHOCYTES - ABS 0.09 K/ul 1.18-3.74 L (CELLAVISION)(BEAKER) (test code = 2831) MONOCYTES - ABS 0.07 K/uL 0.24-0.36 L (CELLAVISION)(BEAKER) (test code = 2832) EOSINOPHILS - ABS 0.02 K/uL 0.04-0.36 L (CELLAVISION)(BEAKER) (test code = 2834) BASOPHILS - ABS 0.01 K/uL 0.01-0.08 (CELLAVISION)(BEAKER) (test code = 2835) MYELOCYTES-ABS 0.01 K/uL 0.00-0.00 H (CELLAVISION)(BEAKER) (test code = 2837) BANDS - ABS (CELLAVISION)(BEAKER) 0.04 K/uL 0.00-0.80 (test code = 2840) TOTAL COUNTED (BEAKER) (test code 100 = 1351) MANUAL NRBC PER 100 CELLS (BEAKER) 1 /100 WBC 0-0 H (test code = 1353) RBC MORPHOLOGY (BEAKER) (test code Normal = 762) PLT MORPHOLOGY (BEAKER) (test code Normal = 486) SMUDGE CELLS (BEAKER) (test code = Present 1371) ARTIFACT (CELLAVISION)(BEAKER) Present (test code = 3432) PLATELET CONCENTRATION Decreased (CELLAVISION)(BEAKER) (test code = 3438) Store Sales Consultant ID - [id number] ID - Lencho comments: Slide comments:CBC W/PLT COUNT & AUTO [id number] 05:56:14 Test Item Value Reference Range Interpretation Comments WHITE BLOOD CELL COUNT 1.1 K/ L 3.5-10.5 L (BEAKER) (test code = 775) RED BLOOD CELL COUNT 2.78 M/ L 3.93-5.22 L (BEAKER) (test code = 761) HEMOGLOBIN (BEAKER) 9.6 GM/DL 11.2-15.7 L (test code = 410) HEMATOCRIT (BEAKER) 28.6 % 34.1-44.9 L (test code = 411) MEAN CORPUSCULAR 103 fL 79-95 H VOLUME (BEAKER) (test code = 753) MEAN CORPUSCULAR 34.5 pg 25.6-32.2 H HEMOGLOBIN (BEAKER) (test code = 751) MEAN CORPUSCULAR 33.6 GM/DL 32.2-35.5 HEMOGLOBIN CONC (BEAKER) (test code = 752) RED CELL DISTRIBUTION 14.7 % 11.7-14.4 H WIDTH (BEAKER) (test code = 412) PLATELET COUNT 19 K/CU MM 150-450 L Discordant re sult (BEAKER) (test code = compar ed to previous 756) result. Clinica l correlation req uired MEAN PLATELET VOLUME 10.4 fL 9.4-12.3 (BEAKER) (test code = 754) NUCLEATED RED BLOOD 0 /100 WBC 0-0 CELLS (BEAKER) (test code = 413) [id number] 05:47:44 Test Item Value Reference Range Interpretation Comments PHOSPHORUS (BEAKER) (test code = 2.4 mg/dL 2.3-4.7 604) Store Sales Consultant ID - [id number] 05:47:43 Test Item Value Reference Range Interpretation Comments MAGNESIUM (BEAKER) (test code = 1.4 mg/dL 1.6-2.6 L 627) Store Sales Consultant ID - emPROTHROMBIN [id number] 05:17:08 Test Item Value Reference Range Interpretation Comments PROTIME (BEAKER) (test code = 20.3 seconds 11.9-14.2 H 759) INR (BEAKER) (test code = 370) 1.77 <=5.90 RECOMMENDED COUMADIN/WARFARIN INR THERAPY RANGESSTANDARD DOSE: 2.0 - 3.0 Includes: PROPHYLAXIS for venous thrombosis, systemic embolization; TREATMENT for venous thrombosis and/or pulmonary embolus.HIGH RISK: Target INR is 2.5-3.5 for patients with mechanical heart valves.(CELLAVISION MANUAL DIFF)2023-07-18 05:45:14 Test Item Value Reference Range Interpretation Comments NEUTROPHILS - REL 63 % (CELLAVISION)(BEAKER) (test code = 2816) LYMPHOCYTES - REL 27 % (CELLAVISION)(BEAKER) (test code = 2817) MONOCYTES - REL 4 % (CELLAVISION)(BEAKER) (test code = 2818) EOSINOPHILS - REL 2 % (CELLAVISION)(BEAKER) (test code = 2819) METAMYELOCYTES - REL 1 % 0-0 H (CELLAVISION)(BEAKER) (test code = 2821) PROMYELOCYTES - REL 1 % 0-0 H (CELLAVSION)(BEAKER) (test code = 2825) BANDS - REL (CELLAVISION)(BEAKER) 1 % 0-10 (test code = 2826) ATYPICAL LYMPHOCYTES - REL 1 % 0-0 H (CELLAVISION)(BEAKER) (test code = 2829) NEUTROPHILS - ABS 0.50 K/ul 1.56-6.13 L (CELLAVISION)(BEAKER) (test code = 2830) LYMPHOCYTES - ABS 0.22 K/ul 1.18-3.74 L (CELLAVISION)(BEAKER) (test code = 2831) MONOCYTES - ABS 0.03 K/uL 0.24-0.36 L (CELLAVISION)(BEAKER) (test code = 2832) EOSINOPHILS - ABS 0.02 K/uL 0.04-0.36 L (CELLAVISION)(BEAKER) (test code = 2834) METAMYELOCYTES - ABS 0.01 K/uL 0.00-0.00 H (CELLAVISION)(BEAKER) (test code = 2836) PROMYELOCYTES - ABS 0.01 K/uL 0.00-0.00 H (CELLAVISION)(BEAKER) (test code = 2838) BANDS - ABS (CELLAVISION)(BEAKER) 0.01 K/uL 0.00-0.80 (test code = 2840) ATYPICAL LYMPHOCYTES - ABS 0.01 K/uL 0.00-0.00 H (CELLAVISION)(BEAKER) (test code = 7828) TOTAL COUNTED (BEAKER) (test code 100 = 1351) MANUAL NRBC PER 100 CELLS (BEAKER) 3 /100 WBC 0-0 H (test code = 1353) RBC MORPHOLOGY (BEAKER) (test code Normal = 762) PLT MORPHOLOGY (BEAKER) (test code Normal = 486) SMUDGE CELLS (BEAKER) (test code = Present 1371) ARTIFACT (CELLAVISION)(BEAKER) Present (test code = 3432) PLATELET CONCENTRATION Decreased (CELLAVISION)(BEAKER) (test code = 3438) Store Sales Consultant ID - [id number] ID - Lencho comments: Slide comments:CBC W/PLT COUNT & AUTO [id number] 05:45:13 Test Item Value Reference Range Interpretation Comments WHITE BLOOD CELL COUNT 0.8 K/ L 3.5-10.5 LL (BEAKER) (test code = 775) RED BLOOD CELL COUNT 2.66 M/ L 3.93-5.22 L (BEAKER) (test code = 761) HEMOGLOBIN (BEAKER) 9.0 GM/DL 11.2-15.7 L (test code = 410) HEMATOCRIT (BEAKER) 28.0 % 34.1-44.9 L (test code = 411) MEAN CORPUSCULAR 105 fL 79-95 H Discordant results VOLUME (BEAKER) (test compar ed to previous, code = 753) clinical correl ation required. MEAN CORPUSCULAR 33.8 pg 25.6-32.2 H HEMOGLOBIN (BEAKER) (test code = 751) MEAN CORPUSCULAR 32.1 GM/DL 32.2-35.5 L HEMOGLOBIN CONC (BEAKER) (test code = 752) RED CELL DISTRIBUTION 15.1 % 11.7-14.4 H WIDTH (BEAKER) (test code = 412) PLATELET COUNT 12 K/CU MM 150-450 L (BEAKER) (test code = 756) MEAN PLATELET VOLUME 10.6 fL 9.4-12.3 (BEAKER) (test code = 754) NUCLEATED RED BLOOD 0 /100 WBC 0-0 CELLS (BEAKER) (test code = 413) [id number] 05:43:04 Test Item Value Reference Range Interpretation Comments MAGNESIUM (BEAKER) (test code = 1.6 mg/dL 1.6-2.6 627) Store Sales Consultant ID - [id number] 05:43:04 Test Item Value Reference Range Interpretation Comments PHOSPHORUS (BEAKER) (test code = 2.7 mg/dL 2.3-4.7 604) Store Sales Consultant ID - ADMINCOMPREHENSIVE METABOLIC [id number] 05:43:04 Test Item Value Reference Range Interpretation Comments TOTAL PROTEIN 6.5 gm/dL 6.0-8.3 (BEAKER) (test code = 770) ALBUMIN (BEAKER) 3.1 g/dL 3.5-5.0 L (test code = 1145) ALKALINE 96 U/L 40-150 PHOSPHATASE (BEAKER) (test code = 346) BILIRUBIN TOTAL 4.2 mg/dL 0.2-1.2 H (BEAKER) (test code = 377) SODIUM (BEAKER) 140 meq/L 136-145 (test code = 381) POTASSIUM (BEAKER) 3.6 meq/L 3.5-5.1 (test code = 379) CHLORIDE (BEAKER) 106 meq/L 98-107 (test code = 382) CO2 (BEAKER) (test 23 meq/L 22-29 code = 355) BLOOD UREA 6 mg/dL 7-21 L NITROGEN (BEAKER) (test code = 354) CREATININE 0.52 mg/dL 0.57-1.25 L (BEAKER) (test code = 358) GLUCOSE RANDOM 89 mg/dL 70-105 (BEAKER) (test code = 652) CALCIUM (BEAKER) 8.2 mg/dL 8.4-10.2 L (test code = 697) AST (SGOT) 32 U/L 5-34 (BEAKER) (test code = 353) ALT (SGPT) 19 U/L 6-55 (BEAKER) (test code = 347) EGFR (BEAKER) 112 Interpretatio n of eGFR (test code = 1092) mL/min/1.[address] age Description sq m Result G1 Luz l or high >=90 G2 Mildly decreased 60-89 G3a Mildl y to moderately 45-5 9 G3b Moderately to s everely 30-44 G4 Severl y decreased 15-29 G5 Kidney failure <15Reported eGF R is based on the CKD-EPI 2020 equation that d oes not use a race coefficientEsti mated GFR is not as accur ate as Creatinine Jane serge in predicting glom erular filtration rate . Estimated GFR is not appl icable for dialysis patien ts Store Sales Consultant ID - ADMINSpecimen moderately ictericPROTHROMBIN [id number] 05:32:55 Test Item Value Reference Range Interpretation Comments PROTIME (KHADAR) (test code = 19.9 seconds 11.9-14.2 H 759) INR (KHADAR) (test code = 370) 1.72 <=5.90 RECOMMENDED COUMADIN/WARFARIN INR THERAPY RANGESSTANDARD DOSE: 2.0 - 3.0 Includes: PROPHYLAXIS for venous thrombosis, systemic embolization; TREATMENT for venous thrombosis and/or pulmonary embolus.HIGH RISK: Target INR is 2.5-3.5 for patients with mechanical heart valves.CTA [id number] 03:58:53 [facility] : 1970 Sex: FCTA BRAIN, CTA CAROTIDBRAIN CT WITHOUT CONTRASTINDICATION: Carotid artery stenosisCOMPARISON: NoneTECHNIQUE:Rapid acquisition spiral images were obtained between the aortic archand the cranial vertex during intravenous contrast infusion toreconstruct axial images and angiographic 3D maximum intensityprojections (MIP). 3-D volumetric reformatted images were created at [employer] workstation. Precontrast images of the brain were alsoobtained. Stenosis evaluation reported in compliance with NASCET criteria.DOSE REDUCTION: Dose modulation, iterative reconstruction, and/orweight-based adjustment of the mA/kV was utilized to reduce theradiation dose to as low as reasonably achievable.FINDINGS:CT BRAIN:Cerebral parenchyma: Unremarkable.Midline structures: Normally positioned.Cerebellum and brainstem: Normal.Ventricles: Normal volume.Extra- axial spaces: Unremarkable.Calvarium and skull base: Intact.Paranasal sinuses and mastoid air cells: Visible chambers are clear.Orbital contents: Included portions unremarkable.CTA BRAIN:Internal carotid arteries: Petrous, cavernous and supraclinoid portionspatent. There is moderate atherosclerotic stenosis of the left carotidterminus.Middle cerebral arteries: Patent to distal branches. There isatherosclerotic irregularity of the bilateral M1 portions.Anterior cerebral arteries: Patent. Intact A-comm.Basilar system: Patent vertebrobasilar system.Posterior cerebral arteries:Patent beyond the quadrigeminal segments.Venous opacification: Major dural sinuses unremarkable for bolus timing.Additional findings: None.CTA NECK:Common carotid arteries: Greater than 90% stenosis of the origin of theleft common carotid artery. Bifurcations: No flow-limiting stenosis. Cervical internal carotid arteries: No flow limiting stenosis.Vertebral arteries: Codominant. No origin stenosis.Arch anatomy: Conventional.Nonvascular findings:Osseous structures: No acute osseous abnormality. Intact calvarium andskull base.Cervical soft tissues: No adenopathy. Patent aerodigestive tract.Lung apices: No apical consolidation or pneumothorax.IMPRESSION:No acute intracranial abnormality.Note intracranial large vessel occlusion.Severe atherosclerotic stenosis with greater than 90% luminal volumeloss of the origin of the left common carotid artery.Moderate atherosclerotic stenosis of the left carotid terminus andscattered atherosclerotic irregularity of the bilateral M1 portions ofthe MCAs.Electr onically Signed By: Alex Rob07/18/2023 04:01 CDTWorkstation Name: [id number] CTA [id number] 03:58:53 [facility] : 1970 Sex: FCTA BRAIN, CTA CAROTIDBRAIN CT WITHOUT CONTRASTINDICATION: Carotid artery stenosisCOMPARISON: NoneTECHNIQUE:Rapid acquisition spiral images were obtained between the aortic archand the cranial vertex during intravenous contrast infusion toreconstruct axial images and angiographic 3D maximum intensityprojections (MIP). 3-D volumetric reformatted images were created at [employer] workstation. Precontrast images of the brain were alsoobtained. Stenosis evaluation reported in compliance with NASCET criteria.DOSE REDUCTION: Dose modulation, iterative reconstruction, and/orweight-based adjustment of the mA/kV was utilized to reduce theradiation dose to as low as reasonably achievable.FINDINGS:CT BRAIN:Cerebral parenchyma: Unremarkable.Midline structures: Normally positioned.Cerebellum and brainstem: Normal.Ventricles: Normal volume.Extra- axial spaces: Unremarkable.Calvarium and skull base: Intact.Paranasal sinuses and mastoid air cells: Visible chambers are clear.Orbital contents: Included portions unremarkable.CTA BRAIN:Internal carotid arteries: Petrous, cavernous and supraclinoid portionspatent. There is moderate atherosclerotic stenosis of the left carotidterminus.Middle cerebral arteries: Patent to distal branches. There isatherosclerotic irregularity of the bilateral M1 portions.Anterior cerebral arteries: Patent. Intact A-comm.Basilar system: Patent vertebrobasilar system.Posterior cerebral arteries:Patent beyond the quadrigeminal segments.Venous opacification: Major dural sinuses unremarkable for bolus timing.Additional findings: None.CTA NECK:Common carotid arteries: Greater than 90% stenosis of the origin of theleft common carotid artery. Bifurcations: No flow-limiting stenosis. Cervical internal carotid arteries: No flow limiting stenosis.Vertebral arteries: Codominant. No origin stenosis.Arch anatomy: Conventional.Nonvascular findings:Osseous structures: No acute osseous abnormality. Intact calvarium andskull base.Cervical soft tissues: No adenopathy. Patent aerodigestive tract.Lung apices: No apical consolidation or pneumothorax.IMPRESSION:No acute intracranial abnormality.Note intracranial large vessel occlusion.Severe atherosclerotic stenosis with greater than 90% luminal volumeloss of the origin of the left common carotid artery.Moderate atherosclerotic stenosis of the left carotid terminus andscattered atherosclerotic irregularity of the bilateral M1 portions ofthe MCAs.Electr onically Signed By: Alex Rob07/18/2023 04:01 CDTWorkstation Name: [id number] SARS-CoV2/Influenza/RSV [id number] 18:08:34 Test Item Value Reference Interpretation Comments Range SARS-COV2/RT-PCR Negative Negative The SARS-Co V-2 (test code = target nucleic 46269-2) acids are not detected in thi s specimen. Negat geri results do not preclude SARS-C oV-2 infection and should not be u sed as the sole bas is for patient management decisions. Nega tive results must be combined with clinical observations, patient history , and epidemiolog ical information. A false negative result may occu r if a specimen is improperly collected, transported or handled. This S ARS CoV-2 test is a rapid, real-maribeth e RT-PCR test intended for e qualitative detection of nucleic acid fr om SARS-CoV-2 in a nasopharyngeal swab specimen collec shanda from individual s suspected of COVID-19 by the ir healthcare provider. Influenza A RT-PCR Negative Negative The Flu A target (test code = [place] [address]-8) not detected in this specimen. Influenza B RT-PCR Negative Negative The Flu B target (test code = [place] 71714-8) not detected in this specimen. RSV by RT-PCR (test Negative Negative The RSV target code = 52684-2) nucleic acid s are not detected in this specimen. JUAN CARLOS (test code = The presence of JUAN CARLOS) SARS-CoV-2/FLU/RSV viral nucleic acids cannot rule out co-infections or disease caused by other viral or bacterial pathogens. As with any molecular test, mutations within the target regions of the Xpert Xpress SARS-CoV-2/Flu/RSV test could affect primer and/or probe binding resulting in failure to detect the presence of virus or the virus being detected less predictably. False negative results may occur if the virus is present at levels below the analytical limit of detection in this specimen. This Xpert Xpress SARS-CoV-2/Flu/RSV test is a rapid, real-time RT-PCR test intended for the qualitative detection of nucleic acid from Xpert Xpress SARS-CoV-2/Flu/RSV in a nasopharyngeal swab specimen collected from individuals suspected of Xpert Xpress SARS-CoV-2/Flu/RSV by their healthcare provider. Results from [facility] Xpert Xpress SARS-CoV-2/Flu/RSV test should be correlated with the clinical history, epidemiological data, and other data available to the clinician evaluating the patient. Viral nucleic acid may persist in vivo, independent of virus viability. Detection of analyte target(s) does not imply that the corresponding virus(es) are infectious or are the causative agents for clinical symptoms. This test has not been Food and Drug Administration (FDA) cleared or approved and has been authorized by FDA under an Emergency Use Authorization (EUA). This EUA will be effective until the declaration that circumstances exist justifying the authorization of the emergency use of in vitro diagnostic tests for detection and/or diagnosis of COVID-19 is terminated under Section 564(b)(2) of the Act or the EUA is revoked under Section 564(g) of the Act. Fact Sheet for Healthcare Providers:https://w [employer]/Docu ments/Xpert%20Xpres s%20SARS%20CoV-2/Fa ct%20Sheets/302-390 2%98YCTR-LZY-0%20HE ALTHCARE%20PROVIDER S%20FACT%20SHEET.pd f Fact Sheet for Healthcare Patients:https://[employer]/Docum ents/Xpert%20Xpress %20SARS%20Cov-2/Fac t%20Sheets/302-3801 %08ZOKW-KNO-3%20PAT IENT%20FACT%20SHEET .pdf Lab Interpretation Normal (test code = 56243-7) [facility]RSV [id number] 18:08:34 Test Item Value Reference Range Interpretation Comments SARS-COV2/RT-PCR Negative Negative The SARS-Co V-2 target (test code = nucleic acids a re not 0873881) detected in thi s specimen. Negat geri results do not preclude SARS-CoV-2 infe ction and should not be u sed as the sole basis for patient management deci sions. Negative result s must be combined with c linical observations, p atient history, and epidemiological information. A false negative result may occur if a specimen i s improperly radha ected, transported or handled. This SARS CoV-2 test is a rapid, real-maribeth e RT-PCR test intended f or the qualitative det ection of nucleic acid fr om SARS-CoV-2 in a nasopharyngeal swab specimen collec shanda from individuals taylor pected of COVID-19 by the [facility] ide. INFLUENZA A RT-PCR Negative Negative The Flu A target nucleic (test code = acids are not d etected in 19101030) this specimen. INFLUENZA B RT-PCR Negative Negative The Flu B target nucleic (test code = acids are not d etected in 19101031) this specimen. RSV RT-PCR (test Negative Negative The RSV tar get nucleic code = 0238820) acids are no t detected in this specimen. The presence of SARS-CoV-2/FLU/RSV viral nucleic acids cannot rule out co- infections or disease caused by other viral or bacterial pathogens. As with any molecular test, mutations within the target regions of the Xpert Xpress SARS-CoV-2/Flu/RSV test could affect primer and/or probe binding resulting in failure to detect the presence of virus or the virus being detected less predictably. False negative results may occur if the virus is present at levels below the analytical limit of detection in thisspecimen.This Xpert Xpress SARS-CoV-2/Flu/RSV test is a rapid, real-time RT-PCR test intended for the qualitative detection of nucleic acid from Xpert Xpress SARS-CoV-2/Flu/RSV in a nasopharyngeal swabspecimen collected from individuals suspected of Xpert Xpress SARS-CoV-2/Flu/RSV by their healthcareprovider. Results from [facility] Xpert Xpress SARS-CoV-2/Flu/RSV test should be correlated with the clinical history, epidemiological data, and other data available to the clinician evaluating the patient. Viral nucleic acid may persist in vivo, independent of virus viability. Detection of analyte target(s)does not imply that the corresponding virus(es) are infectious or are the causative agents for clinical symptoms.This test has not been Food and Drug Administration (FDA) cleared or approved and has been authorized by FDA under an Emergency Use Authorization (EUA). This EUA will be effective until thedeclaration that circumstances exist justifying the authorization of the emergency use of in vitro diagnostic tests for detection and/or diagnosis of COVID-19 is terminated under Section 564(b)(2) of the Act or the EUA is revoked under Section 564(g) of the Act.Fact Sheet for Healthcare Providers:https ://www.[employer].Audience/Documents/Xpert%20Xpress%20SARS%20CoV-2/Fact%20Sheets/302-390 2%22YVMA-YAO-8%20HEALTHCARE%20PROVIDERS%20FACT%20SHEET.pdfFact Sheet for Healthcare Patients:https://www.[employer]/Docum ents/Xpert%20Xpress%20SARS%20Cov-2/Fact%20Sheets/302-3801%87ONNQ-PWE-3%20PATIENT %20FACT%20SHEET.pdf(CELLAVISION MANUAL DIFF)2023-07-17 17:39:54 Test Item Value Reference Range Interpretation Comments NEUTROPHILS - REL 60 % (CELLAVISION)(BEAKER) (test code = 2816) LYMPHOCYTES - REL 35 % (CELLAVISION)(BEAKER) (test code = 2817) MONOCYTES - REL 3 % (CELLAVISION)(BEAKER) (test code = 2818) EOSINOPHILS - REL 2 % (CELLAVISION)(BEAKER) (test code = 2819) NEUTROPHILS - ABS 0.96 K/ul 1.56-6.13 L (CELLAVISION)(BEAKER) (test code = 2830) LYMPHOCYTES - ABS 0.56 K/ul 1.18-3.74 L (CELLAVISION)(BEAKER) (test code = 2831) MONOCYTES - ABS 0.05 K/uL 0.24-0.36 L (CELLAVISION)(BEAKER) (test code = 2832) EOSINOPHILS - ABS 0.03 K/uL 0.04-0.36 L (CELLAVISION)(BEAKER) (test code = 2834) TOTAL COUNTED (BEAKER) (test code = 100 1351) WBC MORPHOLOGY (BEAKER) (test code Normal = 487) GIANT PLATELETS (BEAKER) (test code Present = 313) ANISOCYTOSIS (BEAKER) (test code = 1+ few 961) ARTIFACT (CELLAVISION)(BEAKER) Present (test code = 3432) PLATELET CONCENTRATION Decreased (CELLAVISION)(BEAKER) (test code = 3438) Store Sales Consultant ID - [id number] ID - JILLUser comments: Slide comments:CBC W/PLT COUNT & AUTO [id number] 17:39:16 Test Item Value Reference Range Interpretation Comments WHITE BLOOD CELL COUNT (BEAKER) 1.6 K/ L 3.5-10.5 L (test code = 775) RED BLOOD CELL COUNT (BEAKER) 3.00 M/ L 3.93-5.22 L (test code = 761) HEMOGLOBIN (BEAKER) (test code = 9.7 GM/DL 11.2-15.7 L 410) HEMATOCRIT (BEAKER) (test code = 30.3 % 34.1-44.9 L 411) MEAN CORPUSCULAR VOLUME (BEAKER) 101 fL 79-95 H (test code = 753) MEAN CORPUSCULAR HEMOGLOBIN 32.3 pg 25.6-32.2 H (BEAKER) (test code = 751) MEAN CORPUSCULAR HEMOGLOBIN CONC 32.0 GM/DL 32.2-35.5 L (BEAKER) (test code = 752) RED CELL DISTRIBUTION WIDTH 15.8 % 11.7-14.4 H (BEAKER) (test code = 412) PLATELET COUNT (BEAKER) (test code 19 K/CU MM 150-450 L = 756) MEAN PLATELET VOLUME (BEAKER) 8.9 fL 9.4-12.3 L (test code = 754) NUCLEATED RED BLOOD CELLS (BEAKER) 0 /100 WBC 0-0 (test code = 413) COMPREHENSIVE METABOLIC [id number] 17:21:44 Test Item Value Reference Range Interpretation Comments TOTAL PROTEIN 7.2 gm/dL 6.0-8.3 (BEAKER) (test code = 770) ALBUMIN (BEAKER) 3.5 g/dL 3.5-5.0 (test code = 1145) ALKALINE 139 U/L 40-150 PHOSPHATASE (BEAKER) (test code = 346) BILIRUBIN TOTAL 3.7 mg/dL 0.2-1.2 H (BEAKER) (test code = 377) SODIUM (BEAKER) 143 meq/L 136-145 (test code = 381) POTASSIUM (BEAKER) 3.8 meq/L 3.5-5.1 (test code = 379) CHLORIDE (BEAKER) 109 meq/L 98-107 H (test code = 382) CO2 (BEAKER) (test 27 meq/L 22-29 code = 355) BLOOD UREA 5 mg/dL 7-21 L NITROGEN (BEAKER) (test code = 354) CREATININE 0.56 mg/dL 0.57-1.25 L (BEAKER) (test code = 358) GLUCOSE RANDOM 94 mg/dL 70-105 (BEAKER) (test code = 652) CALCIUM (BEAKER) 8.7 mg/dL 8.4-10.2 (test code = 697) AST (SGOT) 43 U/L 5-34 H (BEAKER) (test code = 353) ALT (SGPT) 22 U/L 6-55 (BEAKER) (test code = 347) EGFR (BEAKER) 110 Interpretatio n of eGFR (test code = 1092) mL/min/1.[address] age Description sq m Result G1 Luz l or high >=90 G2 Mildly decreased 60-89 G3a Mildl y to moderately 45-5 9 G3b Moderately to s everely 30-44 G4 Severl y decreased 15-29 G5 Kidney failure <15Reported eGF R is based on the CKD-EPI 2020 equation that d oes not use a race coefficientEsti mated GFR is not as accur ate as Creatinine Jane serge in predicting glom erular filtration rate . Estimated GFR is not appl icable for dialysis patien ts Store Sales Consultant ID - MARCOSpecimen slightly [id number] 17:21:43 Test Item Value Reference Range Interpretation Comments PHOSPHORUS (BEAKER) (test code = 2.9 mg/dL 2.3-4.7 604) Store Sales Consultant ID - [id number] 17:21:43 Test Item Value Reference Range Interpretation Comments MAGNESIUM (BEAKER) (test code = 1.7 mg/dL 1.6-2.6 627) Store Sales Consultant ID - MARCOPROTHROMBIN [id number] 17:19:16 Test Item Value Reference Range Interpretation Comments PROTIME (BEAKER) (test code = 18.8 seconds 11.9-14.2 H 759) INR (BEAKER) (test code = 370) 1.60 <=5.90 RECOMMENDED COUMADIN/WARFARIN INR THERAPY RANGESSTANDARD DOSE: 2.0 - 3.0 Includes: PROPHYLAXIS for venous thrombosis, systemic embolization; TREATMENT for venous thrombosis and/or pulmonary embolus.HIGH RISK: Target INR is 2.5-3.5 for patients with mechanical heart valves.[id number] 00:00:00 Test Item Value Reference Range Interpretation Comments FERRITIN (test code = 133 NG/ML See_Comment [Auto mated message] 11064-9) The system [employer] generated this result transmitted ref erence range: 13-200 N G/ML. The reference r hazel was not used to int erpret this result as normal/abnormal . VITAMIN D, 25 [id number] 00:00:00 Test Item Value Reference Range Interpretation Comments VITAMIN D, 25 OH (test code = 28 NG/ML SEE BELOW NG/ML L 1988-) PATHOLOGIST SMEAR [id number] 00:00:00 Test Item Value Reference Range Interpretation Comments BASOPHILS (test code 0.4 % = 20514-3) DIAGNOSIS: (test (NOTE) code = 30705-2) COMMENTS (test code (NOTE) = 56816-7) EOSINOPHILS (test 0.8 % code = 42772-9) HEMATOCRIT (test 31.9 % See_Comment L [Automated message] code = 81888-9) The system [facility] generated this result transmit shanda reference range : 34.0-45.0 %. Th e reference range was not used to interpret this result as normal/abnormal . HEMOGLOBIN (test 10.7 G/DL See_Comment L [Automated message] code = 718-7) The system [facility] generated this result transmit shanda reference range : 11.5-15.5 G/DL. The reference range was not used to interpret this result as normal/abnormal . LYMPHOCYTES (test 19.8 % code = 21528-7) MCH (test code = 33.0 PG See_Comment [Automated message] 20983-8) The system [employer] generated this result transmit shanda reference range : 25.0-33.0 PG. T he reference range was not used to interpret this result as normal/abnormal . MCHC (test code = 33.5 G/DL See_Comment [Automate d message] 88094-9) The system [employer] generated this result transmit shanda reference range : 31.0-36.0 G/DL. The reference range was not used to interpret this result as normal/abnormal . MCV (test code = 98.5 fL See_Comment [Automated message] 00401-4) The system [employer] generated this result transmit shanda reference range : 80.0-99.0 fL. T he reference range was not used to interpret this result as normal/abnormal . MONOCYTES (test code 6.0 % = 55641-0) NEUTROPHILS (test 72.2 % code = 51048-7) NUCLEATED RBCS (test 0.0 /100 WBC'S See_Comment [Aut omated message] code = 17545-5) The system [employer] generated this result transmit shanda reference range : 0.0 /100 WBC'S. The reference range was not used to interpret this result as normal/abnormal . PATHOLOGIST: (test (NOTE) code = 37510-5) PLATELET COUNT (test 26 K/UL See_Comment L [Autom ated message] code = 00470-4) The system [employer] generated this result transmit shanda reference range : 130-400 K/UL. T he reference range was not used to interpret this result as normal/abnormal . RBC (test code = 3.24 M/UL See_Comment L [Automated message] 03844-5) The system [employer] generated this result transmit shanda reference range : 3.80-5.40 M/UL. The reference range was not used to interpret this result as normal/abnormal . RDW (test code = 14.5 % See_Comment [Automated message] 54227-0) The system [employer] generated this result transmit shanda reference range : 11.5-15.0 %. Th e reference range was not used to interpret this result as normal/abnormal . WBC (test code = 2.5 K/UL See_Comment L [Automated message] 50206-2) The system [employer] generated this result transmit shanda reference range : 3.5-11.0 K/UL. The reference range was not used to interpret this result as normal/abnormal . COMPREHENSIVE METABOLIC [id number] 00:00:00 Test Item Value Reference Range Interpretation Comments ALBUMIN (test code = 4.4 G/DL See_Comment [Autom ated message] 1751-7) The system [employer] generated this result transmit shanda reference range : 3.5-5.2 G/DL. T he reference range was not used to interpret this result as normal/abnormal . ALKALINE PHOSPHATASE 140 U/L See_Comment H [Autom ated message] (test code = 6768-6) The sys tem which generated this result transmit shanda reference range : 40-132 U/L. The reference range was not used to interpret this result as normal/abnormal . BILIRUBIN, TOTAL 6.4 MG/DL See_Comment H [Automated message] (test code = 1974-2) The [facility] tem which generated this result transmit shanda reference range : <=1.2 MG/DL. Th e reference range was not used to interpret this result as normal/abnormal . BUN (test code = 5 MG/DL See_Comment L [Automated message] 3094-0) The system [facility] generated this result transmit shanda reference range : 6-20 MG/DL. The reference range was not used to interpret this result as normal/abnormal . CALCIUM (test code = 8.9 MG/DL See_Comment [Autom ated message] 43440-7) The system [facility] generated this result transmit shanda reference range : 8.5-10.5 MG/DL. The reference range was not used to interpret this result as normal/abnormal . CALC A/G RATIO (test 1.3 RATIO See_Comment [Autom ated message] code = 1759-0) The system [facility] generated this result transmit shanda reference range : 1.0-2.6 RATIO. The reference range was not used to interpret this result as normal/abnormal . CALC BUN/CREAT (test 11 RATIO See_Comment [Autom ated message] code = 0777-3) The system [facility] generated this result transmit shanda reference range : 6-28 RATIO. The reference range was not used to interpret this result as normal/abnormal . CALC GLOBULIN (test 3.3 G/DL See_Comment [Automa shanda message] code = 63867-2) The system [facility] generated this result transmit shanda reference range : 1.9-3.7 G/DL. T he reference range was not used to interpret this result as normal/abnormal . CARBON DIOXIDE (test 23 MEQ/L See_Comment [Autom ated message] code = 1963-8) The system [facility] generated this result transmit shanda reference range : 19-31 MEQ/L. Th e reference range was not used to interpret this result as normal/abnormal . CHLORIDE (test code 100 MEQ/L See_Comment [Automa shanda message] = 7-0) The system [facility] generated this result transmit shanda reference range : 95-107 MEQ/L. T he reference range was not used to interpret this result as normal/abnormal . CREATININE (test 0.46 MG/DL See_Comment L [Automated message] code = 2160-0) The system [employer] generated this result transmit shanda reference range : 0.60-1.30 MG/DL . The reference range was not used to interpret this result as normal/abnormal . eGFR (2020 CKD-EPI) 115 See_Comment [Automa shanda message] (test code = ML/MIN/1.73 The system [employer] 53977-8) generated this result transmit shanda reference range : >60 ML/MIN/1.73. Th e reference range was not used to interpret this result as normal/abnormal . GLUCOSE (test code = 101 MG/DL See_Comment H [Autom ated message] 1558-6) The system [employer] generated this result transmit shanda reference range : 70-99 MG/DL. Th e reference range was not used to interpret this result as normal/abnormal . POTASSIUM (test code 2.8 MEQ/L See_Comment L [Autom ated message] = 2823-3) The system [employer] generated this result transmit shanda reference range : 3.5-5.4 MEQ/L. The reference range was not used to interpret this result as normal/abnormal . PROTEIN, TOTAL (test 7.7 G/DL See_Comment [Autom ated message] code = 2885-2) The system [employer] generated this result transmit shanda reference range : 6.1-8.3 G/DL. T he reference range was not used to interpret this result as normal/abnormal . AST (test code = 60 U/L See_Comment H [Automated message] 1920-8) The system [employer] generated this result transmit shanda reference range : 9-40 U/L. The reference range was not used to interpret this result as normal/abnormal . ALT (test code = 28 U/L See_Comment [Automated message] 1742-6) The system [employer] generated this result transmit shanda reference range : 5-40 U/L. The reference range was not used to interpret this result as normal/abnormal . SODIUM (test code = 138 MEQ/L See_Comment [Automa shanda message] 2951-2) The system [employer] generated this result transmit shanda reference range : 133-146 MEQ/L. The reference range was not used to interpret this result as normal/abnormal . STREP A [id number] 00:00:00 Test Item Value Reference Range Interpretation Comments Result (test code = 68475-4) NEGATIVE POC, COVID 19 Antigen + Flu by SofiaPOC, COVID 19 Antigen + Flu by Snehal
[2023-08-01 09:40] LABS: Absolute Lymphocytes (CBC) 0.7 K/uL (0.7-4.9); Hematocrit 28.2 % (36.0-45.0); Lymphocytes % 34.1 % (15.3-44.8); MCV 98.9 fL (80-100); Platelets 23 thou/uL (152-406); RBC Red Blood Cell Count 2.86 M/uL (3.86-4.86)
[2023-08-01 10:03] LABS: Albumin 3.3 g/dL (3.4-5.0); Bilirubin Direct 2.6 mg/dL (0-0.2); Bilirubin Indirect, Calculated 1.7 mg/dL (0.2-0.8); Bilirubin Total 4.3 mg/dL (0.2-1.0); Protein, Total 7.8 g/dL (6.4-8.2)
[2023-08-01 10:23] LABS: Blood Morphology Comment NOT SEEN (NOT SEEN); Platelet Estimate DECR; White Blood Cell Scan OK (OK)
--- NOTE | 2023-08-01 10:46 | RAD REPORT ---
EXAM DESCRIPTION: RAD - Chest Single View - 08/01/2023 10:37 am CLINICAL HISTORY: CHEST PAIN Chest pain. COMPARISON: Chest Single View dated 08/30/2022; Chest Single View dated 02/13/2020; Chest Pa And Lat ( 2 Views) dated 01/07/2019; Chest Single View dated 05/29/2017 FINDINGS: Portable technique limits examination quality. The lungs are grossly clear. The heart is normal in size. No displaced fractures.Left axillary dissec tion clips. IMPRESSION: No acute intrathoracic process suspected.
--- NOTE | 2023-08-01 10:53 | ER ---
Nurse's Notes [facility] Name: Doreen Allison Age: 53 yrs Sex: Female : 1970 Arrival Date: 08/01/2023 Time: 09:10 Bed 13 Private MD: Diagnosis: Chest pain, unspecified Presentation: 08/01 09:08 Chief complaint: EMS states: Chest pain, shortness of breath on/off since Tuesday. No nj1 symptoms upon ED arrival. 09:08 Coronavirus screen: Vaccine status: Patient reports receiving the 2nd dose of the covid nj1 vaccine. Ebola Screen: Patient denies travel to an Ebola-affected area in the 21 days before illness onset. Initial Sepsis Screen: Does the patient meet any 2 criteria? No. Patient's initial sepsis screen is negative. Does the patient have a suspected source of infection? No. Patient's initial sepsis screen is negative. Risk Assessment: Do you want to hurt yourself or someone else? Patient reports no desire to harm self or others. Onset of symptoms was July 29, 2023. 09:08 Method Of Arrival: EMS: [facility] 09:08 Acuity: LARRY 3 [facility] 09:08 Care prior to arrival: IV initiated. 20 GA, in the right wrist. [facility] POISER BALANCE: 09:40 LMP N/A - Post-menopause, Not nj Historical: - Allergies: 09:08 No Known Allergies; nj1 - PMHx: 09:08 Anemia; Anxiety; breast cancer; depressive disorder; Hypertensive disorder; PTSD; nj - PSHx: 09:08 Left Mastectomy; right foot; nj1 - Immunization history:: Client reports receiving the 2nd dose of the Covid vaccine. - Social history:: Smoking status: Patient denies any tobacco usage or history of. - Family history:: not pertinent. - Hospitalizations: : No recent hospitalization is reported. Screenin:40 [facility] ED Fall Risk Assessment (Adult) Score/Fall Risk Level 0 - 2 = Low Risk [facility] Oriented to surroundings, Maintained a safe environment, Hourly rounding (assess needs \\T\\ fall precautionary measures) done. Abuse screen: Denies threats or abuse. Denies injuries from another. Nutritional screening: No deficits noted. Tuberculosis screening: No symptoms or risk factors identified. Assessment: 09:10 General: Appears in no apparent distress. comfortable, Behavior is calm, cooperative, nj1 appropriate for age. 09:10 Pain: Denies pain. Neuro: Level of Consciousness is awake, alert, obeys commands, nj1 Oriented to person, place, time, situation. Cardiovascular: Patient's skin is warm and dry. Cardiovascular: Denies chest pain, shortness of breath. Respiratory: Airway is patent Respiratory effort is even, unlabored. 10:15 Reassessment: Patient appears in no apparent distress at this time. No changes from nj1 previously documented assessment. Patient and/or family updated on plan of care and expected duration. Pain level reassessed. Patient is alert, oriented x 3, equal unlabored respirations, skin warm/dry/pink. 11:08 Reassessment: Patient appears in no apparent distress at this time. Patient is alert, nj1 oriented x 3, equal unlabored respirations, skin warm/dry/pink. Pt has taken monitoring off, does not wish to stay for vital signs re-assessment. States "i feel good". Discharge paperwork explained and handed to patient. Patient denies pain at this time. Vital Signs: 09:08 BP 138 / 69; Pulse 90; Resp 20; Temp 97.9(O); Pulse Ox 96% on R/A; Weight 74.84 kg; nj1 Height 5 ft. 1 in. ; Pain 0/10; 10:15 BP 139 / 80; Pulse 91; Resp 16; Pulse Ox 99% on R/A; Pain 0/10; nj1 09:08 Body Mass Index 31.18 (74.84 kg, 154.94 cm) nj1 09:08 Pain Scale: Adult nj1 10:15 Pain Scale: Adult mn1 ED Course: 09:10 Arm band placed on left wrist. nj1 09:15 Patient arrived in ED. rn 09:16 Jordi Ferraro MD is Attending Physician. rn 09:28 EKG done, by ED staff, reviewed by Jordi Ferraro MD. em1 09:30 Changed dressing on right wrist Flushed right saline lock with 5 ml normal saline. nj1 09:35 Luz Nelson, BARBI is Primary Nurse. nj1 09:37 Triage completed. nj1 09:40 Patient has correct armband on for positive identification. Bed in low position. Call [facility] light in reach. Side rails up X 1. Provided Education on: call light, fall precautions. 10:39 XRAY Chest (1 view) In Process Unspecified. EDMS 11:00 No provider procedures requiring assistance completed. IV discontinued, intact, nj1 bleeding controlled. Administered Medications: No medications were administered Medication: 11:09 VIS not applicable for this client. nj1 Outcome: 10:52 Discharge ordered by . rn 11:08 Discharged to home ambulatory, with family, nj1 11:08 Condition: stable 11:08 Discharge instructions given to patient, Instructed on discharge instructions, follow up and referral plans. Demonstrated understanding of instructions, follow-up care, 11:10 Patient left the ED. nj1 Signatures: Dispatcher [employer] EDMS Jordi Ferraro MD MD rn Martinez, Eric Luz Tinajero RN RN nj1 Corrections: (The following items were deleted from the chart) 11:09 11:08 Reassessment: Patient appears in no apparent distress at this time. Patient is nj1 alert, oriented x 3, equal unlabored respirations, skin warm/dry/pink. Patient denies pain at this time. nj1
--- NOTE | 2023-08-01 10:53 | EDPHYS ---
Physician Documentation [facility] Name: Doreen Allison Age: 53 yrs Sex: Female : 1970 Arrival Date: 08/01/2023 Time: 09:10 Bed 13 Private MD: ED Physician Jordi Ferraro HPI: 08/01 09:30 This 53 yrs old Female presents to ER via Unassigned with complaints of chest rn pain. 09:30 The patient or guardian reports chest pain that is located primarily in the anterior rn chest wall, left. 09:30 Onset: 3 day(s) ago. The pain does not radiate. Associated signs and symptoms: rn Pertinent positives: None. Pertinent negatives: abdominal pain, cough, diaphoresis, palpitations, shortness of breath, syncope, vomiting. The chest pain is described as sharp. Duration: The patient or guardian reports multiple episodes, that are intermittent. Modifying factors: The symptoms are alleviated by nothing. the symptoms are aggravated by nothing. Severity of pain: At its worst the pain was mild in the emergency department the pain has improved. The patient has not experienced similar symptoms in the past. The patient has been recently seen at the [facility] Emergency [facility]. Patient reports a few days of intermittent chest pain, sharp, left anterior chest, associated with short episodes of rapid breathing. Feels like it might be panic attacks. Has had these before. No history of cardiac problems. Does have cirrhosis. Reports pain last for few seconds and improves if she goes outside and walks around. Not worse with exertion.. 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 - Social history:: Smoking status: Patient denies any tobacco usage or history of. - Family history:: not pertinent. - Hospitalizations: : No recent hospitalization is reported. ROS: 09:30 Constitutional: Negative for fever, chills, and weight loss, Eyes: Negative for injury, rn pain, redness, and discharge, Cardiovascular: Positive for chest pain Respiratory: Negative for shortness of breath, cough, wheezing, and pleuritic chest pain, Abdomen/GI: Negative for abdominal pain, nausea, vomiting, diarrhea, and constipation, MS/Extremity: Negative for injury and deformity, Skin: Negative for injury, rash, and discoloration, Neuro: Negative for headache, weakness, numbness, tingling, and seizure, Exam: 09:30 Constitutional: This is a well developed, well nourished patient who is awake, alert, rn and in no acute distress. Head/Face: Normocephalic, atraumatic. Cardiovascular: Regular rate and rhythm. No pulse deficits. Respiratory: No increased work of breathing, no retractions or nasal flaring. Abdomen/GI: Soft, nontender MS/ Extremity: Pulses equal, no cyanosis. Neurovascular intact. Full, normal range of motion. Equal circumference. 1+ edema bilaterally. Neuro: Awake and alert, GCS 15 09:37 ECG was reviewed by the Attending Physician. rn Vital Signs: 09:08 BP 138 / 69; Pulse 90; Resp 20; Temp 97.9(O); Pulse Ox 96% on R/A; Weight 74.84 kg; nj1 Height 5 ft. 1 in. ; Pain 0/10; 10:15 BP 139 / 80; Pulse 91; Resp 16; Pulse Ox 99% on R/A; Pain 0/10; nj1 09:08 Body Mass Index 31.18 (74.84 kg, 154.94 cm) nj1 09:08 Pain Scale: Adult nj1 10:15 Pain Scale: Adult nj1 MDM: 09:16 Patient medically screened. rn 10:51 Differential diagnosis: acute myocardial infarction, acute pericarditis, anxiety, rn coronary artery disease chest wall pain, costochondritis, esophagitis, gastritis, gastroesophageal reflux disease (GERD), pleurisy, pneumonia, pneumothorax. HEART Score: History: Slightly Suspicious (0), ECG: Normal (0), Age: > 45 and < 65 years (1), Risk Factors: No Risk Factors Known (0), Troponin: < or = 1 x Normal Limit (0), Total Score = 1. Data reviewed: vital signs, nurses notes, lab test result(s), EKG, radiologic studies, plain films, and as a result, I will discharge patient. Counseling: I had a detailed discussion with the patient and/or guardian regarding the historical points, exam findings, and any diagnostic results supporting the discharge/admit diagnosis, lab results, radiology results, the need for outpatient follow up, to return to the emergency department if symptoms worsen or persist or if there are any questions or concerns that arise at home. Response to treatment: the patient's symptoms have resolved after treatment, the patient's condition has returned to base line, the patient is now symptom free, and as a result, I will discharge patient. Special discussion: Based on the patient's history, exam, and Dx evaluation, there is no indication for emergent intervention or inpatient Tx. It is understood by the patient/guardian that if the Sx's persist or worsen they need to return immediately for re-evaluation. I discussed with the patient/guardian in detail that at this point there is no indication for admission to the hospital. It is understood, however, that if the symptoms persist or worsen the patient needs to return immediately for re-evaluation. ED course: Chest pain has resolved since arrival here. Patient feels like it is anxiety. Work-up here is negative without ischemia and negative troponin. Patient is requesting to go home, needs to go home immediately and does not want to be admitted to the hospital. I have personally reviewed all of the results, including but not limited to blood tests and imaging deemed necessary to safely discharge this patient at this time. All results given to and printed out for patient. I personally went over all the results with the patient and answered all questions. Patient will follow-up with PCP and or specialist as discussed. Return precautions given and understood.. 08/01 09:16 Order name: Basic Metabolic Panel; Complete Time: 10:25 rn 08/01 09:16 Order name: CBC with Diff; Complete Time: : rn 08/01 09:16 Order name: LFT's; Complete Time: 10: rn 08/01 09:16 Order name: NT PRO-BNP; Complete Time: 10: rn 08/01 09:16 Order name: Troponin HS; Complete Time: : rn 08/01 09:47 Order name: CBC Smear Scan; Complete Time: 10:25 EDMS 08/01 09:16 Order name: XRAY Chest (1 view); Complete Time: 10:51 rn 08/01 09:16 Order name: EKG; Complete Time: 09: rn 08/01 09:16 Order name: Cardiac monitoring; Complete Time: rn 08/01 09:17 Order name: EKG - Nurse/Tech; Complete Time: rn 08/01 09:17 Order name: IV Saline Lock; Complete Time: rn 08/01 09:17 Order name: Labs collected and sent; Complete Time: rn 08/01 09:17 Order name: O2 Per Protocol; Complete Time: rn 08/01 09:17 Order name: O2 Sat Monitoring; Complete Time: rn EC:37 Rate is 90 beats/min. Rhythm is regular. QRS [place] is Normal. DE interval is normal. QRS rn interval is normal. QT interval is normal. No Q waves. T waves are Normal. No ST changes noted. Clinical impression: NSR w/ Non-specific ST/T Changes. Interpreted by me. Reviewed by me. Administered Medications: No medications were administered Disposition Summary: 08/01/23 10:52 Discharge Ordered Notes: Location: Home rn Problem: new rn Symptoms: have improved rn Condition: Stable rn Diagnosis - Chest pain, unspecified rn Followup: rn - With: Private Physician - When: As needed - Reason: Recheck today's complaints, Re-evaluation by your physician Discharge Instructions: - Discharge Summary Sheet rn - Nonspecific Chest Pain, Adult rn Forms: - Medication Reconciliation Form rn - Thank You Letter rn - Antibiotic consumer insights intern - Prescription Opioid Use rn - Patient Portal Instructions rn - Leadership Thank You Letter rn Signatures: Dispatcher [employer] Jordi Holden MD MD rn Jaco, Norma, RN RN nj1
[2023-08-01 11:19] VITALS: BP 139/80; O2SAT 99
--- NOTE | 2023-08-06 14:33 | EKG ---
Test Date: 2023-08-01 Test Time: 10:24:30 Taxation Accountant: VLADIMIR MEASUREMENT RESULTS: Intervals: Rate: 90 HI: 172 QRSD: 120 QT: 400 QTc: 489 [place]: P: 62 HI: 172 QRS: 24 T: 49 INTERPRETIVE STATEMENTS: Normal sinus rhythm Left ventricular hypertrophy with QRS widening Nonspecific T wave abnormality Abnormal ECG Compared to ECG 08/30/2022 23:54:30 T-wave abnormality now present Prolonged QT interval no longer present Electronically Signed On 08-06-23 14:17:59 PAINTING SUPERVISOR by Naeem Sharma
== END 2023-08-01 11:10 | disposition home or self-care (01) ==
LOC: ER 09:10
DX: R07.89 Other chest pain (principal); I10 Essential (primary) hypertension; F41.9 Anxiety disorder, unspecified; Z85.3 Personal history of malignant neoplasm of breast; Z90.12 Acquired absence of left breast and nipple
CPT/HCPCS: 36415; 71045; 80048; 80076; 83880; 84484; 85025; 93005; 99283

== ENCOUNTER 2023-08-15 09:08 | Emergency (ER) | payer OTHER ==
--- OUTSIDE RECORDS SUMMARY | 2023-08-15 09:15 | XMS REPORT | Continuity of Care Document ---
:1970 Author Organization [facility] t Address [address] [place] [address] [place] [id number] Care Team Providers Name Role Phone El Keller Primary Care Physician El Keller Attending Clinician Unavailable Addy ARGUELLO, Mu Machado Attending Clinician [phone] Irwin Lipscomb MD Attending Clinician [phone] Sergio Delcid MD Attending Clinician SERGIO DELCID Attending Clinician Unavailable IVETH CARRILLO Attending Clinician Unavailable IRWIN LIPSCOMB Admitting Clinician Unavailable Payers Payer Name Policy Type Policy Number Effective Date Expiration Date S ource FOR C1 [id number] [facility] FOR C1 [id number] [facility] - [facility] FOR C1 [id number] [facility] LIFE [facility] FOR C1 [id number] [facility] FOR C1 [id number] [facility] Problems Condition Condition Condition Status Onset Resolution Last Treating Co mments Source Name Details Category Date Date Treatment Clinician Date Carotid Carotid Disease Active 2022-[address] stenosis stenosis [facility] Center Dizziness Dizziness Disease Active 2022-[address] [facility] Center Abnormal Abnormal Problem Commo n liver liver Spirit function function - [facility] Disorders Elevated Problem Comm on of bilirubin Spirit bilirubin - [facility] excretion 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 Severe Major Problem Common major depressive Spirit depression disorder, - C [place] , single single St episode, episode, [facility] without severe Medical psychotic without Center features psychotic features [id number] History of Problem Co mmon left Spirit mastectomy [facility] Alcoholic Alcoholic Problem Com mon fatty fatty Spirit liver liver - [facility] Anemia Anemia Problem Common Spirit [facility] [id number] Vitamin D Problem Comm on deficiency Spirit [facility] [id number] Alcohol Problem Common abuse [facility] [id number] Adult BMI Problem Com mon 33.0-33.9 Spirit kg/sq m [facility] Allergies, Adverse Reactions, Alerts Allergy Allergy Status Severity Reaction(s) Onset Inactive Treating Comm ents Source Name Type Date Date Clinician NO KNOWN Allergy Active [facility] Family History Family Member Diagnosis Comments Start Date Stop Date Source Natural mother Glaucoma [facility] Natural mother Hypert[facility] Social History Social Habit Start Date Stop Date Quantity Comments Source History of Tobacco [facility] - Use [facility] Sexual orientation [facility] Exposure to 2023-07-07 2023-07-17 Not sure [facility] SARS-CoV-2 (event) 00:00:00 16:07:00 [facility] Alcohol intake 2023-07-17 2023-07-17 [facility]:00 of alcohol [facility] Center (finding) [facility] [birth year] [facility] Smoking Status Start Date Stop Date Source Never Smoker [facility] Medications Ordered Filled Start Stop Current Ordering Indication Dosage Frequency Signature Comments Components Source Medication Medication Date Date Medication? Clinician (SIG) Name Name escitalopra 2022-09 Yes 10mg QD Take [address] m oxalate 0-24 tablet (10 Luke s (LEXAPRO) 10:10: mg total) Med ical 10 MG 51 by mouth Center tablet daily. lisinopriL 2022-09 Yes 10mg QD Take 1 [facility]I S t (PRINIVIL,Z 0-24 tablet (10 Meeta kes ESTRIL) 10 10:10: mg total) Me dical MG tablet 51 by mouth Center daily. cyanocobala 2022-09 Yes 500ug QD Take [address] min, 0-24 tablet [facility] vitamin 10:10: (500 mcg Medica l B-12, 500 51 total) by Cente r MCG tablet mouth daily. cholecalcif 2022-09 Yes [id number] Q7D Take [address] dimas, 0-24 tablet [facility] vitamin D3, 10:10: (50,000 Med ical 1,250 mcg 51 Units Center (50,000 total) by unit) Tab mouth once a week. carvediloL 2022-09 Yes 12.5mg Take [address] (COREG) 0-24 tablet [facility] 12.5 MG 10:10: (12.5 mg Medica l tablet 51 total) by Center mouth 2 (two) times daily with breakfast and dinner. cyanocobala 2022-09 Yes 500ug QD Take [address] min, 0-24 tablet [facility] vitamin 10:10: (500 mcg Medica l B-12, 500 51 total) by Cente r MCG tablet mouth daily. cholecalcif 2022-09 Yes [id number] Q7D Take [address] dimas, [...] tablet 51 by mouth Center daily. meclizine 2022-09- No 12.5mg Take [address] (ANTIVERT) 0-24 10-29 tablet [facility] 12.5 mg 00:00: 23:59 (12.5 mg Medic al tablet 00 :00 total) by Center mouth 3 (three) times daily as needed for Dizziness for up to 5 days. meclizine 2022-09 No 12.5mg Take 1 CHI [...] Vitamin D3 2021- No 1{capsu Vitamin D3 20760 UNIT 30523 UNIT 6-15 09-13 le} 33510 UNIT 00:00: 00:00 00 :00 Vitamin D3 Vitamin D3 2021-0 2022- No 1{capsu Vitamin D3 90330 UNIT 29927 UNIT 03-10 le} 55331 UNIT 00:00: 00:00 00 :00 Vitamin D3 Vitamin D3 2021-0 2022- No 1{capsu Vitamin D3 72008 UNIT 36053 UNIT 03-10 le} 66079 UNIT 00:00: 00:00 00 :00 Vitamin D3 Vitamin D3 202-0 2022- No 1{capsu Vitamin D3 99301 UNIT 94714 UNIT 03-10 le} 50676 UNIT 00:00: 00:00 00 :00 Vitamin D3 Vitamin D3 2021-0 2022- No 1{capsu Vitamin D3 99507 UNIT 56584 UNIT 03-10 le} 30309 UNIT 00:00: 00:00 00 :00 Vitamin D3 Vitamin D3 202-0 2022- No 1{capsu Vitamin D3 62601 UNIT 13593 UNIT 03-10 le} 43563 UNIT 00:00: 00:00 00 :00 ProAir HFA [...] 00:00: 00:00 - CHI 00 :00 [facility] Kenalog Kenalog 2018-0 No 40mg Common (Triamcinol (Triamcinol 4-03 S pirit one) one) 00:00: - [facility] 00 [facility] Kenalog Kenalog 0 No 40mg Common (Triamcinol (Triamcinol 4-03 S pirit one) one) 00:00: - [facility] 00 [facility] Kenalog Kenalog 2019-0 No 40mg Common (Triamcinol (Triamcinol 4-03 S pirit one) one) 00:00: - [facility] 00 [facility] Kenalog Kenalog 2019-0 No 40mg Common (Triamcinol (Triamcinol 4-03 S pirit one) one) 00:00: - [facility] 00 [facility] Kenalog Kenalog 2019-0 No 40mg Common (Triamcinol (Triamcinol 4-03 S pirit one) one) 00:00: - [facility] 00 [facility] Kenalog Kenalog 2019-0 No 40mg Common (Triamcinol (Triamcinol 4-03 S pirit one) one) 00:00: - [facility] 00 [facility] Kenalog Kenalog 2019-0 No 40mg Common (Triamcinol (Triamcinol 4-03 S pirit one) one) 00:00: - [facility] 00 [facility] Kenalog Kenalog 2019-0 No 40mg Common (Triamcinol (Triamcinol 4-03 S pirit one) one) 00:00: - [facility] 00 [facility] Kenalog Kenalog 2019-0 No 40mg Common (Triamcinol (Triamcinol 4-03 S pirit one) one) 00:00: - [facility] 00 [facility] Kenalog Kenalog 2019-0 No 40mg Common (Triamcinol (Triamcinol 4-03 S pirit one) one) 00:00: - [facility] 00 [facility] Kenalog Kenalog 2019-0 No 40mg Common (Triamcinol (Triamcinol 4-03 S pirit one) one) 00:00: - [facility] 00 [facility] Kenalog Kenalog 2019-0 No 40mg Common (Triamcinol (Triamcinol 4-03 S pirit one) one) 00:00: - [facility] 00 [facility] Kenalog Kenalog 2019-0 No 40mg Common (Triamcinol (Triamcinol 4-03 S pirit one) one) 00:00: - [facility] Kenalog Kenalog 2019-0 No 40mg Common (Triamcinol (Triamcinol 4-03 S pirit one) one) 00:00: - [facility] 00 [facility] Kenalog Kenalog 2019-0 No 40mg Common (Triamcinol (Triamcinol 4-03 S pirit one) one) 00:00: - [facility] Kenalog Kenalog 2019-0 No 40mg Common (Triamcinol (Triamcinol 4-03 S pirit one) one) 00:00: - [facility] 00 [facility] Kenalog Kenalog 2019-0 No 40mg Common (Triamcinol (Triamcinol 4-03 S pirit one) one) 00:00: - [facility] Kenalog Kenalog 2019-0 No 40mg Common (Triamcinol (Triamcinol 4-03 S pirit one) one) 00:00: - [facility] Kenalog Kenalog 2019-0 No 40mg Common (Triamcinol (Triamcinol 4-03 S pirit one) one) 00:00: - [facility] Kenalog Kenalog 2019-0 No 40mg Common (Triamcinol (Triamcinol 4-03 S pirit one) one) 00:00: - [facility] Kenalog Kenalog 2019-0 No 40mg Common (Triamcinol (Triamcinol 4-03 S pirit one) one) 00:00: - [facility] Kenalog Kenalog 2019-0 No 40mg Common (Triamcinol (Triamcinol 4-03 S pirit one) one) 00:00: - [facility] Kenalog Kenalog 2019-0 No 40mg Common (Triamcinol (Triamcinol 4-03 S pirit one) one) 00:00: - [facility] 00 [facility] Kenalog Kenalog 2019-0 No 40mg Common (Triamcinol (Triamcinol 4-03 S pirit one) one) 00:00: - [facility] Kenalog Kenalog 2019-0 No 40mg Common (Triamcinol (Triamcinol 4-03 S pirit one) one) 00:00: - [facility] Kenalog Kenalog 2019-0 No 40mg Common (Triamcinol (Triamcinol 4-03 S pirit one) one) 00:00: - [facility] 00 [facility] Diltiazem Diltiazem Yes El 1 tablet Common HCl HCl Keller before Spirit meals and - CHI at bedtime [facility] Lisinopril Lisinopril Yes El 1 tablet Common Keller [facility] Flonase Flonase Yes El 1 spray in C ommon Keller each [facility] nostril [facility] Advair Advair Yes El 1 puff Common Diskus Diskus Keller [facility] Duloxetine Duloxetine Yes El 1 capsule Common HCl HCl Keller [facility] Protonix Protonix Yes El TAKE ONE C ommon Keller TABLET BY [facility] MOUTH [facility] DAILY [facility] Ferrous Ferrous Yes El 1 tablet Com mon Sulfate Sulfate Keller [facility] ProAir HFA ProAir HFA Yes El 2 puffs as Common Keller needed [facility] Topiramate Topiramate Yes El 1 tablet Common Keller [facility] Wellbutrin Wellbutrin Yes El 1 tablet Common XL XL Keller in the [facility] morning [facility] DULoxetine DULoxetine No 1{capsu QD DULoxetine [...] D3 Vitamin D3 No 1{capsu Vitamin D3 70974 UNIT 42530 UNIT le} 89976 UNIT Wellbutrin Wellbutrin No 1{table QD Wellbutrin [...] D3 Vitamin D3 No 1{capsu Vitamin D3 74618 UNIT 07079 UNIT le} 45312 UNIT Wellbutrin Wellbutrin No 1{table QD Wellbutrin [...] D3 Vitamin D3 No 1{capsu Vitamin D3 95044 UNIT 62279 UNIT le} 76225 UNIT Wellbutrin Wellbutrin No 1{table QD Wellbutrin [...] D3 Vitamin D3 No 1{capsu Vitamin D3 04777 UNIT 16230 UNIT le} 09252 UNIT Wellbutrin Wellbutrin No 1{table QD Wellbutrin [...] D3 Vitamin D3 No 1{capsu Vitamin D3 05525 UNIT 88091 UNIT le} 95565 UNIT Wellbutrin Wellbutrin No 1{table QD Wellbutrin [...] D3 Vitamin D3 No 1{capsu Vitamin D3 72122 UNIT 09554 UNIT le} 58294 UNIT dilTIAZem dilTIAZem No 1{table BID dilTIAZem [...] D3 Vitamin D3 No 1{capsu Vitamin D3 28294 UNIT 35549 UNIT le} 26743 UNIT Escitalopra Escitalopra No Escitalopr m Oxalate m Oxalate am Oxalate 10 MG 10 MG 10 MG Lisinopril Lisinopril No Lisinopril 10 MG 10 MG 10 MG Vitamin D3 Vitamin D3 No 1{capsu Vitamin D3 59680 UNIT 64055 UNIT le} 65705 UNIT dilTIAZem dilTIAZem No 1{table BID dilTIAZem [...] D3 Vitamin D3 No 1{capsu Vitamin D3 22221 UNIT 07474 UNIT le} 63270 UNIT Lexapro 10 Lexapro 10 No 1{table [...] D3 Vitamin D3 No 1{capsu Vitamin D3 16168 UNIT 37914 UNIT le} 28665 UNIT Lexapro 10 Lexapro 10 No 1{table [...] D3 Vitamin D3 No 1{capsu Vitamin D3 08083 UNIT 00322 UNIT le} 66867 UNIT Lexapro 10 Lexapro 10 No 1{table [...] D3 Vitamin D3 No 1{capsu Vitamin D3 38247 UNIT 81201 UNIT le} 71170 UNIT Lexapro 10 Lexapro 10 No 1{table [...] D3 Vitamin D3 No 1{capsu Vitamin D3 03169 UNIT 26122 UNIT le} 82430 UNIT Lexapro 10 Lexapro 10 No 1{table [...] D3 Vitamin D3 No 1{capsu Vitamin D3 24858 UNIT 41706 UNIT le} 95214 UNIT Lexapro 10 Lexapro 10 No 1{table [...] D3 Vitamin D3 No 1{capsu Vitamin D3 10683 UNIT 94979 UNIT le} 43725 UNIT Lexapro 10 Lexapro 10 No 1{table [...] D3 Vitamin D3 No 1{capsu Vitamin D3 52956 UNIT 35621 UNIT le} 51896 UNIT Lexapro 10 Lexapro 10 No 1{table [...] D3 Vitamin D3 No 1{capsu Vitamin D3 56047 UNIT 12510 UNIT le} 49679 UNIT Lexapro 10 Lexapro 10 No 1{table [...] D3 Vitamin D3 No 1{capsu Vitamin D3 26392 UNIT 45441 UNIT le} 09838 UNIT Lexapro 10 Lexapro 10 No 1{table [...] [facility] weight 2022-11-30 14:40:00 171.1 [lb_av] [facility] temperature 2022-11-30 14:40:00 96.9 [degF] [facility] bmi 2022-11-30 14:40:00 31.8 kg/m2 [facility] oximetry 2022-11-30 14:40:00 98 % [facility] respiratory rate 2022-11-30 14:40:00 18 /min Comm on [facility] blood pressure 2022-11-30 14:40:00 129 mm[Hg] [facility] - systolic [facility] blood pressure 2022-11-30 14:40:00 62 mm[Hg] [facility] diastolic [facility] height 2022-11-10 15:20:00 61.5 [in_i] [facility] weight 2022-11-10 15:20:00 170 [lb_av] [facility] bmi 2022-11-10 15:20:00 31.6 kg/m2 [facility] height 2022-09-01 13:50:00 61.5 [in_i] [facility] weight 2022-09-01 13:50:00 170.1 [lb_av] [facility] temperature 2022-09-01 13:50:00 97.4 [degF] [facility] bmi 2022-09-01 13:50:00 31.62 kg/m2 [facility] oximetry 2022-09-01 13:50:00 97 % Common [facility] respiratory rate 2022-09-01 13:50:00 17 /min Comm on [facility] blood pressure 2022-09-01 13:50:00 137 mm[Hg] Common [facility] - systolic [facility] blood pressure 2022-09-01 13:50:00 71 mm[Hg] Common [facility] - diastolic [facility] height 2022-09-01 13:50:00 61.5 [in_i] Common [facility] weight 2022-09-01 13:50:00 170.1 [lb_av] [facility] temperature 2022-09-01 13:50:00 97.4 [degF] Common [facility] bmi 2022-09-01 13:50:00 31.62 kg/m2 [facility] oximetry 2022-09-01 13:50:00 97 % Common [facility] respiratory rate 2022-09-01 13:50:00 17 /min Comm on [facility] blood pressure 2022-09-01 13:50:00 137 mm[Hg] Common [facility] - systolic [facility] blood pressure 2022-09-01 13:50:00 71 mm[Hg] Common [facility] diastolic [facility] height 2022-07-07 14:40:00 61.5 [in_i] Common [facility] weight 2022-07-07 14:40:00 175.2 [lb_av] Common [facility] temperature 2022-07-07 14:40:00 97.8 [degF] Common [facility] bmi 2022-07-07 14:40:00 32.56 kg/m2 Common [facility] oximetry 2022-07-07 14:40:00 99 % [facility] respiratory rate 2022-07-07 14:40:00 18 /min Comm on [facility] blood pressure 2022-07-07 14:40:00 142 mm[Hg] [facility] - systolic [facility] blood pressure 2022-07-07 14:40:00 74 mm[Hg] [facility] - diastolic [facility] height 2022-05-25 11:00:00 61.5 [in_i] [facility] weight 2022-05-25 11:00:00 167 [lb_av] [facility] temperature 2022-05-25 11:00:00 97.9 [degF] Common S pirit [facility] bmi 2022-05-25 11:00:00 31.04 kg/m2 [facility] height 2022-03-10 08:00:00 61.5 [in_i] Common [facility] weight 2022-03-10 08:00:00 180 [lb_av] [facility] temperature 2022-03-10 08:00:00 97.9 [degF] Common S pirit [facility] bmi 2022-03-10 08:00:00 33.46 kg/m2 [facility] 2022-03-10 08:00:00 130 mm[Hg] [facility] - systolic [facility] blood pressure 2022-03-10 08:00:00 73 mm[Hg] [facility] - diastolic [facility] height 2021-07-01 08:00:00 61.5 [in_i] Common S pirit [facility] weight 2021-07-01 08:00:00 169 [lb_av] Common S pirit [facility] temperature 2021-07-01 08:00:00 97.5 [degF] Common S pirit [facility] bmi 2021-07-01 08:00:00 31.41 kg/m2 [facility] blood pressure 2021-07-01 08:00:00 121 mm[Hg] [facility] - systolic [facility] blood pressure 2021-07-01 08:00:00 70 mm[Hg] [facility] - diastolic [facility] Systolic blood 2023-07-19 08:29:00 177 mm[Hg] [facility] Diastolic blood 2023-07-19 08:29:00 77 mm[Hg] [facility] Heart rate 2023-07-19 08:29:00 78 /min [facility] Body temperature 2023-07-19 08:29:00 36.17 Silvia [facility] Respiratory rate 2023-07-19 08:29:00 18 /min [facility] Oxygen saturation in 2023-07-19 08:29:00 98 /min [facility] Arterial blood by Medical Ce nter Pulse oximetry Body height 2023-07-17 16:26:00 154.9 cm [facility] Body weight 2023-07-17 16:26:00 75.705 kg [facility] BMI 2023-07-17 16:26:00 31.54 kg/m2 [facility] Procedures Procedure Date / Time Performed Performing Clinician Sour e PROTHROMBIN TIME/INR 2023-07-19 04:30:00 Benny [facility] PHOSPHORUS 2023-07-19 04:30:00 Benny [facility] MAGNESIUM 2023-07-19 04:30:00 [facility] COMPREHENSIVE METABOLIC 2023-07-19 04:30:00 Benny Irwin [facility] PANEL [facility] CBC W/PLT COUNT & AUTO 2023-07-19 04:30:00 Benny [facility] DIFFERENTIAL [facility] CBC W/PLT COUNT & AUTO 2023-07-19 04:30:00 Benny [facility] S [facility] DIFFERENTIAL [facility] (CELLAVISION MANUAL DIFF) 2023-07-19 04:30:[address] [facility] PROTHROMBIN TIME/INR 2023-07-18 04:28:00 Benny, [facility] PHOSPHORUS 2023-07-18 04:28:00 Benny, [facility] MAGNESIUM 2023-07-18 04:28:00 Benny, [facility] COMPREHENSIVE METABOLIC 2023-07-18 04:28:00 Benny, [facility] CBC W/PLT COUNT & AUTO 2023-07-18 04:28:00 Benny, [facility] S [facility] DIFFERENTIAL [facility] CBC W/PLT COUNT & AUTO 2023-07-18 04:28:00 Benny, [facility] S [facility] (CELLAVISION MANUAL DIFF) 2023-07-18 04:28:00 Benny, [facility] CTA BRAIN 2023-07-18 01:06:08 Rober [facility] CTA CAROTID 2023-07-18 01:05:27 Rober [facility] ECG 12-LEAD 2023-07-17 17:02:48 Benny, [facility] ECG 12-LEAD 2023-07-17 17:02:48 Unknown, [facility] ECG 12-LEAD 2023-07-17 17:02:48 Unknown, [facility] PROTHROMBIN TIME/INR 2023-07-17 16:56:00 Benny, [facility] PHOSPHORUS 2023-07-17 16:56:00 Benny, [facility] MAGNESIUM 2023-07-17 16:56:00 Benny, [facility] COMPREHENSIVE METABOLIC 2023-07-17 16:56:00 Benny, [facility] CBC W/PLT COUNT & AUTO 2023-07-17 16:56:00 Benny, [facility] CBC W/PLT COUNT & AUTO 2023-07-17 16:56:00 Benny, [facility] S [facility] (CELLAVISION MANUAL DIFF) 2023-07-17 16:56:00 Benny, Irwin [facility] SARS-COV2/INFLUENZA/RSV 2023-07-17 16:51:[address] [facility] [facility] RT-PCR [facility] Plan of Care Planned Activity Planned Date Details Comments Source Future Scheduled 2023-05-27 Influenza Vaccine (#1) [facility] 00:00:00 [code = Influenza Vaccine Me dical Center (#1)] Future Scheduled 2023-05-27 Influenza Vaccine (#1) [facility] 00:00:00 [code = Influenza Vaccine Me dical Center (#1)] Future Scheduled 2022-09-[address] [facility] Test 00:00:00 (12+) [code = DEPRESSION Med ical Center SCREENING (12+)] Future Scheduled 2022-09-[address] [facility] Test 00:00:00 (12+) [code = DEPRESSION Med ical Center SCREENING (12+)] Future Scheduled 2021 SHINGLES VACCINES ([address] [facility] Test 00:00:00 2) [code = SHINGLES [facility] VACCINES (1 of 2)] Future Scheduled 2021 SHINGLES VACCINES ([address] [facility] Test 00:00:00 2) [code = SHINGLES [facility] VACCINES (1 of 2)] Future Scheduled 2016 Lipid panel (procedure) [facility] 00:00:00 [code = 96716532] Medical Ce nter Future Scheduled 2016 Lipid panel (procedure) [facility] Test 00:00:00 [code = 82527249] Medical Ce nter Future Scheduled 1992 Screening for malignant [facility] Test 00:00:00 neoplasm of cervix Medical C enter (procedure) [code = 939010934] Future Scheduled 1992 Screening for malignant [facility] Test 00:00:00 neoplasm of cervix Medical C enter (procedure) [code = 452242918] Future Scheduled 1990 DTAP/TDAP/TD VACCINES ([address] [facility] 00:00:00 - Tdap) [code = Medical Cent er DTAP/TDAP/TD VACCINES (1 - Tdap)] Future Scheduled 1990 DTAP/TDAP/TD VACCINES ([address] [facility] Test 00:00:00 - Tdap) [code = Medical Cent er DTAP/TDAP/TD VACCINES (1 - Tdap)] Future Scheduled 1989 HEPATITIS C [facility]CRE[facility]ING [facility] 00:00:00 [code = HEPATITIS C Medical Center SCREENING] Future Scheduled 1989 HEPATITIS C [facility]CRE[facility]ING [facility] 00:00:00 [code = HEPATITIS C Medical Center SCREENING] Future Scheduled 1986 Human immunodeficiency [facility] 00:00:00 virus screening Medical Cent er (procedure) [code = 456376397] Future Scheduled [address] Human immunodeficiency [facility] 00:00:00 virus screening Medical Cent er (procedure) [code = 357566741] Future Scheduled [address] [facility] Test 00:00:00 Counseling and Screening [facility] (12[facility] [code = Tobacco Cessation Counseling and Screening (12+)] Future Scheduled [address] [facility] Test 00:00:00 [facility]ing and Screening [facility] (12+) [code = Tobacco Cessation Counseling and Screening (12+)] Future Scheduled 1971 COVID-19 VACCINE (#1) [facility] 00:00:00 [code = COVID-19 VACCINE Med ical Center (#1)] Future Scheduled 1971 COVID-19 VACCINE (#1) [facility] 00:00:00 [code = COVID-19 [facility] (#1)] Future Scheduled 1970 Screening for malignant [facility] Test 00:00:00 neoplasm of breast Medical C enter (procedure) [code = 912570304] Future Scheduled 1971 CT Colonography (combo) [facility] Test 00:00:00 [code = CT Colonography [facility] (combo)] Future Scheduled 1971 Screening for malignant [facility] Test 00:00:00 neoplasm of colon Medical Ce nter (procedure) [code = 574116995] Future Scheduled 1971 Screening for malignant [facility] Test 00:00:00 neoplasm of breast Medical C enter (procedure) [code = 466445520] Future Scheduled 1971 CT Colonography (combo) [facility] Test 00:00:00 [code = CT Colonography [facility] (combo)] Future Scheduled 1971 Screening for malignant [facility] Test 00:00:00 neoplasm of colon Medical Ce nter (procedure) [code = 022970878] Future Scheduled 1971 Screening for malignant [facility] Test 00:00:00 neoplasm of colon Medical Ce nter (procedure) [code = 860029409] Future Scheduled 1971 Screening for malignant [facility] Test 00:00:00 neoplasm of colon Medical Ce nter (procedure) [code = 566795726] Future Scheduled 1971 Screening for malignant [facility] Test 00:00:00 neoplasm of colon Medical Ce nter (procedure) [code = 282508253] Future Scheduled 1971 Screening for malignant [facility] Test 00:00:00 neoplasm of colon Medical Ce nter (procedure) [code = 612405844] Future Scheduled 1970 Sigmoidoscopy [code = [facility]] Medical Cente r Future Scheduled 1971 Screening for malignant [facility] Test 00:00:00 neoplasm of colon Medical Ce nter (procedure) [code = 498311422] Future Scheduled 1971 Screening for malignant [facility] Test 00:00:00 neoplasm of colon Medical Ce nter (procedure) [code = 509632987] Future Scheduled 1970 Sigmoidoscopy [facility]code [facility]oscopy] Medical Cente r Encounters Start End Encounter Admission Attending Care Care Encounter Source Date/Time Date/Time Type Type Clinicians Facility Department ID 2023-07-28 Outpatient Keller, [facility] [id number] Common 11:17:00 El [address] [facility] 2023-06-14 Outpatient Keller, [facility] [id number] Common 10:04:00 El [address] [facility] 2023-05-31 Outpatient Keller [facility] [id number] Common 09:43:00 El [address] [facility] 2022-10-04 Outpatient Keller, STLMLC STLMLC [id number] Common 09:53:00 El 114[address] [facility] 2022-08-30 Outpatient Keller, STLMLC STLMLC [id number] Common 08:48:00 El [facility] 2022-08-17 Outpatient Keller, STLMLC STLMLC [id number] Common 16:40:00 El [facility] 2022-07-13 Outpatient Keller, STLMLC STLMLC [id number] Common 16:32:00 El [facility] 2022-06-08 Outpatient Keller, STLMLC STLMLC [id number] Common 08:22:00 El [facility] 2022-04-14 Outpatient Keller, STLMLC STLMLC [id number] Common 15:40:00 El [facility] 2022-01-15 Outpatient Keller, STLMLC STLMLC [id number] Common 11:23:01 El [facility] 2021-10-21 Outpatient Keller, STLMLC STLMLC [id number] Common 12:41:49 El [facility] 2021-10-21 Outpatient Keller, STLMLC STLMLC [id number] Common 12:41:24 El [address] [facility] 2021-10-21 Outpatient Keller, STLMLC STLMLC [id number] Common 12:02:23 El [address] [facility] 2021-10-21 Outpatient Keller, STLMLC STLMLC [id number] Common 11:45:58 El [address] [facility] 2021-10-21 Outpatient Keller, STLMLC STLMLC [id number] Common 11:37:50 El [address] [facility] 2023-07-17 2023-07-19 [facility] Mu Daly [facility] [id number] [facility] 15:50:00 10:10:00 Encounter Irwin Lipscomb [facility] Alex, Sergio [facility] ical [facility] 2023-07-17 2023-07-19 Outpatient ER ALEX, [facility] [id number] [facility] 15:50:00 10:10:00 SERGIO Jeremías 2023-07-17 2023-07-19 [facility] Mu Daly [facility] [id number] [facility] 15:50:00 10:10:00 Encounter Irwin Lipscomb amilcar Alex, Sergio [facility] 2023-07-17 2023-07-17 Outpatient MARIA ELENA GILBERT [facility] [id number] [facility] 21:49:40 21:49:40 [facility] 2023-07-17 2023-07-17 Outpatient MARIA ELENA GILBERT [facility] [id number] [facility] 21:49:33 21:49:33 [facility] 2023-07-17 2023-07-17 Orders [facility] [id number] 00:00:00 00:00:00 Only [facility] 2023-07-17 2023-07-17 Travel [facility] [id number] [facility] 00:[facility]00 00:00:00 [facility] 2023-07-17 2023-07-17 Orders [facility] [id number] 00:00:00 00:00:00 Only [facility] 2023-07-17 2023-07-17 Travel [facility] [id number] [facility] 00:[facility]00 00:00:00 [facility] 2022-12-08 2022-12-08 (TEL) STLMLC STLMLC [id number] Co mmon 00:00:00 00:00:00 Spirit - [facility] 2022-11-30 2022-11-30 OFFICE STLMLC STLMLC [id number] Co mmon 00:00:00 00:00:00 VISIT Spirit ESTAB PT - CHI LEVEL 4 [facility] 2022-11-29 2022-11-29 (TEL) STLMLC STLMLC [id number] Co mmon 00:00:00 00:00:00 [facility] 2022-11-10 2022-11-10 OFFICE STLMLC STLMLC [id number] Co mmon 00:00:00 00:00:00 VISIT Spirit ESTAB PT - CHI LEVEL 3 [facility] 2022-11-09 2022-11-09 (TEL) STLMLC STLMLC [id number] Co mmon 00:00:00 00:00:00 [facility] 2022-11-05 2022-11-05 (TEL) STLMLC STLMLC [id number] Co mmon 00:00:00 00:00:00 [facility] 2022-10-20 2022-10-20 (TEL) STLMLC STLMLC [id number] Co mmon 00:00:00 00:00:00 [facility] 2022-09-29 2022-09-29 (TEL) STLMLC STLMLC [id number] Co mmon 00:00:00 00:00:00 [facility] 2022-09-01 2022-09-01 OFFICE STLMLC STLMLC [id number] Co mmon 00:00:00 00:00:00 VISIT [facility] PT - CHI LEVEL 4 [facility] 2022-08-26 2022-08-26 (TEL) STLMLC STLMLC [id number] Co mmon 00:00:00 00:00:00 [facility] 2022-07-09 2022-07-09 (TEL) STLMLC STLMLC [id number] Co mmon 00:00:00 00:00:00 [facility] 2022-07-07 2022-07-07 (WELLNESS) STLMLC STLMLC [id number] Common 00:00:00 00:00:00 Wellness Spiri t [facility] 2022-07-05 2022-07-05 (TEL) STLMLC STLMLC [id number] Co mmon 00:00:00 00:00:00 [facility] 2022-06-08 2022-06-08 (TEL) STLMLC STLMLC [id number] Co mmon 00:00:00 00:00:00 [facility] 2022-06-07 2022-06-07 (TEL) STLMLC STLMLC [id number] Co mmon 00:00:00 00:00:00 [facility] 2022-05-25 2022-05-25 OFFICE STLMLC STLMLC [id number] Co mmon 00:00:00 00:00:00 VISIT EST Spir it PT LEVEL 3 [facility] 2022-05-24 2022-05-24 (TEL) STLMLC STLMLC [id number] Co mmon 00:00:00 00:00:00 [facility] 2022-04-28 2022-04-28 (TEL) STLMLC STLMLC [id number] Co mmon 00:00:00 00:00:00 [facility] 2022-04-28 2022-04-28 (TEL) STLMLC STLMLC [id number] Co mmon 00:00:00 00:00:00 [facility] 2022-04-14 2022-04-14 (TEL) STLMLC STLMLC [id number] Co mmon 00:00:00 00:00:00 [facility] 2022-04-08 2022-04-08 (TEL) STLMLC STLMLC [id number] Co mmon 00:00:00 00:00:00 [facility] 2022-04-05 2022-04-05 (TEL) STLMLC STLMLC [id number] Co mmon 00:00:00 00:00:00 [facility] 2022-03-10 2022-03-10 OFFICE STLMLC STLMLC [id number] Co mmon 00:00:00 00:00:00 VISIT [facility] PT [facility] LEVEL 4 [facility] 2022-02-26 2022-02-26 (TEL) STLMLC STLMLC [id number] Co mmon 00:00:00 00:00:00 [facility] 2022-02-16 2022-02-16 (TEL) STLMLC STLMLC [id number] Co mmon 00:00:00 00:00:00 [facility] 2021-10-12 2021-10-12 (TEL) STLMLC STLMLC [id number] Co mmon 00:00:00 00:00:00 [facility] 2021-07-20 2021-07-20 (TEL) STLMLC STLMLC [id number] Co mmon 00:00:00 00:00:00 [facility] 2021-07-14 2021-07-14 (TEL) STLMLC STLMLC [id number] Co mmon 00:00:00 00:00:00 [facility] 2021-07-10 2021-07-10 (TEL) STLMLC STLMLC [id number] Co mmon 00:00:00 00:00:00 [facility] 2021-07-02 2021-07-02 (TEL) STLMLC STLMLC [id number] Co mmon 00:00:00 00:00:00 [facility] 2021-07-01 2021-07-01 OFFICE STLMLC STLMLC [id number] Co mmon 00:00:00 00:00:00 VISIT [facility] [address] [facility] 2021-05-12 2021-05-12 Outpatient STLMLC STLMLC [id number] Common 00:00:00 00:00:00 [facility] 2021-05-08 2021-05-08 Outpatient STLMLC STLMLC [id number] Common 00:00:00 00:00:00 [facility] 2021-05-07 2021-05-07 Outpatient STLMLC STLMLC [id number] Common 00:00:00 00:00:00 [facility] 2021-05-06 2021-05-06 Outpatient STLMLC STLMLC [id number] Common 00:00:00 00:00:00 [facility] 2021-05-06 2021-05-06 Outpatient STLMLC STLMLC [id number] Common 00:00:00 00:00:00 [facility] 2021-05-05 2021-05-05 Outpatient STLMLC STLMLC [id number] Common 00:00:00 00:00:00 [facility] 2021-05-04 2021-05-04 Outpatient STLMLC STLMLC [id number] Common 00:00:00 00:00:00 [facility] 2021-02-05 2021-02-05 Outpatient STLMLC STLMLC [id number] Common 00:00:00 00:00:00 [facility] 2021-02-03 2021-02-03 Outpatient STLMLC STLMLC [id number] Common 00:00:00 00:00:00 [facility] 2021-02-02 2021-02-02 Outpatient STLMLC STLMLC [id number] Common 00:00:00 00:00:00 [facility] 2021-02-02 2021-02-02 Outpatient STLMLC STLMLC [id number] Common 00:00:00 00:00:00 [facility] 2021-02-02 2021-02-02 Outpatient STLMLC STLMLC [id number] Common 00:00:00 00:00:00 [facility] 2020-12-11 2020-12-11 Outpatient STLMLC STLMLC [id number] Common 00:00:00 00:00:00 [facility] 2020-08-19 2020-08-19 Outpatient STLMLC STLMLC [id number] Common 00:00:00 00:00:00 [facility] 2020-07-29 2020-07-29 Outpatient STLMLC STLMLC [id number] Common 00:00:00 00:00:00 [facility] 2020-06-30 2020-06-30 Outpatient STLMLC STLMLC [id number] Common 00:00:00 00:00:00 [facility] 2020-06-17 2020-06-17 Outpatient STLMLC STLMLC [id number] Common 00:00:00 00:00:00 [facility] 2020-06-11 2020-06-11 [facility] [id number] Common 09:59:00 09:59:[address] [facility] 2020-06-10 2020-06-10 [facility] [id number] Common 14:10:00 14:10:[address] [facility] 2020-05-12 2020-05-12 [facility] [id number] Common 13:00:00 13:00:[address] [facility] 2019-06-19 2019-06-19 [facility] [id number] Common 10:50:00 10:50:[address] [facility] 2019-04-27 2019-04-27 [facility] [id number] Common 08:15:00 08:15:[address] [facility] 2018-12-27 2018-12-27 [facility] [id number] Common 14:15:00 14:15:[address] [facility] 2018-12-27 2018-12-27 [facility] [id number] Common 10:32:00 10:32:[address] [facility] 2018-12-20 2018-12-20 [facility] [id number] Common 11:15:00 11:15:[address] [facility] 2018-11-09 2018-11-09 [facility] [id number] Common 11:26:00 11:26:[address] [facility] 2018-05-12 2018-05-12 [facility] [id number] Common 09:09:00 09:09:[address] [facility] 2018-02-07 2018-02-07 [facility] [id number] Common 09:00:00 09:00:00 [facility] [employer] Spir it [facility] Results Test Description Test Time Test [...] s not applicable for dialysis cynthia biggs Mother Superior ID - emOperator ID - emSpecimen moderately [...] CONCENTRATION Decreased (CELLAVISION)(BEAKER) (test code = 3438) Mother Superior ID - [id number] ID - Lencho comments: Slide comments:CBC W/PLT COUNT & AUTO [id number] 05:56:14 Test Item Value Reference Range Interpretation [...] 0-0 CELLS (BEAKER) (test code = 413) [id number] 05:47:44 Test Item Value Reference Range Interpretation Comments PHOSPHORUS (BEAKER) (test code = 2.4 mg/dL 2.3-4.7 604) Mother [facility] ID - [id number] 05:47:43 Test Item Value Reference Range Interpretation Comments MAGNESIUM (BEAKER) (test code = 1.4 mg/dL 1.6-2.6 L 627) Mother Superior ID - emPROTHROMBIN [id number] 05:17:08 Test Item Value Reference Range Interpretation [...] K/uL 0.00-0.00 H (CELLAVISION)(BEAKER) (test code = 2858) TOTAL COUNTED (BEAKER) (test code 100 = 1351) MANUAL NRBC PER 100 CELLS (BEAKER) 3 /100 WBC 0-0 H (test code = 1353) RBC MORPHOLOGY (BEAKER) (test code Normal = 762) PLT MORPHOLOGY (BEAKER) (test code Normal = 486) SMUDGE CELLS (BEAKER) (test code = Present 1371) ARTIFACT (CELLAVISION)(BEAKER) Present (test code = 3432) PLATELET CONCENTRATION Decreased (CELLAVISION)(BEAKER) (test code = 3438) Mother [facility] ID - [id number] ID - Lencho comments: Slide comments:CBC W/PLT COUNT & AUTO [id number] 05:45:13 Test Item Value Reference Range Interpretation [...] 0-0 CELLS (BEAKER) (test code = 413) [id number] 05:43:04 Test Item Value Reference Range Interpretation Comments MAGNESIUM (BEAKER) (test code = 1.6 mg/dL 1.6-2.6 627) Mother [facility] ID - [id number] 05:43:04 Test Item Value Reference Range Interpretation Comments PHOSPHORUS (BEAKER) (test code = 2.7 mg/dL 2.3-4.7 604) Mother Superior ID - ADMINCOMPREHENSIVE METABOLIC [id number] 05:43:04 Test Item Value Reference Range Interpretation [...] 6-55 (BEAKER) (test code = 347) EGFR (SCOUTAKER) 112 Interpretatio n of eGFR (test code = 1092) mL/min/1.[address] age Description sq m Result G1 Luz l or high >=90 G2 Mildly decreased 60-89 G3a Mildl y to moderately 45-5 9 G3b Moderately to s everely 30-44 G4 Severl y decreased 15-29 G5 Kidney failure <15Reported eGF R is based on the CKD-EPI 202 equation that d oes not use a race coefficientEsti mated GFR is not as accur ate as Creatinine Jane serge in predicting glom erular filtration rate . Estimated GFR is not appl icable for dialysis patien ts Mother Superior ID - ADMINSpecimen moderately ictericPROTHROMBIN TIME/[id number] 05:32:55 Test Item Value Reference Range Interpretation Comments PROTIME (KHADAR) (test code = 19.9 seconds 11.9-14.2 H 759) INR (KHADAR) (test code = 370) 1.72 <=5.90 RECOMMENDED COUMADIN/WARFARIN INR THERAPY RANGESSTANDARD DOSE: 2.0 - 3.0 Includes: PROPHYLAXIS for venous thrombosis, systemic embolization; TREATMENT for venous thrombosis and/or pulmonary embolus.HIGH RISK: Target INR is 2.5-3.5 for patients with mechanical heart valves.CTA [id number] 03:58:53 [facility] 1970 Sex: FCTA BRAIN, CTA CAROTIDBRAIN CT WITHOUT CONTRASTINDICATION: Carotid artery stenosisCOMPARISON: NoneTECHNIQUE:Rapid acquisition spiral images were obtained between the aortic archand the cranial vertex during intravenous contrast infusion toreconstruct axial images and angiographic 3D maximum intensityprojections (MIP). 3-D volumetric reformatted images were created at [employer] workstation. Precontrast images of the brain were [...] Alex Rob07/18/2023 04:01 CDTWorkstation Name: [id number] CTA [id number] 03:58:53 [facility] CENTERName: DOREEN ALLISON : 1970 Sex: FCTA BRAIN, CTA CAROTIDBRAIN CT WITHOUT CONTRASTINDICATION: Carotid artery stenosisCOMPARISON: NoneTECHNIQUE:Rapid acquisition spiral images were obtained between the aortic archand the cranial vertex duringintravenous contrast infusion toreconstruct axial images and angiographic 3D maximum intensityprojections (MIP). 3-D volumetric reformatted images were created at [employer] workstation. Precontrast images of the brain were alsoobtained. Stenosis evaluation reported in compliance with NASCET criteria.DOSE REDUCTION: Dose modulation, iterative reconstruction, and/orweight-based adjustment of the mA/kVwas utilized to reduce theradiation dose to as low as reasonably achievable.FINDINGS:CT BRAIN:Cerebral parenchyma: Unremarkable.Midline structures: Normally positioned.Cerebellum and brainstem: Normal.Ventricles: Normal volume.Extra-axial spaces: Unremarkable.Calvarium and skull base: Intact.Paranasalsinuses and mastoid air cells: Visible chambers are clear.Orbital contents: Included portions unremar kable.CTA BRAIN:Internal carotid arteries: Petrous, cavernous and supraclinoid portionspatent. Thereis moderate atherosclerotic stenosis of the left carotidterminus.Middle cerebral arteries: Patent todistal branches. There isatherosclerotic irregularity of the bilateral M1 portions.Anterior cerebral arteries: Patent. Intact A-comm.Basilar system: Patent vertebrobasilar system.Posterior cerebral arteries:Patent beyond the quadrigeminal segments.Venous opacification: Major dural sinuses unremarkablefor bolus timing.Additional findings: None.CTA NECK:Common carotid arteries: [...] irregularity of the bilateral M1 portions ofthe MCAs.Elect ronically Signed By: Alex Rob07/18/2023 04:01 CDTWorkstation Name: [id number] SARS-CoV2/Influenza/RSV [id number] 18:08:34 Test Item Value Reference Interpretation Comments Range SARS-COV2/RT-PCR Negative Negative The SARS-Co V-2 (test code = target nucleic 22262-4) acids are not detected in thi s specimen. Nega tive results do not preclude SARS-C oV-2 infection [...] om SARS-CoV-2 in a nasopharyngeal swab specimen [facility] from individual s suspected of COVID-19 by the ir healthcare provider. Influenza A RT-PCR Negative Negative The Flu A target (test code = [place] [address]11-7) not detected in this specimen. Influenza B RT-PCR Negative Negative The Flu B target (test code = [place] 92687-4) not detected in this specimen. RSV by RT-PCR (test Negative Negative The RSV target code = 06766-0) nucleic acid s are not detected in [...] SARS-CoV-2/Flu/RSV by their healthcare provider. Results from [facility] SARS-CoV-2/Flu/RSV test [...] the Act. Fact Sheet for Healthcare Providers:https://w [employer]/Docu ments/Xpert%20Xpres s%20SARS%20CoV-2/Fa ct%20Sheets/302-390 2%15JXKV-WLF-5%20HE ALTHCARE%20PROVIDER S%20FACT%20SHEET.pd f Fact Sheet for Healthcare Patients:https://[employer]/Docum ents/Xpert%20Xpress %20SARS%20Cov-2/Fac t%20Sheets/302-3801 %78DEHO-BRH-1%20PAT IENT%20FACT%20SHEET .pdf Lab Interpretation Normal (test code = 70824-1) [facility] [id number] 18:08:34 Test Item Value Reference Interpretation Comments Range SARS-COV2/RT-PCR Negative Negative The SARS-Co V-2 (test code = target nucleic 11024-9) acids are not detected in thi s [...] (test code = [place] 666[address]-4) not detected in this specimen. Influenza B RT-PCR Negative Negative The Flu B target (test code = [place] [address]48-1) not detected in this specimen. RSV by RT-PCR (test Negative Negative The RSV target code = 04188-0) nucleic acid s are not detected in [...] SARS-CoV-2/Flu/RSV by their healthcare provider. Results from [facility] Xpert Xpress SARS-CoV-2/Flu/RSV test should be [...] the Act. Fact Sheet for Healthcare Providers:https://w [employer]/Docu ments/Xpert%20Xpres s%20SARS%20CoV-2/Fa ct%20Sheets/302-390 2%71GDUH-GAZ-3%20HE ALTHCARE%20PROVIDER S%20FACT%20SHEET.pd f Fact Sheet for Healthcare Patients:https://[employer]/Docum ents/Xpert%20Xpress %20SARS%20Cov-2/Fac t%20Sheets/302-3801 %89ETZN-QNR-8%20PAT IENT%20FACT%20SHEET .pdf Lab Interpretation Normal (test code = 05813-7) [facility]/RSV [id number] 18:08:34 Test Item Value Reference Range Interpretation Comments SARS-COV2/RT-PCR Negative Negative The SARS-Co V-2 target (test code = nucleic acids a re not 0320545) detected in thi s specimen. Negat geri [...] individuals taylor pected of COVID-19 by the [facility] ide. INFLUENZA A RT-PCR Negative Negative The Flu A target nucleic (test code = acids are not d etected in 19101030) this specimen. INFLUENZA B RT-PCR Negative Negative The Flu B target nucleic (test code = acids are not d etected in 19101031) this specimen. RSV RT-PCR (test Negative Negative The RSV tar get nucleic code = 5250201) acids are no t detected in this [...] of the Act.Fact Sheet for Healthcare Providers:https ://www.[employer]/Documents/Xpert%20Xpress%20SARS%20CoV-2/Fact%20Sheets/302-390 2%69BIVL-EPK-6%20HEALTHCARE%20PROVIDERS%20FACT%20SHEET.pdfFact Sheet for Healthcare Patients:https://www.[employer]/Docum ents/Xpert%20Xpress%20SARS%20Cov-2/Fact%20Sheets/302-3801%92UXYV-GHF-6%20PATIENT %20FACT%20SHEET.pdf(CELLAVISION MANUAL DIFF)2023-07-17 17:39:54 Test Item Value [...] CONCENTRATION Decreased (CELLAVISION)(BEAKER) (test code = 3438) Mother Superior ID - [id number] ID - JILLUser comments: Slide comments:CBC W/PLT COUNT & AUTO [id number] 17:39:16 Test Item Value Reference Range Interpretation [...] 0-0 (test code = 413) COMPREHENSIVE METABOLIC [id number] 17:21:44 Test Item Value Reference Range Interpretation [...] not appl icable for dialysis patien ts Mother [facility] ID - MARCOSpecimen slightly [id number] 17:21:43 Test Item Value Reference Range Interpretation Comments PHOSPHORUS (BEAKER) (test code = 2.9 mg/dL 2.3-4.7 604) Mother Superior ID - [id number] 17:21:43 Test Item Value Reference Range Interpretation Comments MAGNESIUM (BEAKER) (test code = 1.7 mg/dL 1.6-2.6 627) Mother Superior ID - MARCOPROTHROMBIN TIME/[id number] 17:19:16 Test Item Value Reference Range Interpretation Comments PROTIME (BEAKER) (test code = 18.8 seconds 11.9-14.2 H 759) INR (BEAKER) (test code = 370) 1.60 <=5.90 RECOMMENDED COUMADIN/WARFARIN INR THERAPY RANGESSTANDARD DOSE: 2.0 - 3.0 Includes: PROPHYLAXIS for venous thrombosis, systemic embolization; TREATMENT for venous thrombosis and/or pulmonary embolus.HIGH RISK: Target INR is 2.5-3.5 for patients with mechanical heart valves.[id number] 00:00:00 Test Item Value Reference Range Interpretation Comments FERRITIN (test code = 133 NG/ML See_Comment [Auto mated message] 27846-5) The system [employer] generated this result transmitted ref erence range: 13-200 N G/ML. The reference r hazel was not used to int erpret this result as normal/abnormal . VITAMIN D, 25 [id number] 00:00:00 Test Item Value Reference Range Interpretation Comments VITAMIN D, 25 OH (test code = 28 NG/ML SEE BELOW NG/ML L 1988-) PATHOLOGIST SMEAR [id number] 00:00:00 Test Item Value Reference Range Interpretation Comments BASOPHILS (test code 0.4 % = 57886-6) DIAGNOSIS: (test (NOTE) code = 55237-3) COMMENTS (test code (NOTE) = 98256-7) EOSINOPHILS (test 0.8 % code = 51215-3) HEMATOCRIT (test 31.9 % See_Comment L [Automated message] code = 90189-1) The system [employer] [facility] generated this result transmit shanda reference range : 34.0-45.0 %. Th e reference range was not used to interpret this result as normal/abnormal . HEMOGLOBIN (test 10.7 G/DL See_Comment L [Automated message] code = 718-7) The system [facility] generated this result transmit shanda reference range : 11.5-15.5 G/DL. The reference range was not used to interpret this result as normal/abnormal . LYMPHOCYTES (test 19.8 % code = 75631-8) MCH (test code = 33.0 PG See_Comment [Automated message] 12263-0) The system [employer] generated this result transmit shanda reference range : 25.0-33.0 PG. T he reference range was not used to interpret this result as normal/abnormal . MCHC (test code = 33.5 G/DL See_Comment [Automate d message] 34660-3) The system [facility] [employer] generated this result transmit shanda reference range : 31.0-36.0 G/DL. The reference range was not used to interpret this result as normal/abnormal . MCV (test code = 98.5 fL See_Comment [Automated message] 10653-5) The system [facility] generated this result transmit shanda reference range : 80.0-99.0 fL. T he reference range was not used to interpret this result as normal/abnormal . MONOCYTES (test code 6.0 % = 64048-1) NEUTROPHILS (test 72.2 % code = 26097-3) NUCLEATED RBCS (test 0.0 /100 WBC'S See_Comment [Aut omated message] code = 71182-6) The system [employer] generated this result transmit shanda reference range : 0.0 /100 WBC'S. The reference range was not used to interpret this result as normal/abnormal . PATHOLOGIST: (test (NOTE) code = 25295-3) PLATELET COUNT (test 26 K/UL See_Comment L [Autom ated message] code = 14049-8) The system [employer] generated this result transmit shanda reference range : 130-400 K/UL. T he reference range was not used to interpret this result as normal/abnormal . RBC (test code = 3.24 M/UL See_Comment L [Automated message] 11287-0) The system [employer] generated this result transmit shanda reference range : 3.80-5.40 M/UL. The reference range was not used to interpret this result as normal/abnormal . RDW (test code = 14.5 % See_Comment [Automated message] 97539-2) The system [employer] generated this result transmit shanda reference range : 11.5-15.0 %. Th e reference range was not used to interpret this result as normal/abnormal . WBC (test code = 2.5 K/UL See_Comment L [Automated message] 67078-1) The system [employer] generated this result transmit shanda reference range : 3.5-11.0 K/UL. The reference range was not used to interpret this result as normal/abnormal . COMPREHENSIVE METABOLIC [id number] 00:00:00 Test Item Value Reference Range Interpretation Comments ALBUMIN (test code = 4.4 G/DL See_Comment [Autom ated message] 1751-7) The system [employer] generated this result transmit shanda reference range : 3.5-5.2 G/DL. T he reference range was not used to interpret this result as normal/abnormal . ALKALINE PHOSPHATASE 140 U/L See_Comment H [Autom ated message] (test code = 6768-6) The [employer] which generated this result transmit shanda reference range : 40-132 U/L. The reference range was not used to interpret this result as normal/abnormal . BILIRUBIN, TOTAL 6.4 MG/DL See_Comment H [Automated message] (test code = 1974-2) The [facility] tem which generated this result transmit shanda reference range : <=1.2 MG/DL. Th e reference range was not used to interpret this result as normal/abnormal . BUN (test code = 5 MG/DL See_Comment L [Automated message] 3094-0) The system [facility] generated this result transmit shanda reference range : 6-20 MG/DL. The reference range was not used to interpret this result as normal/abnormal . CALCIUM (test code = 8.9 MG/DL See_Comment [Autom ated message] 15607-3) The system [facility] generated this result transmit shanda reference range : 8.5-10.5 MG/DL. The reference range was not used to interpret this result as normal/abnormal . CALC A/G RATIO (test 1.3 RATIO See_Comment [Autom ated message] code = 1759-0) The system [facility] generated this result transmit shanda reference range : 1.0-2.6 RATIO. The reference range was not used to interpret this result as normal/abnormal . CALC BUN/CREAT (test 11 RATIO See_Comment [Autom ated message] code = 3097-3) The system [facility] generated this result transmit shanda reference range : 6-28 RATIO. The reference range was not used to interpret this result as normal/abnormal . CALC GLOBULIN (test 3.3 G/DL See_Comment [Automa shanda message] code = 05198-5) The system [facility] generated this result transmit shanda reference range : 1.9-3.7 G/DL. T he reference range was not used to interpret this result as normal/abnormal . CARBON DIOXIDE (test 23 MEQ/L See_Comment [Autom ated message] code = 1963-8) The system [facility] generated this result transmit shanda reference range : 19-31 MEQ/L. Th e reference range was not used to interpret this result as normal/abnormal . CHLORIDE (test code 100 MEQ/L See_Comment [Automa shanda message] = 2074-0) The system [facility] generated this result transmit shanda reference range : 95-107 MEQ/L. T he reference range was not used to interpret this result as normal/abnormal . CREATININE (test 0.46 MG/DL See_Comment L [Automated message] code = 2160-0) The system [employer] generated this result transmit shanda reference range : 0.60-1.30 MG/DL . The reference range was not used to interpret this result as normal/abnormal . eGFR (2020 CKD-EPI) 115 See_Comment [Automa shanda message] (test code = ML/MIN/1.73 The system [employer] 24389-0) generated this result transmit shanda reference range : >60 ML/MIN/1.73. Th e reference range was not used to interpret this result as normal/abnormal . GLUCOSE (test code = 101 MG/DL See_Comment H [Autom ated message] 1558-6) The system [employer] generated this result transmit shanda reference range : 70-99 MG/DL. Th e reference range was not used to interpret this result as normal/abnormal . POTASSIUM (test code 2.8 MEQ/L See_Comment L [Autom ated message] = 2823-3) The system [employer] generated this result transmit shanda reference range : 3.5-5.4 MEQ/L. The reference range was not used to interpret this result as normal/abnormal . PROTEIN, TOTAL (test 7.7 G/DL See_Comment [Autom ated message] code = 2885-2) The system [employer] generated this result transmit shanda reference range : 6.1-8.3 G/DL. T he reference range was not used to interpret this result as normal/abnormal . AST (test code = 60 U/L See_Comment H [Automated message] 1920-8) The system [employer] generated this result transmit shanda reference range : 9-40 U/L. The reference range was not used to interpret this result as normal/abnormal . ALT (test code = 28 U/L See_Comment [Automated message] 1742-6) The system [employer] generated this result transmit shanda reference range : 5-40 U/L. The reference range was not used to interpret this result as normal/abnormal . SODIUM (test code = 138 MEQ/L See_Comment [Automa shanda message] 2951-2) The system [employer] generated this result transmit shanda reference range : 133-146 MEQ/L. The reference range was not used to interpret this result as normal/abnormal . STREP A [id number] 00:00:00 Test Item Value Reference Range Interpretation Comments Result (test code = 53486-3) NEGATIVE POC, COVID 19 Antigen + Flu by SofiaPOC, COVID 19 Antigen + Flu by Snehal
[2023-08-15] MEDS ORDERED: NA CHLORIDE 0.9% 1,000 ML ONE (09:39)
[2023-08-15 09:56] LABS: Absolute Lymphocytes (CBC) 0.7 K/uL (0.7-4.9); Hematocrit 31.5 % (36.0-45.0); Lymphocytes % 20.9 % (15.3-44.8); MCV 97.9 fL (80-100); MPV 7.7 fL (7.6-11.3); Platelets 35 thou/uL (152-406); RBC Red Blood Cell Count 3.22 M/uL (3.86-4.86)
[2023-08-15 10:01] LABS: SARS-CoV-2 Antigen Rapid Res Negative (Negative)
--- NOTE | 2023-08-15 10:27 | RAD REPORT ---
EXAM DESCRIPTION: Jazmyn Single View08/15/2023 9:45 am CLINICAL HISTORY: Chest pain COMPARISON: August 01, 2023 FINDINGS: The lungs appear clear of acute infiltrate. The heart is mildly enlarged IMPRESSION: No acute abnormalities displayed
[2023-08-15 10:52] LABS: Blood Morphology Comment NOT SEEN (NOT SEEN); Platelet Estimate DECR; White Blood Cell Scan OK (OK)
[2023-08-15 12:09] LABS: Potassium 2.7 mEq/L (3.5-5.1); Troponin High Sensitivity 9.6 pg/mL (<58.9)
--- NOTE | 2023-08-15 12:15 | ER ---
Nurse's Notes [facility] Name: Doreen Allison Age: 53 yrs Sex: Female : 1970 Arrival Date: 08/15/2023 Time: 09:08 Bed 15 Private MD: Diagnosis: Dehydration;Hypokalemia;Acute bronchitis, unspecified;Viral Syndrome Presentation: 08/15 09:14 Chief complaint: Patient states: chest soreness , n/v on Tuesday , fever, body aches , iw chills, h/a, sore throat. Coronavirus screen: Client presents with at least one sign or symptom that may indicate coronavirus-19. Ebola Screen: Patient negative for fever greater than or equal to 101.5 degrees Fahrenheit, and additional compatible Ebola Virus Disease symptoms Patient denies exposure to infectious person. Patient denies travel to an Ebola-affected area in the 21 days before illness onset. No symptoms or risks identified at this time. Initial Sepsis Screen: Does the patient meet any 2 criteria? No. Patient's initial sepsis screen is negative. Does the patient have a suspected source of infection? No. Patient's initial sepsis screen is negative. Risk Assessment: Do you want to hurt yourself or someone else? Patient reports no desire to harm self or others. Onset of symptoms was August 13, 2023. 09:14 Method Of Arrival: Ambulatory iw 09:14 Acuity: LARRY 3 iw Historical: - Allergies: 09:16 No Known Allergies; iw - Home Meds: 09:15 carvedilol 12.5 mg Oral tablet 2 times per day [Active]; escitalopram oxalate 10 mg iw Oral tablet daily [Active]; lisinopril 10 mg Oral tablet daily [Active]; Potassium Chloride Oral daily [Active]; - PMHx: 09:15 Anemia; Anxiety; breast cancer; depressive disorder; Hypertensive disorder; PTSD; iw - PSHx: 09:15 Left Mastectomy; right foot; iw - Immunization history:: Adult Immunizations unknown. - Social history:: Smoking status: Patient denies any tobacco usage or history of. Screenin:43 [facility] ED Fall Risk Assessment (Adult) History of falling in the last 3 months, db including since admission No falls in past 3 months (0 pts) Confusion or Disorientation No (0 pts) Intoxicated or Sedated No (0 pts) Impaired Gait No (0 pts) Mobility Assist Device Used No (0 pt) Altered Elimination No (0 pt) Score/Fall Risk Level 0 - 2 = Low Risk Oriented to surroundings, Maintained a safe environment. Abuse screen: Denies threats or abuse. Denies injuries from another. Nutritional screening: No deficits noted. Tuberculosis screening: No symptoms or risk factors identified. Assessment: 09:35 Reassessment: Patient appears in no apparent distress at this time. Patient and/or db family updated on plan of care and expected duration. Pain level reassessed. Patient is alert, oriented x 3, equal unlabored respirations, skin warm/dry/pink. General: Appears in no apparent distress. comfortable, Behavior is calm, cooperative. Pain: Complains of pain in chest Pain does not radiate. Pain began gradually. Neuro: Level of Consciousness is awake, alert, obeys commands, Oriented to person, place, time, situation, Appropriate for age. Cardiovascular: Reports chest pain. Respiratory: No deficits noted. Airway is patent Respiratory effort is even, unlabored, Respiratory pattern is regular, agonal. 09:42 Reassessment: Patient appears in no apparent distress at this time. XRAY AT BEDSIDE. db 11:35 Reassessment: Patient appears in no apparent distress at this time. Patient and/or db family updated on plan of care and expected duration. Pain level reassessed. Patient is alert, oriented x 3, equal unlabored respirations, skin warm/dry/pink. Patient states feeling better. Patient states symptoms have improved. 12:57 Reassessment: Patient appears in no apparent distress at this time. Patient and/or db family updated on plan of care and expected duration. Pain level reassessed. Patient is alert, oriented x 3, equal unlabored respirations, skin warm/dry/pink. Patient states feeling better. Patient states symptoms have improved. Vital Signs: 09:14 BP 161 / 85; Pulse 104; Resp 18; Pulse Ox 95% on R/A; iw 09:35 BP 135 / 83; Pulse 88; Resp 16; Pulse Ox 100% on R/A; db 10:00 BP 125 / 67; Pulse 85; Resp 18; Pulse Ox 100% on R/A; db 10:30 BP 136 / 71; Pulse 86; Resp 18; Pulse Ox 100% on R/A; db 11:00 BP 138 / 70; Pulse 88; Resp 18; Pulse Ox 99% on R/A; db 12:00 BP 144 / 66; Pulse 89; Resp 18; Pulse Ox 99% on R/A; db ED Course: 09:11 Patient arrived in ED. mg5 09:12 Falguni Ocasio FNP is [facility] j[facility] 09:12 Nilesh Hdez MD is Attending Physician. 7 09:15 Triage completed. iw 09:16 Arm band placed on. iw 09:18 Ursula Orozco, RN is Primary Nurse. db 09:35 Inserted saline lock: 20 gauge in right antecubital area, using aseptic technique. db Blood collected. 09:44 Patient has correct armband on for positive identification. Bed in low position. Call db light in reach. Side rails up X 1. Client placed on continuous cardiac and pulse oximetry monitoring. NIBP monitoring applied. 09:46 XRAY Chest (1 view) In Process Unspecified. EDMS 12:57 Provided Education on: DISCHARGE. db 12:57 No provider procedures requiring assistance completed. IV discontinued, intact, db bleeding controlled, No redness/swelling at site. Patient maintains SpO2 saturation greater than 95% on room air. Administered Medications: 09:36 Drug: NS 0.9% IV 1000 ml IV at 1 bolus Per protocol; 1000 mL bolus Route: IV; Rate: 1 db bolus; Site: right antecubital; 12:58 Follow up: Response: No adverse reaction; IV Status: Completed infusion; IV Intake: db 1000ml 12:28 Drug: Potassium PO Effervescent Tablet 50 mEq PO once; dissolve in 4 ounces of water or db juice Route: PO; 12:58 Follow up: Response: No adverse reaction db Medication: 09:44 VIS not applicable for this client. db Intake: 12:58 IV: 1000ml; Total: 1000ml. db Outcome: 12:15 Discharge ordered by . jh7 12:54 Patient left the ED. ld1 12:57 Discharged to home ambulatory, db 12:57 Condition: stable 12:57 Discharge instructions given to patient, Instructed on discharge instructions, follow up and referral plans. Prescriptions given X 2, Signatures: Dispatcher [employer] EDMS Candi Paul RN RN iw Nissa Richardson RN RN ld1 Falguni Ocasio FNP [facility]7 Ursula Orozco, BARBI RN db Pat Guaman mg5
--- NOTE | 2023-08-15 12:15 | EDPHYS ---
Physician Documentation [facility] Name: Doreen Allison Age: 53 yrs Sex: Female : 1970 Arrival Date: 08/15/2023 Time: 09:08 Bed 15 Private MD: ED Physician Nilesh Hdez HPI: 08/15 09:15 This 53 yrs old Female presents to ER via Ambulatory with complaints of Chest jh7 soreness, malaise, body aches, fever. 09:15 Onset: The symptoms/episode began/occurred 2 day(s) ago. Associated signs and symptoms: jh7 Pertinent positives: chest pain, cough, fever, sore throat, vomiting, Pertinent negatives: abdominal pain. Fever, nausea/vomiting, and body aches have resolved, patient now complains of chest soreness worsening with a cough. History of hypertension.. Historical: - Allergies: 09:16 No Known Allergies; iw - Home Meds: 09:15 carvedilol 12.5 mg Oral tablet 2 times per day [Active]; escitalopram oxalate 10 mg iw Oral tablet daily [Active]; lisinopril 10 mg Oral tablet daily [Active]; Potassium Chloride Oral daily [Active]; - PMHx: 09:15 Anemia; Anxiety; breast cancer; depressive disorder; Hypertensive disorder; PTSD; iw - PSHx: 09:15 Left Mastectomy; right foot; iw - Immunization history:: Adult Immunizations unknown. - Social history:: Smoking status: Patient denies any tobacco usage or history of. ROS: 09:15 Eyes: Negative for injury, pain, redness, and discharge, ENT: Negative for injury, jh7 pain, and discharge, Neck: Negative for injury, pain, and swelling, 09:15 Abdomen/GI: Negative for abdominal pain, nausea, vomiting, diarrhea, and constipation, Back: Negative for injury and pain, MS/Extremity: Negative for injury and deformity, Skin: Negative for injury, rash, and discoloration, Neuro: Negative for headache, weakness, numbness, tingling, and seizure, 09:15 Constitutional: Positive for fatigue, malaise, Negative for fever, 09:15 Cardiovascular: Positive for chest pain, with cough, Negative for orthopnea, palpitations, 09:15 Respiratory: Positive for cough, Negative for shortness of breath, wheezing, 09:15 All other systems are negative, Exam: 09:15 Constitutional: This is a well developed, well nourished patient who is awake, alert, jh7 and in no acute distress. Head/Face: Normocephalic, atraumatic. Eyes: Pupils equal round and reactive to light, extra-ocular motions intact. Lids and lashes normal. Conjunctiva and sclera are non-icteric and not injected. Cornea within normal limits. Periorbital areas with no swelling, redness, or edema. 09:15 Cardiovascular: Regular rate and rhythm with a normal S1 and S2. No gallops, murmurs, or rubs. Normal PMI, no JVD. No pulse deficits. Respiratory: Lungs have equal breath sounds bilaterally, clear to auscultation and percussion. No rales, rhonchi or wheezes noted. No increased work of breathing, no retractions or nasal flaring. Abdomen/GI: Soft, non-tender, with normal bowel sounds. No distension or tympany. No guarding or rebound. No evidence of tenderness throughout. Back: No spinal tenderness. No costovertebral tenderness. Full range of motion. Skin: Warm, dry with normal turgor. Normal color with no rashes, no lesions, and no evidence of cellulitis. MS/ Extremity: Pulses equal, no cyanosis. Neurovascular intact. Full, normal range of motion. Neuro: Awake and alert, GCS 15, oriented to person, place, time, and situation. Motor strength 5/5 in all extremities. Sensory grossly intact. Cerebellar exam normal. Normal gait. 09:15 ENT: Posterior pharynx: pooling of secretions, that are mild, Vital Signs: 09:14 BP 161 / 85; Pulse 104; Resp 18; Pulse Ox 95% on R/A; iw 09:35 BP 135 / 83; Pulse 88; Resp 16; Pulse Ox 100% on R/A; db 10:00 BP 125 / 67; Pulse 85; Resp 18; Pulse Ox 100% on R/A; db 10:30 BP 136 / 71; Pulse 86; Resp 18; Pulse Ox 100% on R/A; db 11:00 BP 138 / 70; Pulse 88; Resp 18; Pulse Ox 99% on R/A; db 12:00 BP 144 / 66; Pulse 89; Resp 18; Pulse Ox 99% on R/A; db MDM: 09:12 Patient medically screened. [facility] 12:30 Differential diagnosis: viral Infection, URI, bronchitis, pneumonia influenza. Data [facility] reviewed: vital signs, nurses notes, lab test result(s), radiologic studies, plain films. I considered the following discharge prescriptions or medication management in the emergency department Medications were administered in the Emergency Department. See MAR. Care significantly affected by the following chronic conditions: Hypertension. Counseling: I had a detailed discussion with the patient and/or guardian regarding the historical points, exam findings, and any diagnostic results supporting the discharge/admit diagnosis, to return to the emergency department if symptoms worsen or persist or if there are any questions or concerns that arise at home. Response to treatment: the patient's symptoms have markedly improved after treatment. ED course: Patient remained hemodynamically stable throughout the ER visit. She stated that her symptoms have almost resolved after IV fluid administration. Informed her that due to her nausea and vomiting on Tuesday and Tuesday, her potassium was low and we would replace that here. She denied any more nausea and vomiting today.. 08/15 09:18 Order name: Basic Metabolic Panel; Complete Time: 12:10 [facility] 08/15 09:18 Order name: CBC with Diff; Complete Time: 11:15 [facility] 08/15 09:18 Order name: Troponin HS; Complete Time: 12:10 [facility] 08/15 09:18 Order name: Flu; Complete Time: 10:36 [facility] 08/15 09:18 Order name: SARS RAPID; Complete Time: 10:36 [facility] 08/15 09:59 Order name: CBC Smear Scan; Complete Time: 11:15 [facility] 08/15 09:18 Order name: XRAY Chest (1 view); Complete Time: 10:36 [facility] 08/15 09:18 Order name: EKG; Complete Time: 09:19 [facility] 08/15 09:18 Order name: Cardiac monitoring; Complete Time: 09:42 [facility] 08/15 09:18 Order name: EKG - Nurse/Tech; Complete Time: 09:40 [facility] 08/15 09:18 Order name: IV Saline Lock; Complete Time: 09:44 [facility] 08/15 09:18 Order name: Labs collected and sent; Complete Time: 09:44 [facility] 08/15 09:18 Order name: O2 Per Protocol; Complete Time: :44 [facility] 08/15 09:18 Order name: O2 Sat Monitoring; Complete Time: :44 7 EC:15 Rate is 93 beats/min. Rhythm is regular. QRS [place] is Normal. ID interval is normal at [facility] 142 msec. QRS interval is normal at 114 msec. QT interval is prolonged at 410 msec. No Q waves. Clinical impression: NSR w/ Non-specific ST/T Changes. Administered Medications: 09:36 Drug: NS 0.9% IV 1000 ml IV at 1 bolus Per protocol; 1000 mL bolus Route: IV; Rate: 1 db bolus; Site: right antecubital; 12:58 Follow up: Response: No adverse reaction; IV Status: Completed infusion; IV Intake: db 1000ml 12:28 Drug: Potassium PO Effervescent Tablet 50 mEq PO once; dissolve in 4 ounces of water or db juice Route: PO; 12:58 Follow up: Response: No adverse reaction db Disposition Summary: 08/15/23 12:15 Discharge Ordered Notes: Location: Home [facility] Problem: new [facility] Symptoms: have improved [facility] Condition: Stable [facility] Diagnosis - Dehydration [facility] - Hypokalemia [facility] - Acute bronchitis, unspecified [facility] - Viral Syndrome [facility] Followup: [facility] - With: Private Physician - When: 2 - 3 days - Reason: Recheck today's complaints Discharge Instructions: - Discharge Summary Sheet [facility] - Acute Bronchitis, Adult [facility] - Viral Respiratory Infection [facility] - Dehydration, Adult, [id number] [facility] Forms: - Medication Reconciliation Form [facility] - Thank You Letter [facility] - Patient Portal Instructions [facility] - Leadership Thank You Letter [facility] - Work release form Prescriptions: - albuterol sulfate 90 mcg/actuation Inhalation HFA Aerosol Inhaler - inhale 1 inhalation INHALATION route every 4-6 hours As needed; 1 Each; [facility] Refills: 0, Product Selection Permitted - Tessalon Perles 100 mg Oral Capsule - take 1 capsule ORAL route every 8 hours As needed; 15 capsule; Refills: 0, [facility] Product Selection Permitted Signatures: Dispatcher [employer] Candi Guerrero, BARBI LANDON Falguni Ocasio, MALT HOUSE OPERATOR MALT HOUSE OPERATOR [facility] Ursula Orozco RN RN db
[2023-08-15] MEDS ORDERED: POTASSIUM 25 MEQ EFFERV TAB ONE (12:38)
[2023-08-15 13:33] VITALS: BP 138/70; O2SAT 99
--- NOTE | 2023-08-17 16:57 | EKG ---
Test Date: 2023-08-15 Test Time: 09:36:23 [employer]ice [employer]inder: TL MEASUREMENT RESULTS: Intervals: Rate: 93 NJ: 142 QRSD: 114 QT: 410 QTc: 509 Parnell: P: 47 NJ: 142 QRS: 9 T: 35 INTERPRETIVE STATEMENTS: Normal sinus rhythm Voltage criteria for left ventricular hypertrophy Nonspecific ST and T wave abnormality Prolonged QT Abnormal ECG Compared to ECG 08/01/2023 10:24:30 ST (T wave) deviation now present Prolonged QT interval now present T-wave abnormality no longer present Electronically Signed On 08-17-23 16:52:24 [employer] DISMANT[employer] by Naeem Sharma
== END 2023-08-15 12:54 | disposition home or self-care (01) ==
LOC: ER 09:08
DX: J20.9 Acute bronchitis, unspecified (principal); E86.0 Dehydration; E87.6 Hypokalemia; Z11.52 Encounter for screening for COVID-19; I10 Essential (primary) hypertension; F41.9 Anxiety disorder, unspecified; Z90.12 Acquired absence of left breast and nipple
CPT/HCPCS: 96361; 93005; 85025; 80048; 36415; 84484; 87804 ×2; 71045; 96360; 99285; 87811; J7030

== ENCOUNTER 2024-01-29 01:32 | Emergency (ER) | payer OTHER ==
[2024-01-29] MEDS ORDERED: LORAZEPAM 0.5 MG TABLET ONE (02:02)
--- NOTE | 2024-01-29 02:10 | ER ---
Nurse's Notes [facility] Name: Doreen Allison Age: 53 yrs Sex: Female : 1970 Arrival Date: 01/29/2024 Time: 01:32 Bed 13 Private MD: Diagnosis: Epistaxis;Other specified anxiety disorders Presentation: 01/28 01:38 Chief complaint: EMS states: toned out for nose bleed for "a few hours", no active nose km8 bleeding with EMS, just blood clots blown out of nares when blowing nose; pt has had ETOH tonight. Coronavirus screen: Client denies travel out of the [place] in the last 14 days. Ebola Screen: No symptoms or risks identified at this time. Initial Sepsis Screen: Does the patient meet any 2 criteria? HR > 90 bpm. No. Patient's initial sepsis screen is negative. Does the patient have a suspected source of infection? No. Patient's initial sepsis screen is negative. Risk Assessment: Do you want to hurt yourself or someone else? Patient reports no desire to harm self or others. Onset of symptoms is unknown. 01:38 Method Of Arrival: EMS: [facility] km8 01:38 Acuity: LARRY 3 km8 Triage Assessment: 01:38 General: Appears in no apparent distress. Behavior is anxious. Pain: Denies pain. EENT: km8 Nares dried blood noted in left nare. Reports nasal discharge that is bloody. Neuro: Level of Consciousness is awake, alert, obeys commands, Oriented to person, place, time, situation. Cardiovascular: Denies chest pain, shortness of breath. Respiratory: Airway is patent Respiratory effort is even, unlabored, Respiratory pattern is regular, symmetrical. GI: No signs and/or symptoms were reported involving the gastrointestinal system. : No signs and/or symptoms were reported regarding the genitourinary system. Derm: No signs and/or symptoms reported regarding the dermatologic system. Skin is intact, is healthy with good turgor, Skin is dry, Skin is pink, warm \\T\\ dry. normal, Skin temperature is warm. Musculoskeletal: No signs and/or symptoms reported regarding the musculoskeletal system. Range of motion: intact in all extremities. 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 - Infectious Disease History:: Denies. - Social history:: Smoking status: Patient denies any tobacco usage or history of. Patient uses alcohol, patient/guardian reports chronic longstanding heavy alcohol consumption. Patient/guardian denies using street drugs. Screenin:38 [facility] ED Fall Risk Assessment (Adult) History of falling in the last 3 months, km8 including since admission No falls in past 3 months (0 pts) Confusion or Disorientation No (0 pts) Intoxicated or Sedated No (0 pts) Impaired Gait No (0 pts) Mobility Assist Device Used No (0 pt) Altered Elimination No (0 pt) Score/Fall Risk Level 0 - 2 = Low Risk Oriented to surroundings, Maintained a safe environment, Educated pt \\T\\ family on fall prevention, incl call for assistance when getting out of bed, Assessed \\T\\ reinforced patient's understanding of fall precautions, Provided non-skid footwear. Abuse screen: Denies threats or abuse. Denies injuries from another. Nutritional screening: No deficits noted. Tuberculosis screening: No symptoms or risk factors identified. Assessment: :38 Reassessment: see triage assessment/notes. 02:07 Reassessment: Patient appears in no apparent distress at this time. No changes from 8 previously documented assessment. Patient and/or family updated on plan of care and expected duration. Pain level reassessed. Patient is alert, oriented x 3, equal unlabored respirations, skin warm/dry/pink. Vital Signs: 01:38 BP 145 / 84; Pulse 114; Resp 16; Temp 97.8(TE); Pulse Ox 99% on R/A; Weight 73.94 kg 8 (R); Height 5 ft. 1 in. (R); Pain 0/10; 02:00 BP 166 / 81; Pulse 105; Resp 16; Pulse Ox 98% on R/A; km8 02:17 Pulse 98; Pulse Ox 97% on R/A; 8 01:38 Body Mass Index 30.80 (73.94 kg, 154.94 cm) km8 01:38 Pain Scale: Adult km8 [place] Coma Score: 01:38 Eye Response: spontaneous(4). Motor Response: obeys commands(6). Verbal Response: km8 oriented(5). Total: 15. ED Course: 01:33 Patient arrived in ED. [id number] 01:35 Eddie Richardson DO is Attending Physician. ms3 01:38 Arm band placed on right wrist. km8 01:38 Patient has correct armband on for positive identification. Bed in low position. Call km8 light in reach. Side rails up X2. Pulse ox on. NIBP on. 01:44 Triage completed. km8 01:49 Warm blanket given. oe 02:06 Trudy Tim, RN is Primary Nurse. km8 02:09 El Keller DO is Referral Physician. ms3 02:11 No provider procedures requiring assistance completed. Patient did not have IV access km8 during this emergency room visit. 02:32 Provided Education on: d/c teaching. km8 Administered Medications: 02:05 Drug: LORazepam PO 0.5 mg PO once Route: PO; km8 02:33 Follow up: Response: No adverse reaction; Anxiety decreased km8 Medication: 01:38 VIS not applicable for this client. km8 Outcome: 02:10 Discharge ordered by . ms3 02:35 Discharged to home ambulatory, km8 02:35 Condition: good 02:35 Discharge instructions given to patient, Instructed on discharge instructions, follow up and referral plans. Demonstrated understanding of instructions, follow-up care, 02:35 Patient left the ED. km8 Signatures: Christiano Diaz oe Eddie Richardson DO DO ms3 Falguni Johnson jj6 Trudy Tim, RN RN km8
[2024-01-29 03:15] VITALS: BP 166/81; TEMP 97.8; O2SAT 97
--- NOTE | 2024-01-30 02:35 | EDPHYS ---
Physician Documentation [facility] Name: Doreen Allison Age: 53 yrs Sex: Female : 1970 Arrival Date: 01/29/2024 Time: 01:32 Bed 13 Private MD: ED Physician Eddie Richardson HPI: 01/28 02:57 This 53 yrs old Female presents to ER via EMS with complaints of Nose Bleed. ms3 02:57 53-year-old female with past medical history of anemia, anxiety, breast cancer, ms3 depressive disorder, hypertension, PTSD, alcoholism presents to the emergency department via [facility] for epistaxis. On arrival epistaxis resolved. Patient denies pain. Patient notes she is shaking and anxious.. 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 - Infectious Disease History:: Denies. - Social history:: Smoking status: Patient denies any tobacco usage or history of. Patient uses alcohol, patient/guardian reports chronic longstanding heavy alcohol consumption. Patient/guardian denies using street drugs. ROS: 02:57 Constitutional: Negative for fever, and chills. Cardiovascular: Negative for chest ms3 pain, and palpitations. Respiratory: Negative for shortness of breath, cough, wheezing, and pleuritic chest pain, Abdomen/GI: Negative for abdominal pain, nausea, vomiting, diarrhea, and constipation, 02:57 ENT: Positive for nose bleed, Exam: 02:57 Constitutional: This is a well developed, well nourished patient who is awake, alert, ms3 and in no acute distress. Head/Face: Normocephalic, atraumatic. Chest/axilla: Normal chest wall appearance and motion. Nontender with no deformity. Cardiovascular: Regular rate and rhythm with a normal S1 and S2. No gallops, murmurs, or rubs. Normal PMI, no JVD. No pulse deficits. Respiratory: Lungs have equal breath sounds bilaterally, clear to auscultation and percussion. No rales, rhonchi or wheezes noted. No increased work of breathing, no retractions or nasal flaring. Abdomen/GI: Soft, non-tender, with normal bowel sounds. No distension or tympany. No guarding or rebound. No evidence of tenderness throughout. MS/ Extremity: Pulses equal, no cyanosis. Neurovascular intact. Full, normal range of motion. 02:57 ENT: Nose: clotted blood, in left nare, Vital Signs: 01:38 BP 145 / 84; Pulse 114; Resp 16; Temp 97.8(TE); Pulse Ox 99% on R/A; Weight 73.94 kg km8 (R); Height 5 ft. 1 in. (R); Pain 0/10; 02:00 BP 166 / 81; Pulse 105; Resp 16; Pulse Ox 98% on R/A; km8 02:17 Pulse 98; Pulse Ox 97% on R/A; km8 01:38 Body Mass Index 30.80 (73.94 kg, 154.94 cm) km8 01:38 Pain Scale: Adult km8 [place] Coma Score: 01:38 Eye Response: spontaneous(4). Motor Response: obeys commands(6). Verbal Response: km8 oriented(5). Total: 15. MDM: 01:53 Patient medically screened. ms3 02:57 Differential diagnosis: spontaneous epistaxis. Data reviewed: vital signs, nurses ms3 notes, and as a result, I will discharge patient. I considered the following discharge prescriptions or medication management in the emergency department Medications were administered in the Emergency Department. See MAR. Historians other than the Patient: EMS: [facility]. Counseling: I had a detailed discussion with the patient and/or guardian regarding the historical points, exam findings, and any diagnostic results supporting the discharge/admit diagnosis, the need for outpatient follow up, to return to the emergency department if symptoms worsen or persist or if there are any questions or concerns that arise at home. Special discussion: I discussed with the patient/guardian in detail that at this point there is no indication for admission to the hospital. It is understood, however, that if the symptoms persist or worsen the patient needs to return immediately for re-evaluation. ED course: Days.Discussed physical exam findings with patient. Patient to follow-up with primary care physician in patient understands and agrees with plan. All questions were answered. Return precautions discussed include worsening symptoms, or any other concerns. Administered Medications: 02:05 Drug: LORazepam PO 0.5 mg PO once Route: PO; km8 02:33 Follow up: Response: No adverse reaction; Anxiety decreased km8 Disposition: 03:34 Chart complete. ms3 Disposition Summary: 01/29/24 02:10 Discharge Ordered Notes: Location: Home ms3 Condition: Stable ms3 Diagnosis - Epistaxis ms3 - Other specified anxiety disorders ms3 Followup: ms3 - With: El Keller DO - When: 2 - 3 days - Reason: Re-evaluation by your physician Discharge Instructions: - Discharge Summary Sheet ms3 - Nosebleed, Adult ms3 Forms: - Medication Reconciliation Form ms3 - Antibiotic Education ms3 - Prescription Opioid Use ms3 - Patient Portal Instructions ms3 - Leadership Thank You Letter ms3 Signatures: Eddie Richardson DO DO ms3 Trudy Tim RN RN km8
== END 2024-01-29 02:35 | disposition home or self-care (01) ==
LOC: ER 01:32
DX: R04.0 Epistaxis (principal); F41.8 Other specified anxiety disorders; F10.20 Alcohol dependence, uncomplicated
CPT/HCPCS: 99284

== ENCOUNTER 2024-03-17 19:58 | Emergency (ER) | payer OTHER ==
[2024-03-17] MEDS ORDERED: NA CHLORIDE 0.9% 1,000 ML ONE (20:15)
[2024-03-17 20:34] LABS: Absolute Eosinophils 0.1 K/uL (0-0.5); Absolute Lymphocytes (CBC) 0.8 K/uL (0.7-4.9); Absolute Monocytes 0.3 K/uL (0.1-1.3); Absolute Neutrophil 4.3 K/uL (1.8-8.0); Basophils % 0.3 % (0-1.3); Eosinophils % 1.1 % (0-4.4); Hematocrit 22.7 % (36.0-45.0); Hemoglobin 8.4 g/dL (12.0-15.0); Lymphocytes % 15.1 % (15.3-44.8); MCH 39.2 pg (27.0-35.0); MCHC 36.9 g/dL (32.0-36.0); MCV 106.1 fL (80-100); MPV 7.7 fL (7.6-11.3); Monocytes % 5.6 % (3.3-12.3); Neutrophils % 77.9 % (41.7-73.7); Platelets 36 thou/uL (152-406); RBC Red Blood Cell Count 2.14 M/uL (3.86-4.86); Red Cell Distribution Width 18.1 % (12.1-15.2)
[2024-03-17 20:54] LABS: Specific Gravity 1.007 (1.005-1.030); Sqamous Epithelial <5 /HPF (None Seen); Urine Bacteria <20 /HPF (<20); Urine Bilirubin NEGATIVE (Negative); Urine Blood 1+ (Negative); Urine Clarity Turbid (Clear); Urine Color Yellow (Yellow); Urine Culture Reflex Order NOT NEEDED; Urine Glucose NEGATIVE (Negative); Urine Ketones NEGATIVE (Negative); Urine Micro Reflex YN NO BILL MICROSCOPIC; Urine Mucus Slight /HPF (None Seen); Urine Nitrite NEGATIVE (Negative); Urine Protein NEGATIVE (Negative); Urine RBC <5 /HPF (None Seen); Urine Urobilinogen 1+ (Normal); Urine WBC <5 /HPF (<5); Urine pH 6.5 (5.0-7.0)
--- NOTE | 2024-03-17 21:07 | RAD REPORT ---
EXAM DESCRIPTION: RADChest Single View03/17/2024 8:33 pm CLINICAL HISTORY: COUGH COMPARISON: Chest Pa And Lat (2 Views) dated 09/11/2023; Chest Single View dated 08/15/2023; Chest S delio View dated 08/01/2023; Chest Single View dated 08/30/2022 TECHNIQUE: Portable AP view of the chest. FINDINGS: The lungs are clear. No pneumothorax or effusion. The cardiomediastinal contours are unre markable. IMPRESSION: No acute cardiopulmonary process.
[2024-03-17 21:09] LABS: Albumin 2.6 g/dL (3.4-5.0); Albumin/Globulin Ratio 0.5 (1.1-1.8); Anion Gap 10.4 mEq/L (5.0-15.0); Bilirubin Direct 6.5 mg/dL (0-0.2); Bilirubin Indirect, Calculated 4.6 mg/dL (0.2-0.8); Bilirubin Total 11.1 mg/dL (0.2-1.0); Globulin 4.9 g/dL (2.3-3.5); Protein, Total 7.5 g/dL (6.4-8.2)
[2024-03-17 21:11] LABS: Potassium 2.4 mEq/L (3.5-5.1)
--- NOTE | 2024-03-17 21:21 | RAD REPORT ---
EXAM DESCRIPTION: CT - Head Brain Wo Cont - 03/17/2024 8:42 pm CLINICAL HISTORY: TRAUMA COMPARISON: Head Brain Wo Cont dated 07/17/2023; Head angio dated 07/17/2023 TECHNIQUE: Noncontrast head CT images were obtained without IV contrast. Multiplanar reformats were generated and reviewed. All CT scans are performed using dose optimization technique as appropriate and may include automated exposure control or mA/KV adjustment according to patient size. FINDINGS: No intracranial hemorrhage, mass, or edema. Midline structures are unremarkable. Normal ventricular caliber for age. [place]-white matter differentiation is preserved, without evidence of acute infarct. No abnormal extra- axial fluid collections. Mastoid air cells and visualized portions of the paranasal sinuses are clear. No acute bony findings. Stable sclerotic changes in the region of the posterior ethmoidal air cells, may reflect sequelae of chronic sinusitis versus focal fibrous dysplasia. IMPRESSION: No evidence of an acute intracranial process.
[2024-03-17] MEDS ORDERED: POTASSIUM CL SA 10 MEQ TAB PO ONE (21:30)
[2024-03-17] MEDS ORDERED: KCL 20 MEQ/100 mL IVPB 100 ML IV ONE (21:30)
[2024-03-17 22:01] LABS: PT Prothrombin Time 20.7 SECONDS (9.4-12.5); PTT, Activated Partial Thromb 39.4 SECONDS (24.3-36.9); Protime INR 1.92
[2024-03-17 22:05] LABS: Anisocytosis 2+; Blood Morphology Comment NOTED (NOT SEEN); Macrocytosis SLIGHT; Platelet Estimate DECR; Polychromasia 2+; White Blood Cell Scan OK (OK)
--- NOTE | 2024-03-18 00:36 | EDPHYS ---
Physician Documentation [facility] Name: Doreen Allison Age: 53 yrs Sex: Female : 1970 Arrival Date: 03/17/2024 Time: 19:58 Bed 8 Private MD: ED Physician Shady Trujillo HPI: 03/17 20:10 This 53 yrs old Female presents to ER via EMS with complaints of weakness. ec2 20:10 Patient arrives today for evaluation of generalized weakness. Patient with history of ec2 alcoholic liver disease, alcohol abuse, history of cirrhosis and liver disease along with jaundice. Patient reportedly had fallen down and is feeling generally weak. Patient otherwise had some alcoholic beverages tonight.. Historical: - Allergies: 20:06 No Known Allergies; mb9 - Home Meds: 20:06 carvedilol 12.5 mg Oral tablet 2 times per day [Active]; escitalopram oxalate 10 mg mb9 Oral tablet daily [Active]; lisinopril 10 mg Oral tablet daily [Active]; Potassium Chloride Oral daily [Active]; - PMHx: 20:06 Alcoholism; Anemia; Anxiety; breast cancer; depressive disorder; Hypertensive disorder; mb9 PTSD; - PSHx: 20:06 Left Mastectomy; right foot; mb9 - Immunization history:: Adult Immunizations up to date. - Infectious Disease History:: Denies. - Social history:: Smoking status: Patient denies any tobacco usage or history of. ROS: 20:11 Constitutional: as per hpi ec2 Exam: 20:11 Constitutional: GEN: NAD Head: atraumatic Eyes: EOMI Ears: External ears are ec2 normal. CV: Tachycardia LUNGS: no respiratory distress ABD: non-distended, soft, nontender, no guarding, not rigid SKIN: no evidence of rashes, jaundice, scleral icterus noted. MSK: no evidence of trauma, no evidence of trauma, no bony abnormalities. NEURO: moves all extremities equally Vital Signs: 20:05 BP 157 / 84; Pulse 118; Resp 18; Temp 98; Pulse Ox 98% ; Weight 79.38 kg; Height 5 ft. mb9 5 in. ; Pain 0/10; 20:59 BP 151 / 60; Pulse 108; Resp 18; Pulse Ox 95% on R/A; mb9 22:00 BP 165 / 83; Pulse 115; Resp 18 S; Pulse Ox 98% on R/A; ha1 23:00 BP 151 / 74; Pulse 110; Resp 18 S; Pulse Ox 98% on R/A; ha1 03/18 00:00 BP 149 / 77; Pulse 105; Resp 17 S; Pulse Ox 98% on R/A; ha1 01:00 BP 151 / 78; Pulse 101; Resp 18 S; Pulse Ox 98% on R/A; ha1 03/17 20:05 Body Mass Index 29.12 (79.38 kg, 165.1 cm) mb9 03/17 20:05 Pain Scale: Adult mb9 MDM: 03/17 20:03 Patient medically screened. ec2 20:11 Data reviewed: vital signs. ED course: Patient arrives today for evaluation of alcohol ec2 abuse, generalized weakness as well as alcohol intoxication. Examination remarkable for tachycardic individual with IV scleral icterus and jaundice identified on my examination. Will obtain lab work, urine studies, CT of the head as well as chest x-ray. Differential diagnoses include acute hepatitis, alcohol intoxication, electrolyte disturbances, urinary tract infection.. 20:24 ED course: EKG independently reviewed and interpreted by me, shows sinus tachycardia, ec2 rate 115, no acute ST segment elevations, intervals are nonconcerning, does show enlarged QRS complexes. . 21:21 ED course: Metabolic profile shows hypokalemia with a potassium of 2.4, I will ec2 supplement this. CBC shows anemia with a hemoglobin of 8.4. Urine study is noninfectious appearing, LFTs show marked T. bili elevation at 11.1, consistent w/ pt's clinical jaundice and hx of jaundice. Alcohol level elevated at 315. Chest x-ray shows no acute intrathoracic process. . 22:04 ED course: Coagulation profile with some diminishment, INR elevated at 1.92 slight PTT ec2 elevation as well. . 23:13 ED course: EKG independently reviewed and interpreted by me, shows normal sinus rhythm, ec2 rate 99, no acute ST segment elevations, intervals are nonconcerning.. 03/18 00:35 ED course: On reassessment patient is clinically sober, awake and alert, I had a more ec2 extensive conversation with the patient regarding her jaundice and known liver disease, states that she follows with RENEE Webb, states that she is supposed to have an outpatient liver biopsy to determine the degree of her cirrhosis, states that she has been delaying this as she is afraid of the resolved. I discussed hospitalization and further cares and, states she indicates that she has plans for an appointment on Tuesday to facilitate additional cares, [facility]. Will discharge home, states that she is able to call out when to pick her up. Patient is clinically sober and answering questions appropriately. . 03/17 20:04 Order name: Basic Metabolic Panel; Complete Time: 21:20 ec2 03/17 20:04 Order name: CBC with Diff; Complete Time: 22:19 ec2 03/17 20:04 Order name: UAM; Complete Time: 21:20 ec2 03/17 20:04 Order name: LFT's; Complete Time: 21:20 ec2 03/17 20:07 Order name: ETOH Level; Complete Time: 21:20 ec2 03/17 21:23 Order name: PT-INR; Complete Time: 22:04 ec2 03/17 21:23 Order name: Ptt, Activated; Complete Time: 22:04 ec2 03/17 22:06 Order name: CBC Smear Scan; Complete Time: 22:19 EDMS 03/17 20:04 Order name: XRAY Chest (1 view); Complete Time: 21:20 ec2 03/17 20:11 Order name: CT Head Brain wo Cont; Complete Time: 21:23 ec2 03/17 20:04 Order name: Cardiac monitoring; Complete Time: 20:33 ec2 03/17 20:04 Order name: EKG - Nurse/Tech; Complete Time: 20:33 ec2 03/17 20:04 Order name: IV Saline Lock; Complete Time: 20:33 ec2 03/17 20:04 Order name: Labs collected and sent; Complete Time: 20:33 ec2 03/17 20:04 Order name: O2 Per Protocol; Complete Time: :33 ec2 03/17 20:04 Order name: O2 Sat Monitoring; Complete Time: :33 ec2 Administered Medications: 03/17 20:33 Drug: NS 0.9% IV 1000 ml IV at 1 bolus Per protocol; 1000 mL bolus Route: IV; Rate: 1 mb9 bolus; Site: right antecubital; 23:00 Follow up: Response: No adverse reaction; IV Status: Completed infusion; IV Intake: ha1 1000ml 21:38 Drug: Potassium Chloride PO 40 mEq PO once Route: PO; al5 03/18 00:06 Follow up: Response: No adverse reaction al5 03/17 21:38 Drug: Potassium Chloride IV 20 mEq IV at calculated rate once; administer over 1-2 al5 hours Route: IV; Rate: calculated rate; Site: right antecubital; 03/18 00:06 Follow up: Response: No adverse reaction; IV Status: Completed infusion; IV Intake: al5 100ml Disposition Summary: 03/18/24 00:36 Discharge Ordered Notes: Location: Home ec2 Condition: Fair(03/18/24 00:36) ec2 Diagnosis - Unspecified jaundice ec2 - Alcohol abuse with intoxication, uncomplicated ec2 - Weakness ec2 Followup: ec2 - With: Private Physician - When: - Reason: Re-evaluation by your physician Discharge Instructions: - Discharge Summary Sheet ec2 - Jaundice, Adult, [id number] ec2 - Alcohol Abuse and Dependence Information, Adult ec2 Forms: - Medication Reconciliation Form ec2 - Antibiotic Education ec2 - Prescription Opioid Use ec2 - Patient Portal Instructions ec2 - Leadership Thank You Letter ec2 Signatures: Dispatcher [employer] EDClarita Zendejas RN RN mb9 Shady Trujillo MD MD ec2 Pao Chopra RN RN al5 Tootie Brown RN ha1 Corrections: (The following items were deleted from the chart) 03/17 20:04 20:04 BASIC METABOLIC PANEL+C.LAB.BRZ ordered. EDMS EDMS 20:04 20:04 CBC+H.LAB.BRZ ordered. EDMS EDMS 20:04 20:04 Urinalysis W/Microscopic+U.LAB.BRZ ordered. EDMS EDMS 20:04 20:04 HEPATIC FUNCTION+C.LAB.BRZ ordered. EDMS EDMS 20:05 20:05 Chest Single View+RAD.RAD.BRZ ordered. EDMS EDMS 03/18 00:36 00:36 Stable ec2 ec2
--- NOTE | 2024-03-18 00:36 | ER ---
Nurse's Notes [facility] Name: Doreen Allison Age: 53 yrs Sex: Female : 1970 Arrival Date: 03/17/2024 Time: 19:58 Bed 8 Private MD: Diagnosis: Unspecified jaundice;Alcohol abuse with intoxication, uncomplicated;Weakness Presentation: 03/17 20:05 Chief complaint: EMS states: "toned out for falling on fence after ETOH use. Pt says mb9 she feels weak.". Coronavirus screen: At this time, the client does not indicate any symptoms associated with coronavirus-19. Ebola Screen: No symptoms or risks identified at this time. Initial Sepsis Screen: Does the patient meet any 2 criteria? HR > 90 bpm. Does the patient have a suspected source of infection? No. Patient's initial sepsis screen is negative. Risk Assessment: Do you want to hurt yourself or someone else? Patient reports no desire to harm self or others. Onset of symptoms was March 17, 2024. 20:05 Method Of Arrival: EMS: [facility] mb9 20:05 Acuity: LARRY 3 mb9 Triage Assessment: 20:00 General: Appears unkempt, Behavior is cooperative. Pain: Denies pain. mb9 20:00 EENT: No signs and/or symptoms were reported regarding the EENT system. Neuro: Short mb9 Agitation-Sedation Scale (RASS): 0 - Alert and Calm Level of Consciousness is awake, alert, obeys commands, Oriented to person, place, time, situation, Appropriate for age. Cardiovascular: Patient's skin is warm and dry. Respiratory: Airway is patent Respiratory effort is even, unlabored, Respiratory pattern is regular, symmetrical. GI: Abdomen is round non-distended. : No signs and/or symptoms were reported regarding the genitourinary system. Derm: Skin is intact, Skin is dry, Skin is jaundiced. Musculoskeletal: Range of motion: intact in all extremities. Historical: - Allergies: 20:06 No Known Allergies; mb9 - Home Meds: 20:06 carvedilol 12.5 mg Oral tablet 2 times per day [Active]; escitalopram oxalate 10 mg mb9 Oral tablet daily [Active]; lisinopril 10 mg Oral tablet daily [Active]; Potassium Chloride Oral daily [Active]; - PMHx: 20:06 Alcoholism; Anemia; Anxiety; breast cancer; depressive disorder; Hypertensive disorder; mb9 PTSD; - PSHx: 20:06 Left Mastectomy; right foot; mb9 - Immunization history:: Adult Immunizations up to date. - Infectious Disease History:: Denies. - Social history:: Smoking status: Patient denies any tobacco usage or history of. Screenin:26 [facility] ED Fall Risk Assessment (Adult) History of falling in the last 3 months, mb9 including since admission Yes- fall prone (multiple falls) (3 pts) Confusion or Disorientation No (0 pts) Intoxicated or Sedated Yes (3 pts) Impaired Gait No (0 pts) Mobility Assist Device Used No (0 pt) Altered Elimination No (0 pt) Score/Fall Risk Level 3 or more points = High Risk Oriented to surroundings, Maintained a safe environment, Educated pt \\T\\ family on fall prevention, incl call for assistance when getting out of bed. Abuse screen: Denies threats or abuse. Nutritional screening: No deficits noted. Tuberculosis screening: No symptoms or risk factors identified. Assessment: 20:59 Reassessment: No changes from previously documented assessment. Patient and/or family mb9 updated on plan of care and expected duration. Pain level reassessed. Patient is alert, oriented x 3, equal unlabored respirations, skin warm/dry/pink. 23:00 Reassessment: Patient and/or family updated on plan of care and expected duration. Pain ha1 level reassessed. Patient is alert, oriented x 3, equal unlabored respirations, skin warm/dry/pink. Patient denies pain at this time. Patient states feeling better. Patient states symptoms have improved. 03/18 00:00 Reassessment: Patient and/or family updated on plan of care and expected duration. Pain ha1 level reassessed. 00:42 Reassessment: patient requesting for family members to be called to provide ha1 transportation. patient's was notiifed. 01:00 Reassessment: discharge pending on transportation. ha1 01:40 Reassessment: pt.'s daughter at bedside with patient. ha1 Vital Signs: 03/17 20:05 BP 157 / 84; Pulse 118; Resp 18; Temp 98; Pulse Ox 98% ; Weight 79.38 kg; Height 5 ft. mb9 5 in. ; Pain 0/10; 20:59 BP 151 / 60; Pulse 108; Resp 18; Pulse Ox 95% on R/A; mb9 22:00 BP 165 / 83; Pulse 115; Resp 18 S; Pulse Ox 98% on R/A; ha1 23:00 BP 151 / 74; Pulse 110; Resp 18 S; Pulse Ox 98% on R/A; ha1 03/18 00:00 BP 149 / 77; Pulse 105; Resp 17 S; Pulse Ox 98% on R/A; ha1 01:00 BP 151 / 78; Pulse 101; Resp 18 S; Pulse Ox 98% on R/A; ha1 03/17 20:05 Body Mass Index 29.12 (79.38 kg, 165.1 cm) mb9 03/17 20:05 Pain Scale: Adult mb9 ED Course: 03/17 20:03 Patient arrived in ED. ec2 20:03 Shady Trujillo MD is Attending Physician. ec2 20:05 Initial lab(s) drawn, by me, sent to lab. EKG done, by ED staff, reviewed by Shady Trujillo MD. Inserted saline lock: 18 gauge in right antecubital area, using aseptic technique. Blood collected. 20:06 Triage completed. mb9 20:06 Arm band placed on. mb9 20:26 Placed in gown. Bed in low position. Call light in reach. Side rails up X 1. Provided елена Education on: press call light if needing anything. Client placed on continuous cardiac and pulse oximetry monitoring. NIBP monitoring applied. cafeteria monitor on. 20:35 XRAY Chest (1 view) In Process Unspecified. EDMS 20:44 CT Head Brain wo Cont In Process Unspecified. EDMS 20:59 No provider procedures requiring assistance completed. mb9 22:10 Report received from BARBI Reinoso. ha1 22:12 Jennifer Diaz, BARBI is Primary Nurse. cm10 03/18 01:45 IV discontinued, intact, bleeding controlled, No redness/swelling at site. Pressure ha1 dressing applied. Administered Medications: 03/17 20:33 Drug: NS 0.9% IV 1000 ml IV at 1 bolus Per protocol; 1000 mL bolus Route: IV; Rate: 1 mb9 bolus; Site: right antecubital; 23:00 Follow up: Response: No adverse reaction; IV Status: Completed infusion; IV Intake: ha1 1000ml 21:38 Drug: Potassium Chloride PO 40 mEq PO once Route: PO; al5 03/18 00:06 Follow up: Response: No adverse reaction al5 03/17 21:38 Drug: Potassium Chloride IV 20 mEq IV at calculated rate once; administer over 1-2 al5 hours Route: IV; Rate: calculated rate; Site: right antecubital; 03/18 00:06 Follow up: Response: No adverse reaction; IV Status: Completed infusion; IV Intake: al5 100ml Medication: 03/17 20:26 VIS not applicable for this client. mb9 Intake: 23:00 IV: 1000ml; Total: 1000ml. ha1 03/18 00:06 IV: 100ml; Total: 1100ml. al5 Outcome: 00:36 Discharge ordered by . ec2 01:45 Discharged to home ambulatory, with family, ha1 01:45 Condition: stable 01:45 Discharge instructions given to patient, family, Instructed on discharge instructions, follow up and referral plans. Demonstrated understanding of instructions, follow-up care, 01:46 Patient left the ED. ha1 Signatures: Dispatcher [employer] Tootie Pimentel RN RN ha1 Clarita Tavera RN RN mb9 Jennifer Diaz RN RN cm10 Shady Trujillo MD MD ec2 Pao Chopra RN RN al5
[2024-03-18 02:30] VITALS: BP 151/74; TEMP 98; O2SAT 98
--- NOTE | 2024-03-19 13:08 | EKG ---
Test Date: 2024-03-17 Test Time: 20:21:20 Commercial Appraiser: MB MEASUREMENT RESULTS: Intervals: Rate: 115 MS: 142 QRSD: 114 QT: 296 QTc: 409 [place]: P: 73 MS: 142 QRS: -13 T: 100 INTERPRETIVE STATEMENTS: Sinus tachycardia Incomplete right bundle branch block Left ventricular hypertrophy with repolarization abnormality Abnormal ECG Compared to ECG 09/11/2023 09:21:57 Incomplete right bundle-branch block now present Early repolarization now present T-wave abnormality no longer present Electronically Signed On 03-19-24 13:03:43 CDT by Naeem Sharma
== END 2024-03-18 01:46 | disposition home or self-care (01) ==
LOC: ER 19:58
DX: R17 Unspecified jaundice (principal); F10.229 Alcohol dependence with intoxication, unspecified; R53.1 Weakness
CPT/HCPCS: 93005; 85025; 81001; 80048; 36415; 85610; 80076; 85730; 70450; 71045; 82077; J3480; J7030; 96361; 96365; 96366; 99285

== ENCOUNTER 2024-06-09 06:24 | Emergency (ER) | payer OTHER ==
[2024-06-09 07:40] LABS: Absolute Eosinophils 0.1 K/uL (0-0.5); Absolute Lymphocytes (CBC) 0.5 K/uL (0.7-4.9); Absolute Monocytes 0.3 K/uL (0.1-1.3); Absolute Neutrophil 2.5 K/uL (1.8-8.0); Basophils % 0.2 % (0-1.3); Eosinophils % 2.7 % (0-4.4); Hemoglobin 7.2 g/dL (12.0-15.0); Lymphocytes % 14.4 % (15.3-44.8); MCH 38.8 pg (27.0-35.0); MCHC 34.1 g/dL (32.0-36.0); MCV 113.5 fL (80-100); MPV 8.6 fL (7.6-11.3); Monocytes % 9.5 % (3.3-12.3); Neutrophils % 73.2 % (41.7-73.7); Nucleated Red Blood Cells % 0.2 % (0-0); Platelets 40 thou/uL (152-406); RBC Red Blood Cell Count 1.85 M/uL (3.86-4.86)
[2024-06-09 07:47] LABS: PT Prothrombin Time 24.3 SECONDS (9.4-12.5); Protime INR 2.22
--- NOTE | 2024-06-09 07:51 | EDPHYS ---
Physician Documentation [facility] Name: Doreen Allison Age: 54 yrs Sex: Female : 1970 Arrival Date: 06/09/2024 Time: 06:24 Bed 17 Private MD: KAROLINA Physician Nilesh Hdez HPI: 06/09 07:41 This 54 yrs old Female presents to ER via Wheelchair with complaints of herman Numbness Of Arm, Swelling of Lower Extremity. 07:41 The patient or guardian complains of decreased range of motion, pain, swelling. The herman complaints affect the. Historical: - Allergies: 06:47 No Known Allergies; lg3 - Home Meds: 06:47 carvedilol 12.5 mg Oral tablet 2 times per day [Active]; escitalopram oxalate 10 mg lg3 Oral tablet daily [Active]; lisinopril 10 mg Oral tablet daily [Active]; Potassium Chloride Oral daily [Active]; Vitamin B-12 Oral daily [Active]; Vitamin D3 oral every week [Active]; Vitamin B-6 Oral [Active]; - PMHx: 06:47 Alcoholism; Anemia; Anxiety; breast cancer; depressive disorder; Hypertensive disorder; lg3 PTSD; - PSHx: 06:47 Left Mastectomy; right foot; lg3 - Immunization history:: Adult Immunizations up to date. - Infectious Disease History:: Denies. - Social history:: Smoking status: Patient denies any tobacco usage or history of. ROS: 07:41 Constitutional: Negative for fever, chills, and weight loss, Eyes: Negative for injury, herman pain, redness, and discharge, ENT: Negative for injury, pain, and discharge, Neck: Negative for injury, pain, and swelling, Cardiovascular: Negative for chest pain, palpitations, and edema, Respiratory: Negative for shortness of breath, cough, wheezing, and pleuritic chest pain, Back: Negative for injury and pain, : Negative for injury, bleeding, discharge, and swelling, Neuro: Negative for headache, weakness, numbness, tingling, and seizure, Psych: Negative for depression, anxiety, suicide ideation, homicidal ideation, and hallucinations, Allergy/Immunology: Negative for hives, rash, and allergies, Endocrine: Negative for neck swelling, polydipsia, polyuria, polyphagia, and marked weight changes, 07:41 Abdomen/GI: Positive for abdominal pain, abdominal cramps, abdominal distension, abdominal wall brusing, 07:41 MS/extremity: Positive for pain, swelling, tenderness, of the right leg and left leg, Exam: 07:41 Constitutional: This is a well developed, well nourished patient who is awake, alert, herman and in no acute distress. Head/Face: Normocephalic, atraumatic. Eyes: Pupils equal round and reactive to light, extra-ocular motions intact. Lids and lashes normal. Conjunctiva and sclera are non-icteric and not injected. Cornea within normal limits. Periorbital areas with no swelling, redness, or edema. ENT: Nares patent. No nasal discharge, no septal abnormalities noted. Tympanic membranes are normal and external auditory canals are clear. Oropharynx with no redness, swelling, or masses, exudates, or evidence of obstruction, uvula midline. Mucous membranes moist. Neck: Trachea midline, no thyromegaly or masses palpated, and no cervical lymphadenopathy. Supple, full range of motion without nuchal rigidity, or vertebral point tenderness. No Meningismus. Chest/axilla: Normal chest wall appearance and motion. Nontender with no deformity. No lesions are appreciated. Cardiovascular: Regular rate and rhythm with a normal S1 and S2. No gallops, murmurs, or rubs. Normal PMI, no JVD. No pulse deficits. Respiratory: Lungs have equal breath sounds bilaterally, clear to auscultation and percussion. No rales, rhonchi or wheezes noted. No increased work of breathing, no retractions or nasal flaring. Back: No spinal tenderness. No costovertebral tenderness. Full range of motion. Neuro: Awake and alert, GCS 15, oriented to person, place, time, and situation. Cranial nerves II-XII grossly intact. Motor strength 5/5 in all extremities. Sensory grossly intact. Cerebellar exam normal. Normal gait. Psych: Awake, alert, with orientation to person, place and time. Behavior, mood, and affect are within normal limits. 07:41 ECG was reviewed by the Attending Physician. 07:41 Abdomen/GI: Inspection: bruising, distension, that is mild, in the right upper quadrant, left upper quadrant, right lower quadrant and left lower quadrant, Bowel sounds: normal, Palpation: mild abdominal tenderness, in the right upper quadrant, left upper quadrant, right lower quadrant and left lower quadrant, Liver: no appreciated palpable abnormalities, Hernia: not appreciated, Vital Signs: 06:40 BP 116 / 51; Pulse 83; Resp 17; Temp 98(O); Pulse Ox 98% on R/A; Pain 10/10; rg5 06:45 BP 116 / 51; Pulse 83; Resp 17; Temp 98.9; Pulse Ox 98% ; Weight 77.11 kg; Height 5 ft. lg3 1 in. ; Pain 10/10; 10:02 BP 113 / 66; Pulse 84; Resp 18; Pulse Ox 99% on R/A; ld1 10:10 BP 127 / 66; Pulse 77; Resp 18; Pulse Ox 100% on R/A; ld1 10:45 BP 139 / 77; Pulse 78; Resp 18; Pulse Ox 100% on R/A; ld1 06:45 Body Mass Index 32.12 (77.11 kg, 154.94 cm) lg3 06:40 Pain Scale: Adult rg5 06:45 Pain Scale: Adult lg3 [place] Coma Score: 06:40 Eye Response: spontaneous(4). Motor Response: obeys commands(6). Verbal Response: rg5 oriented(5). Total: 15. MDM: 07:10 Patient medically screened. herman 07:46 Differential diagnosis: contusion, bowel obstruction, gastritis, GI Bleed, Mesenteric herman ischemia or infarction, non-specific abd pain, pancreatitis, Peptic Ulcer Disease. Differential Diagnosis altered mental status, sepsis, flu. Differential diagnosis: closed head injury, contusion, multiple trauma, sprain, strain. Data reviewed: vital signs, nurses notes, lab test result(s), EKG, radiologic studies, CT scan, plain films. Consideration of Admission/Observation Escalation of care including admission/observation considered. I considered the following discharge prescriptions or medication management in the emergency department Medications were administered in the Emergency Department. See MAR. Independent interpretation of the following test(s) in the Emergency Department EKG: See my EKG interpretation above. Test considered but Not performed: Ultrasound no FAST. Historians other than the Patient: PT WELL INFORMED. Care significantly affected by the following chronic conditions: Hypertension, Obesity, Liver Disease. Counseling: I had a detailed discussion with the patient and/or guardian regarding the historical points, exam findings, and any diagnostic results supporting the discharge/admit diagnosis, lab results, radiology results, the need to transfer to another facility, for higher level of care, [facility] does not immediately have the required specialist. 06/09 07:23 Order name: Basic Metabolic Panel; Complete Time: 08:33 [facility] 06/09 07:23 Order name: CBC with Diff herman 06/09 07:23 Order name: LFT's; Complete Time: 08:33 [facility] 06/09 07:23 Order name: Magnesium; Complete Time: 08:33 [facility] 06/09 07:23 Order name: NT PRO-BNP; Complete Time: 08:33 [facility] 06/09 07:23 Order name: PT-INR; Complete Time: 08:33 [facility] 06/09 07:23 Order name: Troponin HS; Complete Time: 08:33 [facility] 06/09 07:23 Order name: Lipase; Complete Time: 08:33 [facility] 06/09 07:23 Order name: Urinalysis w/ reflexes; Complete Time: 08:45 [facility] 06/09 07:39 Order name: AMMONIA; Complete Time: 08:33 [facility] 06/09 07:39 Order name: Blood Culture Adult (2) [facility] 06/09 08:32 Order name: T\T\S eb 06/09 08:32 Order name: Acetaminophen eb 06/09 09:09 Order name: CBC Smear Scan [facility] 06/09 09:26 Order name: Packed RBC Leukored [facility] 06/09 07:23 Order name: XRAY Chest (1 view) [facility] 06/09 07:23 Order name: US Extremity Venous W Compression Alan [facility] 06/09 07:39 Order name: CT Head C Spine; Complete Time: 08:57 [facility] 06/09 07:39 Order name: CT Chest Abdomen Pelvis W/O Contrast; Complete Time: 09:00 [facility] 06/09 07:23 Order name: EKG; Complete Time: 07:23 06/09 07:23 Order name: Cardiac monitoring; Complete Time: 07:25 [facility] 06/09 07:23 Order name: EKG - Nurse/Tech; Complete Time: 07:25 herman 06/09 07:23 Order name: IV Saline Lock; Complete Time: 07:25 herman 06/09 07:23 Order name: Labs collected and sent; Complete Time: 07:25 [facility] 06/09 07:23 Order name: O2 Per Protocol; Complete Time: 07: herman 06/09 07:23 Order name: O2 Sat Monitoring; Complete Time: : herman EC:41 Rate is 80 beats/min. Rhythm is regular. QRS [place] is Normal. [place] interval is normal. QRS herman interval is normal. QT interval is prolonged at 523 msec. No Q waves. T waves are Normal. No ST changes noted. Clinical impression: NSR w/ Non-specific ST/T Changes and No evidence of ischemia. Administered Medications: 07:36 Not Given (Duplicate Order): ns 0.9% 1000 ml IV at 75 ml/hr continuous herman 09:06 Drug: Thiamine IV 100 mg IV at bolus once Route: IV; Rate: bolus; Site: right ld1 antecubital; 11:32 Follow up: Response: No adverse reaction ld1 09:06 Drug: Pantoprazole IVP 40 mg IVP once Route: IVP; Site: right antecubital; ld1 09:45 Follow up: Response: No adverse reaction ld1 09:06 Drug: Rocephin IV 1 grams IV at per protocol once; Given slow IV push per pharmacy ld1 instructions Route: IV; Rate: per protocol; Site: right antecubital; 10:00 Follow up: Response: No adverse reaction ld1 09:06 Drug: Magnesium Sulfate IVPB 1 grams IVPB once over 1 hrs Route: IVPB; Infused Over: 1 ld1 hrs; Site: right antecubital; 10:00 Follow up: Response: No adverse reaction; IV Status: Completed infusion; IV Intake: ld1 100ml 10:00 Follow up: Response: No adverse reaction ld1 09:06 Drug: Lactulose PO 30 grams 45 ml PO once Volume: 45 ml; Route: PO; ld1 10:00 Follow up: Response: No adverse reaction ld1 09:07 Drug: Potassium PO Effervescent Tablet 25 mEq PO once; dissolve in 4 ounces of water or ld1 juice Route: PO; 10:00 Follow up: Response: No adverse reaction ld1 09:15 Drug: Phytonadione Sub-Q 10 mg Sub-Q once Route: Sub-Q; Site: abdomen; ld1 10:00 Follow up: Response: No adverse reaction ld1 09:22 Drug: Banana Bag - (Multivitamin IV 1 amp, NS 0.9% IV 1000 ml, Thiamine IV 100 mg, ld1 foLIC Acid IVPB 1 mg) IV at 75 ml/hr once Route: IV; Rate: 75 ml/hr; Site: right wrist; 11:33 Follow up: Response: No adverse reaction; IV Status: Infusion continued; IV Intake: ld1 1000ml 09:22 Drug: Furosemide IVP 20 mg IVP once; give over 2 minutes Route: IVP; Site: right wrist; ld1 10:00 Follow up: Response: No adverse reaction ld1 Disposition Summary: 06/09/24 07:50 Transfer Ordered Notes: Transfer Location: [facility] herman Reason: Higher level of care herman Condition: Fair herman Problem: new herman Symptoms: have improved herman Accepting Physician: TO [facility](06/09/24 10:58) ld1 Diagnosis - Fall on same level, unspecified herman - Alcoholic cirrhosis of liver with ascites herman - Unspecified jaundice herman - Edema, unspecified herman - Anemia, unspecified herman - Hypokalemia herman - Hypomagnesemia herman - Hepatic failure, unspecified without coma herman - Abnormal coagulation profile herman - Encephalopathy, unspecified - HEPATIC herman - Other cholelithiasis without obstruction herman Forms: - Medication Reconciliation Form herman - SBAR form herman Signatures: Dispatcher [employer] EDMS Nilesh Hdez MD MD cha Botello, Elizabeth eb Able, Lacie, RN RN lg3 Nissa Richardson RN RN ld1 Corrections: (The following items were deleted from the chart) 08:32 08:32 TYPE AND SCREEN+BB.LAB.BRZ ordered. EDMS EDMS 08:32 08:32 ACETAMINOPHEN+C.LAB.BRZ ordered. EDMS EDMS 08:35 07:50 TO [facility] herman herman 09:00 08:35 TO [facility] herman herman 09:02 09:00 TO [facility] herman herman 10:58 09:02 TO [facility] herman ld1
--- NOTE | 2024-06-09 07:51 | ER ---
Nurse's Notes [facility] Name: Doreen Allison Age: 54 yrs Sex: Female : 1970 Arrival Date: 06/09/2024 Time: 06:24 Bed 17 Private MD: Diagnosis: Fall on same level, unspecified;Alcoholic cirrhosis of liver with ascites;Unspecified jaundice;Edema, unspecified;Anemia, unspecified;Hypokalemia;Hypomagnesemia;Hepatic failure, unspecified without coma;Abnormal coagulation profile;Encephalopathy, unspecified-HEPATIC;Other cholelithiasis without obstruction Presentation: 06/09 06:45 Chief complaint: Patient states: I fell a week ago and I am all bruised up. I am lg3 swelling all over and my left arm is numb. Coronavirus screen: Client denies travel out of the [place] in the last 14 days. At this time, the client does not indicate any symptoms associated with coronavirus-19. Ebola Screen: Patient negative for fever greater than or equal to 101.5 degrees Fahrenheit, and additional compatible Ebola Virus Disease symptoms Patient denies exposure to infectious person. Patient denies travel to an Ebola-affected area in the 21 days before illness onset. No symptoms or risks identified at this time. Initial Sepsis Screen: Does the patient meet any 2 criteria? No. Patient's initial sepsis screen is negative. Does the patient have a suspected source of infection? No. Patient's initial sepsis screen is negative. Risk Assessment: Do you want to hurt yourself or someone else? Patient reports no desire to harm self or others. Onset of symptoms is unknown. Care prior to arrival: None. Activity prior to arrival: None. Mechanism of Injury: Fall. Transition of care: patient was not received from another setting of care. 06:45 Method Of Arrival: Wheelchair lg3 06:45 Acuity: LARRY 3 lg3 Triage Assessment: 06:57 General: Appears in no apparent distress. uncomfortable, obese, unkempt, Behavior is lg3 calm, cooperative. Pain: Complains of pain in right arm, left arm, right leg and left leg Pain currently is 10 out of 10 on a pain scale. EENT: Sclera/Cornea yellow. Neuro: Level of Consciousness is awake, alert, obeys commands, Oriented to person, place, time, situation, Appropriate for age. Cardiovascular: Capillary refill < 3 seconds Edema pitting to left ankle, left foot, right ankle and right foot. Respiratory: Airway is patent Respiratory effort is even, unlabored, Respiratory pattern is regular, symmetrical. GI: Abdomen is round non-distended. : No deficits noted. No signs and/or symptoms were reported regarding the genitourinary system. Derm: Skin is intact, Skin is jaundiced, Bruising that is dark purple, brown, on right arm and left arm. Musculoskeletal: Range of motion: intact in all extremities. Historical: - Allergies: 06:47 No Known Allergies; lg3 - Home Meds: 06:47 carvedilol 12.5 mg Oral tablet 2 times per day [Active]; escitalopram oxalate 10 mg lg3 Oral tablet daily [Active]; lisinopril 10 mg Oral tablet daily [Active]; Potassium Chloride Oral daily [Active]; Vitamin B-12 Oral daily [Active]; Vitamin D3 oral every week [Active]; Vitamin B-6 Oral [Active]; - PMHx: 06:47 Alcoholism; Anemia; Anxiety; breast cancer; depressive disorder; Hypertensive disorder; lg3 PTSD; - PSHx: 06:47 Left Mastectomy; right foot; lg3 - Immunization history:: Adult Immunizations up to date. - Infectious Disease History:: Denies. - Social history:: Smoking status: Patient denies any tobacco usage or history of. Screenin:52 [facility] ED Fall Risk Assessment (Adult) History of falling in the last 3 months, lg3 including since admission Yes- fall prone (multiple falls) (3 pts) Confusion or Disorientation No (0 pts) Intoxicated or Sedated No (0 pts) Impaired Gait Yes (1 pt) Mobility Assist Device Used No (0 pt) Altered Elimination No (0 pt) Score/Fall Risk Level 0 - 2 = Low Risk Oriented to surroundings, Maintained a safe environment, Educated pt \T\ family on fall prevention, incl call for assistance when getting out of bed. Abuse screen: Denies threats or abuse. Nutritional screening: No deficits noted. Tuberculosis screening: No symptoms or risk factors identified. Assessment: 06:40 General: Appears in no apparent distress. Behavior is calm, cooperative, appropriate rg5 for age. 06:40 Pain: Complains of pain in right leg and left leg Pain currently is 10 out of 10 on a rg5 pain scale. Quality of pain is described as aching, Pain began 1 hour ago. Neuro: Level of Consciousness is awake, alert, obeys commands, Oriented to person, place, time, Speech is normal, Facial symmetry appears normal, Numbness in right arm. Cardiovascular: Patient's skin is warm and dry. Rhythm is sinus rhythm. Respiratory: Reports cough that is Airway is patent Trachea midline Respiratory effort is even, unlabored. GI: Abdomen is round Abd is soft and non tender. : No signs and/or symptoms were reported regarding the genitourinary system. EENT:. Derm: Skin is fragile, has lesions on arms \T\ chest Skin is jaundiced, Reports pain that is 10 out of 10 on a pain scale. Musculoskeletal: Range of motion: intact in all extremities, Swelling present in right leg and left leg. 08:00 Reassessment: Patient appears in no apparent distress at this time. No changes from ld1 previously documented assessment. Patient and/or family updated on plan of care and expected duration. Pain level reassessed. 09:00 Reassessment: Patient appears in no apparent distress at this time. No changes from ld1 previously documented assessment. Patient and/or family updated on plan of care and expected duration. Pain level reassessed. 10:30 Reassessment: 1U PRBC infusion began prior to pt leaving. ld1 Vital Signs: 06:40 BP 116 / 51; Pulse 83; Resp 17; Temp 98(O); Pulse Ox 98% on R/A; Pain 10/10; rg5 06:45 BP 116 / 51; Pulse 83; Resp 17; Temp 98.9; Pulse Ox 98% ; Weight 77.11 kg; Height 5 ft. lg3 1 in. ; Pain 10/10; 10:02 BP 113 / 66; Pulse 84; Resp 18; Pulse Ox 99% on R/A; ld1 10:10 BP 127 / 66; Pulse 77; Resp 18; Pulse Ox 100% on R/A; ld1 10:45 BP 139 / 77; Pulse 78; Resp 18; Pulse Ox 100% on R/A; ld1 06:45 Body Mass Index 32.12 (77.11 kg, 154.94 cm) lg3 06:40 Pain Scale: Adult rg5 06:45 Pain Scale: Adult lg3 Swathi Coma Score: 06:40 Eye Response: spontaneous(4). Motor Response: obeys commands(6). Verbal Response: rg5 oriented(5). Total: 15. ED Course: 06:30 Patient arrived in ED. gm2 06:38 Asael Frausto, RN is Primary Nurse. rg5 06:40 No provider procedures requiring assistance completed. rg5 06:47 Triage completed. lg3 06:52 Arm band placed on left wrist. lg3 07:00 Patient has correct armband on for positive identification. Placed in gown. Bed in low lg3 position. Call light in reach. senior software qa engineer on. Pulse ox on. NIBP on. 07:02 Inserted saline lock: 20 gauge in right antecubital area, using aseptic technique. oe Blood collected. Flushed with 10 mL NS. 07:04 Warm blanket given. oe 07:10 Nilesh Hdez MD is Attending Physician. herman 07:49 Blood Culture Adult (2) Sent. ld1 07:49 AMMONIA Sent. ld1 08:17 US Extremity Venous W Compression Alan In Process Unspecified. EDMS 08:32 CT Head C Spine In Process Unspecified. EDMS 08:33 CT Chest Abdomen Pelvis W/O Contrast In Process Unspecified. EDMS 08:33 initiated a transfer with Neil Hernandez from the [facility] Transfer center. eb 08:38 XRAY Chest (1 view) In Process Unspecified. EDMS 08:[address] Fan the job printer on all for [facility] with Dr. Lemuel stewart for patient transfer consultation. 09:01 administrative approval given by Neil Hernandez/ patient has been accepted to [facility] room 939/ Dr. Mis Madrid has accepted the patient in transfer/ report to be called to [phone]. 09:06 T\T\S Sent. ld1 09:07 Blood Culture Adult (2) Sent. ld1 09:07 Acetaminophen Sent. ld1 09:15 Inserted saline lock: 20 gauge in right wrist, using aseptic technique. ld1 10:57 Report given to [facility]. ld1 10:57 Patient transferred, IV remains in place. ld1 Administered Medications: 07:36 Not Given (Duplicate Order): ns 0.9% 1000 ml IV at 75 ml/hr continuous herman 09:06 Drug: Thiamine IV 100 mg IV at bolus once Route: IV; Rate: bolus; Site: right ld1 antecubital; 11:32 Follow up: Response: No adverse reaction ld1 09:06 Drug: Pantoprazole IVP 40 mg IVP once Route: IVP; Site: right antecubital; ld1 09:45 Follow up: Response: No adverse reaction ld1 09:06 Drug: Rocephin IV 1 grams IV at per protocol once; Given slow IV push per pharmacy ld1 instructions Route: IV; Rate: per protocol; Site: right antecubital; 10:00 Follow up: Response: No adverse reaction ld1 09:06 Drug: Magnesium Sulfate IVPB 1 grams IVPB once over 1 hrs Route: IVPB; Infused Over: 1 ld1 hrs; Site: right antecubital; 10:00 Follow up: Response: No adverse reaction; IV Status: Completed infusion; IV Intake: ld1 100ml 10:00 Follow up: Response: No adverse reaction ld1 09:06 Drug: Lactulose PO 30 grams 45 ml PO once Volume: 45 ml; Route: PO; ld1 10:00 Follow up: Response: No adverse reaction ld1 09:07 Drug: Potassium PO Effervescent Tablet 25 mEq PO once; dissolve in 4 ounces of water or ld1 juice Route: PO; 10:00 Follow up: Response: No adverse reaction ld1 09:15 Drug: Phytonadione Sub-Q 10 mg Sub-Q once Route: Sub-Q; Site: abdomen; ld1 10:00 Follow up: Response: No adverse reaction ld1 09:22 Drug: Banana Bag - (Multivitamin IV 1 amp, NS 0.9% IV 1000 ml, Thiamine IV 100 mg, ld1 foLIC Acid IVPB 1 mg) IV at 75 ml/hr once Route: IV; Rate: 75 ml/hr; Site: right wrist; 11:33 Follow up: Response: No adverse reaction; IV Status: Infusion continued; IV Intake: ld1 1000ml 09:22 Drug: Furosemide IVP 20 mg IVP once; give over 2 minutes Route: IVP; Site: right wrist; ld1 10:00 Follow up: Response: No adverse reaction ld1 Medication: 06:52 VIS not applicable for this client. lg3 Intake: 10:00 IV: 100ml; Total: 100ml. ld1 11:33 IV: 1000ml; Total: 1100ml. ld1 Outcome: 07:50 ER care complete, transfer ordered by MD. sutton 10:57 Transferred by ground EMS to [facility], [facility] [place] [place], ld1 10:57 Condition: unchanged 10:57 Instructed on the need for transfer, 10:58 Patient left the ED. ld1 Signatures: Dispatcher [employer] EDMS Nilesh Hdez MD MD cha Espinosa, Orlando oe Botello, Elizabeth eb Able, Lacie, RN RN lg3 Nissa Richardson RN RN ld1 Domitila Varner gm2 Asael Frausto, RN RN rg5
[2024-06-09] MEDS ORDERED: PANTOPRAZOLE 40 MG INJ ONE (08:01)
[2024-06-09] MEDS ORDERED: THIAMINE 200 MG/2 ML INJ ONE (08:01)
[2024-06-09] MEDS ORDERED: CEFTRIAXONE 1000 MG/VIAL ONE (08:01)
[2024-06-09 08:04] LABS: Albumin 2.4 g/dL (3.4-5.0); Albumin/Globulin Ratio 0.5 (1.1-1.8); Anion Gap 9.4 mEq/L (5.0-15.0); Bilirubin Direct 7.4 mg/dL (0-0.2); Bilirubin Indirect, Calculated 3.5 mg/dL (0.2-0.8); Bilirubin Total 10.9 mg/dL (0.2-1.0); Globulin 4.4 g/dL (2.3-3.5); Magnesium 1.5 mg/dL (1.6-2.4); Potassium 3.4 mEq/L (3.5-5.1); Protein, Total 6.8 g/dL (6.4-8.2); Troponin High Sensitivity 10.9 pg/mL (<58.9)
[2024-06-09] MEDS ORDERED: FOLIC ACID 1 MG, MULTIVITAMINS INJ 10 ML, THIAMINE HCL 100 MG in NA CHLORIDE 0.9% 1,000 ML IV ONE (08:05)
[2024-06-09 08:43] LABS: Specific Gravity 1.008 (1.005-1.030); Urine Bilirubin 1+ (Negative); Urine Blood Negative (Negative); Urine Clarity Clear (Clear); Urine Color Yellow (Yellow); Urine Glucose NEGATIVE (Negative); Urine Ketones NEGATIVE (Negative); Urine Microscopic Reflex YN NO UMIC; Urine Nitrite NEGATIVE (Negative); Urine Protein NEGATIVE (Negative); Urine Urobilinogen 4+ (Over) (Normal); Urine pH 6.5 (5.0-7.0)
[2024-06-09] MEDS ORDERED: LACTULOSE 20 GM/30 ML UCUP ONE (08:46)
[2024-06-09] MEDS ORDERED: VITAMIN K (ADULT) 10 MG/ML ONE (08:46)
[2024-06-09] MEDS ORDERED: MAGNESIUM SULFATE 1 gm IVPB 1 GM/100 ML BAG IV ONE (08:46)
[2024-06-09] MEDS ORDERED: POTASSIUM 25 MEQ EFFERV TAB ONE (08:46)
--- NOTE | 2024-06-09 08:48 | RAD REPORT ---
EXAM DESCRIPTION: CT - Head C Spine Mpr Wo Con - 06/09/2024 8:30 am CLINICAL HISTORY: Head and neck injury status post fall. Head and neck pain. Dizziness COMPARISON: February 2024 TECHNIQUE: Computed axial tomography of the head and cervical spine was obtained. Sagittal and coronal reconstruction was performed. All CT scans are performed using dose optimization technique as appropriate and may include automated exposure control or mA/KV adjustment according to patient size. FINDINGS: An intracranial bleed is not seen. The ventricles are normal in caliber. No significant hypodensity within the brain. An extra-axial fluid collection is not noted. Mild to moderate ethmoid sinusitis A cervical fracture is not visualized. No dislocation is noted. IMPRESSION: No acute intracranial abnormality is seen. A cervical fracture is not visualized. If the patient continues to have symptoms to suggest intracranial /spinal cord pathology then MRI wou ld be recommended
--- NOTE | 2024-06-09 08:56 | RAD REPORT ---
EXAM DESCRIPTION: CT - Chest Abd Pelvis Wo Con - 06/09/2024 8:31 am CLINICAL HISTORY: Fall with chest and abdominal pain COMPARISON: none TECHNIQUE: Computed axial tomography of the chest, abdomen and pelvis was obtained. Oral contrast wa s given. IV contrast was not requested. All CT scans are performed using dose optimization technique as appropriate and may include automated exposure control or mA/KV adjustment according to patient size. FINDINGS: The evaluation of mediastinum, randy, vessels and solid organs is limited secondary to the lack of IV contrast administration A lung contusion is not present. Minimal ground-glass opacities left upper lobe A pleural effusion is not present. A pericardial effusion is not seen. A mediastinal hematoma is not seen. The liver, spleen, pancreas, adrenals, kidneys and bladder do not demonstrate a traumatic injury. There is no evidence of diverticulitis. Cirrhotic liver. Cholelithiasis. Mild gallbladder wall thickening. Varices. Spleen 17 centimeters Normal appendix. A large amount of edema within subcutaneous tissues. IMPRESSION: No acute traumatic injury involving the chest, abdomen or pelvis is seen Cirrhosis. Splenomegaly Cholelithiasis. Thickened gallbladder wall may be related to hypoalbuminemia or cholecystitis Marked amount edema within subcutaneous tissues
[2024-06-09] MEDS ORDERED: ONDANSETRON 4 MG/2 ML VIAL ONE (09:05)
[2024-06-09] MEDS ORDERED: FUROSEMIDE 20 MG/ 2ML VIAL ONE (09:06)
--- NOTE | 2024-06-09 09:08 | RAD REPORT ---
EXAM DESCRIPTION: Jazmyn Single View06/09/2024 8:36 am CLINICAL HISTORY: Chest pain COMPARISON: 2022 FINDINGS: The lungs appear clear of acute infiltrate. The heart is normal size IMPRESSION: No acute abnormalities displayed
[2024-06-09 09:09] LABS: Anisocytosis 1+; Blood Morphology Comment NOTED (NOT SEEN); Macrocytosis 2+; Platelet Estimate DECR; White Blood Cell Scan OK (OK)
--- NOTE | 2024-06-09 09:13 | RAD REPORT ---
EXAM DESCRIPTION: USExtrem Venous W Compress Bil06/09/2024 8:15 am CLINICAL HISTORY: Leg pain COMPARISON: none FINDINGS: The common femoral, superficial femoral, greater saphenous, popliteal and posterior tibial veins bilaterally are compressible and demonstrate augmentation. Doppler demonstrates good flow. Grayscale, color and spectral analysis performed on all vessels IMPRESSION: No evidence of deep venous thrombosis involving either lower extremity.
[2024-06-09] MEDS ORDERED: NA CHLORIDE 0.9% 250 ML ONE (10:07)
[2024-06-09 11:35] VITALS: TEMP 98.9
[2024-06-09 11:38] VITALS: O2SAT 100
[2024-06-09 11:40] VITALS: BP 139/77
--- NOTE | 2024-06-11 12:54 | EKG ---
Test Date: 2024-06-09 Test Time: 06:48:11 General Machinist: AZAM MEASUREMENT RESULTS: Intervals: Rate: 80 ME: 134 QRSD: 116 QT: 454 QTc: 523 [place]: P: 10 ME: 134 QRS: 45 T: 43 INTERPRETIVE STATEMENTS: Normal sinus rhythm Prolonged QT Abnormal ECG Compared to ECG 03/17/2024 20:21:20 Prolonged QT interval now present Sinus tachycardia no longer present Incomplete right bundle-branch block no longer present Left ventricular hypertrophy no longer present Early repolarization no longer present Electronically Signed On 06-11-24 12:48:52 CDT by Naeem Sharma
== END 2024-06-09 10:58 | disposition short-term general hospital (02) ==
LOC: ER 06:24
DX: K72.90 Hepatic failure, unspecified without coma (principal); K76.82 Hepatic encephalopathy; D64.9 Anemia, unspecified; K70.31 Alcoholic cirrhosis of liver with ascites; F41.9 Anxiety disorder, unspecified; I10 Essential (primary) hypertension; F10.20 Alcohol dependence, uncomplicated; F32.A Depression, unspecified; R17 Unspecified jaundice; E87.6 Hypokalemia; E83.42 Hypomagnesemia; K80.80 Other cholelithiasis without obstruction; D68.9 Coagulation defect, unspecified; R22.40 Localized swelling, mass and lump, unspecified lower limb; W18.30XA Fall on same level, unspecified, initial encounter; Y93.9 Activity, unspecified; Y92.9 Unspecified place or not applicable; Z85.3 Personal history of malignant neoplasm of breast
CPT/HCPCS: 93005; 87040 ×2; 85025; 80048; 36415; 82140; 86900; 83735; 86850; 85610; 86901; 80076; 86920; 81003; 84484; 83690; 83880; 70450; 71250; 72125; 74176; 71045; 93970; 96372; 99285; 80143; J3411 ×2; J3475; J1940; J3430; J2470; J2405; P9016; J7050; J7030; J0696

== ENCOUNTER 2024-06-29 17:37 | Emergency (ER) | payer OTHER ==
[2024-06-29 18:40] LABS: SARS-CoV-2 Antigen CONTROL BLUE LINE VIS/BG OK; SARS-CoV-2 Antigen Rapid Res Negative (Negative)
--- NOTE | 2024-06-29 19:02 | ER ---
Nurse's Notes [facility] Name: Doreen Allison Age: 54 yrs Sex: Female : 1970 Arrival Date: 06/29/2024 Time: 17:37 Bed 2 Private MD: Diagnosis: Presentation: 06/29 17:50 Chief complaint: EMS states: patient called for persistent cough. Coronavirus screen: ko1 At this time, the client does not indicate any symptoms associated with coronavirus-19. Ebola Screen: No symptoms or risks identified at this time. Initial Sepsis Screen: Does the patient meet any 2 criteria? No. Patient's initial sepsis screen is negative. Does the patient have a suspected source of infection? No. Patient's initial sepsis screen is negative. Risk Assessment: Do you want to hurt yourself or someone else? Patient reports no desire to harm self or others. Onset of symptoms was June 29, 2024. 17:50 Method Of Arrival: EMS: [facility] ko1 17:50 Acuity: LARRY 2 ko1 Triage Assessment: 17:53 General: Appears distressed, ill, Behavior is cooperative, appropriate for age. Pain: ko1 Denies pain. EENT: No deficits noted. Neuro: No deficits noted. Cardiovascular: No deficits noted. Rhythm is sinus tachycardia. Respiratory: Reports cough that is non-productive, hacking, persistent. GI: No deficits noted. : No deficits noted. Derm: No deficits noted. Musculoskeletal: No deficits noted. 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 - Infectious Disease History:: Denies. - Social history:: Smoking status: Patient denies any tobacco usage or history of. Screenin:56 [facility] ED Fall Risk Assessment (Adult) History of falling in the last 3 months, ko1 including since admission No falls in past 3 months (0 pts) Confusion or Disorientation No (0 pts) Intoxicated or Sedated No (0 pts) Impaired Gait No (0 pts) Mobility Assist Device Used No (0 pt) Altered Elimination No (0 pt) Score/Fall Risk Level 0 - 2 = Low Risk Oriented to surroundings, Maintained a safe environment, Educated pt \\T\\ family on fall prevention, incl call for assistance when getting out of bed, Assessed \\T\\ reinforced patient's understanding of fall precautions, Provided non-skid footwear, Hourly rounding (assess needs \\T\\ fall precautionary measures) done. Abuse screen: Denies threats or abuse. Denies injuries from another. Nutritional screening: No deficits noted. Tuberculosis screening: No symptoms or risk factors identified. Assessment: 17:56 Reassessment: see triage note. ko1 18:17 Reassessment: patient refusing to have IV start and labs at this time, Kavin Espana notified ko1 by Ester Diaz. 18:59 Reassessment: Pt refusing blood work and IV. Pt states, "my family is here in the lobby mb9 to pick me up and i'm leaving. I don't have time to sign a AMA form." Pt refusing to sign AMA form. Pt walks out of ER. ERP notified. Vital Signs: 17:50 BP 140 / 61; Pulse 104; Resp 16; Temp 98; Pulse Ox 100% ; ko1 18:17 BP 129 / 62; Pulse 105; Resp 18; Pulse Ox 97% ; ko1 ED Course: 17:48 Patient arrived in ED. mb9 17:50 Nilesh Espana PA is PHCP. cp 17:50 Nilesh Hdez MD is Attending Physician. cp 17:51 Elba Mead, BARBI is Primary Nurse. ko1 17:53 Triage completed. ko1 17:53 Arm band placed on right wrist. Patient placed in an exam room, on a stretcher, on ko1 printing plate setter, on pulse oximetry, Patient notified of wait time. 17:56 Patient has correct armband on for positive identification. Bed in low position. Call ko1 light in reach. Side rails up X2. Provided Education on: call light. Client placed on continuous cardiac and pulse oximetry monitoring. NIBP monitoring applied. machine room operator on. Door closed. Noise minimized. Lights dimmed. Warm blanket given. Pillow given. 17:56 No provider procedures requiring assistance completed. ko1 18:17 Influenza Screen (a \\T\\ B) Sent. ko1 18:17 SARS RAPID Sent. ko1 19:12 XRAY Chest (1 view) In Process Unspecified. EDMS Administered Medications: No medications were administered Medication: 17:56 VIS not applicable for this client. ko1 Outcome: 19:02 AMA Left before signing form, ko1 19:02 Condition: stable 19:02 Instructed on importance of drawing labs, patient refused 19:03 Patient left the ED. ko1 Signatures: Dispatcher [employer] EDMS Nilesh Espana PA PA cp Oliver, Kathy, RN RN ko1 Clarita Scott RN RN mb9
--- NOTE | 2024-06-29 19:02 | EDPHYS ---
Physician Documentation [facility] Name: Doreen Allison Age: 54 yrs Sex: Female : 1970 Arrival Date: 06/29/2024 Time: 17:37 Bed 2 Private MD: ED Physician Nilesh Hdez HPI: 06/29 17:52 This 54 yrs old Female presents to ER via Unassigned with complaints of Cough, cp Shortness of Breath. 17:52 The patient has shortness of breath at rest. cp 17:52 Onset: The symptoms/episode began/occurred today. cp 17:52 Duration: The symptoms are continuous. Associated signs and symptoms: Pertinent cp positives: non-productive cough, Pertinent negatives: chest pain, productive cough, diaphoresis, fever, vomiting. Severity of symptoms: in the emergency department the symptoms are unchanged despite EMS interventions. 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 - Infectious Disease History:: Denies. - Social history:: Smoking status: Patient denies any tobacco usage or history of. ROS: 17:55 Eyes: Negative for injury, pain, redness, and discharge, cp 17:55 Constitutional: Negative for body aches, chills, fever, poor PO intake, 17:55 Cardiovascular: Positive for edema, Negative for chest pain, palpitations, 17:55 Respiratory: Positive for cough, with no reported sputum, orthopnea, shortness of breath, on exertion. Negative for hemoptysis, wheezing, 17:55 Abdomen/GI: Negative for abdominal pain, vomiting, diarrhea, constipation, 17:55 Neuro: Negative for altered mental status, headache, syncope, cp Exam: 18:00 Constitutional: The patient appears in no acute distress, alert, awake, cp non-diaphoretic, non-toxic, well developed, well nourished, uncomfortable, 18:00 Head/Face: Normocephalic, atraumatic. cp 18:00 Eyes: Periorbital structures: appear normal, Conjunctiva: normal, no exudate, no injection, Sclera: no appreciated abnormality, Lids and lashes: appear normal, bilaterally, 18:00 ENT: External ear(s): are unremarkable, Nose: is normal, Mouth: Lips: moist, Oral mucosa: pink and intact, moist, Posterior pharynx: Airway: no evidence of obstruction, patent, 18:00 Chest/axilla: Inspection: normal, 18:00 Cardiovascular: Rate: tachycardic, Rhythm: regular, Edema: ankle edema, that is moderate, JVD: is not appreciated, 18:00 Respiratory: the patient does not display signs of respiratory distress, Respirations: labored breathing, that is mild, Breath sounds: bronchial sounds, that are mild, are heard diffusely, stridor, is not appreciated, wheezing: is not appreciated, 18:00 Abdomen/GI: Inspection: abdomen appears normal, Palpation: abdomen is soft and non-tender, in all quadrants, 18:00 Back: pain, is absent, ROM is normal, 18:00 Skin: cellulitis, is not appreciated, no rash present. 18:00 Neuro: Orientation: to person, place \T\ time. Mentation: is normal, Motor: moves all fours, strength is normal, 18:15 ECG was reviewed by the Attending Physician. cp Vital Signs: 17:50 BP 140 / 61; Pulse 104; Resp 16; Temp 98; Pulse Ox 100% ; ko1 18:17 BP 129 / 62; Pulse 105; Resp 18; Pulse Ox 97% ; ko1 MDM: 17:51 Patient medically screened. 06/29 17:53 Order name: SARS RAPID cp 06/29 17:53 Order name: Influenza Screen (a \T\ B) 06/29 17:53 Order name: XRAY Chest (1 view) 06/29 17:53 Order name: Cardiac monitoring; Complete Time: 17:58 cp 06/29 17:53 Order name: EKG - Nurse/Tech; Complete Time: 18:12 cp 06/29 17:53 Order name: O2 Per Protocol; Complete Time: 17:57 cp 06/29 17:53 Order name: O2 Sat Monitoring; Complete Time: 17:57 cp EC:15 Rate is 101 beats/min. Rhythm is regular. IA interval is normal. QRS interval is cp prolonged at 112 msec. QT interval is normal. Interpreted by me. Reviewed by me. Administered Medications: No medications were administered Disposition Summary: 06/29/24 19:01 Left Against Medical Advice Notes: Location: Home mb9 Condition: Stable mb9 Signatures: Dispatcher [employer] EDMS Nliesh Espana PA PA cp Elba Mead, RN RN ko1 Clarita Scott RN RN mb9 Corrections: (The following items were deleted from the chart) 17:54 17:54 Chest Single View+[email or web address] ordered. EDMS EDMS 23:57 18:15 Cardiovascular: Positive for edema, Negative for chest pain, palpitations, cp cp 23:57 18:15 Constitutional: Negative for body aches, chills, fever, poor PO intake, cp cp 23:57 18:15 Respiratory: Positive for cough, with no reported sputum, orthopnea, shortness of cp breath, on exertion. Negative for hemoptysis, wheezing, cp 23:57 18:15 Abdomen/GI: Negative for abdominal pain, vomiting, diarrhea, constipation, cp cp 23:57 18:15 Eyes: Negative for injury, pain, redness, and discharge, cp cp
--- NOTE | 2024-06-29 19:15 | RAD REPORT ---
EXAMINATION: ONE VIEW CHEST XR CLINICAL INDICATION: COUGH TECHNIQUE: Frontal chest projection is submitted. Examination is limited by patient positioning and t echnique. COMPARISON: 06/09/2024 FINDINGS: Mild interstitial pulmonary edema suspected. The heart is mildly enlarged in size. No displaced fract ures identified. Left axillary dissection clips. IMPRESSION: Mild CHF.
[2024-06-29 20:15] VITALS: TEMP 98
[2024-06-29 20:17] VITALS: BP 129/62; O2SAT 97
--- NOTE | 2024-07-02 12:00 | EKG ---
Test Date: 2024-06-29 Test Time: 18:08:55 Charging Plug Placer: AM MEASUREMENT RESULTS: Intervals: Rate: 101 NE: 150 QRSD: 112 QT: 398 QTc: 516 [place]: P: 47 NE: 150 QRS: 8 T: 29 INTERPRETIVE STATEMENTS: Sinus tachycardia Voltage criteria for left ventricular hypertrophy Nonspecific T wave abnormality Abnormal ECG Compared to ECG 06/09/2024 06:48:11 Left ventricular hypertrophy now present T-wave abnormality now present Sinus rhythm no longer present Prolonged QT interval no longer present Electronically Signed On 07-02-24 11:54:36 CDT by Dontrell Campa
== END 2024-06-29 19:03 | disposition left against medical advice (07) ==
LOC: ER 17:37
DX: R06.02 Shortness of breath (principal); R05.9 Cough, unspecified; I10 Essential (primary) hypertension; F10.20 Alcohol dependence, uncomplicated; Z85.3 Personal history of malignant neoplasm of breast; Z90.12 Acquired absence of left breast and nipple; Z11.52 Encounter for screening for COVID-19
CPT/HCPCS: 36415; 71045; 87804; 87811; 93005; 99284

== ENCOUNTER 2024-08-20 17:20 | Emergency (ER) | payer OTHER ==
[2024-08-20 18:17] LABS: Specific Gravity < 1.005 (1.005-1.030); Urine Bilirubin NEGATIVE (Negative); Urine Blood Negative (Negative); Urine Clarity Clear (Clear); Urine Color Light-Yellow (Yellow); Urine Glucose NEGATIVE (Negative); Urine Ketones NEGATIVE (Negative); Urine Microscopic Reflex YN NO UMIC; Urine Nitrite NEGATIVE (Negative); Urine Protein NEGATIVE (Negative); Urine Urobilinogen Normal (Normal)
[2024-08-20 18:45] LABS: Absolute Lymphocytes (CBC) 0.6 K/uL (0.7-4.9); Absolute Monocytes 0.4 K/uL (0.1-1.3); Absolute Neutrophil 1.9 K/uL (1.8-8.0); Basophils % 0.3 % (0-1.3); Eosinophils % 1.7 % (0-4.4); Hematocrit 24.3 % (36.0-45.0); Hemoglobin 8.5 g/dL (12.0-15.0); Lymphocytes % 19.7 % (15.3-44.8); MCH 40.3 pg (27.0-35.0); MCHC 34.9 g/dL (32.0-36.0); MCV 115.6 fL (80-100); Monocytes % 14.6 % (3.3-12.3); Neutrophils % 63.7 % (41.7-73.7); Nucleated Red Blood Cells % 0.3 % (0-0); Platelets 61 thou/uL (152-406); Red Cell Distribution Width 18.1 % (12.1-15.2)
[2024-08-20 18:51] LABS: PT Prothrombin Time 18.6 SECONDS (9.4-12.5); PTT, Activated Partial Thromb 34.9 SECONDS (24.3-36.9); Protime INR 1.69
[2024-08-20 19:04] LABS: Albumin 2.7 g/dL (3.4-5.0); Albumin/Globulin Ratio 0.6 (1.1-1.8); Anion Gap 9.5 mEq/L (5.0-15.0); Bilirubin Total 10.5 mg/dL (0.2-1.0); Globulin 4.7 g/dL (2.3-3.5); Potassium 4.5 mEq/L (3.5-5.1); Protein, Total 7.4 g/dL (6.4-8.2)
--- NOTE | 2024-08-20 19:15 | EDPHYS ---
Physician Documentation [facility] Name: Doreen Allison Age: 54 yrs Sex: Female : 1970 Arrival Date: 08/20/2024 Time: 17:20 Bed 13 Private MD: ED Physician Shady Trujillo HPI: 08/20 17:48 This 54 yrs old Female presents to ER via Wheelchair with complaints of sb4 Abnormal Lab Results. 17:48 patient reports feeling weak and short of breath on exertion for an unknown amount of sb4 time. she had routine blood work done with her PCP 4 days ago and was called with the results today, told that her sodium and hemoglobin were low at that she needed to go to the ER. does report history of liver disease, cirrhosis, and ascites. has required blood transfusions in the past. denies any melena, vaginal bleeding, or hematemesis. 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 - Infectious Disease History:: Denies. - Social history:: Smoking status: Patient denies any tobacco usage or history of. Patient/guardian denies using alcohol. ROS: 17:48 Constitutional: Negative for fever, chills, and weight loss, sb4 17:48 Respiratory: Positive for dyspnea on exertion, 17:48 Neuro: Positive for weakness, 17:48 All other systems are negative, Exam: 17:48 Head/Face: Normocephalic, atraumatic. ENT: Mucous membranes moist. Cardiovascular: sb4 Regular rate and rhythm with a normal S1 and S2. Respiratory: No increased work of breathing, no retractions or nasal flaring. Abdomen/GI: Soft, non-tender, no distension. 17:48 Constitutional: The patient appears in no acute distress, alert, awake, 17:48 Cardiovascular: Edema: 2+ edema to level of left midcalf, left ankle, right midcalf and right ankle, 17:48 Skin: Appearance: Color: jaundiced, Vital Signs: 17:36 BP 90 / 44; Pulse 71; Resp 18; Temp 98.6(O); Pulse Ox 98% on R/A; MAP 57 mmHg; Weight tm6 86.18 kg; Height 5 ft. 1 in. ; 18:30 BP 112 / 56; Pulse 79; Resp 16; Pulse Ox 98% ; me1 19:00 BP 106 / 55; Pulse 72; Resp 16; Pulse Ox 98% ; me1 17:36 Body Mass Index 35.90 (86.18 kg, 154.94 cm) tm6 MDM: 17:39 Medical Screening Exam initiated sb4 19:13 Data reviewed: vital signs, nurses notes, lab test result(s), and as a result, I will sb4 discharge patient. Data reviewed: I have discussed the patient's presentation/case with the attending Emergency Department Physician;. Counseling: I had a detailed discussion with the patient and/or guardian regarding the historical points, exam findings, and any diagnostic results supporting the discharge/admit diagnosis, lab results, radiology results, the need for outpatient follow up, hepatology, to return to the emergency department if symptoms worsen or persist or if there are any questions or concerns that arise at home. ED course: Patient's blood work does not reveal any signs of severe anemia or hyponatremia. Her hemoglobin has actually improved since her last visit. Her sodium level patient is not altered. Her only complaint is of some generalized weakness. I instructed her to follow-up with her primary care and manager product marketing. She is in agreement with plan. 08/20 17:47 Order name: CBC with Diff [facility] 08/20 17:47 Order name: CMP; Complete Time: 19:08 sb4 08/20 17:47 Order name: Urinalysis w/ reflexes; Complete Time: 18:20 sb4 08/20 17:47 Order name: Type And Screen sb4 08/20 17:47 Order name: Osmolality, Serum; Complete Time: 19:19 sb4 08/20 17:47 Order name: Urine Osmolality; Complete Time: 18:34 sb4 08/20 17:47 Order name: Urine Sodium Random; Complete Time: 18:20 sb4 08/20 17:47 Order name: PT-INR; Complete Time: 18:52 sb4 08/20 17:47 Order name: Ptt, Activated; Complete Time: 18:52 sb 08/20 17:51 Order name: AMMONIA; Complete Time: 18:57 sb4 08/20 17:47 Order name: IV Saline Lock; Complete Time: 19:08 sb4 08/20 17:47 Order name: Labs collected and sent; Complete Time: 19:08 sb4 08/20 18:53 Order name: Cardiac monitoring; Complete Time: 19:10 sb4 Administered Medications: No medications were administered Disposition Summary: 08/20/24 19:15 Discharge Ordered Notes: Location: Home sb4 Problem: new sb4 Symptoms: are unchanged sb4 Condition: Stable sb4 Diagnosis - Alcoholic liver disease, unspecified sb4 - Anemia, unspecified sb4 Followup: sb4 - With: Private Physician - When: 2 - 3 days - Reason: Recheck today's complaints, Re-evaluation by your physician Discharge Instructions: - Discharge Summary Sheet sb4 - Alcoholic Liver Disease, [id number] sb4 - Hyponatremia, [id number] sb4 Forms: - Patient Portal Instructions sb4 - Leadership Thank You Letter sb4 Signatures: Dispatcher [employer] Renée Castellano PAJeffreyC PAJeffreyC sb4 Dawson Pat, RN RN tm6
--- NOTE | 2024-08-20 19:15 | ER ---
Nurse's Notes [facility] Name: Doreen Allison Age: 54 yrs Sex: Female : 1970 Arrival Date: 08/20/2024 Time: 17:20 Bed 13 Private MD: Diagnosis: Alcoholic liver disease, unspecified;Anemia, unspecified Presentation: 08/20 17:37 Chief complaint: Patient states: called and said my sodium and hemoglobin are low me1 and told me to go to ER. 17:38 Coronavirus screen: Client denies travel out of the [place] in the last 14 days. tm6 17:38 Method Of Arrival: Wheelchair tm6 18:23 Ebola Screen: No symptoms or risks identified at this time. Initial Sepsis Screen: Does me1 the patient meet any 2 criteria? No. Patient's initial sepsis screen is negative. Initial Sepsis Screen: Does the patient have a suspected source of infection?. Risk Assessment: Do you want to hurt yourself or someone else? Patient reports no desire to harm self or others. Onset of symptoms is unknown. 18:23 Acuity: LARRY 3 me1 Triage Assessment: 17:38 General: Appears in no apparent distress. Behavior is calm, cooperative. Pain: Denies tm6 pain. EENT: No signs and/or symptoms were reported regarding the EENT system. Neuro: Level of Consciousness is awake, alert, obeys commands, Oriented to person, place, time, situation. Cardiovascular: Patient's skin is warm and dry. Respiratory: Airway is patent Respiratory effort is even, unlabored, Respiratory pattern is regular, symmetrical. GI: No signs and/or symptoms were reported involving the gastrointestinal system. Abdomen is round non-distended. : No signs and/or symptoms were reported regarding the genitourinary system. Derm: No signs and/or symptoms reported regarding the dermatologic system. Musculoskeletal: Reports general weakness. 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 - Infectious Disease History:: Denies. - Social history:: Smoking status: Patient denies any tobacco usage or history of. Patient/guardian denies using alcohol. Screenin:34 [facility] ED Fall Risk Assessment (Adult) History of falling in the last 3 months, me1 including since admission No falls in past 3 months (0 pts) Confusion or Disorientation No (0 pts) Intoxicated or Sedated No (0 pts) Impaired Gait No (0 pts) Mobility Assist Device Used No (0 pt) Altered Elimination No (0 pt) Score/Fall Risk Level 0 - 2 = Low Risk Maintained a safe environment, Provided non-skid footwear, Hourly rounding (assess needs \T\ fall precautionary measures) done. Abuse screen: Denies threats or abuse. Nutritional screening: No deficits noted. Tuberculosis screening: No symptoms or risk factors identified. Assessment: 18:34 General: Appears in no apparent distress. comfortable, Behavior is calm, cooperative, me1 appropriate for age. Pain: Denies pain. Neuro: Level of Consciousness is awake, alert, obeys commands, Oriented to person, place, time, situation, Appropriate for age. Cardiovascular: Patient's skin is warm and dry. Respiratory: Airway is patent Respiratory effort is even, unlabored, Respiratory pattern is regular, symmetrical. GI: Abdomen is round Reports nausea. : No signs and/or symptoms were reported regarding the genitourinary system. EENT: No signs and/or symptoms were reported regarding the EENT system. Derm: Skin is intact, is healthy with good turgor, Skin is dry, Skin is jaundiced. Musculoskeletal: No signs and/or symptoms reported regarding the musculoskeletal system. Vital Signs: 17:36 BP 90 / 44; Pulse 71; Resp 18; Temp 98.6(O); Pulse Ox 98% on R/A; MAP 57 mmHg; Weight tm6 86.18 kg; Height 5 ft. 1 in. ; 18:30 BP 112 / 56; Pulse 79; Resp 16; Pulse Ox 98% ; me1 19:00 BP 106 / 55; Pulse 72; Resp 16; Pulse Ox 98% ; me1 17:36 Body Mass Index 35.90 (86.18 kg, 154.94 cm) tm6 ED Course: 17:23 Patient arrived in ED. ra3 17:23 Renée Ordonez PA-C is PHCP. sb4 17:23 Shady Trujillo MD is Attending Physician. sb4 17:38 Arm band placed on right wrist. tm6 18:23 Francoise Rivera, RN is Primary Nurse. me1 18:24 Triage completed. me1 18:34 Patient has correct armband on for positive identification. Bed in low position. Call me1 light in reach. Side rails up X2. Provided Education on: POC. Verbalized understanding. . Client placed on continuous cardiac and pulse oximetry monitoring. NIBP monitoring applied. Pulse ox on. NIBP on. 18:34 No provider procedures requiring assistance completed. me1 19:36 IV discontinued, intact, bleeding controlled, No redness/swelling at site. Pressure me1 dressing applied. Administered Medications: No medications were administered Medication: 18:34 VIS not applicable for this client. me1 Outcome: 19:15 Discharge ordered by MD. sb4 19:36 Discharged to home via wheelchair, me1 19:36 Condition: stable 19:36 Discharge instructions given to patient, Instructed on discharge instructions, follow up and referral plans. Demonstrated understanding of instructions, follow-up care, 19:37 Patient left the ED. me1 Signatures: Renée Ordonez PA-C PA-C sb4 Francoise Rivera, RN RN me1 Dawson Pat RN RN tm6 Luisa Dumas ra3 Corrections: (The following items were deleted from the chart) 18:24 17:37 Chief complaint: Patient states: called and said my sodium and hemoglobin are me1 low and told me to go to ER tm6
[2024-08-20 21:57] LABS: Anisocytosis 1+; Blood Morphology Comment NOTED (NOT SEEN); Macrocytosis 2+; Platelet Estimate DECR; White Blood Cell Scan OK (OK)
[2024-08-21 01:02] VITALS: TEMP 98.6; O2SAT 98
[2024-08-21 01:11] VITALS: BP 106/55
== END 2024-08-20 19:37 | disposition home or self-care (01) ==
LOC: ER 17:20
DX: K70.9 Alcoholic liver disease, unspecified (principal); D64.9 Anemia, unspecified; F32.A Depression, unspecified; I10 Essential (primary) hypertension; F43.10 Post-traumatic stress disorder, unspecified; F41.9 Anxiety disorder, unspecified; Z85.3 Personal history of malignant neoplasm of breast
CPT/HCPCS: 36415; 80053; 81003; 82140; 83930; 83935; 84300; 85025; 85610; 85730; 86850; 86900; 86901; 99283

== ENCOUNTER 2024-09-05 16:59 | Emergency (ER) | payer OTHER ==
[2024-09-05 18:44] LABS: PT Prothrombin Time 22.4 SECONDS (9.4-12.5); PTT, Activated Partial Thromb 47.4 SECONDS (24.3-36.9); Protime INR 2.04
[2024-09-05 18:52] LABS: Absolute Eosinophils 0.1 K/uL (0-0.5); Absolute Lymphocytes (CBC) 0.7 K/uL (0.7-4.9); Absolute Monocytes 0.4 K/uL (0.1-1.3); Absolute Neutrophil 2.5 K/uL (1.8-8.0); Basophils % 0.6 % (0-1.3); Eosinophils % 2.4 % (0-4.4); Hematocrit 21.2 % (36.0-45.0); Hemoglobin 7.4 g/dL (12.0-15.0); Lymphocytes % 18.5 % (15.3-44.8); MCH 41.8 pg (27.0-35.0); MCHC 34.7 g/dL (32.0-36.0); MCV 120.5 fL (80-100); MPV 8.5 fL (7.6-11.3); Monocytes % 10.2 % (3.3-12.3); Neutrophils % 68.3 % (41.7-73.7); Nucleated Red Blood Cells % 0.1 % (0-0); Platelets 81 thou/uL (152-406); RBC Red Blood Cell Count 1.76 M/uL (3.86-4.86); Red Cell Distribution Width 17.4 % (12.1-15.2)
[2024-09-05 18:58] LABS: Albumin 2.5 g/dL (3.4-5.0); Albumin/Globulin Ratio 0.6 (1.1-1.8); Anion Gap 8.9 mEq/L (5.0-15.0); Bilirubin Direct 6.2 mg/dL (0-0.2); Bilirubin Total 10.7 mg/dL (0.2-1.0); Globulin 4.4 g/dL (2.3-3.5); Protein, Total 6.9 g/dL (6.4-8.2)
[2024-09-05 18:59] LABS: Potassium 4.9 mEq/L (3.5-5.1)
[2024-09-05] MEDS ORDERED: IPRATROPIUM BROM 0.5MG/2.5ML ONE (19:21)
[2024-09-05] MEDS ORDERED: ALBUTEROL 2.5 MG/3 ML NEB SOL ONE (19:21)
[2024-09-05] MEDS ORDERED: FENTANYL CITR 100 MCG/2 ML ONE (19:22)
[2024-09-05 19:42] LABS: Anisocytosis 1+; Blood Morphology Comment NOTED (NOT SEEN); Platelet Estimate DECR; Polychromasia 1+; White Blood Cell Scan OK (OK)
[2024-09-05 19:43] LABS: Macrocytosis 2+; Ovalocytes SLIGHT; Poikilocytosis SLIGHT
[2024-09-05] MEDS ORDERED: NA CHLORIDE 0.9% 1,000 ML ONE (19:58)
[2024-09-05] MEDS ORDERED: NA CHLORIDE 0.9% 500 ML ONE (21:55)
[2024-09-06] MEDS ORDERED: ONDANSETRON 4 MG/2 ML VIAL ONE (02:05)
[2024-09-06] MEDS ORDERED: DIPHENHYDRAMINE 50 MG/ML VIAL ONE (02:05)
[2024-09-06] MEDS ORDERED: ALBUMIN HUMAN 25% 100 ML IV ONE (02:06)
--- NOTE | 2024-09-06 02:34 | ER ---
Nurse's Notes [facility] Name: Doreen Allison Age: 54 yrs Sex: Female : 1970 Arrival Date: 09/05/2024 Time: 16:59 Bed 14 Private MD: Diagnosis: Anemia, unspecified;Chronic Liver Cirrhosis , Anemia of chronic disease Presentation: 09/05 17:33 Chief complaint: Patient states: she was sent by her dr for a blood transfusion due to ap3 her hemoglobin reportedly being 6.5. patient also reports feeling fatigued. Coronavirus screen: At this time, the client does not indicate any symptoms associated with coronavirus-19. Ebola Screen: No symptoms or risks identified at this time. Initial Sepsis Screen: Does the patient meet any 2 criteria? Mean Arterial Pressure (MAP) < 65. Does the patient have a suspected source of infection? No. Patient's initial sepsis screen is negative. Risk Assessment: Do you want to hurt yourself or someone else? Patient reports no desire to harm self or others. Onset of symptoms is unknown. 17:33 Method Of Arrival: Wheelchair ap3 17:33 Acuity: LARRY 2 ap3 Triage Assessment: 17:35 General: Appears comfortable, ill, Behavior is calm, cooperative, appropriate for age, ap3 Reports fatigue for. Pain: Denies pain. Neuro: Level of Consciousness is awake, alert, obeys commands, Oriented to person, place, time, situation, Reports weakness in generalized weakness. Cardiovascular: Patient's skin is warm and dry. Respiratory: Reports cough that is productive, Airway is patent Respiratory effort is even, unlabored, Respiratory pattern is regular, symmetrical. TUBE TESTER: 09/06 03:04 Not kj2 Historical: - Allergies: 09/05 17:35 No Known Allergies; ap3 - PMHx: 17:35 Alcoholism; Anemia; Anxiety; breast cancer; depressive disorder; Hypertensive disorder; ap3 PTSD; - PSHx: 17:35 Left Mastectomy; right foot; ap3 - Immunization history:: Client reports having NOT received the Covid vaccine. - Infectious Disease History:: Denies. - Social history:: Smoking status: unknown. Screenin:37 Abuse screen: Denies threats or abuse. Nutritional screening: No deficits noted. ap3 Tuberculosis screening: No symptoms or risk factors identified. 19:17 [facility] ED Fall Risk Assessment (Adult) History of falling in the last 3 months, ph including since admission No falls in past 3 months (0 pts) Confusion or Disorientation No (0 pts) Intoxicated or Sedated No (0 pts) Impaired Gait No (0 pts) Mobility Assist Device Used No (0 pt) Altered Elimination No (0 pt) Score/Fall Risk Level 0 - 2 = Low Risk Oriented to surroundings, Maintained a safe environment, Hourly rounding (assess needs \T\ fall precautionary measures) done. Assessment: 18:00 General: Appears in no apparent distress. uncomfortable, Behavior is calm, cooperative, ph appropriate for age. General: Reports fatigue for. Pain: Denies pain. Neuro: Level of Consciousness is awake, alert, obeys commands, Oriented to person, place, time, situation. Cardiovascular: Reports fatigue, shortness of breath, Capillary refill < 3 seconds in bilateral fingers. Respiratory: Reports shortness of breath cough that is Airway is patent Respiratory effort is even, unlabored. Derm: Skin is jaundiced. Musculoskeletal: Circulation, motion, and sensation intact. Range of motion: intact in all extremities. 19:00 Reassessment: Patient appears in no apparent distress at this time. Patient is alert, kj2 oriented x 3, equal unlabored respirations, skin warm/dry/pink. Patient is alert/active/playful, equal unlabored respirations, skin warm/dry/pink. 20:30 Reassessment: Patient appears in no apparent distress at this time. Patient and/or kj2 family updated on plan of care and expected duration. Pain level reassessed. Patient is alert, oriented x 3, equal unlabored respirations, skin warm/dry/pink. 21:52 Reassessment: Patient appears in no apparent distress at this time. Patient and/or kj2 family updated on plan of care and expected duration. Pain level reassessed. Patient is alert, oriented x 3, equal unlabored respirations, skin warm/dry/pink. 22:10 Reassessment: transfusion started. kj2 22:25 Reassessment: patient tolerating blood transfusion well. kj2 22:40 Reassessment: Patient appears in no apparent distress at this time. Patient and/or kj2 family updated on plan of care and expected duration. Pain level reassessed. Patient is alert, oriented x 3, equal unlabored respirations, skin warm/dry/pink. 23:10 Reassessment: Patient appears in no apparent distress at this time. Patient and/or kj2 family updated on plan of care and expected duration. Pain level reassessed. Patient is alert, oriented x 3, equal unlabored respirations, skin warm/dry/pink. 09/06 01:05 Reassessment: Patient appears in no apparent distress at this time. Patient and/or kj2 family updated on plan of care and expected duration. Pain level reassessed. Patient is alert, oriented x 3, equal unlabored respirations, skin warm/dry/pink. blood transfusion stopped/complete. 02:59 Reassessment: Patient appears in no apparent distress at this time. Patient and/or kj2 family updated on plan of care and expected duration. Pain level reassessed. Patient is alert, oriented x 3, equal unlabored respirations, skin warm/dry/pink. Vital Signs: 09/05 17:33 BP 101 / 47; Pulse 77; Resp 17; Temp 97.8; Pulse Ox 91% on R/A; Weight 86.18 kg; ap3 19:00 BP 102 / 55; Pulse 80; Pulse Ox 100% on 3 lpm NC; kj2 19:47 BP 88 / 39; Pulse 79; Resp 18; Pulse Ox 100% on Nebulizer Mask; kj2 20:30 BP 91 / 62; Pulse 80; Resp 20; Pulse Ox 98% on 3 lpm NC; kj2 20:48 BP 91 / 62; ec2 22:10 BP 92 / 40; Pulse 82; Resp 20; Temp 98.5; Pulse Ox 97% on 2.5 lpm NC; kj2 22:15 BP 90 / 44; Pulse 80; Resp 18; Temp 98.5; Pulse Ox 97% on R/A; kj2 22:25 BP 103 / 40; Pulse 77; Resp 19; Temp 98.5; Pulse Ox 98% on 2.5 lpm NC; kj2 22:40 BP 95 / 44; Pulse 75; Resp 18; Temp 98.5; Pulse Ox 98% on 2.5 lpm NC; kj2 23:10 BP 97 / 44; Pulse 75; Resp 18; Temp 98.5; Pulse Ox 98% on 2.5 lpm NC; kj2 09/06 00:10 BP 102 / 58; Pulse 78; Resp 20; Temp 98.5; Pulse Ox 98% on 2.5 lpm NC; kj2 01:05 BP 112 / 56; Pulse 76; Resp 20; Temp 98.6; Pulse Ox 99% 2.5 lpm ; kj2 02:00 BP 100 / 60; Pulse 74; Resp 18; Pulse Ox 97% on 2.5 lpm NC; kj2 02:59 BP 126 / 65; Pulse 70; Resp 18; Temp 98.6; Pulse Ox 100% on 2.5 lpm NC; kj2 ED Course: 09/05 17:04 Patient arrived in ED. sj2 17:05 Shady Trujillo MD is Attending Physician. ec2 17:35 Triage completed. ap3 17:37 Arm band placed on left wrist. ap3 17:41 Sherri Soliz, RN is Primary Nurse. ph 17:53 Placed in gown. Client placed on continuous cardiac and pulse oximetry monitoring. NIBP ap3 monitoring applied. hall monitor on. Pulse ox on. NIBP on. Door closed. Noise minimized. Warm blanket given. Pillow given. 18:34 Ptt, Activated Sent. ph 18:34 PT-INR Sent. ph 18:34 CMP Sent. ph 18:34 CBC with Diff Sent. ph 18:34 Initial lab(s) drawn, by me, sent to lab. T\T\S collected, blood band applied to patient. ph Missed attempt(s): 20 gauge in right antecubital area. Bleeding controlled, band aid applied, catheter tip intact. 19:10 Provided Education on: CALL LIGHT. kj2 19:32 Inserted saline lock: 20 gauge in right antecubital area, using aseptic technique. kj2 Blood collected. Flushed with 10 mL NS. 21:00 Attending Physician role handed off by Shady Trujillo MD sp4 21:00 Butch Brunner MD is Attending Physician. sp4 12 00:14 No provider procedures requiring assistance completed. kj2 01:45 Assisted to bedside commode. kj2 03:06 IV discontinued, intact, bleeding controlled, No redness/swelling at site. Pressure kj2 dressing applied. Administered Medications: 09/05 19:32 Drug: DuoNeb Nebulize (3:1) (2.5 mg - 0.5 mg) 3 ml Nebulizer once Route: Nebulizer; kj2 09/06 03:07 Follow up: Response: No adverse reaction kj2 09/05 19:32 Drug: fentaNYL (PF) IVP 50 mcg IVP once Route: IVP; Site: right antecubital; kj2 09/06 03:07 Follow up: Response: No adverse reaction kj2 09/05 20:01 Drug: NS 0.9% IV 1000 ml IV at 1000 ml once; to be given as a bolus over 60 minutes kj2 Route: IV; Rate: 1000 ml; Site: right antecubital; 21:01 Follow up: IV Status: Completed infusion; IV Intake: 1000ml kj2 09/06 02:16 Drug: Albumin IVPB 25 grams 100 ml IVPB once; (Note: Albumin 25% concentration) Volume: kj2 100 ml; Route: IVPB; Site: right antecubital; 03:06 Follow up: Response: No adverse reaction; IV Status: Completed infusion; IV Intake: kj2 100ml 02:17 Drug: Ondansetron IVP 8 mg IVP once; over 2 minutes Route: IVP; Site: right antecubital;kj2 03:06 Follow up: Response: No adverse reaction kj2 02:17 Drug: diphenhydrAMINE IVP 25 mg IVP once Route: IVP; Site: right antecubital; kj2 03:06 Follow up: Response: No adverse reaction kj2 Medication: 09/05 19:17 VIS not applicable for this client. ph Intake: 21:01 IV: 1000ml; Total: 1000ml. kj2 09/06 03:06 IV: 100ml; Total: 1100ml. kj2 Outcome: 02:34 Discharge ordered by . sp4 03:05 Condition: stable kj2 03:05 Discharged to home via wheelchair, with family, kj2 03:05 Discharge instructions given to patient, Instructed on discharge instructions, follow up and referral plans. medication usage, Demonstrated understanding of instructions, follow-up care, medications, Prescriptions given X 1, 03:18 Patient left the ED. kj2 Signatures: Sherri Soliz RN RN ph Prokisch, Amanda, RN RN ap3 Potepalov, Sergey, MD MD sp4 Shady Trujillo MD MD ec2 Isaura Jonas RN RN kj2 Yudith Mora sj2 Corrections: (The following items were deleted from the chart) 09/05 18:50 18:34 BILIRUBIN, DIRECT+C.LAB.BRZ drawn and sent. EDMS 20:09 18:34 TYPE AND SCREEN+BB.LAB.BRZ drawn and sent. EDMS
--- NOTE | 2024-09-06 02:34 | EDPHYS ---
Physician Documentation [facility] Name: Doreen Allison Age: 54 yrs Sex: Female : 1970 Arrival Date: 09/05/2024 Time: 16:59 Bed 14 Private MD: ED Physician Butch Brunner HPI: 09/05 18:19 This 54 yrs old Female presents to ER via Wheelchair with complaints of ec2 Abnormal Lab Results. 18:19 Patient arrives today for evaluation of abnormal labs. Reports a history of alcoholism, ec2 history of liver cirrhosis. Patient reports that she had outpatient screening labs and was noted to be anemic with a hemoglobin was 6.5. Denies any black stools. Reports history of anemia and issues with blood counts in the past. Reports some general weakness and some shortness of breath as well.. TEAM PSYCHOLOGIST: 09/06 03:04 Not kj2 Historical: - Allergies: 09/05 17:35 No Known Allergies; ap3 - PMHx: 17:35 Alcoholism; Anemia; Anxiety; breast cancer; depressive disorder; Hypertensive disorder; ap3 PTSD; - PSHx: 17:35 Left Mastectomy; right foot; ap3 - Immunization history:: Client reports having NOT received the Covid vaccine. - Infectious Disease History:: Denies. - Social history:: Smoking status: unknown. ROS: 18:19 Constitutional: as per hpi ec2 Exam: 18:19 Constitutional: GEN: NAD Head: atraumatic Eyes: EOMI Ears: External ears are ec2 normal. CV: regular rate LUNGS: no respiratory distress ABD: non-distended SKIN: no evidence of rashes, jaundice appreciated, scleral icterus noted. MSK: no evidence of trauma Vital Signs: 17:33 BP 101 / 47; Pulse 77; Resp 17; Temp 97.8; Pulse Ox 91% on R/A; Weight 86.18 kg; ap3 19:00 BP 102 / 55; Pulse 80; Pulse Ox 100% on 3 lpm NC; kj2 19:47 BP 88 / 39; Pulse 79; Resp 18; Pulse Ox 100% on Nebulizer Mask; kj2 20:30 BP 91 / 62; Pulse 80; Resp 20; Pulse Ox 98% on 3 lpm NC; kj2 20:48 BP 91 / 62; ec2 22:10 BP 92 / 40; Pulse 82; Resp 20; Temp 98.5; Pulse Ox 97% on 2.5 lpm NC; kj2 22:15 BP 90 / 44; Pulse 80; Resp 18; Temp 98.5; Pulse Ox 97% on R/A; kj2 22:25 BP 103 / 40; Pulse 77; Resp 19; Temp 98.5; Pulse Ox 98% on 2.5 lpm NC; kj2 22:40 BP 95 / 44; Pulse 75; Resp 18; Temp 98.5; Pulse Ox 98% on 2.5 lpm NC; kj2 23:10 BP 97 / 44; Pulse 75; Resp 18; Temp 98.5; Pulse Ox 98% on 2.5 lpm NC; kj2 09/06 00:10 BP 102 / 58; Pulse 78; Resp 20; Temp 98.5; Pulse Ox 98% on 2.5 lpm NC; kj2 01:05 BP 112 / 56; Pulse 76; Resp 20; Temp 98.6; Pulse Ox 99% 2.5 lpm ; kj2 02:00 BP 100 / 60; Pulse 74; Resp 18; Pulse Ox 97% on 2.5 lpm NC; kj2 02:59 BP 126 / 65; Pulse 70; Resp 18; Temp 98.6; Pulse Ox 100% on 2.5 lpm NC; kj2 MDM: 09/05 17:38 Medical Screening Exam initiated ec2 18:19 Data reviewed: vital signs, nurses notes. ec2 19:28 ED course: Patient with symptomatic anemia, will transfuse a unit of blood, patient ec2 with baseline hyperbilirubinemia.. 21:01 ED course: Patient signed out pending blood transfusion and reassessment.. ec2 09/05 17:38 Order name: CBC with Diff; Complete Time: 21:00 ec2 09/05 17:38 Order name: CMP; Complete Time: 19:18 ec2 09/05 17:38 Order name: PT-INR; Complete Time: 18:51 ec2 09/05 17:38 Order name: Ptt, Activated; Complete Time: 18:51 ec2 09/05 18:50 Order name: Bilirubin Direct; Complete Time: 19:18 EDMS 09/05 19:19 Order name: Packed Rbc Leukored ec2 09/05 19:22 Order name: ABO/RH typing [facility] 09/05 19:22 Order name: Antibody Screen [facility] 09/05 19:43 Order name: CBC Smear Scan; Complete Time: 21:00 [facility] 09/05 17:38 Order name: IV ec2 09/05 18:45 Order name: Labs - recollect needed: recollect type and screen re band pt bd 09/05 19:19 Order name: Consent for Blood Transfusion ec2 Administered Medications: 19:32 Drug: DuoNeb Nebulize (3:1) (2.5 mg - 0.5 mg) 3 ml Nebulizer once Route: Nebulizer; 2 09/06 03:07 Follow up: Response: No adverse reaction [facility] 09/05 19:32 Drug: fentaNYL (PF) IVP 50 mcg IVP once Route: IVP; Site: right antecubital; kj2 09/06 03:07 Follow up: Response: No adverse reaction [facility] 09/05 20:01 Drug: NS 0.9% IV 1000 ml IV at 1000 ml once; to be given as a bolus over 60 minutes kj2 Route: IV; Rate: 1000 ml; Site: right antecubital; 21:01 Follow up: IV Status: Completed infusion; IV Intake: 1000ml kj2 09/06 02:16 Drug: Albumin IVPB 25 grams 100 ml IVPB once; (Note: Albumin 25% concentration) Volume: kj2 100 ml; Route: IVPB; Site: right antecubital; 03:06 Follow up: Response: No adverse reaction; IV Status: Completed infusion; IV Intake: kj2 100ml 02:17 Drug: Ondansetron IVP 8 mg IVP once; over 2 minutes Route: IVP; Site: right antecubital;kj2 03:06 Follow up: Response: No adverse reaction kj2 02:17 Drug: diphenhydrAMINE IVP 25 mg IVP once Route: IVP; Site: right antecubital; kj2 03:06 Follow up: Response: No adverse reaction kj2 Disposition Summary: 09/06/24 02:34 Discharge Ordered Notes: Please see your Food Production Associate for follow up Location: Home sp4 Problem: new sp4 Symptoms: have improved sp4 Condition: Stable sp4 Diagnosis - Anemia, unspecified sp4 - Chronic Liver Cirrhosis , Anemia of chronic disease sp4 Followup: sp4 - With: Private Physician - When: 7 - 10 days - Reason: Recheck today's complaints Discharge Instructions: - Discharge Summary Sheet sp4 - Blood Transfusion, Adult sp4 Forms: - Patient Portal Instructions sp4 Prescriptions: - ondansetron 8 mg Oral Tablet,disintegrating - take 1 tablet ORAL route every 8 hours PRN nausea; 30 tablet; Refills: 0, sp4 Product Selection Permitted Critical care time excluding procedures: 09/05 21:02 Critical care time: Bedside Care: 30 minutes. Total time: 30 minutes ec2 Signatures: Dispatcher [employer] EDAnamaria Larson Amanda RN RN ap3 Butch Brunner MD MD sp4 Shady Trujillo MD MD ec2 sIaura Jonas RN RN kj2 Corrections: (The following items were deleted from the chart) 18:20 18:19 Constitutional: GEN: NAD Head: atraumatic Eyes: EOMI Ears: External ears are ec2 normal. CV: regular rate LUNGS: no respiratory distress ABD: non-distended SKIN: no evidence of rashes MSK: no evidence of trauma ec2 18:50 17:53 BILIRUBIN, DIRECT+C.LAB.BRZ ordered. EDMS EDMS 20:09 17:39 TYPE AND SCREEN+BB.LAB.BRZ ordered. EDMS EDMS
[2024-09-06 03:55] VITALS: TEMP 98.6
[2024-09-06 03:58] VITALS: BP 126/65; O2SAT 100
== END 2024-09-06 03:18 | disposition home or self-care (01) ==
LOC: ER 16:59
PROC: 30233N1 Transfusion of Nonautologous Red Blood Cells into Peripheral Vein, Percutaneous Approach (ICD-10-PCS; principal; 2024-09-05)
DX: D64.9 Anemia, unspecified (principal); K70.30 Alcoholic cirrhosis of liver without ascites; F32.A Depression, unspecified; I10 Essential (primary) hypertension; F41.9 Anxiety disorder, unspecified; F43.10 Post-traumatic stress disorder, unspecified; Z85.3 Personal history of malignant neoplasm of breast
CPT/HCPCS: 96365; 96361; 85025; 36415; 86900; 86850; 85610; 86901; 85730; 86920; 82248; 80053; 96375; 99285; 36430; J1200; J7613; J7644; J3010; J2405; P9016; P9047; J7040; J7030

== ENCOUNTER 2024-10-13 17:15 | Emergency (ER) | payer OTHER ==
[2024-10-13] MEDS ORDERED: PANTOPRAZOLE 40 MG INJ ONE (18:39)
[2024-10-13] MEDS ORDERED: CEFTRIAXONE 1000 MG/VIAL ONE (18:54)
[2024-10-13] MEDS ORDERED: FUROSEMIDE 40 MG/4 ML VIAL ONE (18:54)
--- NOTE | 2024-10-13 19:09 | RAD REPORT ---
EXAM: Chest Single View HISTORY: COUGH COMPARISON: 06/29/2024 FINDINGS: LUNGS/PLEURA: Low lung volumes with prominence of the pulmonary interstitium. This may be accentuated as a result of low lung volumes and portable technique. MEDIASTINUM: The mediastinal silhouette is within normal limits. CARDIAC: Stable size and configuration. UPPER ABDOMEN: No significant abnormality. BONES: No acute abnormality. LINES/TUBES/OTHER: Surgical clips in the left axilla. IMPRESSION: Increased prominence of the pulmonary interstitium may be related to low lung volumes and portable [place] rather than edema and/or pneumonia. A chest CT is pending.
[2024-10-13 19:10] LABS: Absolute Eosinophils 0.1 K/uL (0-0.5); Absolute Lymphocytes (CBC) 0.8 K/uL (0.7-4.9); Absolute Monocytes 0.7 K/uL (0.1-1.3); Absolute Neutrophil 4.3 K/uL (1.8-8.0); Basophils % 0.4 % (0-1.3); Eosinophils % 1.6 % (0-4.4); Hematocrit 22.2 % (36.0-45.0); Hemoglobin 7.8 g/dL (12.0-15.0); Lymphocytes % 13.2 % (15.3-44.8); MCH 41.3 pg (27.0-35.0); MCHC 35.2 g/dL (32.0-36.0); MCV 117.3 fL (80-100); MPV 6.9 fL (7.6-11.3); Monocytes % 12.3 % (3.3-12.3); Neutrophils % 72.5 % (41.7-73.7); Nucleated Red Blood Cells % 0.1 % (0-0); Platelets 68 thou/uL (152-406); RBC Red Blood Cell Count 1.89 M/uL (3.86-4.86); Red Cell Distribution Width 19.1 % (12.1-15.2)
[2024-10-13 19:11] LABS: White Blood Cell Scan OK (OK)
[2024-10-13 19:12] LABS: Blood Morphology Comment NOTED (NOT SEEN); Macrocytosis 3+; Platelet Estimate DECR
[2024-10-13 19:36] LABS: ALT/SGPT 15 U/L (13-56); AST/SGOT 24 U/L (15-37); Albumin 2.1 g/dL (3.4-5.0); Albumin/Globulin Ratio 0.4 (1.1-1.8); Alkaline Phosphatase 86 U/L (45-117); Anion Gap 12.7 mEq/L (5.0-15.0); BUN Blood Urea Nitrogen 5 mg/dL (7-18); Bicarbonate 22 mEq/L (21-32); Bilirubin Indirect, Calculated 8.8 mg/dL (0.2-0.8); Bilirubin Total 23.8 mg/dL (0.2-1.0); Globulin 4.8 g/dL (2.3-3.5); Glomerular Filtration Rate 110 ml/min (=/>90); Glucose Level 113 mg/dL (74-106); Lipase 26 U/L (13-75); Magnesium 1.9 mg/dL (1.6-2.4); NT PRO-BNP 3164 pg/mL (<125); Potassium 3.7 mEq/L (3.5-5.1); Protein, Total 6.9 g/dL (6.4-8.2); Sodium Level 128 mEq/L (136-145); Troponin High Sensitivity 13.9 pg/mL (<58.9)
[2024-10-13 20:00] LABS: PT Prothrombin Time 26.8 SECONDS (9.4-12.5); PTT, Activated Partial Thromb 40.2 SECONDS (24.3-36.9); Protime INR 2.58
[2024-10-13 20:05] LABS: Barbiturates NEGATIVE (NEGATIVE); Benzodiazepines NEGATIVE (NEGATIVE); Cocaine NEGATIVE (NEGATIVE); METHAMPHETAM NEGATIVE (NEGATIVE); Methadone NEGATIVE (NEGATIVE); Opiates NEGATIVE (NEGATIVE); Phencyclidine NEGATIVE (NEGATIVE); THC Cannibis NEGATIVE (NEGATIVE)
[2024-10-13 20:07] LABS: Specific Gravity 1.007 (1.005-1.030); Sqamous Epithelial <5 /HPF (None Seen); Urine Bacteria None Seen /HPF (<20); Urine Bilirubin 2+ (Negative); Urine Blood Trace (Negative); Urine Clarity Turbid (Clear); Urine Color Dark-Yellow (Yellow); Urine Culture Reflex Order NOT NEEDED; Urine Glucose NEGATIVE (Negative); Urine Ketones NEGATIVE (Negative); Urine Microscopic Reflex YN ORDER UMIC; Urine Mucus Slight /HPF (None Seen); Urine Nitrite NEGATIVE (Negative); Urine Protein NEGATIVE (Negative); Urine RBC <5 /HPF (None Seen); Urine Urobilinogen Normal (Normal); Urine WBC <5 /HPF (<5); Urine pH 6.5 (5.0-7.0)
[2024-10-13 20:15] LABS: Specific Gravity 1.007 (1.005-1.030)
[2024-10-13] MEDS ORDERED: LORazepam 2 MG/ML VIAL ONE (21:06)
[2024-10-13] MEDS ORDERED: dilTIAZem HCL 25 MG/5 ML VIAL IV ONE (21:08)
[2024-10-13] MEDS ORDERED: ALBUMIN HUMAN 25% 100 ML IV ONE (21:08)
[2024-10-13] MEDS ORDERED: THIAMINE 200 MG/2 ML INJ ONE (22:12)
--- NOTE | 2024-10-13 22:22 | RAD REPORT ---
EXAMINATION: CT HEAD WITHOUT CONTRAST CT CERVICAL SPINE WITHOUT CONTRAST CLINICAL INDICATION: Female, 54 years old. Dizziness;Mental status change TECHNIQUE: Axial CT images from the skull base to the vertex without intravenous contrast. Axial CT i mages through the cervical spine were obtained without intravenous contrast. Sagittal and coronal reformatted images were created from the data set. Coronal and sagittal reformatted images were creat ed from the data set. One or more of the following dose reduction techniques were used: Automated exposure control, adjustment of the mA and/or kV according to patient size, and/or iterative reconstr uction. Unless otherwise specified, incidental findings do not require dedicated imaging follow-up. [id number]. COMPARISON: 06/09/2024 FINDINGS: Head: INTRACRANIAL: No acute intracranial hemorrhage. No hydrocephalus. No mass effect or midline shift. No significant white matter disease VASCULATURE: No visualized abnormalities in the arteries or dural venous sinuses. SCALP/SKULL: No significant soft tissue or osseous abnormalities. SINUSES: Trace left maxillary sinus thickening. Cervical spine: ALIGNMENT: The cervical spine has normal alignment without scoliosis or spondylolisthesis. BONE: Vertebral body heights are maintained. No aggressive osseous lesions. DEGENERATIVE CHANGES: Mild cervical spondylosis but without high-grade central spinal stenosis. SOFT TISSUE: No significant abnormalities in the soft tissue of the neck. The visualized lung apices are clear. IMPRESSION: No acute intracranial abnormality. No acute fracture or traumatic malalignment of the cervical spine.
--- NOTE | 2024-10-13 22:37 | RAD REPORT ---
EXAM: CT CHEST, ABDOMEN AND PELVIS WITHOUT CONTRAST CLINICAL INDICATION: Female, 54 years old jaundice TECHNIQUE: CT chest, abdomen and pelvis was performed, without IV contrast, as per department protoco l. Axial, sagittal and coronal reconstructions were obtained. One or more of the following dose reduction techniques were used: Automated exposure control, adjustment of the mA and/or kV according to the patient size, and/or iterative reconstruction. Unless otherwise specified, incidental findings do not require dedicated imaging follow-up. [id number]. COMPARISON: 06/09/2024 FINDINGS: The lack of intravenous contrast limits the sensitivity of this exam for evaluation of solid visceral organs, vascular structures, and retroperitoneum. Chest: LOWER NECK: Visualized thyroid gland and soft tissues are normal. Left mastectomy. LUNGS AND AIRWAYS: Atelectasis at the right lung base. Limited by motion..No suspicious and/or stable pulmonary nodules. PLEURA: No pleural effusion. No pneumothorax. Hemidiaphragms are normally positioned. MEDIASTINUM AND LYMPH NODES: No mediastinal mass or fluid collection. Normal size mediastinal, hilar, and axillary lymph nodes. Mild distal esophageal thickening. THORACIC AORTA: No thoracic aortic aneurysm. PULMONARY ARTERIES: Caliber is within normal limits. HEART: Mild cardiomegaly. Multivessel coronary artery diseaseNo significant pericardial effusion. Abdomen/Pelvis UPPER GI: No significant abnormality. LIVER: Cirrhotic liver morphology. GALLBLADDER/BILE DUCTS: Cholelithiasis without CT evidence of acute cholecystitis.? PANCREAS: No mass, ductal dilation, or lamin-pancreatic fluid. SPLEEN: Moderate splenomegaly. ADRENALS: No adrenal masses. KIDNEYS AND URETERS: No hydronephrosis.No renal calculi. ABDOMINAL AORTA AND OTHER VESSELS: Mild atherosclerotic changes. PERITONEUM: Moderate ascites LYMPH NODES: No pathologic lymphadenopathy. ABDOMINAL WALL: Severe body wall edema. SMALL BOWEL/COLON: Small bowel has normal course and caliber. No colonic wall thickening or pericolon ic inflammatory changes.Nonvisualized appendix but no secondary signs of acute appendicitis. URINARY BLADDER: Decompressed, not well assessed. Joy catheter. REPRODUCTIVE ORGANS: No pathologic process. MUSCULOSKELETAL: No acute or suspicious osseous abnormality. ADDITIONAL FINDINGS: None. IMPRESSION: 1. Cirrhosis with evidence of portal hypertension including moderate ascites and splenomegaly. Pronou nced body wall edema. 2. Motion artifact in the lungs but, grossly, no acute process.
--- NOTE | 2024-10-13 22:59 | EDPHYS ---
Physician Documentation [facility] Name: Doreen Allison Age: 54 yrs Sex: Female : 1970 Arrival Date: 10/13/2024 Time: 17:15 Bed 5 Private MD: ED Physician Fidel Myers HPI: 10/13 18:48 This 54 yrs old Female presents to ER via Wheelchair with complaints of Fall herman Injury, Head Injury Without LOC-Adult - Hallucinations. 18:48 Details of fall: The patient fell from an upright position, while standing, while herman walking. Onset: The symptoms/episode began/occurred 3 day(s) ago. Associated injuries: The patient sustained injury to the head, contusion. Severity of symptoms: At their worst the symptoms were mild, moderate, in the emergency department the symptoms are unchanged. Historical: - Allergies: 17:54 No Known Allergies; bp - PMHx: 17:54 Alcoholism; Anemia; Anxiety; breast cancer; depressive disorder; Hypertensive disorder; bp PTSD; Cirrhosis of liver; - PSHx: 17:54 Left Mastectomy; right foot; bp - Immunization history:: Adult Immunizations up to date. - Infectious Disease History:: Denies. - Social history:: Smoking status: unknown. ROS: 18:48 Constitutional: Positive for fatigue, herman 18:48 Cardiovascular: Positive for edema, orthopnea, palpitations, 18:48 Respiratory: Positive for cough, shortness of breath, at rest. 18:48 Abdomen/GI: Positive for abdominal pain, nausea, abdominal distension, 18:48 MS/extremity: Positive for swelling, of the right arm, left arm, right leg and left leg, 18:48 Neuro: Positive for altered mental status, weakness, Exam: 18:48 Constitutional: The patient appears obese, obviously ill, herman 18:48 Eyes: Periorbital structures: appear normal, no abrasion, no cellulitis, no contusion, no ecchymosis, no erythema, no laceration, no swelling, Pupils: no acute changes, equal, round, and reactive to light and accomodation, Extraocular movements: no acute changes, Conjunctiva: normal, Sclera: icterus, 18:48 Chest/axilla: Exam negative for acute changes, 18:48 Cardiovascular: Rate: tachycardic, actual rate is 107 bpm, Rhythm: regular, Pulses: Pulses are 4+ in bilateral radial, brachial, femoral, popliteal, posterior tibial and and dorsalis pedis arteries.. Edema: 4+ edema to level of right forearm, left midcalf, left forearm and right midcalf, JVD: is noted bilaterally, to the angle of the jaw, 18:48 Respiratory: mild respiratory distress is noted, Breath sounds: decreased breath sounds, that are mild, are located in both bases, rhonchi, that are mild, are scattered, stridor, is not appreciated, Respiratory rate: 24 18:48 Abdomen/GI: Inspection: distension, that is moderate, that is severe, Palpation: mild abdominal tenderness, in all quadrants, Liver: no appreciated palpable abnormalities, Hernia: not appreciated, 18:48 Musculoskeletal/extremity: ROM: intact in all extremities, Circulation is intact in all extremities. Sensation intact. Compartment Syndrome exam of affected extremity: is normal. Weight bearing: is unable to bear weight, DVT Exam: no appreciated bluish discoloration, no erythema, no increased warmth, swelling, 18:48 Neuro: Orientation: to person, place \T\ time. Mentation: is normal, appropriate for stated age, no acute changes, Memory: is normal, Cranial nerves: grossly normal, is grossly normal based on the patient's age, no acute changes, Cerebellar function: is grossly normal, is grossly normal based on the patient's age, Motor: is normal, Sensation: is normal, Gait: not tested. seizure activity, is not displayed by the patient, 20:08 ECG was reviewed by the Attending Physician. rt 21:49 ECG was reviewed by the Attending Physician. rt Vital Signs: 17:53 BP 130 / 61; Pulse 107; Resp 20; Temp 98; Pulse Ox 100% ; bp 20:00 BP 143 / 73; Pulse 115; Resp 19 S; Pulse Ox 96% on 3 lpm NC; ha1 21:00 BP 136 / 90; Pulse 151; Resp 19 S; Pulse Ox 96% on 3 lpm NC; ha1 21:57 BP 125 / 60; Pulse 107; Resp 18 S; Pulse Ox 97% on 3 lpm NC; ha1 22:30 BP 115 / 71; Pulse 114; Resp 21 S; Pulse Ox 97% on 3 lpm NC; ha1 23:15 BP 119 / 91; Pulse 117; Resp 20 S; Pulse Ox 97% on 3 lpm NC; ha1 10/14 00:00 BP 111 / 53; Pulse 102; Resp 18 S; Pulse Ox 98% on 3 lpm NC; ha1 01:00 BP 105 / 54; Pulse 105; Resp 20 S; Temp 98.2(T); Pulse Ox 98% on 3 lpm NC; ha1 Procedures: 10/13 18:53 Peripheral line: by aseptic technique a peripheral line was placed in the right [facility] external jugular vein. MDM: 17:25 Medical Screening Exam initiated herman 18:57 Differential diagnosis: Bronchitis CHF exacerbation, pneumonia, pulmonary edema, herman reactive airway disease, appendicitis, bowel obstruction, gastroesophageal reflux disease, GI Bleed, Hepatitis, non-specific abd pain, Peptic Ulcer Disease, Peritonitis, Pyelonephritis, Ureterolithiasis, urinary tract infection. Antibiotic administration: rocephin. Differential Diagnosis altered mental status, sepsis. Differential diagnosis: closed head injury, contusion, fracture, multiple trauma, sprain, strain. Immunization status: Influenza vaccine: within last 5 years. Data reviewed: vital signs, nurses notes, lab test result(s), EKG, radiologic studies, CT scan. I considered the following discharge prescriptions or medication management in the emergency department Medications were administered in the Emergency Department. See MAR. Independent interpretation of the following test(s) in the Emergency Department EKG: See my EKG interpretation above. Test considered but Not performed: Ultrasound no abd usg. Care significantly affected by the following chronic conditions: Hypertension, Obesity, Liver Disease, cirrhosis , bad valve. 19:08 ED course: edwin MYERS, ASSUMED CARE. [facility] 10/13 17:26 Order name: Acetaminophen; Complete Time: 19:42 [facility] 10/13 16: Order name: Basic Metabolic Panel; Complete Time: 19:42 [facility] 10/13 17: Order name: CBC with Diff; Complete Time: 19:13 [facility] 10/13 16: Order name: ETOH Level; Complete Time: 19:42 [facility] 10/13 16: Order name: Hepatic Function; Complete Time: 19:42 [facility] 10/13 17: Order name: PT-INR; Complete Time: 20:59 [facility] 10/13 17:26 Order name: Test, Urine; Complete Time: 20:59 [facility] 10/13 17: Order name: Ptt, Activated; Complete Time: 20:59 [facility] 10/13 17:26 Order name: Salicylate; Complete Time: 20:59 [facility] 10/13 17:26 Order name: Urinalysis w/ reflexes; Complete Time: 20:59 [facility] 10/13 17:26 Order name: Urine Drug Screen; Complete Time: 20:59 [facility] 10/13 17:55 Order name: AMMONIA; Complete Time: 19:42 sb4 10/13 18:11 Order name: Urine Culture [facility] 10/13 18:47 Order name: Blood Culture Adult (2) [facility] 10/13 18:47 Order name: Lactate w/ 2H reflex if indic. [facility] 10/13 19:04 Order name: Troponin High Sensitivity; Complete Time: 19:42 EDMS 10/13 19:04 Order name: NT PRO-BNP; Complete Time: 19:42 EDMN 10/13 19:04 Order name: Magnesium; Complete Time: 19:42 EDMN 10/13 19:04 Order name: Lipase; Complete Time: 19:42 EDMS 10/13 19:12 Order name: CBC Smear Scan; Complete Time: 19:13 EDMN 10/13 19:13 Order name: Type And Screen; Complete Time: 20:59 [facility] 10/13 17:26 Order name: CT Head C Spine; Complete Time: 22:40 [facility] 10/13 18:11 Order name: XRAY Chest (1 view); Complete Time: 19:13 [facility] 10/13 18:12 Order name: Chest Abd Pelvis Wo Con; Complete Time: 22:40 EDMN 10/13 17:26 Order name: EKG; Complete Time: 17:26 [facility] 10/13 17:26 Order name: EKG - Nurse/Tech; Complete Time: 19:29 [facility] 10/13 17:26 Order name: IV Saline Lock; Complete Time: 18:47 [facility] 10/13 17:26 Order name: Labs collected and sent; Complete Time: 18:47 [facility] 10/13 17:26 Order name: Suicide Screening ([place]); Complete Time: 21:59 [facility] 10/13 18:11 Order name: Cardiac monitoring; Complete Time: 18:23 [facility] 10/13 18:11 Order name: O2 Per Protocol; Complete Time: 18:23 [facility] 10/13 18:11 Order name: O2 Sat Monitoring; Complete Time: 18:23 [facility] 10/13 18:37 Order name: Joy; Complete Time: 19:24 [facility] EC:08 Rate is 116 beats/min. Rhythm is regular, Sinus tachycardia with No ectopy. QRS [place] is rt Normal. ND interval is normal. QRS interval is normal. QT interval is normal. No Q waves. No ST changes noted. Interpreted by me. 21:49 Rate is 150 beats/min. Rhythm is regular, Sinus tachycardia with Right bundle branch rt block. QRS [place] is Normal. ND interval is normal. QRS interval is normal. QT interval is normal. No Q waves. Administered Medications: 19:03 Drug: Pantoprazole IVP 40 mg IVP once Route: IVP; Site: right upper arm; ko1 19:30 Follow up: Response: No adverse reaction [facility] 19:03 Drug: Furosemide IVP 40 mg IVP once; give over 2 minutes Route: IVP; Site: right ko1 jugular; 19:30 Follow up: Response: No adverse reaction [facility] 21:12 Drug: Rocephin IV 1 grams IV at per protocol once; Given slow IV push per pharmacy 1 instructions Route: IV; Rate: per protocol; Site: right jugular; 21:50 Follow up: Response: No adverse reaction; IV Status: Completed infusion; IV Intake: [id number] 21:15 Drug: Diltiazem IVP 10 mg IVP once; Over 2 minutes Route: IVP; Site: right jugular; [facility] 21:50 Follow up: Response: No adverse reaction; Marked relief of symptoms; Cardiac rhythm ha1 changed 21:25 Drug: Ativan IVP 1 mg IVP once Route: IVP; Site: right jugular; [facility] 21:55 Follow up: Response: No adverse reaction; Marked relief of symptoms [facility] 21:32 Drug: Albumin IVPB 25 grams 100 ml IVPB once; (Note: Albumin 25% concentration) Volume: ha1 100 ml; Route: IVPB; Site: right jugular; 22:01 Follow up: Response: No adverse reaction; IV Status: Completed infusion; IV Intake: ha1 100ml 22:26 Drug: Thiamine IV 100 mg IV at calculated rate once Route: IV; Rate: calculated rate; 1 Site: right jugular; 23:00 Follow up: Response: No adverse reaction; IV Status: Completed infusion; IV Intake: [id number] 10/14 00:44 Not Given (Physician Discretion): [id number] mg IVP once; Over 2 minutes [facility] Disposition: 00:03 Critical Care:. rt Disposition Summary: 10/13/24 22:59 Transfer Ordered Notes: Transfer Location: [facility] rt Reason: Higher level of care rt Condition: Fair rt Problem: new rt Symptoms: have improved rt Accepting Physician: (10/14/24 01:41) ha1 Diagnosis - Altered mental status rt - Cirrhosis rt - Hyperbilirubinemia rt - Atrial flutter rt Forms: - Medication Reconciliation Form rt - SBAR form rt Critical care time excluding procedures: 00:03 Critical care time: Bedside Care: 30 minutes, Consultation: 10 minutes. Total time: 40 rt minutes Signatures: Dispatcher [employer] EDMS Nilesh Hdez MD MD cha Peltier, Brian RN RN bp Tootie Brown RN RN ha1 Elba Mead RN RN ko1 Fidel Myers MD MD rt Corrections: (The following items were deleted from the chart) 10/13 18:31 18:11 Chest Abdomen Pelvis Wo Con+CT.RAD.BRZ ordered. EDMS EDMS 19:03 18:11 LIPASE+C.LAB.BRZ ordered. EDMS EDMS 19:03 18:11 MAGNESIUM+C.LAB.BRZ ordered. EDMS EDMS 19:03 18:11 PROBNP+C.LAB.BRZ ordered. EDMS EDMS 19:03 18:11 Troponin High Sensitivity+C.LAB.BRZ ordered. EDMS EDMS 10/14 01:41 10/13 22:59 rt ha1
--- NOTE | 2024-10-13 22:59 | ER ---
Nurse's Notes [facility] Name: Doreen Allison Age: 54 yrs Sex: Female : 1970 Arrival Date: 10/13/2024 Time: 17:15 Bed 5 Private MD: Diagnosis: Altered mental status;Cirrhosis;Hyperbilirubinemia;Atrial flutter Presentation: 10/13 17:53 Chief complaint: Patient states: HALLUCINATIONS AND JAUNDICE. Coronavirus screen: At bp this time, the client does not indicate any symptoms associated with coronavirus-19. Ebola Screen: No symptoms or risks identified at this time. Initial Sepsis Screen: Does the patient meet any 2 criteria? HR > 90 bpm. No. Patient's initial sepsis screen is negative. Does the patient have a suspected source of infection? No. Patient's initial sepsis screen is negative. Risk Assessment: Do you want to hurt yourself or someone else?. Onset of symptoms is unknown. 17:53 Method Of Arrival: Wheelchair bp 17:53 Acuity: LARRY 3 bp Triage Assessment: 17:54 General: Appears in no apparent distress. uncomfortable, unkempt, Behavior is bp cooperative, appropriate for age, anxious. Pain: Denies pain. EENT: No deficits noted. Neuro: Level of Consciousness is awake, alert, obeys commands. Cardiovascular: Rhythm is sinus tachycardia. Respiratory: No deficits noted. GI: Abdomen is noted to have ascites. : No signs and/or symptoms were reported regarding the genitourinary system. Derm: No deficits noted. Musculoskeletal: No deficits noted. Historical: - Allergies: 17:54 No Known Allergies; bp - PMHx: 17:54 Alcoholism; Anemia; Anxiety; breast cancer; depressive disorder; Hypertensive disorder; bp PTSD; Cirrhosis of liver; - PSHx: 17:54 Left Mastectomy; right foot; bp - Immunization history:: Adult Immunizations up to date. - Infectious Disease History:: Denies. - Social history:: Smoking status: unknown. Screenin:04 [facility] ED Fall Risk Assessment (Adult) History of falling in the last 3 months, ko1 including since admission No falls in past 3 months (0 pts) Confusion or Disorientation Yes (5 pts) Intoxicated or Sedated No (0 pts) Impaired Gait Yes (1 pt) Mobility Assist Device Used Yes (1 pt) Altered Elimination No (0 pt) Score/Fall Risk Level 0 - 2 = Low Risk Oriented to surroundings, Maintained a safe environment, Educated pt \T\ family on fall prevention, incl call for assistance when getting out of bed, Assessed \T\ reinforced patient's understanding of fall precautions, Provided non-skid footwear, Hourly rounding (assess needs \T\ fall precautionary measures) done. Abuse screen: Denies threats or abuse. Denies injuries from another. Nutritional screening: No deficits noted. Tuberculosis screening: No symptoms or risk factors identified. Assessment: 18:45 General: Appears ill, Behavior is calm, cooperative, appropriate for age. Pain: ko1 Complains of pain in all over. Neuro: No deficits noted. Cardiovascular: Reports shortness of breath. Respiratory: Reports shortness of breath. GI: No deficits noted. : No deficits noted. EENT: No deficits noted. Derm: Skin is jaundiced. Musculoskeletal: No deficits noted. 19:20 General: Appears uncomfortable, ill, Behavior is cooperative. Pain: Complains of pain ha1 in all over body Pain does not radiate. Pain currently is 7 out of 10 on a pain scale. Quality of pain is described as aching. Neuro: Level of Consciousness is awake, alert, Oriented to person, place, situation. Cardiovascular: Reports shortness of breath, Heart tones S1 S2 present Capillary refill < 3 seconds Rhythm is sinus tachycardia. Respiratory: Reports shortness of breath at rest Airway is patent Respiratory effort is even, unlabored, Respiratory pattern is regular, symmetrical. GI: Abdomen is round distended, obese. Musculoskeletal: Circulation, motion, and sensation intact. Swelling present in abdomen, arms, and legs. 19:30 Reassessment: denies suicidal ideation. ha1 21:05 General: notified Dr. Ziegler of elevated heart rate . ha1 21:55 Reassessment: Patient and/or family updated on plan of care and expected duration. Pain ha1 level reassessed. Patient states feeling better. Patient states symptoms have improved. 22:30 Reassessment: Patient and/or family updated on plan of care and expected duration. Pain ha1 level reassessed. 10/14 00:14 Reassessment: nurse to nurse report given to BARBI Abebe. ha1 00:30 Reassessment: received verbal consent for transfer. ha1 01:30 Reassessment: Patient and/or family updated on plan of care and expected duration. Pain ha1 level reassessed. 01:30 Respiratory: Airway is patent Respiratory effort is even, unlabored, Respiratory ha1 pattern is regular, symmetrical. Vital Signs: 10/13 17:53 BP 130 / 61; Pulse 107; Resp 20; Temp 98; Pulse Ox 100% ; bp 20:00 BP 143 / 73; Pulse 115; Resp 19 S; Pulse Ox 96% on 3 lpm NC; ha1 21:00 BP 136 / 90; Pulse 151; Resp 19 S; Pulse Ox 96% on 3 lpm NC; ha1 21:57 BP 125 / 60; Pulse 107; Resp 18 S; Pulse Ox 97% on 3 lpm NC; ha1 22:30 BP 115 / 71; Pulse 114; Resp 21 S; Pulse Ox 97% on 3 lpm NC; ha1 23:15 BP 119 / 91; Pulse 117; Resp 20 S; Pulse Ox 97% on 3 lpm NC; ha1 10/14 00:00 BP 111 / 53; Pulse 102; Resp 18 S; Pulse Ox 98% on 3 lpm NC; ha1 01:00 BP 105 / 54; Pulse 105; Resp 20 S; Temp 98.2(T); Pulse Ox 98% on 3 lpm NC; ha1 ED Course: 10/13 17:19 Patient arrived in ED. ra3 17:25 Nilesh Hdez MD is Attending Physician. herman 17:49 Pao Ramirez RN is Primary Nurse. ap3 17:54 Triage completed. bp 17:54 Arm band placed on. bp 18:45 Initial lab(s) drawn, by me, sent to lab. Inserted saline lock: 22 gauge in right EJ, ko1 using aseptic technique. Blood collected. Flushed with 10 mL NS. 18:46 XRAY Chest (1 view) In Process Unspecified. EDMS 18:47 Acetaminophen Sent. ko1 18:47 Basic Metabolic Panel Sent. ko1 18:47 CBC with Diff Sent. ko1 18:47 ETOH Level Sent. ko1 18:47 Hepatic Function Sent. ko1 18:47 PT-INR Sent. ko1 18:48 Ptt, Activated Sent. ko1 18:48 Salicylate Sent. ko1 18:49 AMMONIA Sent. ko1 19:00 Report received from BARBI Godoy. ha1 19:01 Attending Physician role handed off by Nilesh Hdez MD rt 19:01 Fidel Ziegler MD is Attending Physician. rt 19:04 Patient has correct armband on for positive identification. Placed in gown. Bed in low ko1 position. Call light in reach. Provided Education on: labs. Client placed on continuous cardiac and pulse oximetry monitoring. NIBP monitoring applied. safety aide on. Door closed. Noise minimized. Lights dimmed. Warm blanket given. Pillow given. 19:20 First set of blood cultures drawn by me. vk 19:28 Type And Screen Sent. al5 19:40 Second set of blood cultures drawn by me. vk 19:49 Type And Screen Sent. vk 19:49 Blood Culture Adult (2) Sent. vk 19:49 Urine Culture Sent. vk 19:49 Urinalysis w/ reflexes Sent. vk 19:49 Urine Drug Screen Sent. vk 19:49 Test, Urine Sent. vk 20:00 Joy cath inserted, using sterile technique, 16 Fr., by clinical engineering manager, balloon inflated, to [facility] gravity drainage, urine specimen collected. 20:23 Blood Culture Adult (2) Sent. vk 20:24 Urine collected: clean catch specimen, clear, EKG done, by ED staff. vk 22:08 CT Head C Spine In Process Unspecified. EDMS 22:26 Chest Abd Pelvis Wo Con In Process Unspecified. EDMS 10/14 00:55 Transfer initiated \T\ 2348, doctor and admin accepteance received \T\2255. Nurse to nurse hw called to [phone], [facility] to transport. 01:33 No provider procedures requiring assistance completed. Patient transferred, IV remains ha1 in place. Administered Medications: 10/13 19:03 Drug: Pantoprazole IVP 40 mg IVP once Route: IVP; Site: right upper arm; ko1 19:30 Follow up: Response: No adverse reaction ha1 19:03 Drug: Furosemide IVP 40 mg IVP once; give over 2 minutes Route: IVP; Site: right ko1 jugular; 19:30 Follow up: Response: No adverse reaction ha1 21:12 Drug: Rocephin IV 1 grams IV at per protocol once; Given slow IV push per pharmacy ha1 instructions Route: IV; Rate: per protocol; Site: right jugular; 21:50 Follow up: Response: No adverse reaction; IV Status: Completed infusion; IV Intake: [id number] 21:15 Drug: Diltiazem IVP 10 mg IVP once; Over 2 minutes Route: IVP; Site: right jugular; ha1 21:50 Follow up: Response: No adverse reaction; Marked relief of symptoms; Cardiac rhythm ha1 changed 21:25 Drug: Ativan IVP 1 mg IVP once Route: IVP; Site: right jugular; ha1 21:55 Follow up: Response: No adverse reaction; Marked relief of symptoms ha1 21:32 Drug: Albumin IVPB 25 grams 100 ml IVPB once; (Note: Albumin 25% concentration) Volume: ha1 100 ml; Route: IVPB; Site: right jugular; 22:01 Follow up: Response: No adverse reaction; IV Status: Completed infusion; IV Intake: ha1 100ml 22:26 Drug: Thiamine IV 100 mg IV at calculated rate once Route: IV; Rate: calculated rate; ha1 Site: right jugular; 23:00 Follow up: Response: No adverse reaction; IV Status: Completed infusion; IV Intake: [id number] 10/14 00:44 Not Given (Physician Discretion): [id number] mg IVP once; Over 2 minutes ha1 Medication: 00:47 VIS not applicable for this client. ha1 Intake: 10/13 21:50 IV: 50ml; Total: 50ml. ha1 22:01 IV: 100ml; Total: 150ml. ha1 23:00 IV: 50ml; Total: 200ml. ha1 Output: 23:09 Urine: 1500ml (Joy); Total: 1500ml. ha1 Outcome: 22:59 ER care complete, transfer ordered by . rt 10/14 01:39 Transferred by ground [facility] to [facility], Transfer form completed. ha1 X-rays sent w/ patient. Condition: stable Instructed on the need for transfer, Demonstrated understanding of instructions, 01:41 Patient left the ED. ha1 Signatures: Dispatcher [employer] Nilesh Trevizo MD MD cha Peltier, Brian, RN RN bp Pao Ramirez RN RN ap3 Tootie Brown RN RN ha1 Elba Mead RN RN ko1 Fidel Ziegler MD MD rt Luisa Dumas ra3 Melissa Medina Amanda, RN RN al5 France Carlton Corrections: (The following items were deleted from the chart) 10/13 19: 18:49 LIPASE+C.LAB.BRZ drawn and sent. ko1 EDMS : 18:49 MAGNESIUM+C.LAB.BRZ drawn and sent. ko1 EDMS : 18:49 PROBNP+C.LAB.BRZ drawn and sent. ko1 EDMS : 18:49 Troponin High Sensitivity+C.LAB.BRZ drawn and sent. ko1 EDMS
[2024-10-14 02:43] VITALS: O2SAT 98
[2024-10-14 02:45] VITALS: BP 105/54; TEMP 98.2
--- NOTE | 2024-10-18 13:07 | EKG ---
Test Date: 2024-10-13 Test Time: 20:55:19 Vocational Teacher: MM MEASUREMENT RESULTS: Intervals: Rate: 150 ID: [id number] QRSD: 110 QT: 260 QTc: 410 Dinosaur: P: ID: [id number] QRS: 5 T: -8 INTERPRETIVE STATEMENTS: Sinus tachycardia Incomplete right bundle branch block Nonspecific T wave abnormality Abnormal ECG Compared to ECG 10/13/2024 19:33:41 Incomplete right bundle-branch block now present T-wave abnormality still present Electronically Signed On 10-18-24 13:01:55 L D RN by Dontrell Campa
--- NOTE | 2024-10-18 13:08 | EKG ---
Test Date: 2024-10-13 Test Time: 19:33:41 Wall Attendant: MORRIS MEASUREMENT RESULTS: Intervals: Rate: 116 MS: 132 QRSD: 110 QT: 334 QTc: 464 Saline: P: 73 MS: 132 QRS: 14 T: 27 INTERPRETIVE STATEMENTS: Sinus tachycardia Nonspecific T wave abnormality Abnormal ECG Compared to ECG 06/29/2024 18:08:55 Left ventricular hypertrophy no longer present T-wave abnormality still present Electronically Signed On 10-18-24 13:02:03 TOWER ERECTOR HELPER by Dontrell Campa
== END 2024-10-14 01:41 | disposition short-term general hospital (02) ==
LOC: ER 17:15
DX: R41.82 Altered mental status, unspecified (principal); I48.92 Unspecified atrial flutter; K74.60 Unspecified cirrhosis of liver; E80.6 Other disorders of bilirubin metabolism; I10 Essential (primary) hypertension; D64.9 Anemia, unspecified; F43.10 Post-traumatic stress disorder, unspecified; F41.9 Anxiety disorder, unspecified; F32.A Depression, unspecified
CPT/HCPCS: 93005; 87040 ×2; 87088; 85025; 81001; 87086; 80048; 36415; 82140; 86900; 83735; 86850; 81025; 85610; 86901; 80076; 83605; 85730; 87077; 87186; 84484; 83690; 83880; 80307; 70450; 71250; 72125; 74176; 71045; 51702; 99285; 80143; 80179; 82077; J3411; J1940; J2470; P9047; J0696

== ENCOUNTER 2024-10-30 21:07 | Emergency (ER) | payer OTHER ==
[2024-10-30] MEDS ORDERED: NOREPINEPHRINE BITARTRATE/D5W 4 MG/250 ML BAG IV ONE (21:27)
[2024-10-30] MEDS ORDERED: ALBUMIN HUMAN 25% 100 ML IV ONE (21:27)
[2024-10-30 21:57] LABS: Absolute Lymphocytes (CBC) 0.4 K/uL (0.7-4.9); Absolute Monocytes 0.5 K/uL (0.1-1.3); Absolute Neutrophil 4.1 K/uL (1.8-8.0); Basophils % 0.6 % (0-1.3); Eosinophils % 0.7 % (0-4.4); Hematocrit 20.3 % (36.0-45.0); Hemoglobin 7.4 g/dL (12.0-15.0); Lymphocytes % 7.5 % (15.3-44.8); MCH 39.8 pg (27.0-35.0); MCHC 36.7 g/dL (32.0-36.0); MCV 108.5 fL (80-100); MPV 8.7 fL (7.6-11.3); Monocytes % 9.9 % (3.3-12.3); Neutrophils % 81.3 % (41.7-73.7); Nucleated Red Blood Cells % 0.2 % (0-0); Platelets 45 thou/uL (152-406); RBC Red Blood Cell Count 1.87 M/uL (3.86-4.86); Red Cell Distribution Width 26.8 % (12.1-15.2)
--- NOTE | 2024-10-30 22:05 | RAD REPORT ---
EXAM: Chest Single View HISTORY: ABDOMINAL DISTENTION COMPARISON: 10/13/2024 FINDINGS: LUNGS/PLEURA: No pulmonary edema. Increased elevation of the right hemidiaphragm. This could be secon bryson to a subpulmonic effusion. MEDIASTINUM: The mediastinal silhouette is within normal limits. CARDIAC: The cardiac silhouette is within normal limits. UPPER ABDOMEN: No significant abnormality. BONES: No acute abnormality. LINES/TUBES/OTHER: N/A IMPRESSION: New apparent elevation of the right hemidiaphragm could be from a subpulmonic effusion. The lungs are otherwise clear. Reference forthcoming CT.
[2024-10-30 22:08] LABS: Albumin 2.2 g/dL (3.4-5.0); Albumin/Globulin Ratio 0.5 (1.1-1.8); Anion Gap 12.2 mEq/L (5.0-15.0); Bilirubin Total 20.9 mg/dL (0.2-1.0); C-Reactive Protein 11.4 mg/L (<3.00); Globulin 4.5 g/dL (2.3-3.5); Potassium 5.2 mEq/L (3.5-5.1); Protein, Total 6.7 g/dL (6.4-8.2); Troponin High Sensitivity 38.5 pg/mL (<58.9)
[2024-10-30 22:10] LABS: PT Prothrombin Time 22.1 SECONDS (9.4-12.5); PTT, Activated Partial Thromb 45.3 SECONDS (24.3-36.9); Protime INR 2.12
[2024-10-30] MEDS ORDERED: FENTANYL CITR 100 MCG/2 ML ONE (22:44)
[2024-10-30 23:51] LABS: Blood Morphology Comment NOTED (NOT SEEN); Platelet Estimate DECR; White Blood Cell Scan OK (OK)
[2024-10-30] MEDS ORDERED: CEFTRIAXONE 1000 MG/VIAL ONE (23:51)
[2024-10-30] MEDS ORDERED: NA CHLORIDE 0.9% 50 ML ONE (23:51)
[2024-10-30 23:52] LABS: Anisocytosis 2+; Burr Cells 2+; Macrocytosis 1+
--- NOTE | 2024-10-31 01:52 | RAD REPORT ---
EXAM: CT Head Without Intravenous Contrast CLINICAL HISTORY: The patient is 54 years old and is Female; CONFUSED TECHNIQUE: Axial computed tomography images of the head/brain without intravenous contrast. Sagittal and cor onal reformatted images were created and reviewed. This CT exam was performed using one or more of the following dose reduction techniques: automated exposure control, adjustment of the mA and/or kV according to patient size, and/or use of iterative reconstruction technique. COMPARISON: CT of the head October 13, 2024 FINDINGS: BRAIN: Unremarkable. The baker-white matter differentiation is preserved . No hemorrhage. No s ignificant white matter disease. No edema. No extra-axial fluid collections. VENTRICLES: Unremarkable. No ventriculomegaly. BONES/JOINTS: No acute fracture. SOFT TISSUES: Unremarkable. SINUSES: Unremarkable as visualized. No acute sinusitis. MASTOID AIR CELLS: Unremarkable as visualized. No mastoid effusion. ORBITS: Unremarkable as visualized. IMPRESSION: No acute intracranial findings. Electronically signed by: Quita Phelps MD 10/31/2024 01:07 AM [facility] Due to temporary technical issues with the PACS/Private Outlet reporting system, reports are being natali d by the in-house radiologist without review as a courtesy to ensure prompt reporting the interpreting radiologist is fully responsible for the content of the report. Transcribed Date/Time: 10/31/2024 1:51 AM
--- NOTE | 2024-10-31 01:59 | EDPHYS ---
Physician Documentation [facility] Name: Doreen Allison Age: 54 yrs Sex: Female : 1970 Arrival Date: 10/30/2024 Time: 21:07 Bed 3 Private MD: ED Physician Butch Brunner HPI: 10/30 21:16 This 54 yrs old Female presents to ER via Unassigned with complaints of sp4 general complaint . 10/31 01:53 54-year-old female with history of alcoholism, liver failure, liver cirrhosis, sp4 depression, anxiety, history of breast cancer left-sided radical mastectomy presents with acute generalized edema associated with generalized weakness. Patient states she was managed for liver disease at [facility] and left AMA 2 days ago on Tuesday. At home patient developed progressive severe edema associated with generalized weakness and then arrived here with EMS.. 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 - Infectious Disease History:: unk. - Social history:: Smoking status: unknown. ROS: 10/31 01:54 Constitutional: Negative for fever, chills, and weight loss, positive for generalized sp4 weakness, positive for diffuse swelling, positive for jaundice, positive for bilateral lower extremity swelling All other systems are negative, Exam: 01:59 Constitutional: Ill-appearing female diffusely edematous, signs of anasarca, there is sp4 diffuse jaundice, scleral icterus, generalized weakness, moderate severe physical deconditioning, exhausted peripheral access, multiple weeping wounds to bilateral lower extremities. Head/Face: Normocephalic, atraumatic. Eyes: Pupils equal round and reactive to light, extra-ocular motions intact. Lids and lashes normal. Pronounced bilateral scleral icterus. Cornea within normal limits. Periorbital areas with no swelling, redness, or edema. ENT: Nares patent. No nasal discharge, no septal abnormalities noted. Tympanic membranes are normal and external auditory canals are clear. Oropharynx with no redness, swelling, or masses, exudates, or evidence of obstruction, uvula midline. Mucous membranes moist. Neck: Trachea midline, no thyromegaly or masses palpated, and no cervical lymphadenopathy. Supple, full range of motion without nuchal rigidity, or vertebral point tenderness. Chest/axilla: Normal chest wall appearance and motion. Nontender with no deformity. No lesions are appreciated. Cardiovascular: Regular rate and rhythm with a normal S1 and S2. No gallops, murmurs, or rubs. Normal PMI, positive JVD, diffuse pitting edema Respiratory: Lungs have equal breath sounds bilaterally, clear to auscultation and percussion. No rales, rhonchi or wheezes noted. No increased work of breathing, no retractions or nasal flaring. Abdomen/GI: Soft, with normal bowel sounds. No distension or tympany. No guarding or rebound. No evidence of tenderness throughout. Back: No spinal tenderness. No costovertebral tenderness. Skin: Warm, dry with normal turgor. Diffuse jaundice and pallor MS/ Extremity: Pulses equal, no cyanosis. Neurovascular intact. Moderate to severe bilateral lower extremity swelling with pitting edema. Bilateral arm edema. Neuro: Awake and alert, GCS 15, oriented to person, place, time, and situation. Cranial nerves II-XII grossly intact. Motor strength 5/5 in all extremities. Sensory grossly intact. 01:59 ECG was reviewed by the Attending Physician. EKG at 2119 normal sinus rhythm rate 71 prolonged QT otherwise normal. Vital Signs: 10/30 21:15 BP 84 / 43; Pulse 71; Resp 20; Temp 97.4(O); Pulse Ox 96% on 2 lpm NC; jb4 21:25 Weight 103.42 kg (M); jb4 21:55 BP 111 / 52; Pulse 74; Resp 24; Temp 97.4; Pulse Ox 95% on 2 lpm NC; Pain 10/10; bm8 23:20 BP 111 / 99; Pulse 76; Resp 12; Temp 97.5; Pulse Ox 93% on 2 lpm NC; Pain 8/10; bm8 05 00:32 BP 116 / 68; Pulse 75; Resp 18; Temp 97.5; Pulse Ox 97% on 2 lpm NC; Pain 8/10; bm8 02:10 BP 112 / 48; Pulse 76; Resp 19; Temp 97.5; Pulse Ox 98% on 2 lpm NC; Pain 8/10; bm8 03:37 BP 100 / 49; Pulse 77; Resp 17; Temp 97.5; Pulse Ox 96% on 2 lpm NC; Pain 5/10; bm8 05:28 BP 108 / 49; Pulse 76; Resp 17; Temp 97.5; Pulse Ox 97% on 3 lpm NC; Pain 3/10; bm8 21:55 Pain Scale: Adult bm8 23:20 Pain Scale: Adult bm8 10/31 00:32 Pain Scale: Adult bm8 02:10 Pain Scale: Adult bm8 03:37 Pain Scale: Adult bm8 05:28 Pain Scale: Adult bm8 Swathi Coma Score: 10/30 21:55 Eye Response: spontaneous(4). Motor Response: obeys commands(6). Verbal Response: bm8 oriented(5). Total: 15. 23:20 Eye Response: spontaneous(4). Motor Response: obeys commands(6). Verbal Response: bm8 oriented(5). Total: 10/31 00:32 Eye Response: spontaneous(4). Motor Response: obeys commands(6). Verbal Response: bm8 oriented(5). Total: 15. 01:59 Eye Response: spontaneous(4). Motor Response: obeys commands(6). Verbal Response: sp4 oriented(5). Total: 15. 02:10 Eye Response: spontaneous(4). Motor Response: obeys commands(6). Verbal Response: bm8 oriented(5). Total: 15. 03:37 Eye Response: spontaneous(4). Motor Response: obeys commands(6). Verbal Response: bm8 oriented(5). Total: 15. 05:28 Eye Response: spontaneous(4). Motor Response: obeys commands(6). Verbal Response: bm8 oriented(5). Total: 15. Procedures: 01:52 Central Line: the site was prepped with Betadine, in sterile fashion, a triple lumen sp4 catheter was inserted, in the left internal jugular vein, in 1 attempts. placement was verified, by CXR, by blood return, Ultrasound-guided central line, the site was dressed with 4X4s, Tegaderm, using sterile technique, the patient tolerated the procedure, well, Ultrasound-guided central line was placed for resuscitation. 04:35 Central Line: the site was prepped with Betadine, in sterile fashion, Left triple-lumen sp4 CVL was found in the left subclavian vein. It was taken out instead of the right internal jugular CVL was placed, a triple lumen catheter was inserted, in the right internal jugular vein, in 1 attempts. placement was verified, by CXR, by blood return, Ultrasound-guided central line, the site was dressed with 4X4s, Tegaderm, using sterile technique, the patient tolerated the procedure, well, Right internal jugular CVL placed with ultrasound guidance. MDM: 10/30 21:23 Medical Screening Exam initiated sp4 10/31 01:16 ED course: EXAM: CT Head Without Intravenous Contrast CLINICAL HISTORY: The patient is sp4 54 years old and is Female; CONFUSED TECHNIQUE: Axial computed tomography images of the head/brain without intravenous contrast. Sagittal and coronal reformatted images were created and reviewed. This CT exam was performed using one or more of the following dose reduction techniques: automated exposure control, adjustment of the mA and/or kV according to patient size, and/or use of iterative reconstruction technique. COMPARISON: CT of the head October 13, 2024 FINDINGS: BRAIN: Unremarkable. The baker-white matter differentiation is preserved . No hemorrhage. No significant white matter disease. No edema. No extra-axial fluid collections. VENTRICLES: Unremarkable. No ventriculomegaly. BONES/JOINTS: No acute fracture. SOFT TISSUES: Unremarkable. SINUSES: Unremarkable as visualized. No acute sinusitis. MASTOID AIR CELLS: Unremarkable as visualized. No mastoid effusion. ORBITS: Unremarkable as visualized. IMPRESSION: No acute intracranial findings.. ED course: EXAM: Chest Single View HISTORY: ABDOMINAL DISTENTION COMPARISON: 10/13/2024 FINDINGS: LUNGS/PLEURA: No pulmonary edema. Increased elevation of the right hemidiaphragm. This could be secondary to a subpulmonic effusion. MEDIASTINUM: The mediastinal silhouette is within normal limits. CARDIAC: The cardiac silhouette is within normal limits. UPPER ABDOMEN: No significant abnormality. BONES: No acute abnormality. LINES/TUBES/OTHER: N/A IMPRESSION: New apparent elevation of the right hemidiaphragm could be from a subpulmonic effusion. The lungs are otherwise clear. Reference forthcoming CT. . 01:59 Differential Diagnosis altered mental status, sepsis, flu, Hepatorenal syndrome. Data sp4 reviewed: vital signs, EMS record, old medical records, lab test result(s), EKG, radiologic studies, CT scan, plain films. Consideration of Admission/Observation Escalation of care including admission/observation considered. Management of patient was discussed with the following: Senior Clerk: ICU attending. 02:02 ED course: Patient was declined by [facility] secondary to capacity, patient was sp4 declined by [facility]. . 02:39 ED course: COMPARISON: CT October 13, 2024 FINDINGS: ARTIFACTS: The exam is suboptimal sp4 secondary to motion artifact. LIMITATIONS: Examination is limited secondary to the lack of contrast. CHEST: LUNGS: Atelectasis within the right middle lobe and right lower lobe is noted the lungs are otherwise relatively clear. PLEURAL SPACE: Persistent moderate right pleural effusion is present. No pneumothorax. HEART: The heart is enlarged. ABDOMEN: LIVER: The liver is mildly cirrhotic with a nodular contour. GALLBLADDER AND BILE DUCTS: Multiple gallstones are present within the gallbladder. PANCREAS: Unremarkable. No ductal dilation. SPLEEN: The spleen is enlarged and homogeneous. ADRENALS: Unremarkable. No mass. 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 There is no hydronephrosis or hydroureter of either kidney. No obstructing renal or ureteral calculus is seen. STOMACH AND BOWEL: The stomach is minimally filled with fluid and air. The small bowel is decompressed. A moderate amount of stool is present throughout the colon. There is no mucosal thickening or evidence of obstruction. PELVIS: APPENDIX: The appendix is normal in caliber without surrounding inflammation. BLADDER: A Joy catheter is present within the bladder which is decompressed. No stones. REPRODUCTIVE: Unremarkable as visualized. CHEST, ABDOMEN and PELVIS: INTRAPERITONEAL SPACE: Small /moderate volume ascites is present throughout the abdomen and pelvis. No free air. BONES/JOINTS: Surgical clips within the left ankle is present. SOFT TISSUES: Extensive diffuse body wall edema is noted. Evidence of a left mastectomy is noted. VASCULATURE: Unremarkable. No aortic aneurysm. LYMPH NODES: Prominent right axillary lymph nodes are noted. IMPRESSION: 1. Persistent moderate right pleural effusion with associated atelectasis within the right middle and right lower lobe. 2. Extensive diffuse body wall edema. 3. Cirrhotic liver, splenomegaly, and axkt-md-oeapaait volume ascites, similar to prior exam. 4. Cholelithiasis. No definite CT evidence to suggest acute cholecystitis. 5. No bowel obstruction. Electronically signed by: Quita Phelps MD 10/31/2024 02:10 AM . 10/30 21:21 Order name: Blood Culture Adult (2) sp4 10/30 21:21 Order name: CBC with Diff; Complete Time: 00:32 sp4 10/30 21:21 Order name: CMP; Complete Time: 23:25 sp4 10/30 21:21 Order name: Lactate w/ 2H reflex if indic.; Complete Time: 23:25 sp4 10/30 21:21 Order name: Protime (+inr); Complete Time: 23:25 sp4 10/30 21:21 Order name: Ptt, Activated; Complete Time: 23:25 sp4 10/30 21:21 Order name: Urinalysis w/ reflexes sp4 10/30 21:21 Order name: ABG; Complete Time: 05:31 sp4 10/30 21:22 Order name: AMMONIA; Complete Time: 23:25 sp4 10/30 21:22 Order name: CRP; Complete Time: 23:25 sp4 10/30 21:22 Order name: Troponin High Sensitivity; Complete Time: 23:25 sp4 10/30 21:22 Order name: BNP; Complete Time: 23:25 sp4 10/30 22:03 Order name: CBC Smear Scan; Complete Time: 00:32 EDMS 10/30 21:21 Order name: Chest Single View XRAY; Complete Time: 23:25 sp4 10/30 21:22 Order name: CT Head Brain wo Cont; Complete Time: 03:25 sp4 10/30 21:22 Order name: CT Chest Abdomen Pelvis W/O Contrast; Complete Time: 03:25 sp4 10/31 04:32 Order name: Chest Single View XRAY sp4 10/30 21:21 Order name: EKG; Complete Time: 21: sp4 10/30 21:21 Order name: Cardiac monitoring; Complete Time: :54 sp4 10/30 21:21 Order name: Cath; Complete Time: 23:30 sp4 10/30 21:21 Order name: EKG - Nurse/Tech; Complete Time: :54 sp4 10/30 21:21 Order name: IV Saline Lock - Large Bore; Complete Time: :54 sp4 10/30 21:21 Order name: Labs collected and sent; Complete Time: :54 sp4 10/30 21:21 Order name: O2 Per Protocol; Complete Time: : sp4 10/30 21:21 Order name: O2 Sat Monitoring; Complete Time: sp4 10/30 21:21 Order name: Vital Signs; Complete Time: :54 sp4 10/30 21:23 Order name: Central Line Kit; Complete Time: sp4 10/30 21:23 Order name: Central Line Dressing Kit; Complete Time: sp4 10/30 21:23 Order name: Chlorhexidine prep; Complete Time: : sp4 10/30 21:23 Order name: Consent for central line completed; Complete Time: sp4 10/30 21:23 Order name: Line Caps x3; Complete Time: sp4 10/30 21:23 Order name: NS Flushes x3; Complete Time: :54 sp4 10/30 21:23 Order name: Sterile Gloves; Complete Time: sp4 10/30 21:23 Order name: Sterile Probe Cover; Complete Time: sp4 EC/04 21:19 Rate is 71 beats/min. Rhythm is regular, Normal Sinus Rhythm. QRS [place] is Normal. [place] sp4 interval is normal. QRS interval is normal. QT interval is prolonged. No Q waves. T waves are Normal. No ST changes noted. Clinical impression: No evidence of ischemia. Interpreted by me. Reviewed by me. Administered Medications: 21:53 Drug: Norepinephrine IV 0.1 mcg/kg/min IV at calculated rate See Administration bm8 Instructions; (Standard concentration 4 mg / 250 mL D5W); Recommended max rate 3 mcg/kg/min; Titrate 0.05 mcg/kg/min as often as every 5 minutes to achieve goal (see titration policy); Goal parameter MAP greater than 65 mmHg. Route: IV; Rate: calculated rate; Site: right forearm; 10/31 05:31 Follow up: Response: No adverse reaction; IV Status: Infusion continued upon transfer [facility] 10/30 21:54 Drug: Albumin IVPB 25 grams 100 ml IVPB once; (Note: Albumin 25% concentration) Volume: bm8 100 ml; Route: IVPB; Site: right forearm; 23:22 Follow up: Response: No adverse reaction; IV Status: Completed infusion; IV Intake: bm8 100ml 22:52 Drug: fentaNYL (PF) IVP 50 mcg IVP once Route: IVP; Site: right forearm; [facility] 22:56 Follow up: Response: No adverse reaction [facility] 10/31 00:00 Drug: Rocephin - Rocephin (cefTRIAXone) IVPB 1 grams IVPB once over 30 mins; (mix in 50 bm8 mL NS) Route: IVPB; Infused Over: 30 mins; Site: right forearm; 00:33 Follow up: Response: No adverse reaction; IV Status: Completed infusion; IV Intake: [id number] 02:11 Drug: NS 0.9% IV 1000 ml IV at 75 ml/hr Per protocol; to be given as a bolus over 60 bm8 minutes Route: IV; Rate: 75 ml/hr; Site: right forearm; 05:30 Follow up: Response: No adverse reaction; IV Status: Infusion continued upon transfer; 8 IV Intake: 75ml 02:11 Drug: Furosemide IVP 80 mg IVP once; give over 2 minutes Route: IVP; Site: right 8 forearm; 02:26 Follow up: Response: No adverse reaction 8 02:11 Drug: fentaNYL (PF) IVP 50 mcg IVP once Route: IVP; Site: right forearm; 8 02:26 Follow up: Response: No adverse reaction 8 02:36 Drug: Albumin IVPB 25 grams 100 ml IVPB once; (Note: Albumin 25% concentration) Volume: bm8 100 ml; Route: IVPB; Site: right forearm; 05:30 Follow up: Response: No adverse reaction; IV Status: Completed infusion; IV Intake: bm8 100ml Disposition Summary: 10/31/24 01:59 Transfer Ordered Notes: Transfer Location: Other Acute Care Facility sp4 Reason: Higher level of care sp4 Condition: Serious sp4 Problem: new sp4 Symptoms: have improved sp4 Accepting Physician: Attending physician(10/31/24 05:32) bm8 Diagnosis - Generalized edema sp4 - Generalized edema, hepatorenal syndrome, hepatorenal failure, symptomatic anemia, sp4 coagulopathy, congestive heart failure, volume overload - Exhausted peripheral access, sp4 Forms: - Medication Reconciliation Form sp4 - SBAR form sp4 Critical care time excluding procedures: 02:40 Critical care time: Bedside Care: 46 minutes, Consultation: 12 minutes, Family sp4 Intervention: 12 minutes. Total time: 70 minutes Signatures: Dispatcher [employer] EDDionte Meeks, RN RN jb4 Butch Brunner MD MD sp4 Sundar Duran RN RN bm8 Corrections: (The following items were deleted from the chart) 10/30 21:21 21:21 BLOOD CULTURE*+BA.LAB.BRZ ordered. EDMS EDMS 21:21 21:21 CBC+H.LAB.BRZ ordered. EDMS EDMS 21:21 21:21 COMPREHENSIVE METABOLIC PANEL+C.LAB.BRZ ordered. EDMS EDMS 21:21 21:21 LACTATE+C.LAB.BRZ ordered. EDMS EDMS 21:21 21:21 PROTIME (+INR)+COAG.LAB.BRZ ordered. EDMS EDMS 21:21 21:21 PTT, ACTIVATED+COAG.LAB.BRZ ordered. EDMS EDMS 21:21 21:21 Urinalysis+U.LAB.BRZ ordered. EDMS EDMS 21:21 21:21 Chest Single View+RAD.RAD.BRZ ordered. EDMS EDMS 21:22 21:21 Arterial Blood Gas+RC.LAB.BRZ ordered. EDMS EDMS 21:23 21:23 AMMONIA+C.LAB.BRZ ordered. EDMS EDMS 21:23 21:23 C-REACTIVE PROTEIN+C.LAB.BRZ ordered. EDMS EDMS 21:23 21:23 Troponin High Sensitivity+C.LAB.BRZ ordered. EDMS EDMS 21:23 21:23 PROBNP+C.LAB.BRZ ordered. EDMS EDMS 21:54 21:21 Accucheck ordered. alisia guzman 10/31 05:04 01:52 Chest Single View+RAD.RAD.BRZ ordered. EDMS EDMS 05:32 01:59 Attending physician alisia [email or web address]
--- NOTE | 2024-10-31 01:59 | ER ---
Nurse's Notes [facility] Name: Doreen Allison Age: 54 yrs Sex: Female : 1970 Arrival Date: 10/30/2024 Time: 21:07 Bed 3 Private MD: Diagnosis: Generalized edema;Generalized edema, hepatorenal syndrome, hepatorenal failure, symptomatic anemia, coagulopathy, congestive heart failure, volume overload;Exhausted peripheral access, Presentation: 10/30 21:15 Chief complaint: EMS states: Pt called EMS reporting SOB and liver failure. Pt was at [address] in [place] and left AMA. Tonight has +3 pitting edema to RODNEY upper and lower extremities. 92% on RA, placed on 2L NC and satting 95%. Coronavirus screen: At this time, the client does not indicate any symptoms associated with coronavirus-19. Ebola Screen: No symptoms or risks identified at this time. Initial Sepsis Screen: Does the patient meet any 2 criteria? HR > 90 bpm. Yes Does the patient have a suspected source of infection? No. Patient's initial sepsis screen is negative. Risk Assessment: Do you want to hurt yourself or someone else? Patient reports no desire to harm self or others. Onset of symptoms was October 30, 2024. Transition of care: patient was not received from another setting of care. 21:15 Method Of Arrival: EMS: [facility] 21:15 Acuity: LARRY 2 jb4 Triage Assessment: 21:17 General: Appears distressed, uncomfortable, ill, obese, Behavior is cooperative, jb4 anxious. Pain: Complains of pain in neck Pain does not radiate. Pain currently is 7 out of 10 on a pain scale. EENT: No signs and/or symptoms were reported regarding the EENT system. Neuro: Level of Consciousness is awake, alert, obeys commands, Oriented to person, place, time, situation. Cardiovascular: Heart tones S1 S2 Patient's skin is warm and dry. Edema is 4+ to RODNEY upper and lower extremities and abdomen pitting to RODNEY upper and lower extremities and abdomen. Respiratory: Airway is patent Respiratory effort is even, unlabored, Respiratory pattern is regular, symmetrical, Breath sounds are clear bilaterally. GI: Abdomen is obese. Derm: Skin is intact, Skin is dry, Skin is jaundiced, Skin temperature is warm. Musculoskeletal: Circulation, motion, and sensation intact. Range of motion: intact in all extremities. 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 - Infectious Disease History:: unk. - Social history:: Smoking status: unknown. Screenin:55 [facility] ED Fall Risk Assessment (Adult) History of falling in the last 3 months, bm8 including since admission No falls in past 3 months (0 pts) Confusion or Disorientation No (0 pts) Intoxicated or Sedated No (0 pts) Impaired Gait Yes (1 pt) Mobility Assist Device Used Yes (1 pt) Altered Elimination Yes (1 pt) Score/Fall Risk Level 3 or more points = High Risk Oriented to surroundings, Maintained a safe environment, Educated pt \T\ family on fall prevention, incl call for assistance when getting out of bed, Assessed \T\ reinforced patient's understanding of fall precautions, Hourly rounding (assess needs \T\ fall precautionary measures) done, Used ambulatory aids as needed (educated on \T\ assisted with), Used gait belt as appropriate Implemented a Fall Risk Plan of Care. Abuse screen: Denies threats or abuse. Nutritional screening: No deficits noted. Tuberculosis screening: No symptoms or risk factors identified. Assessment: 21:55 General: Appears distressed, uncomfortable, unkempt, Behavior is cooperative, bm8 appropriate for age. Pain: Complains of pain in neck Pain currently is 10 out of 10 on a pain scale. Quality of pain is described as aching, crampy. Neuro: No deficits noted. Level of Consciousness is awake, alert, obeys commands, Oriented to person, place, time, situation, Appropriate for age. Cardiovascular: Denies chest pain, Heart tones S1 S2 present Capillary refill < 3 seconds in bilateral fingers Rhythm is sinus rhythm. Respiratory: Airway is patent Respiratory effort is even, unlabored, Respiratory pattern is regular, symmetrical, Breath sounds are clear bilaterally. pt on 2l nc for comfort. GI: Abdomen is round distended, noted to have ascites, Anasarca Bowel sounds Hepatomegaly noted Reports nausea. : No signs and/or symptoms were reported regarding the genitourinary system. EENT: No signs and/or symptoms were reported regarding the EENT system. Derm: Skin is yellow, pt has weeping wounds on right inner upper arm, left forearm, left and right calf Reports. Musculoskeletal: No signs and/or symptoms reported regarding the musculoskeletal system. 23:20 Reassessment: Patient appears in no apparent distress at this time. Patient and/or bm8 family updated on plan of care and expected duration. Pain level reassessed. Patient is alert, oriented x 3, equal unlabored respirations, skin warm/dry/pink. pt had a loose bowel movement and was cleaned and redressed. Linen changed, pt repositioned for comfort. Patient states symptoms have not improved. 10/31 00:32 Reassessment: Patient appears in no apparent distress at this time. No changes from bm8 previously documented assessment. Patient and/or family updated on plan of care and expected duration. Pain level reassessed. Patient is alert, oriented x 3, equal unlabored respirations, skin warm/dry/pink. 02:10 Reassessment: Patient appears in no apparent distress at this time. No changes from bm8 previously documented assessment. Patient and/or family updated on plan of care and expected duration. Pain level reassessed. Patient is alert, oriented x 3, equal unlabored respirations, skin warm/dry/pink. Patient states symptoms have not improved. 03:37 Reassessment: Patient appears in no apparent distress at this time. Patient and/or bm8 family updated on plan of care and expected duration. Pain level reassessed. Patient is alert, oriented x 3, equal unlabored respirations, skin warm/dry/pink. Pain: Pain currently is 5 out of 10 on a pain scale. 03:53 Reassessment: report to [facility], given to BARBI Barajas. bm8 Vital Signs: 10/30 21:15 BP 84 / 43; Pulse 71; Resp 20; Temp 97.4(O); Pulse Ox 96% on 2 lpm NC; jb4 21:25 Weight 103.42 kg (M); jb4 21:55 BP 111 / 52; Pulse 74; Resp 24; Temp 97.4; Pulse Ox 95% on 2 lpm NC; Pain 10/10; bm8 23:20 BP 111 / 99; Pulse 76; Resp 12; Temp 97.5; Pulse Ox 93% on 2 lpm NC; Pain 8/10; bm8 05 00:32 BP 116 / 68; Pulse 75; Resp 18; Temp 97.5; Pulse Ox 97% on 2 lpm NC; Pain 8/10; bm8 02:10 BP 112 / 48; Pulse 76; Resp 19; Temp 97.5; Pulse Ox 98% on 2 lpm NC; Pain 8/10; bm8 03:37 BP 100 / 49; Pulse 77; Resp 17; Temp 97.5; Pulse Ox 96% on 2 lpm NC; Pain 5/10; bm8 05:28 BP 108 / 49; Pulse 76; Resp 17; Temp 97.5; Pulse Ox 97% on 3 lpm NC; Pain 3/10; bm8 21:55 Pain Scale: Adult bm8 23:20 Pain Scale: Adult bm8 05 00:32 Pain Scale: Adult bm8 02:10 Pain Scale: Adult bm8 03:37 Pain Scale: Adult bm8 05:28 Pain Scale: Adult bm8 [place] Coma Score: 10/30 21:55 Eye Response: spontaneous(4). Motor Response: obeys commands(6). Verbal Response: bm8 oriented(5). Total: 15. 23:20 Eye Response: spontaneous(4). Motor Response: obeys commands(6). Verbal Response: bm8 oriented(5). Total: 15. 10/31 00:32 Eye Response: spontaneous(4). Motor Response: obeys commands(6). Verbal Response: bm8 oriented(5). Total: 15. 01:59 Eye Response: spontaneous(4). Motor Response: obeys commands(6). Verbal Response: sp4 oriented(5). Total: 15. 02:10 Eye Response: spontaneous(4). Motor Response: obeys commands(6). Verbal Response: bm8 oriented(5). Total: 15. 03:37 Eye Response: spontaneous(4). Motor Response: obeys commands(6). Verbal Response: bm8 oriented(5). Total: 15. 05:28 Eye Response: spontaneous(4). Motor Response: obeys commands(6). Verbal Response: bm8 oriented(5). Total: 15. ED Course: 10/30 21:13 Patient arrived in ED. jb4 21:16 Butch Brunner MD is Attending Physician. sp4 21:17 Triage completed. jb4 21:17 Arm band placed on right wrist. EKG completed in triage. Results shown to MD. jb4 21:25 Initial lab(s) drawn, by me, sent to lab. First set of blood cultures drawn by me, EKG bm8 done, by ED staff, reviewed by Butch Brunner MD X-ray(s) taken. Inserted saline lock: 18 gauge in right forearm, using aseptic technique. Blood collected. Flushed with 10 mL NS. 21:40 Inserted saline lock: 20 gauge in right forearm, using aseptic technique. Blood bm8 collected. Flushed with 10 mL NS. 21:40 Second set of blood cultures drawn by me. Oxygen administration via nasal cannula \T\ bm8 2L/min Response to oxygen therapy: symptoms improved. 21:43 Chest Single View XRAY In Process Unspecified. EDMS 21:53 Sundar Duran, RN is Primary Nurse. bm8 21:55 Patient has correct armband on for positive identification. Bed in low position. Call bm8 light in reach. Side rails up X2. LIMB ALERT TO LEFT ARM DUE TO BREAST MASTECTOMY. Client placed on continuous cardiac and pulse oximetry monitoring. NIBP monitoring applied. quality assurance monitor chassis on. Pulse ox on. NIBP on. Door closed. Noise minimized. Warm blanket given. Pillow given. Verbal reassurance given. Head of bed elevated. 23:13 Joy cath inserted, using sterile technique, 16 Fr., by me, balloon inflated, to vk gravity drainage. 23:29 Blood Culture Adult (2) Sent. vk 23:30 CBC with Diff Sent. vk 23:30 ABG Sent. vk 23:43 CT Head Brain wo Cont In Process Unspecified. EDMS 23:48 CT Chest Abdomen Pelvis W/O Contrast In Process Unspecified. EDMS 02 01:06 Initiated transfer with Leta at [facility]. rv1 01:29 [facility] declined due to capacity. rv1 01:41 Initiated transfer with Hector at [facility]. rv1 01:47 [facility] declined at all campus' due to capacity. [facility] does not have capability. rv1 02:36 Attempting to Initiate with [facility], on hold for 15 mins. Will continue to [facility] wait, provider notified. 02:37 Assisted provider with central line placement. Set up central line tray. Triple lumen bm8 line placed in left internal jugular. Line placed by Butch Brunner MD Placement verified by cxr showed improper placement. provider aware. Dressed with Tegaderm, Patient tolerated well. Before procedure, did Practitioner(s) obtain informed consent? Yes. Patient \T\ family education about procedure, CLABSI prevention and S/S of infection? Yes. Time-out/Briefing performed prior to start of procedure? Yes. Was handwashing/sanitizing done immediately prior to procedure? Yes. Was patient positioned to in a way to prevent air embolism? Yes. Was procedure site sterilized? Yes, with chlorhexidine. Was the site allowed to dry? Yes. Was local anesthetic and/or sedation utilized? Yes. During the procedure, did the Practitioner(s) maintain a sterile field? Yes. Were unused ports clamped during insertion? Yes. Was blood aspirated from each lumen? Yes. After the procedure, did the Practitioner(s) clean the site and apply a sterile dressing? Yes. 02:47 Initiated transfer with Jese at [facility]. rv1 02:52 [facility] declined due to lack of capability. rv1 02:54 Initiated transfer with Jag at [facility]. rv1 03:25 Doc to Doc with [facility]. rv1 03:[address] Valdivia to [facility] ICU. Report #[id number]. rv1 04:15 Transfer delayed due to provider needing to start another central line. rv1 04:43 Assisted provider with central line placement. Set up central line tray. Triple lumen bm8 line placed in right internal jugular. Line placed by Butch Brunner MD Placement verified by CXR, Dressed with Tegaderm, Patient tolerated well. Before procedure, did Practitioner(s) obtain informed consent? Yes. Patient \T\ family education about procedure, CLABSI prevention and S/S of infection? Yes. Time-out/Briefing performed prior to start of procedure? Yes. Was handwashing/sanitizing done immediately prior to procedure? Yes. Was patient positioned to in a way to prevent air embolism? Yes. Was procedure site sterilized? Yes, with chlorhexidine. Was the site allowed to dry? Yes. Was local anesthetic and/or sedation utilized? Yes. During the procedure, did the Practitioner(s) maintain a sterile field? Yes. Were unused ports clamped during insertion? Yes. Was a 2nd qualified MD obtained after 3 unsuccessful insertion attempts? N/A. Was blood aspirated from each lumen? Yes. After the procedure, did the Practitioner(s) clean the site and apply a sterile dressing?. 05:04 Chest Single View XRAY In Process Unspecified. EDMT 05:28 Provided Education on: need for transfer. [facility] 05:30 Patient transferred, IV remains in place. [facility] Administered Medications: 10/30 21:53 Drug: Norepinephrine IV 0.1 mcg/kg/min IV at calculated rate See Administration 8 Instructions; (Standard concentration 4 mg / 250 mL D5W); Recommended max rate 3 mcg/kg/min; Titrate 0.05 mcg/kg/min as often as every 5 minutes to achieve goal (see titration policy); Goal parameter MAP greater than 65 mmHg. Route: IV; Rate: calculated rate; Site: right forearm; 10/31 05:31 Follow up: Response: No adverse reaction; IV Status: Infusion continued upon transfer [facility] 10/30 21:54 Drug: Albumin IVPB 25 grams 100 ml IVPB once; (Note: Albumin 25% concentration) Volume: bm8 100 ml; Route: IVPB; Site: right forearm; 23:22 Follow up: Response: No adverse reaction; IV Status: Completed infusion; IV Intake: bm8 100ml 22:52 Drug: fentaNYL (PF) IVP 50 mcg IVP once Route: IVP; Site: right forearm; [facility] 22:56 Follow up: Response: No adverse reaction [facility] 10/31 00:00 Drug: Rocephin - Rocephin (cefTRIAXone) IVPB 1 grams IVPB once over 30 mins; (mix in 50 bm8 mL NS) Route: IVPB; Infused Over: 30 mins; Site: right forearm; 00:33 Follow up: Response: No adverse reaction; IV Status: Completed infusion; IV Intake: 12uune5 02:11 Drug: NS 0.9% IV 1000 ml IV at 75 ml/hr Per protocol; to be given as a bolus over 60 bm8 minutes Route: IV; Rate: 75 ml/hr; Site: right forearm; 05:30 Follow up: Response: No adverse reaction; IV Status: Infusion continued upon transfer; bm8 IV Intake: 75ml 02:11 Drug: Furosemide IVP 80 mg IVP once; give over 2 minutes Route: IVP; Site: right bm8 forearm; 02:26 Follow up: Response: No adverse reaction bm8 02:11 Drug: fentaNYL (PF) IVP 50 mcg IVP once Route: IVP; Site: right forearm; bm8 02:26 Follow up: Response: No adverse reaction bm8 02:36 Drug: Albumin IVPB 25 grams 100 ml IVPB once; (Note: Albumin 25% concentration) Volume: bm8 100 ml; Route: IVPB; Site: right forearm; 05:30 Follow up: Response: No adverse reaction; IV Status: Completed infusion; IV Intake: bm8 100ml Medication: 10/30 21:55 VIS not applicable for this client. bm8 Intake: 23:22 IV: 100ml; Total: 100ml. bm8 10/31 00:33 IV: 50ml; Total: 150ml. bm8 05:30 IV: 100ml; Total: 250ml. bm8 05:30 IV: 75ml; Total: 325ml. bm8 Outcome: 01:59 ER care complete, transfer ordered by MD. crump 05:28 Transferred by ground EMS to [facility], Transfer form completed. X-rays sent bm8 w/ patient. 05:28 Condition: stable 05:28 Instructed on follow up and referral plans. the need for transfer, no drinking with medication, no driving heavy equipment, medication usage, safety practices, Demonstrated understanding of instructions, follow-up care, medications, 05:32 Patient left the ED. bm8 Signatures: Dispatcher [employer] EDDionte Meeks, RN RN [email or web address] Lina Leon rv1 Butch Brunner MD MD sp4 Melissa Medina Brad, RN RN bm8 Corrections: (The following items were deleted from the chart) 10/30 21:59 21:55 Derm: pt has weeping wounds on right inner upper arm, left forearm, left and bm8 right calf bm8 10/31 03:38 03:37 BP 100 / 49; Pulse 77bpm; Resp 17bpm; Pulse Ox 96% 2 lpm Nasal Cannula; Temp bm8 97.5F; Pain 6/10, Adult; bm8
[2024-10-31] MEDS ORDERED: NA CHLORIDE 0.9% 1,000 ML ONE (02:00)
[2024-10-31] MEDS ORDERED: FENTANYL CITR 100 MCG/2 ML ONE (02:00)
[2024-10-31] MEDS ORDERED: FUROSEMIDE 40 MG/4 ML VIAL ONE (02:00)
[2024-10-31] MEDS ORDERED: NOREPINEPHRINE BITARTRATE/D5W 4 MG/250 ML BAG IV ONE (02:03)
--- NOTE | 2024-10-31 02:14 | RAD REPORT ---
EXAM: CT Chest, Abdomen and Pelvis Without Intravenous Contrast CLINICAL HISTORY: The patient is 54 years old and is Female; ABDOMINAL DISTENTION TECHNIQUE: Axial computed tomography images of the chest, abdomen and pelvis without intravenous contrast. S agittal and coronal reformatted images were created and reviewed. This CT exam was performed using one or more of the following dose reduction techniques: automated exposure control, adjustmen t of the mA and/or kV according to patient size, and/or use of iterative reconstruction technique. COMPARISON: CT October 13, 2024 FINDINGS: ARTIFACTS: The exam is suboptimal secondary to motion artifact. LIMITATIONS: Examination is limited secondary to the lack of contrast. CHEST: LUNGS: Atelectasis within the right middle lobe and right lower lobe is noted the lungs are othe rwise relatively clear. PLEURAL SPACE: Persistent moderate right pleural effusion is present. No pneumothorax. HEART: The heart is enlarged. ABDOMEN: LIVER: The liver is mildly cirrhotic with a nodular contour. GALLBLADDER AND BILE DUCTS: Multiple gallstones are present within the gallbladder. PANCREAS: Unremarkable. No ductal dilation. SPLEEN: The spleen is enlarged and homogeneous. ADRENALS: Unremarkable. No mass. 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 There is no hydronephrosis or hydroureter of either kidney. No obstructing renal or ureteral calculus is seen. STOMACH AND BOWEL: The stomach is minimally filled with fluid and air. The small bowel is decompr essed. A moderate amount of stool is present throughout the colon. There is no mucosal thickening or evidence of obstruction. PELVIS: APPENDIX: The appendix is normal in caliber without surrounding inflammation. BLADDER: A Joy catheter is present within the bladder which is decompressed. No stones. REPRODUCTIVE: Unremarkable as visualized. CHEST, ABDOMEN and PELVIS: INTRAPERITONEAL SPACE: Small /moderate volume ascites is present throughout the abdomen and pelvi s. No free air. BONES/JOINTS: Surgical clips within the left ankle is present. SOFT TISSUES: Extensive diffuse body wall edema is noted. Evidence of a left mastectomy is noted. VASCULATURE: Unremarkable. No aortic aneurysm. LYMPH NODES: Prominent right axillary lymph nodes are noted. IMPRESSION: 1. Persistent moderate right pleural effusion with associated atelectasis within the right middle a nd right lower lobe. 2. Extensive diffuse body wall edema. 3. Cirrhotic liver, splenomegaly, and [id number] volume ascites, similar to prior exam. 4. Cholelithiasis. No definite CT evidence to suggest acute cholecystitis. 5. No bowel obstruction. Electronically signed by: Quita Phelps MD 10/31/2024 02:10 AM [facility] Due to temporary technical issues with the [email or web address] reporting system, reports are being natali d by the in-house radiologist without review as a courtesy to ensure prompt reporting the interpreting radiologist is fully responsible for the content of the report. Transcribed Date/Time: 10/31/2024 2:14 AM
[2024-10-31] MEDS ORDERED: ALBUMIN HUMAN 25% 100 ML IV ONE (02:30)
[2024-10-31 03:26] LABS: Arterial Blood Carboxyhemoglob 3.1 % (0-1.5); Blood Gas Oxyhemoglobin 51.8 % (94-97); Blood O2 Saturation 54.4 % (92-98.5)
[2024-10-31] MEDS ORDERED: NOREPINEPHRINE BITARTRATE/D5W 4 MG/250 ML KIT IV ONE (04:44)
[2024-10-31 06:03] VITALS: TEMP 97.5
[2024-10-31 06:09] VITALS: BP 108/49; O2SAT 97
--- NOTE | 2024-10-31 07:25 | RAD REPORT ---
EXAM: Chest Single View HISTORY: Right side central line COMPARISON: 10/30/2024 FINDINGS: LUNGS/PLEURA: Right-sided subpulmonic effusion. MEDIASTINUM: The mediastinal silhouette is within normal limits. CARDIAC: The cardiac silhouette is within normal limits. UPPER ABDOMEN: No significant abnormality. BONES: No acute abnormality. LINES/TUBES/OTHER: Interval placement of a right IJ approach central line with tip overlying the dist al SVC in satisfactory position. IMPRESSION: 1. Right IJ approach central line with tip overlying the distal SVC in satisfactory position. No pneu mothorax. 2. Right-sided subpulmonic effusion and associated atelectasis/consolidation.
--- NOTE | 2024-10-31 11:28 | EKG ---
Test Date: 2024-10-30 Test Time: 21:19:30 Manager Quality Improvement: DANG MEASUREMENT RESULTS: Intervals: Rate: 71 [place]: 156 QRSD: 98 QT: 470 QTc: 510 [place]: P: 36 [place]: 156 QRS: 48 T: 15 INTERPRETIVE STATEMENTS: Normal sinus rhythm Prolonged QT Abnormal ECG Compared to ECG 10/13/2024 20:55:19 Prolonged QT interval now present Sinus tachycardia no longer present Incomplete right bundle-branch block no longer present T-wave abnormality no longer present Electronically Signed On 10-31-24 11:27:28 APPOINTMENT CLERK by Dontrell Campa
== END 2024-10-31 05:32 ==
LOC: ER 21:07
DX: K76.7 Hepatorenal syndrome (principal); E87.70 Fluid overload, unspecified; D64.9 Anemia, unspecified; I50.9 Heart failure, unspecified; D68.9 Coagulation defect, unspecified; I87.2 Venous insufficiency (chronic) (peripheral); F10.20 Alcohol dependence, uncomplicated; I10 Essential (primary) hypertension; K74.60 Unspecified cirrhosis of liver; Z85.3 Personal history of malignant neoplasm of breast
CPT/HCPCS: 87040 ×2; 85025; 36415; 82140; 85610; 83605; 85730; 84484; 80053; 83880; 86140; 70450; 71250; 74176; 71045; J3010; P9047; J0696; 93005; J1940; J7030